=== PATIENT | male | born 1960 | race Caucasian/White ===

== ENCOUNTER → 2023-05-02 10:45 | Outpatient (REF) | payer BC, SELFPAY | LOC: RADI 10:45 | PROVIDERS: ATTENDING PHYSICIAN Specialist | DX: Z49.01 Encounter for fitting and adjustment of extracorporeal dialysis catheter (principal); N18.6 End stage renal disease | CPT/HCPCS: 36589; 77001 ==

== ENCOUNTER 2023-06-24 23:59 | Inpatient (IN) | payer BC, SELFPAY ==
[2023-06-24 22:09] VITALS: BP 115/46
[2023-06-24 22:14] LABS: Glucose - Point of Care > 600 mg/dl (70-99)
[2023-06-24 22:18] VITALS: BP 115/46
[2023-06-24 22:21] VITALS: BMI 25.7
[2023-06-24 22:30] LABS: % Basophils 0.3 % (0-2); % Eosinophils 0.1 % (0-6); % Lymphocytes 3.7 % (20.5-51.1); % Monocytes 8.1 % (1.7-9.3); % Neutrophils 86.8 % (42.2-75.2); Absolute Immature Granulocytes 0.2 10^3/uL (0-0.05); Absolute Lymphocytes 0.6 10^3/uL (1.2-3.4); Absolute Monocytes 1.3 10^3/uL (0.1-0.6); Absolute Neutrophils 13.5 10^3/uL (1.4-6.5); Hematocrit 31.5 % (39.0-52.0); Hemoglobin 10.2 g/dL (13.0-18.0); Mean Corp Hgb Conc. 32.4 g/dL (33.0-37.0); Mean Corpuscular Hgb 30.2 pg (27.0-31.0); Mean Corpuscular Volume 93.2 fL (80.0-94.0); Mean Platelet Volume 10.3 fL (7.4-10.4); Nucleated Red Blood Cells % 0 % (-); Platelet Count 238 10^3/uL (130-400); Red Blood Cell Count 3.38 10^6/uL (4.70-6.10); Red Cell Dist. Width 13.2 % (11.5-14.5); White Blood Cell Count 15.6 10^3/uL (4.8-10.8)
[2023-06-24 22:59] LABS: ALT (SGPT) 30 U/L (0-50); AST (SGOT) 26 U/L (17-59); Albumin 2.7 g/dl (3.5-5.0); Alkaline Phosphatase 206 U/L (38-126); Blood Urea Nitrogen 75 mg/dl (9-20); Calcium 7.1 mg/dl (8.4-10.2); Carbon Dioxide < 5 mmol/L (22-30); Chloride 93 mmol/L (98-107); Estimated Creatinine Clearance 11 ml/min; Potassium 5.9 mmol/L (3.5-5.1); Sodium 122 mmol/L (135-145); Total Bilirubin 0.7 mg/dl (0.2-1.3); Total Protein 4.5 g/dl (6.3-8.2); eGFR 8.89
[2023-06-24 23:00] VITALS: BP 117/92
[2023-06-24 23:05] LABS: Glucose 1125 mg/dl (70-99)
--- NOTE | 2023-06-24 23:16 | ED.GENMED ---
History of Present Illness
General
Chief Complaint: Blood Sugar Problem
Source: family
Exam Limitations: clinical condition
Time Seen by Provider: 06/24/23 23:05
Travel History
Have you had any contact with someone who has COVID-19?: No
Do you have any symptoms of coronavirus? Fever > 100 degrees, chills, cough, shortness of breath, sore throat, loss of taste or smell, muscle aches, or headache?: No
History of Present Illness
History of Present Illness:
See MDM
Past History
Past History
ED Past Medical History: HTN, IDDM and Renal failure
ED Past Surgical History: Orthopedic and Other
Social History
Tobacco: Other
Alcohol: Other
Drug: None
Personal:
Living: with family
Employment: Other
Family History
Family History: Other
Phy Exam
Physical Exam
Physical Exam:
See MDM
Course
Orders/Labs/Results
Orders:
Orders
06/24/23 22:22
Complete Blood Count/With Diff Urgent
Comprehensive Metabolic Panel Urgent
06/24/23 23:10
0.9% Sodium Chloride 1000 ml [Nss] 1,000 ml IV BOLUS
0.9% Sodium Chloride 1000 ml [Nss] 1,000 ml IV BOLUS
Reg Insulin 100 Units/100 ml [Novolin R Insulin Infusion] 100 units in 100 ml IV NOW
06/24/23 23:11
Bedside Glucose- Treatment Q1H
IV Insert/Care/Rem.- Treatment PRN
06/24/23 23:12
Venous Blood Gas Urgent
%Oxygen/Room Air: Room
06/24/23 23:15
Basic Metabolic Panel Q2H
Lactic Acid Q4H
Comment: CANCEL 2nd LACTIC ACID IF 1st LACTIC ACID IS LESS THAN 2
Urinalysis Reflex To Culture Urgent
Blood Culture Q30M
GUILLERMO Source: Blood/Venous
Specimen Description:
06/24/23 23:45
Blood Culture Q30M
GUILLERMO Source: Blood/Venous
Specimen Description:
06/25/23 01:15
Basic Metabolic Panel Q2H
06/25/23 03:15
Basic Metabolic Panel Q2H
Lactic Acid Q4H
Comment: CANCEL 2nd LACTIC ACID IF 1st LACTIC ACID IS LESS THAN 2
Abnormal Lab Results
06/24/23 06/24/23
22:12 22:22
WBC 15.6 H 10^3/uL
(4.8-10.8)
RBC 3.38 L 10^6/uL
(4.70-6.10)
Hgb 10.2 L g/dL
(13.0-18.0)
Hct 31.5 L %
(39.0-52.0)
MCHC 32.4 L g/dL
(33.0-37.0)
Abs Immat Gran (auto) 0.2 H 10^3/uL
(0-0.05)
Absolute Neuts (auto) 13.5 H 10^3/uL
(1.4-6.5)
Absolute Lymphs (auto) 0.6 L 10^3/uL
(1.2-3.4)
Absolute Monos (auto) 1.3 H 10^3/uL
(0.1-0.6)
Immature Gran % 1.0 H %
(0-0.5)
Neutrophils % 86.8 H %
(42.2-75.2)
Lymphocytes % 3.7 L %
(20.5-51.1)
Sodium 122 L mmol/L
(135-145)
Potassium 5.9 H mmol/L
(3.5-5.1)
Chloride 93 L mmol/L
(98-107)
Carbon Dioxide < 5 L* mmol/L
(22-30)
BUN 75 H mg/dl
(9-20)
Creatinine 6.5 H* mg/dL
(0.7-1.3)
Glucose 1125 H* mg/dl
(70-99)
Calcium 7.1 L mg/dl
(8.4-10.2)
Alkaline Phosphatase 206 H U/L
(38-126)
Total Protein 4.5 L g/dl
(6.3-8.2)
Albumin 2.7 L g/dl
(3.5-5.0)
POC Glucose > 600 H* mg/dl
(70-99)
06/24/23 22:22
Vital Signs
Initial and Last Documented VS:
Initial Vital Signs
Temp Pulse Resp BP Pulse Ox
98.2 F 86 20 115/46 99
06/24/23 22:09 06/24/23 22:09 06/24/23 22:09 06/24/23 22:09 06/24/23 22:09
Last Documented Vital Signs
Temp Pulse Resp BP Pulse Ox
98.2 F 85 27 117/92 99
06/24/23 22:09 06/24/23 23:00 06/24/23 23:00 06/24/23 23:00 06/24/23 22:45
MDM/Problems Addressed
Differential Diagnosis Includes:
HPI and MDM Narrative:
63-year-old male presenting with increased confusion and uncontrolled blood sugar. Patient has a history of diabetes and end-stage renal disease. He performs peritoneal dialysis daily. called because patient was more combative and would not
get dialysis tonight.
Patient is altered and confused. He does respond to verbal stimuli. states he recently started ciprofloxacin for UTI. She denies prior history of DKA or spontaneous bacterial peritonitis.
I discussed my concern for elevated blood sugar. states that he recently changed his reservoir and his insulin pump
I was concerned because patient has mild abdominal tenderness on exam. We discussed significant blood work abnormality such as glucose 1125 and undetectable bicarb. I discussed admitting for DKA. Patient started on insulin drip
Physical exam
General: Altered, confused, lying in bed with eyes closed
HEENT: protecting airway
Neck: supple
CV: No evidence of cyanosis
Resp: No accessory muscle use
Abd: Non-distended. Distractible exam but intermittent abdominal tenderness noted. No skin changes surrounding peritoneal dialysis port
Extremities: No deformities
Neuro: Confused. No focal deficits. Responds to verbal stimuli
Psych: Flat affect
Skin: Intact
Problems Addressed including Acute and Chronic Conditions affecting care:
1. DKA
Acuity: acute
Prognosis:unstable
Details: Given the elevated blood sugar, confusion and undetectable bicarb, patient started on insulin
2. Abdominal pain
Acuity: acute
Prognosis: unstable
Details: Patient started ciprofloxacin for UTI. Discussed that this could be UTI versus SBP. Case discussed with hospitalist and discussed obtaining peritoneal fluid. Will obtain blood cultures
Differential Diagnosis (but not limited to): DKA, UTI, SBP
Testing considered: CT abdomen/pelvis
Drug therapy (if applicable): OTC meds, please see d/c instruction regarding Rx drugs
Amount and/or Complexity of Data Reviewed
Clinical info obtained from: Patient
External data reviewed: N/A
Labs I independently reviewed (but not limited to): Elevated blood sugar, low bicarb
Radiology: N/A
Pulse Ox: not hypoxic
EKG independently reviewed: N/A
Insurance Business Analyst: Sinus rhythm
Critical Care: The high probability of a clinically significant, sudden or life threatening deterioration of the endocrine system(s) required my full and direct attention, intervention and personal management. The aggregate critical care time was 33
minutes. This time is in addition to time spent performing reported procedures but includes the following:
[x] Data Review and interpretation
[x] Patient assessment and monitoring of vital signs
[x] Documentation
[x] Medication orders and management
Risk of Complication:
Social Determinants of health: Good social support
Discussed with other providers: Hospitalist
Escalation of Care includes Admit/Obs: given the DKA and altered mental status, will admitted on insulin drip
Occasional wrong word or 'sound a like' substitutions may have occurred due to the inherent limitations of voice recognition software. Read the chart carefully and recognize, using context, where substitutions have occurred.
*Critical Care Note
Total Time (30-74mins, 75-104mins- exclusive of procedures): 33 min
ED Attending Note
-
Portions of this chart may have been created with voice recognition software.� Occasional wrong word or��sound alike� substitutions may have occurred due to the inherent limitations of voice recognition software.
Discharge Plan
Departure
Patient Disposition: Admit
Date of Disposition: 06/24/23
Time of Disposition: 23:17
Admit to: ICU
Presentation/result/management discussed w/ accepting MD/DO: Hospitalist
Discharge Problem:
DKA (diabetic ketoacidosis)
Prescriptions:
No Action
tamsulosin 0.4 mg Capsule
0.4 mg PO DAILY
gabapentin 100 mg Capsule
100 mg PO BID
insulin aspart U-100 [Novolog FlexPen U-100 Insulin] 100 unit/mL (3 mL) Insulin Pen
1 sliding scale dose SC .VIA PUMP
Patient Comments:
12/05/2022: Via insulin pump
rosuvastatin 20 mg Tablet
20 mg PO QPM
diltiazem HCl 120 mg Capsule,Extended Release 12 Hr
120 mg PO DAILY
torsemide 20 mg tablet
20 mg PO DAILY
ciprofloxacin HCl 500 mg tablet
500 mg PO . DIRECTED
Patient Comments:
06/24/2023: take 1 tablet daily after dialysis for 7 days
calcitriol 0.5 mcg capsule
0.5 mcg PO DAILY
cinacalcet 30 mg tablet
30 mg PO DAILY
sevelamer carbonate 800 mg tablet
800 mg PO MEALS
Referrals:
Dez Mcelroy MD [Family Provider] -
Interventions
Interventions:
*Risk Screen - Suicide Last Done: 06/24/23 22:09
*General Assessment Last Done: 06/24/23 22:09
*Neglect/Abuse Screening Last Done: 06/24/23 22:09
ED- Neurological Assessment Last Done: 06/24/23 22:38
Discharge Date and Time
Print Language: MARSHALLESE
[2023-06-24 23:19] VITALS: BP 153/122
--- NOTE | 2023-06-24 23:19 | HPS.HSE ---
Family Physician
-
Family Physician: Dez Mcelroy
Chief Complaint
-
Confusion and Elevated Blood Sugar
History of Present Illness
Patient is a 63 y/o male with a past medical history of diabetes mellitus, end stage renal disease, hypertension, and hyperlipidemia who presents for confusion and elevated blood sugar over the past few days. Patient is a poor historian due to
altered mental status. His states that he began having urinary frequency with confusion a few days ago. She took him to the doctor and he was put on Cipro for a urinary tract infection. He began getting combative tonight and refused his daily
peritoneal dialysis. His blood sugar has been uncontrolled today but his believes that his insulin pump is working because she recently checked the reservoir and it was close to empty. His admits to a fever earlier in the week but cannot
recall his exact temperature.
Medical History
Past Medical History
Past Medical History: Reports Other
Additional Past Medical History:
Diabetes Mellitus, Type I with Retinopathy, Nephropathy, and Neuropathy
ESRD on Peritoneal Dialysis
Secondary Hyperparathyroidism
Anemia of Renal Disease
Essential Hypertension
Hyperlipidemia
BPH
Past Surgical History: Reports Other
Additional Past Surgical History:
Peritoneal Dialysis Catheter
Social History
Tobacco: Non-smoker
Alcohol: Occasional
Family History
Family History: Not pertinent
Allergies / Home Medications
Allergies reflects when Allergies were last updated in [employer].
Home Medications with original date entered in [employer]
Allergy/Medication List:
Allergies
Allergy/AdvReac Type Severity Reaction Status Date / Time
No Known Allergies Allergy Verified 06/24/23 22:21
Home Medications
gabapentin 100 mg capsule 100 mg PO BID 08/09/22
insulin aspart U-100 100 unit/mL (3 mL) subcutaneous pen (Novolog FlexPen U-100 Insulin aspart) 1 sliding scale dose SC .VIA PUMP 08/09/22
rosuvastatin 20 mg tablet 20 mg PO QPM 08/09/22
tamsulosin 0.4 mg capsule 0.4 mg PO DAILY 08/09/22
diltiazem HCl 120 mg capsule,extended release 12 hr 120 mg PO DAILY 11/30/22
calcitriol 0.5 mcg capsule 0.5 mcg PO DAILY 06/24/23
cinacalcet 30 mg tablet 30 mg PO DAILY 06/24/23
ciprofloxacin HCl 500 mg tablet 500 mg PO . DIRECTED 06/24/23
sevelamer carbonate 800 mg tablet 800 mg PO MEALS 06/24/23
torsemide 20 mg tablet 20 mg PO DAILY 06/24/23
Review of Systems
-
Unable to obtain full review of systems at this time due to: Acuity
A 12 point ROS was completed and negative except as noted: Yes
Constitutional: Reports Fever (A few days ago per )
Respiratory: Reports Cough
Abdomen/GI: Reports Abdominal Pain
Physical Exam
Vital Signs
Vital Signs
Temp Pulse Resp BP Pulse Ox
98.2 F 85 27 117/92 99
06/24/23 22:09 06/24/23 23:00 06/24/23 23:00 06/24/23 23:00 06/24/23 22:45
Physical Exam
General: Well Developed and Well Nourished
HEENT: NormoCephalic, Anicteric and Atraumatic
Respiratory: Clear and Non Labored Respirations
Cardiac: S1/S2 and Regular Rhythm
GI: Soft, Tender (Though-out with some voluntary guarding) and Other (PD catheter site without surrounding erythema)
Rectal: Deferred by Provider
Musculoskeletal: No Clubbing, No Cyanosis and No Edema
Skin: Warm and Dry
Neuro: Other (Confused and not able to participate in full neurologic evaluation; Appears to move to all four extremities appropriately)
Laboratory Results
-
06/24/23 22:22
Laboratory Results
Total Bilirubin 0.7 mg/dl (0.2-1.3) 06/24/23 22:22
AST 26 U/L (17-59) 06/24/23 22:22
ALT 30 U/L (0-50) 06/24/23 22:22
Alkaline Phosphatase 206 U/L (38-126) H 06/24/23 22:22
Data Reviewed
-
Lab Data: Labs Reviewed by me
Old Records: Reviewed
Impression/Plan
-
Diabetic Ketoacidosis
-Admit to ICU
-Continue IVFs and insulin drip
-Check for sources of infection with urinalysis, blood cultures and chest x-ray
-Check Abd/Pelvis CT with tenderness on exam - Start empiric Zosyn
ESRD on Peritoneal Dialysis
Secondary Hyperparathyroidism
-Consult Nephrology
-Monitor Is&Os and Daily Weights
-Hold sevelamer and cinacalcet until able to resume oral intake
-Check phosphorus level
Anemia of Renal Disease
-Hgb stable
Diabetes Neuropathy
-Hold gabapentin
Essential Hypertension
-Hold diltiazem
Hyperlipidemia
-Hold rosuvastatin
BPH
-Hold tamsulosin
-Monitor bladder
DVT proph: SC Heparin
Code Status: Full Code
[2023-06-24] MEDS: NSS 1000 IV ×2 (23:26→23:27)
[2023-06-24 23:37] VITALS: BP 87/43
[2023-06-24] MEDS: NOVOLIN R INSULIN INFUSION 100 IV (23:42)
[2023-06-24 23:43] VITALS: BP 103/44
[2023-06-24 23:55] LABS: Venous Blood Gas B.E. -21.9 mmol/L (-4 to +4); Venous Blood Gas HCO3 5.9 mmol/L (22-27); Venous Blood Gas O2 Sat % 95.3 %; Venous Blood Gas pCO2 19 mmHg (35-48); Venous Blood Gas pO2 76 mmHg (30-50)
[2023-06-24 23:59] VITALS: BMI 25.9
[2023-06-25] VITALS (27 sets, daily range): BP systolic 83–118; BP diastolic 43–96; BMI 27.0
[2023-06-25 00:05] LABS: Lactic Acid 7.4 mmol/L (0.7-2.0)
[2023-06-25 00:06] LABS: Blood Urea Nitrogen 76 mg/dl (9-20); Calcium 6.9 mg/dl (8.4-10.2); Carbon Dioxide < 5 mmol/L (22-30); Chloride 93 mmol/L (98-107); Estimated Creatinine Clearance 11 ml/min; Phosphorus 8.6 mg/dl (2.5-4.5); Potassium 6.5 mmol/L (3.5-5.1); Sodium 121 mmol/L (135-145); eGFR 8.73
--- NOTE | 2023-06-25 00:14 | W.PN.UPDATE ---
Update Note
Progress Note Update
This is an addendum to the H&P written by CJ Mccabe on 06/25/2023. Patient seen and examined independently with PA. 63-year-old male past medical history of ESRD on peritoneal dialysis, diabetes on insulin pump, hypertension,
hyperlipidemia presenting for elevated blood sugar and confusion over the past few days. Daughter concerned about UTI patient was tested and found to have urinary tract infection and started on ciprofloxacin. Today he was combative.
On examination patient confused and combative with guarding of abdomen due to tenderness. No visible abdominal distention present. Labs show anion gap metabolic acidosis with potassium 5.9, sodium 122, lactic acidosis. Concern for intra-abdominal
infection given history of peritoneal dialysis catheter which was nonfunctioning and required replacement last year. N.p.o., IV fluids, insulin drip, monitor BMP and Accu-Cheks, check blood cultures, urinalysis, check CT abdomen pelvis and chest
x-ray, Zosyn. Nephrology consulted to assist with dialysis.
[2023-06-25 00:19] LABS: Glucose 1153 mg/dl (70-99)
[2023-06-25] MEDS: CALCIUM GLUCONATE 100 IV (00:30)
[2023-06-25] MEDS: NSS 1000 IV ×2 (01:46→09:38)
[2023-06-25] MEDS: ZOSYN 50 IV ×3 (01:47→17:35)
[2023-06-25 02:02] LABS: Blood Urea Nitrogen 75 mg/dl (9-20); Carbon Dioxide 5 mmol/L (22-30); Chloride 99 mmol/L (98-107); Estimated Creatinine Clearance 11 ml/min; Glucose 972 mg/dl (70-99); Potassium 4.6 mmol/L (3.5-5.1); Sodium 128 mmol/L (135-145); eGFR 9.06
--- NOTE | 2023-06-25 02:30 | PTCARENOTE ---
Received pt from ER,pt restless,confused,tolerated transfer well.Pt IV INSULIN GTT maintained via left forearm.Accuchecks cont q1hour,Physical assessment preformed,pt resists with any intervention. Stable VS afebrile SR java developer consultant.
[2023-06-25 02:44] LABS: Blood Urea Nitrogen 78 mg/dl (9-20); Calcium 7.2 mg/dl (8.4-10.2); Carbon Dioxide < 5 mmol/L (22-30); Chloride 99 mmol/L (98-107); Estimated Creatinine Clearance 11 ml/min; Glucose 933 mg/dl (70-99); Potassium 4.5 mmol/L (3.5-5.1); Sodium 129 mmol/L (135-145); eGFR 8.89
--- NOTE | 2023-06-25 03:30 | PTCARENOTE ---
PD preformed,pt had negative output for drain time.Pt tolerated exchange well,dwell time is for 4 hours,abd soft round palp,pt denies pain.
[2023-06-25 03:48] LABS: Glucose - Point of Care > 600 mg/dl (70-99)
[2023-06-25 04:02] LABS: Lactic Acid 4.6 mmol/L (0.7-2.0)
[2023-06-25 04:08] LABS: Urine Albumin 1+ (Neg - Trace); Urine Bilirubin Negative (Negative); Urine Character Clear (Clear); Urine Color Yellow; Urine Glucose 3+ (Negative); Urine Ketone 1+ (Negative); Urine Leukocyte Negative (Negative); Urine Nitrite Negative (Negative); Urine Occult Blood 4+ (Negative); Urine Specific Gravity 1.015 (<1.030); Urine Urobilinogen Negative (Neg - 1+)
[2023-06-25 04:24] LABS: Blood Urea Nitrogen 77 mg/dl (9-20); Calcium 7.1 mg/dl (8.4-10.2); Carbon Dioxide 7 mmol/L (22-30); Chloride 103 mmol/L (98-107); Estimated Creatinine Clearance 11 ml/min; Glucose 868 mg/dl (70-99); Potassium 3.8 mmol/L (3.5-5.1); Sodium 128 mmol/L (135-145); eGFR 9.06
[2023-06-25 04:47] LABS: Hematocrit 26.8 % (39.0-52.0); Mean Corp Hgb Conc. 33.6 g/dL (33.0-37.0); Mean Corpuscular Hgb 29.6 pg (27.0-31.0); Mean Corpuscular Volume 88.2 fL (80.0-94.0); Mean Platelet Volume 10.4 fL (7.4-10.4); Platelet Count 223 10^3/uL (130-400); Red Blood Cell Count 3.04 10^6/uL (4.70-6.10); Red Cell Dist. Width 13.1 % (11.5-14.5); White Blood Cell Count 18.3 10^3/uL (4.8-10.8)
[2023-06-25 04:49] LABS: Glucose - Point of Care > 600 mg/dl (70-99)
[2023-06-25 04:56] LABS: INR 1.39; PT 16.9 Sec (11.4-14.6)
[2023-06-25 04:57] LABS: APTT 25.4 Sec (23.4-35.0)
[2023-06-25 05:16] LABS: Urine Bacteria Few (Negative); Urine Hyaline Cast 0-2 /LPF (0-2); Urine Red Blood Cell 16-20 /HPF (0-2); Urine White Cell 0-2 /HPF (0-5)
[2023-06-25 05:35] LABS: Blood Urea Nitrogen 76 mg/dl (9-20); Calcium 7.3 mg/dl (8.4-10.2); Carbon Dioxide 10 mmol/L (22-30); Chloride 103 mmol/L (98-107); Estimated Creatinine Clearance 11 ml/min; Glucose 829 mg/dl (70-99); Potassium 3.5 mmol/L (3.5-5.1); Sodium 128 mmol/L (135-145); eGFR 9.41
[2023-06-25 05:40] LABS: Glucose - Point of Care > 600 mg/dl (70-99)
[2023-06-25 06:26] LABS: Blood Urea Nitrogen 80 mg/dl (9-20); Calcium 7.5 mg/dl (8.4-10.2); Carbon Dioxide 11 mmol/L (22-30); Chloride 100 mmol/L (98-107); Estimated Creatinine Clearance 11 ml/min; Glucose 796 mg/dl (70-99); Potassium 3.5 mmol/L (3.5-5.1); Sodium 128 mmol/L (135-145); eGFR 9.41
--- NOTE | 2023-06-25 06:44 | CON.INTV ---
Consultation
Consultation Request
Date/Time Consultation Requested: 06-25-23
Date/Time Consultation Performed: 06-25-23
Requesting Provider: Hospitalist noreen
Performing Provider: Dr Sherwood
Reason for Consultation: DKA
Medical History
-
Chief Complaint: confusion
History of Present Illness:
Mr Ross Godinez is a 63/M adm 06-23 with few d h/o uncontrolled hyperglycemia, confusion/combativeness.
Reportedly recent initiation of oral ciprofloxacin for suspected UTI.
No reported h/o previous DKA or SBP. Abd pain on ER
Seen at ICU, MS improving, no combativeness, still marginal historian, appears in NAD
Past Medical History
Past Medical History: HTN, Hypercholesterolemia, IDDM, Renal Failure and Other (secondary hyperparathyroidism, BPH)
Social History
Tobacco: Non-smoker
Alcohol: Occasional
Drug: None
Personal:
Living: With Family
Family History
Family History: Reviewed & Not Pertinent
Allergies / Home Medications
Allergies
Allergy/AdvReac Type Severity Reaction Status Date / Time
No Known Allergies Allergy Verified 06/25/23 00:35
Home Medications
�Medication �Instructions �Recorded �Confirmed �Last Taken �Type
gabapentin 100 mg capsule 100 mg PO BID 08/09/22 06/24/23 12/07/22 05:30 History
insulin aspart U-100 100 unit/mL 1 sliding scale dose SC .VIA PUMP 08/09/22 06/24/23 12/05/22 History
(3 mL) subcutaneous pen (Novolog
FlexPen U-100 Insulin aspart)
rosuvastatin 20 mg tablet 20 mg PO QPM 08/09/22 06/24/23 12/05/22 21:00 History
tamsulosin 0.4 mg capsule 0.4 mg PO DAILY 08/09/22 06/24/23 12/06/22 22:00 History
diltiazem HCl 120 mg 120 mg PO DAILY 11/30/22 06/24/23 12/07/22 05:30 History
capsule,extended release 12 hr
calcitriol 0.5 mcg capsule 0.5 mcg PO DAILY 06/24/23 06/24/23 Unknown History
cinacalcet 30 mg tablet 30 mg PO DAILY 06/24/23 06/24/23 Unknown History
ciprofloxacin HCl 500 mg tablet 500 mg PO . DIRECTED 06/24/23 06/24/23 Unknown History
sevelamer carbonate 800 mg tablet 800 mg PO MEALS 06/24/23 06/24/23 Unknown History
torsemide 20 mg tablet 20 mg PO DAILY 06/24/23 06/24/23 Unknown History
Review of Systems
-
Unable to Obtain full review of systems at this time due to: Acuity and Other (confusion)
Abdomen/GI: Abdominal Pain
: Frequency
Neuro: Other (confusion)
Vitals / Labs / Diagnostic Testing
Vital Signs
Temp Pulse Resp BP Pulse Ox
98.1 F 75 8 104/57 96
06/25/23 02:30 06/25/23 05:45 06/25/23 05:15 06/25/23 05:00 06/25/23 05:30
Lab Data
06/25/23 04:35
Laboratory Results
06/25/23
04:35
PT 16.9 H
INR 1.39
APTT 25.4
Diagnostic Testing:
Physical Exam
-
HEENT: Normocephalic and Moist Mucous Membranes
Cardiovascular: Regular Rhythm, Murmur (n), Peripheral Edema and JVD
Respiratory: Clear and Non-Labored Respirations
GI: Soft, Non Distended and Tender (trace, no rebound)
Neurology: Awake, No Motor Deficits and Other (confused)
Skin: Warm
General: Respiratory Distress (n)
Assessment
-
Assessment:
Mr Ross Godinez is a 63/M adm 06-23 with few d h/o uncontrolled hyperglycemia, confusion/combativeness. Reportedly recent initiation of oral ciprofloxacin for suspected UTI. No reported h/o previous DKA or SBP. Abd pain on ER physician
examination. Known h/o ESDR on PD (refused PD on DOA, reportedly required replacement of nonfunctioning PD catheter 1 y ago), IDDM on insulin pump.
Impression:
DKA
AGMA, lactic acidosis
TME
Hyperkalemia
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
IDDM
ESRD on PD. Temporary HD in early 2023
HTN
Nonsmoker
Plan:
Patient will be admitted to medical intensive care unit for close monitoring
Supplemental oxygen as needed
Monitor blood sugar
Monitor anion gap
Insulin drip
HgbA1c 11
Diabetic nurse practitioner consultation appreciated
High dose of IV insulin required, follow closely
Family to bring insulin pump
Intravenous fluid resuscitation
Monitor potassium closely
Resumed PD as inpatient
Blood cxs pending
UCx pending
Peritoneal fluid cx pending
Reported recent initiation of oral ciprofloxacin for suspected UTI (increased urinary frequency)
Empiric zosyn since adm
DVT prophylaxis
Early nutrition
Early mobilization
Critical care time: 35 min
[2023-06-25 06:45] LABS: Glucose - Point of Care > 600 mg/dl (70-99)
--- NOTE | 2023-06-25 07:04 | PTCARENOTE ---
Blood Glucose levels as follows:
0130-972
0200-933
0300-868
0400-829
0500-796
Insulin gtt at 8 units hour from 0130 to 0500.
[2023-06-25 07:13] LABS: Glucose 747 mg/dl (70-99)
--- NOTE | 2023-06-25 08:17 | W.CON.NEPH ---
Consultation
-
Date/Time Consultation Requested: 06/25/2023 2:00 AM
Date/Time Consultation Performed: 06/25/2023 8:00 AM
Requesting Provider: Harvey
Performing Provider: Glory
Reason for Consultation: ESRD
Medical History
-
Chief Complaint: End-stage renal disease
History of Present Illness:
The patient is a 63-year-old male with a past medical history of end-stage renal disease maintained on peritoneal dialysis. He has a history of diabetes maintained on insulin. He is maintained on Cinacalcet and Calcitriol for his secondary
hyperparathyroidism. He presented to ER last evening for confusion and elevated blood sugar over the past few days. Patient is a poor historian due to altered mental status. His states that he began having urinary frequency with confusion a
few days ago. She took him to the doctor and he was put on Cipro for a urinary tract infection. He began getting combative tonight and refused his daily peritoneal dialysis. His blood sugar has been uncontrolled today but his believes that his
insulin pump is working because she recently checked the reservoir and it was close to empty. His admits to a fever earlier in the week but cannot recall his exact temperature. On presentation to the hospital his blood sugar was greater than
1000 with multiple metabolic abnormalities and diabetic ketoacidosis. Nephrology was consulted for his peritoneal dialysis management.
Past Medical History
Diabetes Mellitus, Type I with Retinopathy, Nephropathy, and Neuropathy
ESRD on Peritoneal Dialysis
Secondary Hyperparathyroidism
Anemia of Renal Disease
Essential Hypertension
Hyperlipidemia
BPH
Social History
Tobacco: Non-Smoker
Alcohol: Occasional
Family History
no CKD
Allergies / Home Medications
Allergy/AdvReac Type Severity Reaction Status Date / Time
No Known Allergies Allergy Verified 06/25/23 00:35
�Medication �Instructions �Recorded �Confirmed �Type
gabapentin 100 mg capsule 100 mg PO BID 08/09/22 06/24/23 History
insulin aspart U-100 100 unit/mL 1 sliding scale dose SC .VIA PUMP 08/09/22 06/24/23 History
(3 mL) subcutaneous pen (Novolog
FlexPen U-100 Insulin aspart)
rosuvastatin 20 mg tablet 20 mg PO QPM 08/09/22 06/24/23 History
tamsulosin 0.4 mg capsule 0.4 mg PO DAILY 08/09/22 06/24/23 History
diltiazem HCl 120 mg 120 mg PO DAILY 11/30/22 06/24/23 History
capsule,extended release 12 hr
calcitriol 0.5 mcg capsule 0.5 mcg PO DAILY 06/24/23 06/24/23 History
cinacalcet 30 mg tablet 30 mg PO DAILY 06/24/23 06/24/23 History
ciprofloxacin HCl 500 mg tablet 500 mg PO . DIRECTED 06/24/23 06/24/23 History
sevelamer carbonate 800 mg tablet 800 mg PO MEALS 06/24/23 06/24/23 History
torsemide 20 mg tablet 20 mg PO DAILY 06/24/23 06/24/23 History
Review of Systems
-
Unable to obtain full review of systems at this time due to: Acuity
All other systems: Negative unless noted
Abdomen/GI: Abdominal Pain
: Dysuria and Other (Ward currently indwelling)
Endocrine: Other (Blood sugar greater than 1000)
Physical Exam
Vital Signs
Vital Signs
Temp Pulse Resp BP Pulse Ox
99.3 F 76 6 108/59 94
06/25/23 07:55 06/25/23 07:15 06/25/23 07:15 06/25/23 07:00 06/25/23 07:15
Lab Results
06/25/23 04:35
WBC 18.3 10^3/uL (4.8-10.8) H 06/25/23 04:35
RBC 3.04 10^6/uL (4.70-6.10) L 06/25/23 04:35
Hgb 9.0 g/dL (13.0-18.0) L 06/25/23 04:35
Hct 26.8 % (39.0-52.0) L 06/25/23 04:35
Plt Count 223 10^3/uL (130-400) 06/25/23 04:35
eGFR 9.41 06/25/23 05:27
Phosphorus 8.6 mg/dl (2.5-4.5) H 06/24/23 23:31
Albumin 2.7 g/dl (3.5-5.0) L 06/24/23 22:22
Physical Exam
General: Other (Very lethargic poorly responsive)
HEENT: EOMI, Anicteric, Conjunctivae Clear, Ear/Nose Intact, Hearing Normal, Dentition Intact, Neck Supple, Trachea Midline and No Thyromegaly
Respiratory: Clear
Cardiac: S1/S2 and Regular Rate/Rhythm
Breast: Deferred by me
Abdomen: Soft, Nontender, Nondistended and Other (PD catheter exit site without evidence of infection)
Rectal: Deferred by Provider
Genito-urinary: No Costovertebral Tender and Clear Urine (Via Ward cath)
Musculoskeletal: No Clubbing, No Cyanosis and No Edema
Skin: No Rash, Warm, Dry, No Clubbing, No Cyanosis and Normal Turgor
Neuro: Other (Patient lethargic and not cooperative with exam)
Hematologic/Lymphatic: No Cervical Lymphadenopathy, No Submandibular Lymphadenopathy and No Supraclavicular Lymphadenopathy
Psych: Other (Lethargic encephalopathic)
Assessment/Plan
-
Impression:
ESRD/PD
Metabolic encephalopathy
DKA (AG:>25)
Hypertension
Secondary hyperparathyroidism
Diabetes
Hyperphosphatemia
Dyslipidemia
BPH
Plan:
-PD orders provided (1.5% at q4 hr intervals)
-serial labs ordered
-Insulin drip for DKA until gap closes
-PD fluid culture and cell count obtained re: concern for possible peritonitis (on empiric Zosyn renally dosed)
-Blood cultures pending
-CT of abdomen and pelvis pending report to be reviewed
-IVFs at NSS at 125cc/hr, will reassess volume status at end of day, currently with continued urine output
-FATIMAH therapy for anemia
-Patient currently critically ill with metabolic encephalopathy in the setting of DKA
Total Time Spent with Patient (in minutes): 50
Data Reviewed
-
Radiology: Image Personally Visualized and interpreted (Chest x-ray personally reviewed no evidence of congestive heart failure or pneumonia by my review)
Labs: Labs Reviewed by me (BMP CBC reviewed)
Old Records: Reviewed (History and physical for PD cath report reviewed from November 2022)
Critical Care Time (in minutes): 50
[2023-06-25 08:22] LABS: Glucose - Point of Care > 600 mg/dl (70-99)
--- NOTE | 2023-06-25 08:43 | W.PN.UPDATE ---
Update Note
Progress Note Update
Peritoneal dialysis note
1.5% 2 L volume at q4-hour interval
[2023-06-25 09:01] LABS: Lactic Acid 1.9 mmol/L (0.7-2.0)
[2023-06-25 09:24] LABS: Body Fluid Mononuclear 86.6 %; Body Fluid Polymorphonuclear 13.4 %; Body Fluid WBC 15 /CUMM
[2023-06-25 09:29] LABS: Body Fluid Second Tech JKH
[2023-06-25] MEDS: HEPARIN 5000 UNITS SC ×3 (09:38→23:42)
[2023-06-25 10:02] LABS: Blood Urea Nitrogen 79 mg/dl (9-20); Calcium 7.4 mg/dl (8.4-10.2); Carbon Dioxide 14 mmol/L (22-30); Chloride 105 mmol/L (98-107); Estimated Creatinine Clearance 11 ml/min; Glucose 685 mg/dl (70-99); Potassium 3.5 mmol/L (3.5-5.1); Sodium 129 mmol/L (135-145); eGFR 9.41
[2023-06-25 10:07] LABS: Glucose - Point of Care > 600 mg/dl (70-99)
[2023-06-25] MEDS: KCL 160 MEQ IV (10:07)
[2023-06-25 10:31] LABS: Amphetamines Negative (Negative); Barbiturates Negative (Negative); Benzodiazepines Negative (Negative); Buprenorphine Negative (Negative); Cocaine Negative (Negative); Marijuana Negative (Negative); Methadone Negative (Negative); Methamphetamines Negative (Negative); Opiates Negative (Negative); Phencyclidine Negative (Negative); Tricyclic Antidepressants Negative (Negative)
[2023-06-25 11:50] LABS: Blood Urea Nitrogen 77 mg/dl (9-20); Calcium 7.4 mg/dl (8.4-10.2); Carbon Dioxide 16 mmol/L (22-30); Chloride 103 mmol/L (98-107); Estimated Creatinine Clearance 12 ml/min; Glucose 621 mg/dl (70-99); Potassium 3.9 mmol/L (3.5-5.1); Sodium 129 mmol/L (135-145); eGFR 9.79
--- NOTE | 2023-06-25 12:09 | PN.DE.MGMTRT ---
Insulin Management
- -
06/25/2023 Diabetes Management Consult
Patient admitted 06/23 with blood sugar problem, venous glucose 1,125, with confusion. Patient in DKA, GAP 25, A1C 11%, cr 6.2, eGFR 9.41. PMH includes Type 1 diabetes, HTN, peritoneal dialysis daily. Patient uses an insulin pump which is not at
the bedside.
Patient sleeping, awaked to discuss events leading up to hospitalization but patient falls to sleep mid sentence.
Currently on the DKA insulin infusion, glucose remains > 600. Will continue glycemic protocol overnight, as pump is not here and patient is unable to manage at this time.
Will follow
I spoke to patients nurse regarding plan. I also called patient , luis laws regarding bringing pump and supplies.
Diabetes History
- -
Type of Diabetes: 1
Pre-Admission Diabetes Regimen
06/24/23 06/24/23 06/25/23
22:22 23:31 01:22
Creatinine 6.5 H* 6.6 H* 6.4 H*
06/25/23 06/25/23 06/25/23
02:10 03:31 04:35
Creatinine 6.5 H* 6.4 H* 6.2 H*
06/25/23 06/25/23 06/25/23
05:27 08:17 10:00
Creatinine 6.2 H* 6.2 H* Cancelled
06/25/23 06/25/23 06/25/23
10:00 12:00 14:00
Creatinine 6.0 H* Cancelled Cancelled
06/25/23 06/25/23 06/25/23
16:00 18:00 20:00
Creatinine Cancelled Cancelled Cancelled
06/25/23
22:00
Creatinine Cancelled
Lab Results
Hemoglobin A1c 11.0 % (4.0-5.6) H 06/25/23 04:35
Insulin Pump Settings
IP Diabetes Regimen
06/24/23 06/24/23 06/24/23
22:12 22:22 23:31
Glucose 1125 H* 1153 H*
POC Glucose > 600 H*
06/25/23 06/25/23 06/25/23
01:22 02:10 02:10
Glucose 972 H* 933 H* Cancelled
POC Glucose
06/25/23 06/25/23 06/25/23
03:31 03:36 04:35
Glucose 868 H* 829 H*
POC Glucose > 600 H*
06/25/23 06/25/23 06/25/23
04:37 05:27 05:29
Glucose 796 H*
POC Glucose > 600 H* > 600 H*
06/25/23 06/25/23 06/25/23
06:34 06:39 08:07
Glucose 747 H*
POC Glucose > 600 H* > 600 H*
06/25/23 06/25/23 06/25/23
08:17 09:56 10:00
Glucose 685 H* Cancelled
POC Glucose > 600 H*
06/25/23 06/25/23 06/25/23
10:00 12:00 14:00
Glucose 621 H* Cancelled Cancelled
POC Glucose
06/25/23 06/25/23 06/25/23
16:00 18:00 20:00
Glucose Cancelled Cancelled Cancelled
POC Glucose
06/25/23
22:00
Glucose Cancelled
POC Glucose
Patient Education
[2023-06-25 12:14] LABS: Glucose - Point of Care 554 mg/dl (70-99)
--- NOTE | 2023-06-25 12:15 | PTCARENOTE ---
PT received from supervisor malted milk RN. Pt is lethargic, Ox1-2 and forgetful. He does follow commands when prompted and is more cooperative. NSR on tele, HR in the 60's. Currently on 2L, 94% sat. Pt snoring with short periods of sleep apnea. Pt complains
of mild ABD tenderness on palpation with no rebound pain. PD site dressed. Ward catheter draining clear urine 15-30/hr. Skin is clear, restraints removed. Pt continues on insulin gtt at 8 units/hr. IV sites intact.
[2023-06-25] MEDS: NOVOLIN R INSULIN INFUSION 100 IV (12:54)
[2023-06-25 13:06] LABS: Glucose 539 mg/dl (70-99)
--- NOTE | 2023-06-25 13:16 | W.PN.HOSP.TC ---
Today's Communication/Plan
-
see note
Assessment / Plan
Assessment / Plan
Ct a/p
1). There is free intraperitoneal air likely on the basis of peritoneal dialysis catheter.
Perforated abdominal viscus is less likely
2). Hepatomegaly with diffuse fatty infiltration of the liver.
3). Atherosclerosis
4). Mild prostatomegaly
5). Multiple renal cysts

1. Diabetic ketoacidosis
Uncontrolled IDDM
-Reason for diabetic ketoacidosis remains unclear.
-Have uncontrolled diabetes at baseline with hemoglobin A1c of 11%
-Admission blood glucose 1125 Bicarb <5 AGAP ~ 40
-Currently on insulin drip @ 8 U/hr
-Last blood glucose of 539, bicarb 16.
-Continue following BMP every 4 hours. Will be transition to subcu insulin.
-Diabetic nurse petitioner involved and patient family will require to bring in insulin pump.
2. ESRD on Peritoneal Dialysis
Secondary Hyperparathyroidism
-Nephrology following and help appreciated
-Monitor Is&Os and Daily Weights
-Hold sevelamer and cinacalcet until able to resume oral intake
3. Leukocytosis
-Reactive versus possible infectious source
-CTAP ruled out any acute abnormality
-Patient makes some urine, UA showing few bacteria and RBC.
-Chest x-ray today clear
-f/u blood cs report
-Peritoneal fluid sample from catheter showing WBC 15 /cumm
-Maintain on empiric Zosyn
4. Acute TME
-from above mentioned issues
-continue supportive care
Anemia of Renal Disease
Diabetes Neuropathy
Essential Hypertension
Hyperlipidemia
BPH
DVT proph: SC Heparin
Code Status: Full Code
Total critical care time 38 miuns . Total critical care time documented does not include time spent on separately billed procedures or the services of residents, students, nurses or physician assistants. I personally saw and examined the patient. I
have reviewed all diagnostic interpretations and treatment plans as written. I was present for the cook portions of any procedures performed and the inclusive time noted in any critical care statement. Critical care time includes patient management
by me, time spent at the patients bedside, time to review lab and imaging results, discussing patient care, documentation in the medical record, and time spent with the family or caregiver.
Anticipated Discharge: > 48 hours
Subjective/Interval History
-
Date of Service: June 25, 2023
patient somnolent
no acute issues reported overnight
Objective Data
-
Labs:
Laboratory Results
06/25/23 06/25/23 06/25/23
01:22 02:10 02:10
WBC
Hgb
Hct
Plt Count
PT
INR
APTT
Sodium 128 L 129 L
Potassium 4.6 D 4.5
Chloride 99 99
Carbon Dioxide 5 L* < 5 L*
BUN 75 H 78 H
Creatinine 6.4 H* 6.5 H*
Glucose 972 H* 933 H* Cancelled
Calcium 7.0 L 7.2 L
06/25/23 06/25/23 06/25/23
03:31 04:35 05:27
WBC 18.3 H
Hgb 9.0 L
Hct 26.8 L
Plt Count 223
PT 16.9 H
INR 1.39
APTT 25.4
Sodium 128 L 128 L 128 L
Potassium 3.8 3.5 3.5
Chloride 103 103 100
Carbon Dioxide 7 L* 10 L* 11 L*
BUN 77 H 76 H 80 H
Creatinine 6.4 H* 6.2 H* 6.2 H*
Glucose 868 H* 829 H* 796 H*
Calcium 7.1 L 7.3 L 7.5 L
06/25/23 06/25/23 06/25/23
06:39 08:17 10:00
WBC
Hgb
Hct
Plt Count
PT
INR
APTT
Sodium 129 L Cancelled
Potassium 3.5
Chloride 105
Carbon Dioxide 14 L*
BUN 79 H
Creatinine 6.2 H*
Glucose 747 H* 685 H*
Calcium 7.4 L
06/25/23 06/25/23 06/25/23
10:00 10:00 10:00
WBC
Hgb
Hct
Plt Count
PT
INR
APTT
Sodium 129 L
Potassium Cancelled 3.9
Chloride Cancelled 103
Carbon Dioxide Cancelled
BUN
Creatinine
Glucose
Calcium
06/25/23 06/25/23 06/25/23
10:00 10:00 10:00
WBC
Hgb
Hct
Plt Count
PT
INR
APTT
Sodium
Potassium
Chloride
Carbon Dioxide 16 L
BUN Cancelled 77 H
Creatinine Cancelled 6.0 H*
Glucose Cancelled
Calcium
06/25/23 06/25/23 06/25/23
10:00 10:00 12:00
WBC
Hgb
Hct
Plt Count
PT
INR
APTT
Sodium Cancelled
Potassium Cancelled
Chloride Cancelled
Carbon Dioxide Cancelled
BUN Cancelled
Creatinine Cancelled
Glucose 621 H* Cancelled
Calcium Cancelled 7.4 L Cancelled
06/25/23 06/25/23 06/25/23
12:06 13:14 14:00
WBC
Hgb
Hct
Plt Count
PT
INR
APTT
Sodium Cancelled
Potassium
Chloride
Carbon Dioxide
BUN
Creatinine
Glucose 539 H* Pending
Calcium
06/25/23 06/25/23 06/25/23
14:00 14:00 14:00
WBC
Hgb
Hct
Plt Count
PT
INR
APTT
Sodium Pending
Potassium Cancelled Pending
Chloride Cancelled Pending
Carbon Dioxide Cancelled
BUN
Creatinine
Glucose
Calcium
06/25/23 06/25/23 06/25/23
14:00 14:00 14:00
WBC
Hgb
Hct
Plt Count
PT
INR
APTT
Sodium
Potassium
Chloride
Carbon Dioxide Pending
BUN Cancelled Pending
Creatinine Cancelled Pending
Glucose Cancelled
Calcium
06/25/23 06/25/23 06/25/23
14:00 14:00 16:00
WBC
Hgb
Hct
Plt Count
PT
INR
APTT
Sodium Cancelled
Potassium Cancelled
Chloride Cancelled
Carbon Dioxide Cancelled
BUN Cancelled
Creatinine Cancelled
Glucose Pending Cancelled
Calcium Cancelled Pending Cancelled
06/25/23 06/25/23 06/25/23
18:00 18:00 18:00
WBC
Hgb
Hct
Plt Count
PT
INR
APTT
Sodium Cancelled Pending
Potassium Cancelled Pending
Chloride Cancelled
Carbon Dioxide
BUN
Creatinine
Glucose
Calcium
06/25/23 06/25/23 06/25/23
18:00 18:00 18:00
WBC
Hgb
Hct
Plt Count
PT
INR
APTT
Sodium
Potassium
Chloride Pending
Carbon Dioxide Cancelled Pending
BUN Cancelled Pending
Creatinine Cancelled
Glucose
Calcium
06/25/23 06/25/23 06/25/23
18:00 18:00 18:00
WBC
Hgb
Hct
Plt Count
PT
INR
APTT
Sodium
Potassium
Chloride
Carbon Dioxide
BUN
Creatinine Pending
Glucose Cancelled Pending
Calcium Cancelled Pending
06/25/23 06/25/23 06/25/23
20:00 22:00 22:00
WBC
Hgb
Hct
Plt Count
PT
INR
APTT
Sodium Cancelled Cancelled Pending
Potassium Cancelled Cancelled
Chloride Cancelled
Carbon Dioxide Cancelled
BUN Cancelled
Creatinine Cancelled
Glucose Cancelled
Calcium Cancelled
06/25/23 06/25/23 06/25/23
22:00 22:00 22:00
WBC
Hgb
Hct
Plt Count
PT
INR
APTT
Sodium
Potassium Pending
Chloride Cancelled Pending
Carbon Dioxide Cancelled Pending
BUN Cancelled
Creatinine
Glucose
Calcium
06/25/23 06/25/23 06/25/23
22:00 22:00 22:00
WBC
Hgb
Hct
Plt Count
PT
INR
APTT
Sodium
Potassium
Chloride
Carbon Dioxide
BUN Pending
Creatinine Cancelled Pending
Glucose Cancelled Pending
Calcium Cancelled
06/25/23
22:00
WBC
Hgb
Hct
Plt Count
PT
INR
APTT
Sodium
Potassium
Chloride
Carbon Dioxide
BUN
Creatinine
Glucose
Calcium Pending
Vital Signs:
Vital Signs
Temp Pulse Resp BP Pulse Ox
98.5 F 64 13 107/59 94
06/25/23 12:04 06/25/23 12:15 06/25/23 12:15 06/25/23 12:00 06/25/23 12:15
I&O
06/24/23 06/25/23 06/26/23
06:59 06:59 06:59
Intake Total 715 / 848 1148 / 1148
Output Total 500 / 510 200 / 200
Balance 215 / 338 948 / 948
Review of Systems
-
Respiratory: Reports No Symptoms
Cardiac: Reports No Symptoms
Abdomen/GI: Reports No Symptoms
Physical Exam
-
General: No Apparent Distress and Comfortable
HEENT: Negative Oxygen
Respiratory: Clear to Auscultation
Cardiac: Regular Rhythm and S1/S2; Negative Murmur or Rub
GI: Soft, Nontender and Nondistended
Musculoskeletal: No Edema
Neuro: Awake, Alert, Oriented, No Motor Deficits and Nonfocal/Grossly Intact
Psych: Calm
[2023-06-25 13:18] LABS: Glucose - Point of Care 507 mg/dl (70-99)
[2023-06-25 13:57] LABS: Glucose 488 mg/dl (70-99)
[2023-06-25 14:23] LABS: Glucose - Point of Care 451 mg/dl (70-99)
--- NOTE | 2023-06-25 14:51 | CM ---
Patient seen at bedside. Patient not present x2 when patient seen. CM called and left for patient on cell phone and no message machine on land line. Patient remains somewhat confused but able to answer some questions. Patient indicated
that he lives in a 2 story home and his works. Patient did not think he had changed his physicians recently and indicated that he does not have any home O2 or DME at home. Patient chart indicated that Dr. Mcelroy is the PCP and he uses the [facility] in [place]. Per , home is a ranch style home and patient has been independent of ADL's and IADL's prior to hospital admission. Patient is on peritoneal dialysis per patient . CM will continue to follow for discharge planning needs.
Plan; home with VN; peritoneal dialysis vs SNF pending PT/OT assessments.
[2023-06-25 15:07] LABS: Blood Urea Nitrogen 78 mg/dl (9-20); Calcium 7.7 mg/dl (8.4-10.2); Carbon Dioxide 18 mmol/L (22-30); Chloride 103 mmol/L (98-107); Estimated Creatinine Clearance 12 ml/min; Glucose 436 mg/dl (70-99); Potassium 3.5 mmol/L (3.5-5.1); Sodium 132 mmol/L (135-145); eGFR 9.79
[2023-06-25 15:31] LABS: Glucose - Point of Care 329 mg/dl (70-99)
[2023-06-25 16:46] LABS: Glucose - Point of Care 302 mg/dl (70-99)
--- NOTE | 2023-06-25 16:56 | PTCARENOTE ---
Pt reassesed. MS improving, opening eyes more, slightly more conversant, still quite drowsy. Blood glucose now less than 400, insulin gtt continues. Still complains of some mild ABD tenderness. Ward putting out ~15mls/hr of clear urine. 3rd PD
dwell starting at 1650, due to be drained at 2050.
[2023-06-25 17:43] LABS: Glucose - Point of Care 243 mg/dl (70-99)
[2023-06-25 18:22] LABS: Blood Urea Nitrogen 71 mg/dl (9-20); Calcium 7.4 mg/dl (8.4-10.2); Carbon Dioxide 19 mmol/L (22-30); Chloride 107 mmol/L (98-107); Estimated Creatinine Clearance 12 ml/min; Glucose 217 mg/dl (70-99); Potassium 3.2 mmol/L (3.5-5.1); Sodium 133 mmol/L (135-145)
[2023-06-25] MEDS: D5/0.9% SODIUM CHLORIDE 1000 IV (18:44)
[2023-06-25] MEDS: KCL 270 MEQ IV (18:47)
[2023-06-25 18:50] LABS: Glucose - Point of Care 208 mg/dl (70-99)
[2023-06-25 19:45] LABS: Glucose - Point of Care 153 mg/dl (70-99)
[2023-06-25 19:57] LABS: Glucose - Point of Care 142 mg/dl (70-99)
[2023-06-25 20:40] LABS: Glucose - Point of Care 133 mg/dl (70-99)
[2023-06-25 21:48] LABS: Glucose - Point of Care 148 mg/dl (70-99)
--- NOTE | 2023-06-25 22:21 | PTCARENOTE ---
Rec'd care of patient at 1915. Patient alert and oriented to self/place. Disoriented to time. When asked the month, repeatedly stating his birthday. Confused and forgetful. NSR on tele monitor. VSS. Pulse ox 93-96% on RA. Lung sounds cta. Occasional
dry cough. +BS. PD catheter dressing c/d/i. PD Q4hr. Ward in place for critical I/O. Oliguric. Output 5-10 cc's an hour. Insulin and D5NS infusing as ordered. DKA protocol followed.
[2023-06-25 22:32] LABS: Blood Urea Nitrogen 71 mg/dl (9-20); Calcium 7.7 mg/dl (8.4-10.2); Carbon Dioxide 17 mmol/L (22-30); Chloride 110 mmol/L (98-107); Estimated Creatinine Clearance 12 ml/min; Glucose 130 mg/dl (70-99); Potassium 3.7 mmol/L (3.5-5.1); Sodium 132 mmol/L (135-145); eGFR 9.99
[2023-06-25 22:51] LABS: Glucose - Point of Care 157 mg/dl (70-99)
--- NOTE | 2023-06-25 23:45 | PTCARENOTE ---
Systems reviewed. No changes. Patient remains intermittently confused. Reoriented. Vitals stable. Next PD due at 0130.
[2023-06-25 23:51] LABS: Glucose - Point of Care 155 mg/dl (70-99)
[2023-06-26] VITALS (14 sets, daily range): BP systolic 100–176; BP diastolic 51–84; BMI 26.1
[2023-06-26 00:49] LABS: Glucose - Point of Care 164 mg/dl (70-99)
[2023-06-26] MEDS: ZOSYN 50 IV ×3 (02:00→18:00)
[2023-06-26 04:49] LABS: Blood Urea Nitrogen 69 mg/dl (9-20); Calcium 7.7 mg/dl (8.4-10.2); Carbon Dioxide 20 mmol/L (22-30); Chloride 110 mmol/L (98-107); Estimated Creatinine Clearance 12 ml/min; Glucose 137 mg/dl (70-99); Potassium 3.5 mmol/L (3.5-5.1); Sodium 135 mmol/L (135-145); eGFR 9.99
--- NOTE | 2023-06-26 04:54 | DOWNTIME ---
There was a [employer] Client Fire Extinguisher Sprinkler Inspector Downtime on 06/26/2023 from 0100 to 06/26/2023 at 0439. Downtime documentation of patient's care, including medication administrations, has been reconciled in the electronic record per guidelines. Refer to the
patient's paper chart under the miscellaneous tab to see printed paper medication records and downtime forms.
--- NOTE | 2023-06-26 04:54 | PTCARENOTE ---
Systems reviewed. Minor changes. Patient agitated and cursing at staff. Confused. Reoriented to surroundings. Vitals stable. Insulin gtt remains on.
[2023-06-26 05:02] LABS: Glucose - Point of Care 143 mg/dl (70-99)
[2023-06-26 05:42] LABS: Glucose - Point of Care 152 mg/dl (70-99)
[2023-06-26 06:38] LABS: Glucose - Point of Care 136 mg/dl (70-99)
[2023-06-26 06:41] LABS: Hematocrit 29.2 % (39.0-52.0); Hemoglobin 10.2 g/dL (13.0-18.0); Mean Corp Hgb Conc. 34.9 g/dL (33.0-37.0); Mean Corpuscular Hgb 29.5 pg (27.0-31.0); Mean Corpuscular Volume 84.4 fL (80.0-94.0); Mean Platelet Volume 10.2 fL (7.4-10.4); Platelet Count 223 10^3/uL (130-400); Red Blood Cell Count 3.46 10^6/uL (4.70-6.10); Red Cell Dist. Width 13.2 % (11.5-14.5); White Blood Cell Count 17.8 10^3/uL (4.8-10.8)
[2023-06-26 07:07] LABS: Blood Urea Nitrogen 67 mg/dl (9-20); Calcium 7.9 mg/dl (8.4-10.2); Carbon Dioxide 17 mmol/L (22-30); Chloride 107 mmol/L (98-107); Estimated Creatinine Clearance 12 ml/min; Glucose 144 mg/dl (70-99); Potassium 3.5 mmol/L (3.5-5.1); Sodium 134 mmol/L (135-145); eGFR 9.79
--- NOTE | 2023-06-26 07:29 | W.PN.INTV ---
Today's Communication / Plan
Recommendations
Lantus, novolog
GMF
Reconsult prn
Assessment
-
Assessment:
Mr Ross Godinez is a 63/M adm 06-23 with few d h/o uncontrolled hyperglycemia, confusion/combativeness. Reportedly recent initiation of oral ciprofloxacin for suspected UTI. No reported h/o previous DKA or SBP. Abd pain on ER physician
examination. Known h/o ESDR on PD (refused PD on DOA, reportedly required replacement of nonfunctioning PD catheter 1 y ago), IDDM on insulin pump.
Impression:
DKA
AGMA, lactic acidosis
TME
Hyperkalemia
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
Conditions DECKER OPERATOR:
IDDM
ESRD on PD. Temporary HD in early 2023
HTN
Nonsmoker
Plan:
Patient admitted to medical intensive care unit for close monitoring
Supplemental oxygen as needed
Currently on room air, saturation 96%, no respiratory distress
Monitor blood sugar
Monitor anion gap: closed
Insulin drip transitioned to lantus and AC novolog as d/w DM educator
HgbA1c 11
Insulin pump with structural crack, will be replaced tomorrow with new unit
Resumed PD as inpatient
Blood cxs NTD
UCx so far negative
Peritoneal fluid cx NTD
Reported recent initiation of oral ciprofloxacin for suspected UTI (increased urinary frequency)
Empiric zosyn since adm
CXR with no infiltrates
CT abd/p with free peritoneal air c/w PD status, hepatomegaly with fatty infiltration, renal cysts, mild BPH
DVT prophylaxis
Early nutrition
Early mobilization
Agree with transfer to [facility]
Reconsult as needed
Subjective Dataa
Subjective Data
Date of Service:
Date of Service: June 26, 2023
Chief Complaint: Work From Home Follow Up
Subjective:
No major events reported overnight
Discussed with certified breastfeeding educator, unfortunately insulin pump needs to be replaced due to a crack in its structure, request will be placed, new insulin pump to arrive tomorrow
Patient remains confused but pleasant
Review of Systems
General: Other (Confused but pleasant)
Objective Data
Data Reviewed
Vital Signs / I&O / Oxygen:
Vital Signs
Temp Pulse Resp BP Pulse Ox
97.8 F 67 16 140/60 94
06/26/23 03:20 06/26/23 06:00 06/26/23 06:00 06/26/23 06:00 06/26/23 06:00
Intake and Output
06/25/23 06/26/23 06/27/23
06:59 06:59 06:59
Intake Total 715 / 848 3110.0 / 3110.0
Output Total 500 / 510 574 / 574
Balance 215 / 338 2536.0 / 2536.0
SaO2 94
Nasal Cannula flow liters per 2
minute
Physical Exam
General: Comfortable
HEENT: Normocephalic and Moist Mucous Membranes
Cardiovascular: Regular Rhythm, Murmur (n) and Peripheral Edema (n)
Respiratory: Clear, Non-Labored Respirations and Stridor (n)
GI: Soft, Non Distended and Tender (Mild diffuse tenderness but no rebound)
Neurology: Awake, No Motor Deficits and Other (Confused though mental status has improved since admission)
Skin: Warm
Labs/Micro/Reports
Lab Data
06/26/23 06:10
Microbiology
06/24/23 23:51 Blood/Venous Blood Culture - Preliminary
No Growth in 24 hours- Final report to follow
06/24/23 23:31 Blood/Venous Blood Culture - Preliminary
No Growth in 24 hours- Final report to follow
06/25/23 08:28 Peritoneal Fluid Gram Stain - Preliminary
--- NOTE | 2023-06-26 07:30 | PTCARENOTE ---
Bedside handoff reviewing drips. Pt disoriented to place, time and current events and hospitalization. Unable to re-orient. Supportive care provided. He was informed of the plan of care and asked not to remove any IV lines because he was holding the
monitor cord. Right lower quadrant HD catheter clamped with dressing CDI. Right AC w/IVF and right upper arm with Insulin drip per DKA protocol. Good peripheral pulses. +BSX4. Nausea. HOB elevated. Catheter with clear yellow urine secured. Breath
sounds CTA. Sacral, elbow, and heels dressing CDI. Safe environment maintained.
[2023-06-26 07:41] LABS: Glucose - Point of Care 189 mg/dl (70-99)
[2023-06-26] MEDS: HEPARIN 5000 UNITS SC ×2 (08:38→18:00)
[2023-06-26] MEDS: D5/0.9% SODIUM CHLORIDE 1000 IV (08:42)
[2023-06-26 08:43] LABS: Glucose - Point of Care 195 mg/dl (70-99)
[2023-06-26 09:39] LABS: Glucose - Point of Care 213 mg/dl (70-99)
[2023-06-26 10:10] LABS: Magnesium 1.6 mg/dl (1.6-2.3)
--- NOTE | 2023-06-26 10:23 | PN.DE.MGMTRT ---
Insulin Management
- -
06/26/2023 Diabetes Management Consult Follow up
Patient admitted 06/23 with blood sugar problem, venous glucose 1,125, with confusion. Patient in DKA, GAP 25, A1C 11%, cr 6.2, eGFR 9.41. PMH includes Type 1 diabetes, HTN, peritoneal dialysis daily. Patient uses a Medtronic 770 G insulin pump
which is at the bedside.
Patient awake and alert, unable to identify time of day or date. He is aware but confused trying to remove lines, currently has mitts on bilaterally.
Currently on the DKA insulin infusion, glucose controlled 130 to 200. GAP 10, will transition to subcutaneous injections as patient is too confused to manage pump. Of note the battery compartment of the pump is cracked. Left pump information for
to call medtronic for replacement.
Will start lantus 24 units now then insulin infusion off 2 hours later. 8 units AC novolog and moderate corrective to start with lunch.
Will follow
I spoke to patients nurse regarding plan. I also called patient , left regarding replacing pump.
Diabetes History
- -
Type of Diabetes: 1
Pre-Admission Diabetes Regimen
06/25/23 06/25/23 06/25/23
10:00 14:13 17:49
Creatinine 6.0 H* 6.0 H* 5.8 H*
06/25/23 06/26/23 06/26/23
22:03 02:04 06:10
Creatinine 5.9 H* 5.9 H* 6.0 H*
06/26/23
12:00
Creatinine Cancelled
Lab Results
Hemoglobin A1c 11.0 % (4.0-5.6) H 06/25/23 04:35
Insulin Pump Settings
IP Diabetes Regimen
06/25/23 06/25/23 06/25/23
10:00 12:03 12:06
Glucose 621 H* 539 H*
POC Glucose 554 H*
06/25/23 06/25/23 06/25/23
13:07 13:14 14:12
Glucose 488 H*
POC Glucose 507 H* 451 H*
06/25/23 06/25/23 06/25/23
14:13 15:19 16:34
Glucose 436 H
POC Glucose 329 H 302 H
06/25/23 06/25/23 06/25/23
17:32 17:49 18:39
Glucose 217 H
POC Glucose 243 H 208 H
06/25/23 06/25/23 06/25/23
19:33 19:46 20:28
Glucose
POC Glucose 153 H 142 H 133 H
06/25/23 06/25/23 06/25/23
21:37 22:03 22:40
Glucose 130 H
POC Glucose 148 H 157 H
06/25/23 06/26/23 06/26/23
23:39 00:38 02:04
Glucose 137 H
POC Glucose 155 H 164 H
06/26/23 06/26/23 06/26/23
04:49 05:29 06:10
Glucose 144 H
POC Glucose 143 H 152 H
06/26/23 06/26/23 06/26/23
06:26 07:30 08:31
Glucose
POC Glucose 136 H 189 H 195 H
06/26/23 06/26/23
09:28 12:00
Glucose Cancelled
POC Glucose 213 H
Meal type: Breakfast
Amount consumed: 0
Patient Education
[2023-06-26 10:44] LABS: Glucose - Point of Care 179 mg/dl (70-99)
[2023-06-26] MEDS: ZOFRAN 4 MG IV (10:48)
[2023-06-26 11:18] LABS: Glucose - Point of Care 154 mg/dl (70-99)
[2023-06-26 11:18] LABS: Glucose - Point of Care 198 mg/dl (70-99)
[2023-06-26 11:18] LABS: Glucose - Point of Care 163 mg/dl (70-99)
[2023-06-26] MEDS: LANTUS 0.239999999999999991 UNITS SC (11:20)
[2023-06-26] MEDS: SODIUM BICARBONATE 650 MG PO ×2 (11:29→20:04)
[2023-06-26] MEDS: RENVELA 800 MG PO ×2 (11:29→18:04)
[2023-06-26] MEDS: ROCALTROL 0.5 MCG PO (11:29)
[2023-06-26] MEDS: SENSIPAR 30 MG PO (11:29)
[2023-06-26] MEDS: CARDIZEM SR 120 MG PO (11:30)
[2023-06-26 11:42] LABS: Glucose - Point of Care 183 mg/dl (70-99)
[2023-06-26] MEDS: NOVOLOG FLEXPEN 8 UNITS SC ×2 (12:04→17:22)
[2023-06-26 12:46] LABS: Glucose - Point of Care 178 mg/dl (70-99)
--- NOTE | 2023-06-26 13:20 | PTCARENOTE ---
Pt was not able to take all his PO medications. He was gagging on them. Was not able to take then with apple sauce either then he outright refuded them and stated 'leave me alone'. He is confused and seeing things in the room. Dr. Gabriel notified via
TT.
--- NOTE | 2023-06-26 14:52 | PTCARENOTE ---
Pt continues to be disoriented regarding the nature of his hospitalization. Pupils remain pinpoint. He is not always cooperative with care. Poor appetite with gagging on PO medications. Dr. Gabriel notified via TT. Complete bath given to distract him.
He was informed of the plan of care to perform hid PD exchange at 1515.
--- NOTE | 2023-06-26 15:09 | PTCARENOTE ---
Ambulated pt in the room. He was disoriented and he appeared as if he did not know where he was going.
--- NOTE | 2023-06-26 15:19 | W.PN.NEPH.PH ---
Today's Communication / Plan
-
- PD
Assessment/Plan
-
Impression:
ESRD/PD
Metabolic encephalopathy
DKA (AG:>25)
Hypertension
Secondary hyperparathyroidism
Diabetes
Hyperphosphatemia
Dyslipidemia
BPH
Plan:
-PD orders provided (1.5% at q4 hr intervals)
-patient transitioned from insulin gtt to subQ insulin
-PD fluid culture and cell count obtained --> does not meet criteria for peritonitis
-blood cultures negative thus far
-CT of abdomen and pelvis with some free air in the setting of PD catheter otherwise unremarkable
-patient appears euvolemic at this time, would hold off on further fluids
-FATIMAH therapy for anemia
-hold sevelamer and cinacalcet until patient has a regular diet
-Patient's mental status is still not at baseline. if it does not improve, patient might need to be transitioned to HD
-
-
Date of Service: June 26, 2023
CC / HPI / ROS
-
Chief Complaint:
ESRD on PD
History of Present Illness:
DKA, gap now closed
PD, no complaints of abd pain
Review of Systems:
feeling well
Labs
-
Labs:
WBC 17.8 10^3/uL (4.8-10.8) H 06/26/23 06:10
RBC 3.46 10^6/uL (4.70-6.10) L 06/26/23 06:10
Hgb 10.2 g/dL (13.0-18.0) L 06/26/23 06:10
Hct 29.2 % (39.0-52.0) L 06/26/23 06:10
Plt Count 223 10^3/uL (130-400) 06/26/23 06:10
Sodium Cancelled 06/26/23 12:00
Potassium Cancelled 06/26/23 12:00
Chloride Cancelled 06/26/23 12:00
Carbon Dioxide Cancelled 06/26/23 12:00
BUN Cancelled 06/26/23 12:00
Creatinine Cancelled 06/26/23 12:00
eGFR Cancelled 06/26/23 12:00
Glucose Cancelled 06/26/23 12:00
Calcium Cancelled 06/26/23 12:00
Phosphorus 8.6 mg/dl (2.5-4.5) H 06/24/23 23:31
Albumin 2.7 g/dl (3.5-5.0) L 06/24/23 22:22
Physical Exam
-
Vital Signs:
Vital Signs
Temp Pulse Resp BP Pulse Ox
98.2 F 67 18 166/75 93
06/26/23 07:45 06/26/23 14:37 06/26/23 14:37 06/26/23 14:37 06/26/23 11:15
Cardiovascular:: Regular rate and rhythm
Respiratory:: Bilateral: Coarse
Lung Excursion:: Normal
Abdomen:: Nontender and Soft
Bowel Sounds:: Normal
Extremity Edema:: +1: Bilateral:
Ward Catheter: Yes
--- NOTE | 2023-06-26 16:10 | W.PN.HOSP.TC ---
Today's Communication/Plan
-
see note
Assessment / Plan
Assessment / Plan
Ct a/p
1). There is free intraperitoneal air likely on the basis of peritoneal dialysis catheter.
Perforated abdominal viscus is less likely
2). Hepatomegaly with diffuse fatty infiltration of the liver.
3). Atherosclerosis
4). Mild prostatomegaly
5). Multiple renal cysts

1. Diabetic ketoacidosis - resolved
Uncontrolled IDDM
-Reason for diabetic ketoacidosis remains unclear.
-Have uncontrolled diabetes at baseline with hemoglobin A1c of 11%
-Admission blood glucose 1125 Bicarb <5 AGAP ~ 40
-Patient off of insulin drip. Persistent acidosis likely from ESRD rather than true DKA at this point
-Insulin pump is nonfunctional per diabetic TRADE ECONOMIST, will be transitioned to subcu insulin
2. ESRD on Peritoneal Dialysis
Secondary Hyperparathyroidism
-Nephrology following and help appreciated
-Monitor Is&Os and Daily Weights
-Resume back Cinacalcet/sevelamer
3. Leukocytosis
-Reactive versus possible infectious source
-CTAP ruled out any acute abnormality
-Patient makes some urine, UA showing few bacteria and RBC.
-Chest x-ray today clear
-Blood culture/urine culture neg.
-Peritoneal fluid sample from catheter showing WBC 15 /cumm
-Maintain on empiric Zosyn
4. Acute TME
-from above mentioned issues
-Remains confused and required to be on mitts
-continue supportive care
5. Essential hypertension -uncontrolled
-resume back on diltiazem
-As needed hydralazine ordered for systolic blood pressure greater than 160
Anemia of Renal Disease
Diabetes Neuropathy
Essential Hypertension
Hyperlipidemia
BPH
DVT proph: SC Heparin
Code Status: Full Code
Downgrade to tele.
Resume diet and PO meds
Anticipated Discharge: 24 - 48 hours
Subjective/Interval History
-
Date of Service: June 26, 2023
Patient confused and on mitts
on insulin drip
awake and communicative
Objective Data
-
Labs:
Laboratory Results
06/26/23 06/26/23 06/26/23
02:04 06:10 12:00
WBC 17.8 H
Hgb 10.2 L
Hct 29.2 L
Plt Count 223
Sodium 135 134 L Cancelled
Potassium 3.5 3.5 Cancelled
Chloride 110 H 107 Cancelled
Carbon Dioxide 20 L 17 L Cancelled
BUN 69 H 67 H Cancelled
Creatinine 5.9 H* 6.0 H* Cancelled
Glucose 137 H 144 H Cancelled
Calcium 7.7 L 7.9 L Cancelled
Vital Signs:
Vital Signs
Temp Pulse Resp BP Pulse Ox
98.1 F 67 18 166/75 93
06/26/23 15:00 06/26/23 14:37 06/26/23 14:37 06/26/23 14:37 06/26/23 11:15
I&O
06/25/23 06/26/23 06/27/23
06:59 06:59 06:59
Intake Total 715 / 848 3110.0 / 3187.0 732 / 732
Output Total 500 / 510 574 / 604 440 / 440
Balance 215 / 338 2536.0 / 2583.0 292 / 292
Review of Systems
-
Unable to obtain full review of systems at this time due to: Acuity
Physical Exam
-
General: No Apparent Distress and Comfortable
HEENT: Negative Oxygen
Respiratory: Clear to Auscultation
Cardiac: Regular Rhythm and S1/S2; Negative Murmur or Rub
GI: Soft, Nontender and Nondistended
Musculoskeletal: No Edema
Neuro: Awake, No Motor Deficits and Nonfocal/Grossly Intact; Negative Oriented
Psych: Calm
--- NOTE | 2023-06-26 17:05 | PTCARENOTE ---
Several attempts to get OOB. Bed alarm on. He was repositioned. The cord for the SCD's were unwrapped from his ankle. He stated he wrapped it around his ankle. He is hallucinating and disoriented to his current situation. He is increasingly becoming
agitated and uncooperative. His Natividad walked in at this time and stated he started to act this way at home. Pupils remain pinpoint with no cause. He did not consume any medication that would cause changes in his pupils. Dr. Gabriel notified of my
concerns.
[2023-06-26] MEDS: NOVOLOG FLEXPEN-MODERATE RESISTANCE 1 UNITS SC (17:22)
[2023-06-26 17:30] LABS: Glucose - Point of Care 193 mg/dl (70-99)
--- NOTE | 2023-06-26 17:48 | PTCARENOTE ---
is on the phone with Port[employer] at pt bedside requesting new insulin pump.
[2023-06-26] MEDS: CRESTOR 20 MG PO (18:03)
--- NOTE | 2023-06-26 18:21 | PTCARENOTE ---
Pt's fed pt urmilao while laying @ 30 degree angle. He coughed violently afterwards. She was instructed that it is safer to feed him while he is upright in the bed to prevent aspiration. He was repositioned and was able to take PO meds with
several attempts to swallow them. Per the the insulin pump is being delivered overnight tomorrow.
[2023-06-26] MEDS: ZYPREXA 5 MG PO (20:04)
[2023-06-26 22:02] LABS: Glucose - Point of Care 223 mg/dl (70-99)
--- NOTE | 2023-06-26 22:22 | PTCARENOTE ---
Pt received awake alert and confused to place, time and situation. Believes he is at a hotel. Initially cooperative with care, allowing me to do PD exchange. Pt now more argumentative and uncooperative with care. Bed alarm in place. Will continue to
monitor.
[2023-06-27] MEDS: HEPARIN SC (00:06)
[2023-06-27] MEDS: NSS (PRESERVATIVE FREE) 0.5 ML IV (00:24)
[2023-06-27] MEDS: ATIVAN 1 MG IV (00:24)
[2023-06-27] MEDS: ZOSYN 50 IV ×3 (01:13→17:31)
--- NOTE | 2023-06-27 01:28 | PTCARENOTE ---
Pt increasingly agitiated. Stated he needed to go to the bathroom. Walked pt to bathroom but pt kept attempting to go into shower despite being shown the toilet. Pt then attempted to go into the hallway-not believing staff as to where the bathroom
was. Placed pt back into bed as behavior continued to escalate. POUCH MAKING MACHINE OPERATOR notified. 4 point soft restraints placed on pt and pt med with ativan 1mg IV. Pt more calm now but still very restless and conversation not making sense. Continues to attempt to
get OOB. Attempted to have pt use urinal but he cannot understand what to do. Pt is oliguric. House POUCH MAKING MACHINE OPERATOR notified.
--- NOTE | 2023-06-27 03:17 | W.PN.UPDATE ---
Update Note
Progress Note Update
RN notified WOOD ROOM HAND patient seem to be restless and agitated. Wanting to go to the bathroom, RN assisted, but patient combative, was placed in bed with 4 other assistants. Restrains in place. IV Ativan 1mg given. RN requesting Ward catheter as patient
is not cooperative for bladder scan.
[2023-06-27 04:21] VITALS: BP 170/76
[2023-06-27 04:41] LABS: Hematocrit 27.9 % (39.0-52.0); Mean Corp Hgb Conc. 35.8 g/dL (33.0-37.0); Mean Corpuscular Hgb 29.6 pg (27.0-31.0); Mean Corpuscular Volume 82.5 fL (80.0-94.0); Mean Platelet Volume 10.2 fL (7.4-10.4); Platelet Count 188 10^3/uL (130-400); Red Blood Cell Count 3.38 10^6/uL (4.70-6.10); Red Cell Dist. Width 13.3 % (11.5-14.5); White Blood Cell Count 10.9 10^3/uL (4.8-10.8)
[2023-06-27 05:13] LABS: Blood Urea Nitrogen 53 mg/dl (9-20); Calcium 7.3 mg/dl (8.4-10.2); Carbon Dioxide 22 mmol/L (22-30); Chloride 108 mmol/L (98-107); Estimated Creatinine Clearance 13 ml/min; Glucose 181 mg/dl (70-99); Potassium 3.2 mmol/L (3.5-5.1); Sodium 135 mmol/L (135-145); eGFR 11.11
[2023-06-27 05:48] VITALS: BMI 25.7
[2023-06-27 06:23] VITALS: BP 173/92
[2023-06-27] MEDS: APRESOLINE 10 MG IV ×2 (06:26→12:39)
--- NOTE | 2023-06-27 06:37 | PTCARENOTE ---
BP elevated-pt agitated when taken. Pt more calm now and SBP stil >170. Pt med with hydralazine IV.
--- NOTE | 2023-06-27 07:34 | PN.DE.MGMTRT ---
Insulin Management
- -
06/27/2023 Diabetes Management Consult Follow up
Patient admitted 06/23 with blood sugar problem, venous glucose 1,125, with confusion. Patient in DKA, GAP 25, A1C 11%, cr 6.2, eGFR 9.41. PMH includes Type 1 diabetes, HTN, peritoneal dialysis daily. Patient uses a Medtronic 770 G insulin pump
which is at the bedside.
Patient had a difficult night increased confusion, restless, agitation requiring sedation and restraints. He is somnolent at the time of my visit.
Transitioned from DKA insulin infusion yesterday around noon, Lantus 24 units given then insulin infusion off 2 hours after. AC novolog started with lunch. Glucose 193 pre dinner and 223 @ hs. Will increase AC novolog to 10 units with corrective
insulin. Fasting glucose this AM 181, will increase AM lantus to 26 units.
reported to nurse Medtronic pump should arrive today (battery compartment of the pump is cracked). Patient is unable to accurately use insulin pump at this time.
Diabetes History
- -
Type of Diabetes: 1
Pre-Admission Diabetes Regimen
06/26/23 06/27/23
12:00 04:27
Creatinine Cancelled 5.4 H*
Lab Results
Hemoglobin A1c 11.0 % (4.0-5.6) H 06/25/23 04:35
Insulin Pump Settings
IP Diabetes Regimen
06/26/23 06/26/23 06/26/23
01:32 02:30 03:39
Glucose
POC Glucose 163 H 154 H 198 H
06/26/23 06/26/23 06/26/23
07:30 08:31 09:28
Glucose
POC Glucose 189 H 195 H 213 H
06/26/23 06/26/23 06/26/23
10:32 11:31 12:00
Glucose Cancelled
POC Glucose 179 H 183 H
06/26/23 06/26/2306/25/24
12:34 17:20 21:47
Glucose
POC Glucose 178 H 193 H 223 H
06/27/23
04:27
Glucose 181 H
POC Glucose
Meal type: Breakfast
Amount consumed: 0
Patient Education
[2023-06-27 07:45] LABS: Glucose - Point of Care 196 mg/dl (70-99)
--- NOTE | 2023-06-27 08:42 | PTCARENOTE ---
Pt in bed sleeping, arouses to verbal stimuli, confused, oriented only to self. Conversation confused and pt agitated, grabbing at staff when able. [address] restraints [address] place for pt and staff safety. Pt sleeps but undisturbed. Pt unable to be
redirected, unable to eat or drink at this time. Dr Gabriel notified. Respirations shallow at times, loud snoring observed w/ moments of what seems like obstructive sleep apnea. Continuous oxygen sat in place, pt 90-98%. Will continue to monitor. PD
catheter observed, plans to drain @ 0955.
--- NOTE | 2023-06-27 08:54 | W.PN.HOSP.TC ---
Today's Communication/Plan
-
check covid
increase zyprexa dose
continue subq insulin
Assessment / Plan
Assessment / Plan
Ct a/p
1). There is free intraperitoneal air likely on the basis of peritoneal dialysis catheter.
Perforated abdominal viscus is less likely
2). Hepatomegaly with diffuse fatty infiltration of the liver.
3). Atherosclerosis
4). Mild prostatomegaly
5). Multiple renal cysts

1. Diabetic ketoacidosis - resolved
Uncontrolled IDDM
-Reason for diabetic ketoacidosis remains unclear.
-Have uncontrolled diabetes at baseline with hemoglobin A1c of 11%
-Admission blood glucose 1125 Bicarb <5 AGAP ~ 40
-Patient off of insulin drip.
-Any recurrent AGAP acidosis needed to be evaluated with keeping in mind that patient have ESRD and will skew the calculation.
-Insulin pump is nonfunctional per diabetic GLASS SMOOTHER, managed with subq insulin at this point.
2. ESRD on Peritoneal Dialysis
Secondary Hyperparathyroidism
-Nephrology following and help appreciated
-Monitor Is&Os and Daily Weights
-Resume back Cinacalcet/sevelamer
3. Leukocytosis - Improving
-Reactive versus possible infectious source
-CTAP ruled out any acute abnormality
-Patient makes some urine, UA showing few bacteria and RBC.
-Chest x-ray today
-Blood culture/urine culture neg.
-Peritoneal fluid sample from catheter showing WBC 15 /cumm
-Maintain on empiric Zosyn
4. Acute TME
-Remains confused and required to be on mitts/restrained
-continue supportive care
-Check covid
-not on any narcotics.
-giving night time zyprexa - dose increasing to 7.5mg today
5. Essential hypertension -uncontrolled
-resume back on diltiazem
-adding coreg PO to regimen
-As needed hydralazine ordered for systolic blood pressure greater than 160
6. Hypokalemia
-replace PRN
Anemia of Renal Disease
Diabetes Neuropathy
Essential Hypertension
Hyperlipidemia
BPH
DVT proph: SC Heparin
Code Status: Full Code
Anticipated Discharge: > 48 hours
Subjective/Interval History
-
Date of Service: June 27, 2023
patient is sedated
apparently patient was agitated in night and needed to be put on 4 restraints
no other acute issues reported
Objective Data
-
Labs:
Laboratory Results
06/27/23
04:27
WBC 10.9 H
Hgb 10.0 L
Hct 27.9 L
Plt Count 188
Sodium 135
Potassium 3.2 L
Chloride 108 H
Carbon Dioxide 22
BUN 53 H
Creatinine 5.4 H*
Glucose 181 H
Calcium 7.3 L
Vital Signs:
Vital Signs
Temp Pulse Resp BP Pulse Ox
97.7 F 84 20 173/92 95
06/27/23 07:44 06/27/23 04:59 06/27/23 04:59 06/27/23 06:26 06/26/23 15:05
I&O
06/26/23 06/27/23 06/28/23
06:59 06:59 06:59
Intake Total 3110.0 / 3187.0 1412 / 1412
Output Total 574 / 604 1440 / 1440
Balance 2536.0 / 2583.0 -28 / -28
Review of Systems
-
Unable to obtain full review of systems at this time due to: Acuity
Physical Exam
-
General: No Apparent Distress and Comfortable
HEENT: Negative Oxygen
Respiratory: Clear to Auscultation
Cardiac: Regular Rhythm and S1/S2; Negative Murmur or Rub
GI: Soft, Nontender and Nondistended
Musculoskeletal: No Edema
Neuro: Negative Awake or Oriented
Psych: Calm
[2023-06-27 08:55] VITALS: BP 153/83
[2023-06-27 09:32] LABS: COVID-19 Antigen Negative (Negative)
[2023-06-27] MEDS: CARDIZEM SR PO (10:03)
[2023-06-27] MEDS: HEPARIN 5000 UNITS SC ×2 (10:03→15:34)
[2023-06-27] MEDS: SENSIPAR PO (10:03)
[2023-06-27] MEDS: ROCALTROL PO (10:03)
[2023-06-27] MEDS: RENVELA PO ×2 (10:03→11:54)
[2023-06-27] MEDS: COREG PO (10:04)
[2023-06-27] MEDS: SODIUM BICARBONATE PO (10:04)
[2023-06-27 10:24] LABS: Glucose - Point of Care 207 mg/dl (70-99)
[2023-06-27] MEDS: LANTUS 0.260000000000000009 UNITS SC (10:30)
[2023-06-27] MEDS: NOVOLOG FLEXPEN-MODERATE RESISTANCE 3 UNITS SC ×2 (10:30→12:26)
--- NOTE | 2023-06-27 10:30 | PTCARENOTE ---
Pt unable to eat, too drowsy. BS currently 207. This RN confirmed w/ Diabetes Coordinator that she wanted pt to receive the 26 units SQ Lantus as ordered. AC dose of Novolog held, sliding scale Novolog coverage given, 3 units. See MAR.
[2023-06-27] MEDS: NOVOLOG FLEXPEN SC (10:37)
--- NOTE | 2023-06-27 10:49 | CM ---
Patient spoke with CM 4/16 pm late in the afternoon via phone and confirmed that she did not want patient to go to SNF and planned on patient coming home with supports at that time. CM will continue to follow for discharge planning needs.
Patient seen at bedside in ICU, confused and agitated. Patient currently in wrist restraints. CM will continue to follow for discharge planning needs..
Plan; home with family vs SNF; pending functional status closer to discharge
[2023-06-27] MEDS: KCL 160 MEQ IV (11:27)
--- NOTE | 2023-06-27 11:48 | W.PN.NEPH.PH ---
Today's Communication / Plan
-
- continue PD
Assessment/Plan
-
Impression:
ESRD/PD
Metabolic encephalopathy
DKA (AG:>25)
Hypertension
Secondary hyperparathyroidism
Diabetes
Hyperphosphatemia
Dyslipidemia
BPH
Plan:
-PD orders provided (1.5% at q4 hr intervals)
-patient transitioned from insulin gtt to subQ insulin
-PD fluid culture and cell count obtained --> does not meet criteria for peritonitis
-blood cultures negative thus far
-CT of abdomen and pelvis with some free air in the setting of PD catheter otherwise unremarkable
-patient appears euvolemic at this time, would hold off on further fluids
-FATIMAH therapy for anemia
-hold sevelamer and cinacalcet until patient has a regular diet
-Patient's mental status is still not at baseline. he is now in four point restraints and requiring antipsychotics
-
-
Date of Service: June 27, 2023
CC / HPI / ROS
-
Chief Complaint:
ESRD on PD
History of Present Illness:
DKA, gap now closed
PD, no complaints of abd pain
Review of Systems:
confused, on 4 point restraints
Labs
-
Labs:
WBC 10.9 10^3/uL (4.8-10.8) H 06/27/23 04:27
RBC 3.38 10^6/uL (4.70-6.10) L 06/27/23 04:27
Hgb 10.0 g/dL (13.0-18.0) L 06/27/23 04:27
Hct 27.9 % (39.0-52.0) L 06/27/23 04:27
Plt Count 188 10^3/uL (130-400) 06/27/23 04:27
Sodium 135 mmol/L (135-145) 06/27/23 04:27
Potassium 3.2 mmol/L (3.5-5.1) L 06/27/23 04:27
Chloride 108 mmol/L (98-107) H 06/27/23 04:27
Carbon Dioxide 22 mmol/L (22-30) 06/27/23 04:27
BUN 53 mg/dl (9-20) H 06/27/23 04:27
Creatinine 5.4 mg/dL (0.7-1.3) H* 06/27/23 04:27
eGFR 11.11 06/27/23 04:27
Glucose 181 mg/dl (70-99) H 06/27/23 04:27
Calcium 7.3 mg/dl (8.4-10.2) L 06/27/23 04:27
Phosphorus 8.6 mg/dl (2.5-4.5) H 06/24/23 23:31
Albumin 2.7 g/dl (3.5-5.0) L 06/24/23 22:22
Physical Exam
-
Vital Signs:
Vital Signs
Temp Pulse Resp BP Pulse Ox
97.7 F 84 20 153/83 95
06/27/23 07:44 06/27/23 04:59 06/27/23 04:59 06/27/23 08:55 06/27/23 10:42
Cardiovascular:: Regular rate and rhythm
Respiratory:: Bilateral: Coarse
Lung Excursion:: Normal
Abdomen:: Nontender and Soft
Bowel Sounds:: Normal
Extremity Edema:: +1: Bilateral:
Ward Catheter: Yes
[2023-06-27 11:53] LABS: Glucose - Point of Care 205 mg/dl (70-99)
[2023-06-27 12:31] VITALS: BP 176/93
[2023-06-27 13:20] VITALS: BP 144/62
--- NOTE | 2023-06-27 14:05 | PTCARENOTE ---
Pt awoke and able to state full name and that he was at [facility]. Pt still w/ confused conversation but able to be redirected and more cooperative than this morning. Some oral fluids given. Lunch tray ordered, however pt too drowsy to eat
safely when it came. Will continue to monitor.
[2023-06-27] MEDS: RENVELA 800 MG PO (14:32)
[2023-06-27] MEDS: CARDIZEM SR 120 MG PO (14:33)
[2023-06-27] MEDS: NOVOLOG FLEXPEN-MODERATE RESISTANCE SC (17:30)
[2023-06-27] MEDS: CRESTOR PO (17:31)
[2023-06-27 17:34] LABS: Glucose - Point of Care 49 mg/dl (70-99)
[2023-06-27 17:58] LABS: Glucose - Point of Care 50 mg/dl (70-99)
[2023-06-27 18:19] LABS: Glucose - Point of Care 69 mg/dl (70-99)
--- NOTE | 2023-06-27 18:19 | PTCARENOTE ---
Rec'd pt from GROUNDS MAINTENANCE SUPERVISOR. Pt is intermittently confused and agitated, calmer now that arrived at bedside. Pt's was hypoglycemic on his accucheck. treated with juice x2 plus his meal. assisted in feeding pt. notified Dr. Gabriel, arelis to be
held.
--- NOTE | 2023-06-27 18:22 | PTCARENOTE ---
Rec'd pt from WINDOW UNIT AIR CONDITIONING MECHANIC. Pt intermittently confused and agitated but calmer now that arrived at bedside. Pt hypoglycemic on accucheck. Rec'd juice x2 plus meal, notified. no insulin given.
[2023-06-27 18:38] LABS: Glucose - Point of Care 78 mg/dl (70-99)
[2023-06-27 20:37] VITALS: BP 142/83
[2023-06-27] MEDS: COREG 3.125 MG PO (20:38)
[2023-06-27] MEDS: SODIUM BICARBONATE 650 MG PO (20:47)
[2023-06-27 21:47] LABS: Glucose - Point of Care 100 mg/dl (70-99)
[2023-06-28] VITALS (12 sets, daily range): BP systolic 115–172; BP diastolic 65–92; PULSE 77; O2SAT 96; BMI 26.1
[2023-06-28] MEDS: HEPARIN SC (01:05)
--- NOTE | 2023-06-28 01:32 | PTCARENOTE ---
Received pt at start of shift. aaox1, confused, forgetful. Removed restraints at start of shift, pt cooperative, attempted to get OOB a couple times but then settled down and went to sleep. PD done, no issues. VSS. Bed alarm on, call moody in reach.
Will continue to monitor.
[2023-06-28] MEDS: ZOSYN 50 IV ×3 (03:01→18:27)
[2023-06-28 05:13] LABS: Hematocrit 32.9 % (39.0-52.0); Hemoglobin 11.7 g/dL (13.0-18.0); Mean Corp Hgb Conc. 35.6 g/dL (33.0-37.0); Mean Corpuscular Hgb 30.2 pg (27.0-31.0); Mean Corpuscular Volume 84.8 fL (80.0-94.0); Mean Platelet Volume 10.1 fL (7.4-10.4); Platelet Count 187 10^3/uL (130-400); Red Blood Cell Count 3.88 10^6/uL (4.70-6.10); Red Cell Dist. Width 13.4 % (11.5-14.5); White Blood Cell Count 9.7 10^3/uL (4.8-10.8)
[2023-06-28 06:00] LABS: Glucose - Point of Care 74 mg/dl (70-99)
[2023-06-28 06:05] LABS: Blood Urea Nitrogen 43 mg/dl (9-20); Calcium 7.6 mg/dl (8.4-10.2); Carbon Dioxide 22 mmol/L (22-30); Chloride 104 mmol/L (98-107); Estimated Creatinine Clearance 13 ml/min; Glucose 66 mg/dl (70-99); Potassium 3.3 mmol/L (3.5-5.1); Sodium 136 mmol/L (135-145); eGFR 11.62
--- NOTE | 2023-06-28 08:38 | PN.DE.MGMTRT ---
Insulin Management
- -
06/28/2023 Diabetes Management F/U:
Patient admitted 06/23 with blood sugar problem, venous glucose 1,125, with confusion. Patient was in DKA, GAP 25, A1C 11%, Cr 6.2, eGFR 9.41.
PMH includes T1DM, HTN, peritoneal dialysis daily. Patient uses a Medtronic 770 G insulin pump which is at the bedside.
Patient seen in room, awake, alert and oriented, forgetful but pleasant and able to engage in discussion regarding diabetes plan of care.
His mental status is much more improved today but still not at baseline. Insulin pump is currently NOT at bedside.
He received AM Lantus dose and 3 units of corrective insulin yesterday and was noted for prolonged period of hypoglycemia as low as 49 in the evening and throughout the night. His appetite has been poor with little to no food consumption, mainly due
to his poor mental status.
He is sitting up in bed about to have breakfast with assistance.
Fasting glucose this AM ws 66 venous, and 74 accuchek. Will decrease AM Lantus to 10 units and change corrective scale from moderate to low corrective
Will resume his insulin pup once mental status is at baseline.
Diabetes History
- -
Type of Diabetes: 1
Pre-Admission Diabetes Regimen
06/28/23
05:04
Creatinine 5.2 H*
Lab Results
Hemoglobin A1c 11.0 % (4.0-5.6) H 06/25/23 04:35
Insulin Pump Settings
IP Diabetes Regimen
06/27/23 06/27/23 06/27/23
10:06 11:40 17:22
Glucose
POC Glucose 207 H 205 H 49 L*
06/27/23 06/27/23 06/27/23
17:47 18:07 18:26
Glucose
POC Glucose 50 L* 69 L 78
06/27/23 06/28/23 06/28/23
21:36 05:04 05:48
Glucose 66 L
POC Glucose 100 H 74
Meal type: Breakfast
Amount consumed: 0
Patient Education
[2023-06-28 08:39] LABS: Glucose - Point of Care 90 mg/dl (70-99)
--- NOTE | 2023-06-28 08:39 | W.PN.NEPH.PH ---
Today's Communication / Plan
-
PD
CT of head
Assessment/Plan
-
Impression:
ESRD/PD
Metabolic encephalopathy
DKA (AG:>25)
Hypertension
Secondary hyperparathyroidism
Diabetes
Hyperphosphatemia
Dyslipidemia
BPH
Plan:
-PD orders provided (1.5% at q4 hr intervals)
-patient transitioned from insulin gtt to subQ insulin
-PD fluid culture and cell count obtained --> does not meet criteria for peritonitis
-blood cultures negative thus far
-CT of abdomen and pelvis with some free air in the setting of PD catheter otherwise unremarkable
-patient appears euvolemic at this time, would hold off on further fluids
-FATIMAH therapy for anemia
-hold sevelamer and cinacalcet until patient has a regular diet
-PD u/f slightly negative
-Patient's mental status is still not at baseline. he is now in four point restraints and requiring antipsychotics
-to check CT of head
-
-
Date of Service: June 28, 2023
CC / HPI / ROS
-
Chief Complaint:
ESRD on PD
History of Present Illness:
DKA, gap now closed
PD, no complaints of abd pain
Review of Systems:
confused, no fevers
green
non oliguric
Labs
-
Labs:
WBC 9.7 10^3/uL (4.8-10.8) 06/28/23 05:04
RBC 3.88 10^6/uL (4.70-6.10) L 06/28/23 05:04
Hgb 11.7 g/dL (13.0-18.0) L 06/28/23 05:04
Hct 32.9 % (39.0-52.0) L 06/28/23 05:04
Plt Count 187 10^3/uL (130-400) 06/28/23 05:04
Sodium 136 mmol/L (135-145) 06/28/23 05:04
Potassium 3.3 mmol/L (3.5-5.1) L 06/28/23 05:04
Chloride 104 mmol/L (98-107) 06/28/23 05:04
Carbon Dioxide 22 mmol/L (22-30) 06/28/23 05:04
BUN 43 mg/dl (9-20) H 06/28/23 05:04
Creatinine 5.2 mg/dL (0.7-1.3) H* 06/28/23 05:04
eGFR 11.62 06/28/23 05:04
Glucose 66 mg/dl (70-99) L 06/28/23 05:04
Calcium 7.6 mg/dl (8.4-10.2) L 06/28/23 05:04
Phosphorus 8.6 mg/dl (2.5-4.5) H 06/24/23 23:31
Albumin 2.7 g/dl (3.5-5.0) L 06/24/23 22:22
Physical Exam
-
Vital Signs:
Vital Signs
Temp Pulse Resp BP Pulse Ox
98.6 F 67 18 156/82 96
06/28/23 03:05 06/27/23 12:39 06/27/23 12:00 06/28/23 02:01 06/27/23 23:46
Cardiovascular:: Regular rate and rhythm
Respiratory:: Bilateral: CTA
Lung Excursion:: Normal
Abdomen:: Nontender and Soft
Bowel Sounds:: Normal
Green Catheter: Yes
--- NOTE | 2023-06-28 08:57 | W.PN.UPDATE ---
Update Note
Progress Note Update
PD note
1.5% q4hr 2liter exchanges
u/f slightly negative
uop >1.5 liters
[2023-06-28] MEDS: CARDIZEM SR 120 MG PO (09:39)
[2023-06-28] MEDS: COREG 3.125 MG PO (09:41)
[2023-06-28] MEDS: HEPARIN 5000 UNITS SC ×3 (09:41→23:15)
[2023-06-28] MEDS: RENVELA 800 MG PO ×3 (09:42→18:27)
[2023-06-28] MEDS: SODIUM BICARBONATE 650 MG PO ×2 (09:42→20:56)
[2023-06-28] MEDS: ROCALTROL 0.5 MCG PO (09:46)
[2023-06-28] MEDS: SENSIPAR 30 MG PO (09:46)
--- NOTE | 2023-06-28 09:48 | W.PN.HOSP.TC ---
Today's Communication/Plan
-
insulin adjustment
monitor for episode of hypoglycemia
continue abx
pt/ot
Assessment / Plan
Assessment / Plan
Ct a/p
1). There is free intraperitoneal air likely on the basis of peritoneal dialysis catheter.
Perforated abdominal viscus is less likely
2). Hepatomegaly with diffuse fatty infiltration of the liver.
3). Atherosclerosis
4). Mild prostatomegaly
5). Multiple renal cysts

1. Diabetic ketoacidosis - resolved
Uncontrolled IDDM
Episode of hypoglycemia
-Reason for diabetic ketoacidosis remains unclear.
-Have uncontrolled diabetes at baseline with hemoglobin A1c of 11%
-Admission blood glucose 1125 Bicarb <5 AGAP ~ 40
-Patient off of insulin drip.
-Any recurrent AGAP acidosis needed to be evaluated with keeping in mind that patient have ESRD and will skew the calculation.
-Insulin pump is nonfunctional per diabetic LINUX SECURITY ADMINISTRATOR, managed with subq insulin at this point.
-Patient had episode of hypoglycemia in the evening and in the night, dose of insulin been decreased. now on lantus 10/d and ISS only
2. ESRD on Peritoneal Dialysis
Secondary Hyperparathyroidism
-Nephrology following and help appreciated
-Monitor Is&Os and Daily Weights
-Resume back Cinacalcet/sevelamer
3. Leukocytosis - Resoled
suspected sepsis from unclear source
-CTAP ruled out any acute abnormality
-Patient makes some urine, UA showing few bacteria and RBC.
-Chest x-ray clear
-COVID neg.
-Blood culture/urine culture neg.
-Peritoneal fluid sample from catheter showing WBC 15 /cumm
-Maintain on empiric Zosyn
4. Acute TME -resolved
-Remains confused and required to be on mitts/restrained
-continue supportive care
-not on any narcotics.
-Check b12/folate/TSH/FT4
-Patient mentation much more improved today, simultaenous resolution of leukocytosis - infection/sepsis may explain this - continue on zosyn 1-2 more days.
5. Essential hypertension -uncontrolled
-resume back on diltiazem
-Coreg added and dose increase today
-As needed hydralazine ordered for systolic blood pressure greater than 160
6. Hypokalemia
-replace PRN
Anemia of Renal Disease
Diabetes Neuropathy
Essential Hypertension
Hyperlipidemia
BPH
DVT proph: SC Heparin
Code Status: Full Code
Anticipated Discharge: 24 - 48 hours
Subjective/Interval History
-
Date of Service: June 28, 2023
Patient mentation much better today
Patient was hypoglycemic in the night
No other acute issues reported
Objective Data
-
Labs:
Laboratory Results
06/28/23
05:04
WBC 9.7
Hgb 11.7 L
Hct 32.9 L
Plt Count 187
Sodium 136
Potassium 3.3 L
Chloride 104
Carbon Dioxide 22
BUN 43 H
Creatinine 5.2 H*
Glucose 66 L
Calcium 7.6 L
Vital Signs:
Vital Signs
Temp Pulse Resp BP Pulse Ox
98.6 F 66 16 152/81 95
06/28/23 03:05 06/28/23 09:40 06/28/23 09:40 06/28/23 09:40 06/28/23 09:40
I&O
06/27/23 06/28/23 06/29/23
06:59 06:59 06:59
Intake Total 1412 / 1412 290 / 290
Output Total 1440 / 1440 2124 / 2124
Balance - / - -1834 /
Review of Systems
-
Respiratory: Reports No Symptoms
Cardiac: Reports No Symptoms
Abdomen/GI: Reports No Symptoms
Physical Exam
-
General: No Apparent Distress and Comfortable
HEENT: Negative Oxygen
Respiratory: Clear to Auscultation
Cardiac: Regular Rhythm and S1/S2; Negative Murmur or Rub
GI: Soft, Nontender and Nondistended
Musculoskeletal: No Edema
Neuro: Awake, Alert, Oriented and No Motor Deficits
Psych: Calm
[2023-06-28] MEDS: THIAMINE INJECTION 200 MG IV ×2 (09:50→20:56)
[2023-06-28] MEDS: LANTUS 0.100000000000000006 UNITS SC (09:51)
[2023-06-28 12:16] LABS: TSH 1.25 uIU/ml (0.47-4.68)
[2023-06-28] MEDS: LANTUS SC (12:30)
[2023-06-28] MEDS: NOVOLOG FLEXPEN-MODERATE RESISTANCE SC (12:30)
[2023-06-28] MEDS: KCL 20 MEQ PO (12:44)
[2023-06-28 12:52] LABS: Folate 3.3 ng/ml (2.76-20); Vitamin B12 391 pg/ml (239-931)
[2023-06-28 13:10] LABS: Glucose - Point of Care 159 mg/dl (70-99)
[2023-06-28] MEDS: NOVOLOG FLEXPEN-LOW RESISTANCE 1 UNITS SC (13:18)
--- NOTE | 2023-06-28 13:52 | PTCARENOTE ---
Patient is awake, alert and oriented to person and place today, stating that it is 2021. Patient has good appetite today, eating majority of meals with setup. Patient has poor coordination, unable to perform ADLs without verbal cues. PD dialysis
continues as per doctors orders. Patient is denying pain when asked, In good spirits. Compliant with plan of care.
--- NOTE | 2023-06-28 14:29 | PTCARENOTE ---
Nursing has to provide verbal cues for all ADLS, discussed with therapy and Dr. Gabriel. CT scan ordered.
--- NOTE | 2023-06-28 14:30 | CM ---
Patient with Hx ESRD on Peritoneal Dialysis with Dx DKA, leukocytosi, TME. Per nurse; patient less confused, restraints off, has poor coordination for ADLs. PT & OT Evals pending.
Spoke with patient's Natividad; made aware that her apparently needed assist 2 to sit on side of bed per nurse, and that PT/OT recommendations were not yet available, however anticipate possible rehab need. stating she will take
patient home regardless of his mobility needs & she will consider hiring a caregiver. works near the home and can come home frequently during the day to check on her . agrees to VN and chooses [facility].
Natividad states she helps patient with his peritoneal dialysis and they do that in the evening, starting around 8pm.
Natividad is hoping for a ph call from MD today with update on patient's condition ---> message to Dr Gabriel.
Referral to [facility].
Plan follow up after PT/OT Evals.
Plan home with VN.
--- NOTE | 2023-06-28 15:03 | W.PN.UPDATE ---
Update Note
Progress Note Update
Patient noticed to having hand dis-coordination
Patient also remains confused and unable to follow simple instructions at times.
Quick gross neuro examination did not show any motor deficit in extremity. No facial weakness. No slurred speech.
CT head without contrast ordered
NIH scale and telemetry ordered
Provide patient with aspirin 325 mg one-time dose.
Patient spouse updated.
[2023-06-28] MEDS: ASPIRIN 325 MG PO (16:00)
[2023-06-28] MEDS: APRESOLINE 10 MG IV (16:14)
--- NOTE | 2023-06-28 16:19 | PTCARENOTE ---
Peritoneal dialysis treatment delayed this afternoon due to stat ct scan of the head. Dr. Harvey lopez.
--- NOTE | 2023-06-28 16:32 | VNURNOTE ---
Home Health Liaison spoke with patient's Katya at 1615 to discuss [facility] nurse/therapy, visits, schedule and homebound status. Katya is agreeable and understands that visits at home will be 2-3 x per week to assess and teach medical management.
Private caregivers discussed and encouraged.
Katya is aware that [facility] will contact them for start of care in 1-2 days after discharge from .
[facility] referral completed in [facility].
[2023-06-28 16:35] LABS: Glucose - Point of Care 221 mg/dl (70-99)
--- NOTE | 2023-06-28 16:36 | PTCARENOTE ---
Blood pressure elevate SBP>160. Hydralazine administered as per doctors orders, bp is now 146/67.
[2023-06-28] MEDS: NOVOLOG FLEXPEN-LOW RESISTANCE 2 UNITS SC (18:05)
[2023-06-28] MEDS: NOVOLOG FLEXPEN 8 UNITS SC (18:06)
[2023-06-28] MEDS: CRESTOR 20 MG PO (18:27)
[2023-06-28] MEDS: COREG 6.25 MG PO (20:56)
[2023-06-28 21:27] LABS: Glucose - Point of Care 118 mg/dl (70-99)
--- NOTE | 2023-06-28 23:38 | PTCARENOTE ---
Addendum entered by Louise Galvan RN 06/29/23 03:46:
Right pupillary response +2 (not +1).
Original Note:
Pt received at beginning of shift resting in bed. at bedside. Pt AAOX2. Disoriented to place. Pt became agitated when this RN attempted to assess pt's PD catheter. Pt stated 'I don't want you to looking at my penis.' Pt reassured this RN would
not violate his privacy, that he would be kept covered for assessment of PD cath and during PD. PD initiated and completed without issue. in room during draining and installation wearing mask. Neuro/NIH completed as ordered. When pt attempting
to describe pictures or read words/sentences pt would have confused conversation re: pictures and would turn the page every which way when reading words not on paper or searching for words. Pt has +1 pupillary non-reaction on right and +2 pupillary
slow reaction on left. Pt has full ROM all extremities. No change from previous assessment. Pt took HS meds without difficulty. Ward draining lisette urine. VSS. Afebrile. SR on CM. POX 95% RA. Bed alarm remains on and working. Call moody remains on
pt left. Table moved to pt's left for ease of use. Will continue to monitor.
[2023-06-29] VITALS (12 sets, daily range): BP systolic 95–164; BP diastolic 66–92
--- NOTE | 2023-06-29 00:17 | PTCARENOTE ---
This RN walked into pt's room and observed pt holding green catheter tubing. Pt stated he 'did not want it because it was hurting my groin.' No bleeding noted from penis. Was not due to be removed until the . Iris BRADLEY TT'd and made aware.
Will continue to monitor.
[2023-06-29] MEDS: ZOSYN 50 IV ×3 (01:07→17:04)
[2023-06-29 04:22] LABS: Hematocrit 34.6 % (39.0-52.0); Hemoglobin 11.9 g/dL (13.0-18.0); Mean Corp Hgb Conc. 34.4 g/dL (33.0-37.0); Mean Corpuscular Hgb 30.1 pg (27.0-31.0); Mean Corpuscular Volume 87.6 fL (80.0-94.0); Mean Platelet Volume 10.1 fL (7.4-10.4); Platelet Count 169 10^3/uL (130-400); Red Blood Cell Count 3.95 10^6/uL (4.70-6.10); Red Cell Dist. Width 13.1 % (11.5-14.5)
--- NOTE | 2023-06-29 04:30 | PTCARENOTE ---
Pt requested to speak to this RN's finishing supervisor. This RN asked pt if there was anything I could do for him. Pt stated 'We'll all talk together and you won't be doing PD on me.' Logistics Service Representative Juan Pablo called and made aware of above. Logistics Service Representative Juan Pablo arrived to
floor and spoke to pt regarding his wish to speak with him. Pt expressed concerns over 'the blonde haired male nurse that I had yesterday that was searching through my records multiple times throughout the day.' Logistics Service Representative allowed pt to express his
concerns. Then the finishing supervisor asked pt if it was ok for this RN to continue with his PD this am and pt stated 'yes' that he didn't have any problems with this RN. PD given without issue. Pt cooperative at this time.
[2023-06-29 05:00] LABS: Blood Urea Nitrogen 41 mg/dl (9-20); Calcium 7.2 mg/dl (8.4-10.2); Carbon Dioxide 26 mmol/L (22-30); Chloride 100 mmol/L (98-107); Estimated Creatinine Clearance 15 ml/min; Glucose 198 mg/dl (70-99); Potassium 3.6 mmol/L (3.5-5.1); Sodium 131 mmol/L (135-145); eGFR 12.79
--- NOTE | 2023-06-29 05:30 | PTCARENOTE ---
Bed alarm going off. Upon assessment pt attempting to get oob stated he's leaving. Multiple personnel in with pt to calm him and reassure him he can discuss leaving with his Dr when they come in this am. Pt then accusing us that we took his phone
which was sitting on his chest. Pt accusatory stating we locked him out of his phone, changed the code and cut the service off. Stated we lured him in here and won't let him leave, stating 'I'll walk home if I have to.' Retirement Administrator asked for 1:1 for
dayshift.
[2023-06-29 07:27] LABS: Glucose - Point of Care 261 mg/dl (70-99)
[2023-06-29] MEDS: NOVOLOG FLEXPEN 8 UNITS SC ×3 (08:09→17:06)
[2023-06-29] MEDS: NOVOLOG FLEXPEN-LOW RESISTANCE 3 UNITS SC (08:10)
[2023-06-29] MEDS: SENSIPAR 30 MG PO (08:11)
[2023-06-29] MEDS: COREG 6.25 MG PO ×2 (08:11→19:15)
[2023-06-29] MEDS: LOW STRENGTH ASPIRIN 81 MG PO (08:14)
[2023-06-29] MEDS: RENVELA 800 MG PO ×3 (08:14→17:05)
[2023-06-29] MEDS: SODIUM BICARBONATE 650 MG PO ×2 (08:14→19:15)
[2023-06-29] MEDS: ROCALTROL 0.5 MCG PO (08:14)
[2023-06-29] MEDS: HEPARIN 5000 UNITS SC ×2 (08:14→16:59)
[2023-06-29] MEDS: THIAMINE INJECTION 200 MG IV ×2 (08:14→19:16)
[2023-06-29] MEDS: CARDIZEM SR 120 MG PO (08:14)
[2023-06-29] MEDS: LANTUS 0.100000000000000006 UNITS SC (08:15)
--- NOTE | 2023-06-29 08:27 | W.PN.HOSP.TC ---
Addendum entered and electronically signed by Quinton Gabriel MD 06/29/23 09:19:
Correction:
Patient getting novolog pre-meal 8U AC
Original Note:
Today's Communication/Plan
-
see note
Assessment / Plan
Assessment / Plan
Ct a/p
1). There is free intraperitoneal air likely on the basis of peritoneal dialysis catheter.
Perforated abdominal viscus is less likely
2). Hepatomegaly with diffuse fatty infiltration of the liver.
3). Atherosclerosis
4). Mild prostatomegaly
5). Multiple renal cysts

1. Diabetic ketoacidosis - resolved
Uncontrolled IDDM
Episode of hypoglycemia
-Reason for diabetic ketoacidosis remains unclear.
-Have uncontrolled diabetes at baseline with hemoglobin A1c of 11%
-Admission blood glucose 1125 Bicarb <5 AGAP ~ 40
-Patient off of insulin drip.
-Any recurrent AGAP acidosis needed to be evaluated with keeping in mind that patient have ESRD and will skew the calculation.
-Insulin pump is nonfunctional per diabetic [facility], managed with subq insulin at this point.
-Patient BG improving and will start some premeal insulin 3 u.
2. Subacute CVA vs PRES
-patient having right side neglect/dischronation of hand eye movement
- 06/27 CT head showing Large area of decreased attenuation involving the posterior left parietal and occipital lobes. Similar but less pronounced findings also involve the posterior right parietal lobe. Differential considerations include subacute
infarction or posterior reversible encephalopathy syndrome (PRES).
-given full dose asa, already on statin
-Neuro consulted, recommended MRI Brain and MRA h&n - ordered.
2. ESRD on Peritoneal Dialysis
Secondary Hyperparathyroidism
-Nephrology following and help appreciated
-Monitor Is&Os and Daily Weights
-Resume back Cinacalcet/sevelamer
3. Leukocytosis - Resolved
suspected sepsis from unclear source
-CTAP ruled out any acute abnormality
-Patient makes some urine, UA showing few bacteria and RBC.
-Chest x-ray clear
-COVID neg.
-Blood culture/urine culture neg.
-Peritoneal fluid sample from catheter showing WBC 15 /cumm
-Maintain on empiric Zosyn
5. Acute TME -resolved
-Remains confused and required to be on mitts/restrained
-continue supportive care
-mentation better but some neuro deficit with new suspected CVA
6. Essential hypertension -uncontrolled
-resume back on diltiazem
-Coreg added and dose increase today
-As needed hydralazine ordered for systolic blood pressure greater than 160
6. Hypokalemia
-replace PRN
Anemia of Renal Disease
Diabetes Neuropathy
Essential Hypertension
Hyperlipidemia
BPH
DVT proph: SC Heparin
Code Status: Full Code
Total time spent : 53 mins
Anticipated Discharge: > 48 hours
Subjective/Interval History
-
Date of Service: June 29, 2023
sitting comfortably in chair
having breakfast
reporting some sleep disturbances
Objective Data
-
Labs:
Laboratory Results
06/29/23
04:14
WBC 8.0
Hgb 11.9 L
Hct 34.6 L
Plt Count 169
Sodium 131 L
Potassium 3.6
Chloride 100
Carbon Dioxide 26
BUN 41 H
Creatinine 4.8 H*
Glucose 198 H
Calcium 7.2 L
Vital Signs:
Vital Signs
Temp Pulse Resp BP Pulse Ox
97.9 F 71 14 136/74 97
06/29/23 07:24 06/29/23 08:11 06/29/23 06:00 06/29/23 06:00 06/29/23 04:00
I&O
06/28/23 06/29/23 06/30/23
06:59 06:59 06:59
Intake Total 290 / 290 780 / 780
Output Total 2125 / 2125 1050 / 1050
Balance -1835 / -1835 -270 / -270
Review of Systems
-
Respiratory: Reports No Symptoms
Cardiac: Reports No Symptoms
Abdomen/GI: Reports No Symptoms
Physical Exam
-
General: No Apparent Distress and Comfortable
HEENT: Negative Oxygen
Respiratory: Clear to Auscultation
Cardiac: Regular Rhythm and S1/S2; Negative Murmur or Rub
GI: Soft, Nontender and Nondistended
Musculoskeletal: No Edema
Neuro: Awake, Alert and Other (Right eye temporal vision loss, right side hemineglect, unable to do right hand finger-nose test)
Psych: Calm
--- NOTE | 2023-06-29 10:26 | W.PN.NEPH.PH ---
Today's Communication / Plan
-
PD orders provided
Assessment/Plan
-
Impression:
ESRD/PD
Metabolic encephalopathy with CVA findings on CT 06/27
DKA (AG:>25)
Hypertension
Secondary hyperparathyroidism
Diabetes
Hyperphosphatemia
Dyslipidemia
BPH
Plan:
-PD orders provided and changed (1.5% at q5 hr intervals)
-PD fluid culture and cell count obtained --> does not meet criteria for peritonitis
-blood cultures negative thus far
-CT of abdomen and pelvis with some free air in the setting of PD catheter otherwise unremarkable
-patient appears euvolemic at this time, would hold off on further fluids
-FATIMAH therapy for anemia
-
-PD flow sheets reviewed: u/f slightly negative
-Patient's mental status is still not at baseline. he is now in four point restraints and requiring antipsychotics
-CT report reviewed: Noted large area of decreased attenuation involving the posterior left parietal and occipital lobes. Possibility for subacute infarction or pres
-
-
Date of Service: June 29, 2023
CC / HPI / ROS
-
Chief Complaint:
ESRD on PD
History of Present Illness:
DKA, gap now closed
PD, no complaints of abd pain
Review of Systems:
confused, no fevers
ataxia, right field deficit
green
non oliguric
Labs
-
Labs:
WBC 8.0 10^3/uL (4.8-10.8) 06/29/23 04:14
RBC 3.95 10^6/uL (4.70-6.10) L 06/29/23 04:14
Hgb 11.9 g/dL (13.0-18.0) L 06/29/23 04:14
Hct 34.6 % (39.0-52.0) L 06/29/23 04:14
Plt Count 169 10^3/uL (130-400) 06/29/23 04:14
Sodium 131 mmol/L (135-145) L 06/29/23 04:14
Potassium 3.6 mmol/L (3.5-5.1) 06/29/23 04:14
Chloride 100 mmol/L (98-107) 06/29/23 04:14
Carbon Dioxide 26 mmol/L (22-30) 06/29/23 04:14
BUN 41 mg/dl (9-20) H 06/29/23 04:14
Creatinine 4.8 mg/dL (0.7-1.3) H* 06/29/23 04:14
eGFR 12.79 06/29/23 04:14
Glucose 198 mg/dl (70-99) H 06/29/23 04:14
Calcium 7.2 mg/dl (8.4-10.2) L 06/29/23 04:14
Phosphorus 8.6 mg/dl (2.5-4.5) H 06/24/23 23:31
Albumin 2.7 g/dl (3.5-5.0) L 06/24/23 22:22
Physical Exam
-
Vital Signs:
Vital Signs
Temp Pulse Resp BP Pulse Ox
97.9 F 71 13 142/92 97
06/29/23 07:24 06/29/23 08:13 06/29/23 08:13 06/29/23 08:13 06/29/23 04:00
Cardiovascular:: Regular rate and rhythm
Respiratory:: Bilateral: CTA
Lung Excursion:: Normal
Abdomen:: Nontender
Bowel Sounds:: Normal
Extremity Edema:: None: Bilateral:
Green Catheter: Yes
--- NOTE | 2023-06-29 10:50 | W.PN.UPDATE ---
Update Note
Progress Note Update
PD note:
1.5% q4hrs 2L exchange
--- NOTE | 2023-06-29 11:33 | CON.NEURO4 ---
Consultation - Neurology 4
-
CONSULTING PHYSICIAN: Zach
REFERRING PHYSICIAN: Harvey
DICTATED BY: Zach
DATE/TIME OF REQUEST: 06/28/23 in the evening
DATE/TIME OF CONSULTATION: 06/28/23 at 845
Reason for Consultation: stroke
History of Present Illness:
63-year-old male admitted with DKA and confusion on June 23. Per records a few days prior to that he started having confusion with increased urinary frequency. He had been put on Cipro around this time for urinary tract infection. He became
combative on the and refuses daily peritoneal dialysis. He also had a fever earlier in the week. The patient is an unreliable historian and tells me that he started having issues with his coordination in his right hand only on June 26. Head
CT done yesterday showed a large area of decreased attenuation involving the posterior left parietal occipital lobes and a similar but less pronounced finding in the posterior right parietal lobe with differential including subacute infarct versus
PRES. This was done after he developed some right-sided neglect and decreased coordination of his hand eye movements yesterday afternoon. Case was discussed with Dr. Ramos yesterday and he was loaded with aspirin. He is already on a statin.
PMH:
Diabetes Mellitus, Type I with Retinopathy, Nephropathy, and Neuropathy
ESRD on Peritoneal Dialysis
Secondary Hyperparathyroidism
Anemia of Renal Disease
Essential Hypertension
Hyperlipidemia
BPH
Past Surgical History:
Peritoneal Dialysis Catheter
Social History
Tobacco: Non-smoker
Alcohol: Occasional
Family History
Family History: Not pertinent
Allergies
No Known Allergies Allergy (Verified 06/25/23 00:35)
Home Medications
�Medication �Instructions �Recorded
gabapentin 100 mg capsule 100 mg PO BID Pain 08/09/22
insulin aspart U-100 100 unit/mL 1 sliding scale dose SC .VIA PUMP 08/09/22
(3 mL) subcutaneous pen (Novolog Diabetes
FlexPen U-100 Insulin aspart)
rosuvastatin 20 mg tablet 20 mg PO QPM High Cholesterol 08/09/22
tamsulosin 0.4 mg capsule 0.4 mg PO DAILY Urinary Issue 08/09/22
diltiazem HCl 120 mg 120 mg PO DAILY Arrhythmia 11/30/22
capsule,extended release 12 hr
calcitriol 0.5 mcg capsule 0.5 mcg PO DAILY Kidney Disease 06/24/23
cinacalcet 30 mg tablet 30 mg PO DAILY Kidney Disease 06/24/23
ciprofloxacin HCl 500 mg tablet 500 mg PO . DIRECTED Infection 06/24/23
sevelamer carbonate 800 mg tablet 800 mg PO MEALS Kidney Disease 06/24/23
torsemide 20 mg tablet 20 mg PO DAILY Fluid 06/24/23
Retention/Swelling
Review of Symptoms:
Patient denies any fever, headache, chest pain, shortness of breath, GI or symptoms.
�Per the HPI.�All systems are reviewed negative except above.
Vital Signs
Temp Pulse Resp BP Pulse Ox
97.5 F 71 13 142/92 97
06/29/23 11:08 06/29/23 08:13 06/29/23 08:13 06/29/23 08:13 06/29/23 04:00
Lab Results
06/29/23 04:14
06/29/23 04:14
PT 16.9 Sec (11.4-14.6) H 06/25/23 04:35
INR 1.39 06/25/23 04:35
APTT 25.4 Sec (23.4-35.0) 06/25/23 04:35
Sodium 131 mmol/L (135-145) L 06/29/23 04:14
Potassium 3.6 mmol/L (3.5-5.1) 06/29/23 04:14
BUN 41 mg/dl (9-20) H 06/29/23 04:14
Glucose 198 mg/dl (70-99) H 06/29/23 04:14
Calcium 7.2 mg/dl (8.4-10.2) L 06/29/23 04:14
Phosphorus 8.6 mg/dl (2.5-4.5) H 06/24/23 23:31
Vitamin B12 391 pg/ml (239-931) 06/28/23 05:04
Ur Buprenorphine Negative (Negative) 06/25/23 09:46
Physical Exam:
The patient is afebrile, heart sounds S1 and S2 are regular, and chest is clear to auscultation bilaterally.
NIH Stroke Scale:
I performed the NIH stroke scale on the patient on at 845. The patient scored 7 points on the NIH stroke scale assessment, which were assigned as follows: (see attached)
Neurologic Examination:
The patient is awake, alert and is an unreliable historian. He appears to confabulate responses to testing for aphasia; he was unable to read but did not appear bothered by this and gave unrelated responses; he also appeared to confabulate R
visual field testing. He was confused and thought the date was March 08, 1932. On cranial nerve assessment, pupils are 3 mm bilateral, round and reactive to light and accommodation. He exhibited a right homonymous hemianopsia and right-sided
neglect. EOM appeared intact. Facial sensations are intact and bilaterally symmetrical, there is no facial asymmetry. Hearing is intact bilaterally to normal conversation volume. Tongue palate and uvula are midline. Sternocleidomastoid strengths
are full bilaterally. Motor strengths are 5/5 bilateral upper and lower extremities on medical research [place] scale. There is no drift or involuntary movement noted. Deep tendon reflexes are 2+ bilateral upper and lower extremities and Babinski is
absent bilaterally. Sensations of touch, temperature and vibration are intact and bilaterally symmetrical. + R sided neglect. Coordination is intact by finger to nose bilaterally.
Neuro Imaging:
HCT, 06/28/23
'Large area of decreased attenuation involving the posterior left parietal and occipital lobes. Similar but less pronounced findings also involve the posterior right parietal lobe. Differential considerations include subacute infarction or posterior
reversible encephalopathy syndrome (PRES). '
Impression:
JANIS CHAU is a 63 year old M admitted with DKA and TME likely related to sepsis/infection, ESRD on PD, leukocytosis with confusion, R sided neglect and visual field cut. HCT is concerning for a posterior L parietal/occipital and possible
posterior R parietal stroke vs PRES. The patient states that he thinks that he first noticed that his coordination was off in his R hand on .
Patient has the following risk factors for their symptoms: age, esrd, dka/dm, htn, hld
IV Tenecteplase/IAT candidacy: out of the window
-check MRI brain without contrast to evaluate for stroke
-MRA head/neck
-BP goal is normotension.
-loaded with ASA 325mg daily, now on ASA 81mg daily. continue Crestor 20mg daily.
-admitted with DKA, now resolved. Glucose control per primary team. A1C is 11.0.
- Check LDL/lipid panel. Goal LDL after stroke is <70.
- Check an echocardiogram.
-PT/OT/ST evaluations
- DVT prophylaxis
-continue neurochecks
-continue thiamine
Discussed patient care with: patient, Dr. Ramos
NIH Stroke Scale
NIH Stroke Score
Date of Subsequent NIH Scale: 06/29/23
Time of Subsequent NIH Scale: 08:45
Level of Consciousness: 0 - Alert
LOC Questions: 2-Neither correct
LOC Commands: 0-Performs both correctly
Best Horizontal Gaze: 0-Normal
Visual Hinojosa: 2=Full hemianopia
Facial Palsy: 0=Normal, symmetrical
Motor - Right Arm: 0=No drift 10 seconds
Motor - Left Arm: 0=No drift 10 seconds
Motor - Right Le-No drift 5 seconds
Motor - Left Le-No drift 5 seconds
Limb Ataxia: 0-Absent
Sensation: 0-Normal
Best Language: 1-Mild aphasia
Dysarthria: 0-Normal
Extinction and Inattention: 2-Total carlos inattention
Total Score:: 7
[2023-06-29 12:21] LABS: Glucose - Point of Care 187 mg/dl (70-99)
[2023-06-29] MEDS: NOVOLOG FLEXPEN-LOW RESISTANCE 1 UNITS SC (14:09)
[2023-06-29 15:25] LABS: HDL Cholesterol 56 mg/dl; LDL Cholesterol, Calculated 26 mg/dl; Total Cholesterol 94 mg/dl (50-199); Triglyceride 63 mg/dl (10-149); Very Low Density Lipoprotein 12 mg/dl (0-30)
[2023-06-29] MEDS: NOVOLOG FLEXPEN-LOW RESISTANCE SC (17:05)
[2023-06-29] MEDS: CRESTOR 20 MG PO (17:05)
[2023-06-29 17:21] LABS: Glucose - Point of Care 116 mg/dl (70-99)
[2023-06-29] MEDS: FLUSH (NSS) 2 FLUSH IV (19:16)
[2023-06-29 21:14] LABS: Glucose - Point of Care 262 mg/dl (70-99)
--- NOTE | 2023-06-29 22:14 | PTCARENOTE ---
Pt received at beginning of shift resting in bed with at beside. Pt able to state his name and date. Stated we are in year 1948. Pt continues with confusion, forgetfulness, easily agitated and can be uncooperative at times. Many attempts
while speaking to his regarding him leaving with her tonight. Pt states he does not feel he needs to stay another night. reassured pt that he does need to stay at lease until tomorrow. left. Neuro/NIH as documented. No change from
previous assessment. PD initiated with pt's permission. Right PD cath intact, dressing c/d/i. Pt attempting to get oob on own to use bathroom. With assistance pt slowly walked to bathroom after much verbal cues. Voided and had soft brown BM. Again
with much verbal cues pt assisted back to bed and is currently resting comfortably. Denies any pain or discomfort. Rest of assessment as documented. Pt refuses scd's. Call moody remains within reach. Will continue to monitor.
[2023-06-30] VITALS (14 sets, daily range): BP systolic 84–174; BP diastolic 32–90; PULSE 66; BMI 26.5
[2023-06-30] MEDS: HEPARIN 5000 UNITS SC ×3 (00:28→16:07)
[2023-06-30] MEDS: ZOSYN 50 IV ×3 (01:08→19:21)
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
[2023-06-30 08:18] LABS: Blood Urea Nitrogen 42 mg/dl (9-20); Carbon Dioxide 25 mmol/L (22-30); Chloride 97 mmol/L (98-107); Estimated Creatinine Clearance 14 ml/min; Glucose 413 mg/dl (70-99); Potassium 3.7 mmol/L (3.5-5.1); Sodium 128 mmol/L (135-145); eGFR 12.48
[2023-06-30] MEDS: SENSIPAR 30 MG PO (08:45)
[2023-06-30] MEDS: ROCALTROL 0.5 MCG PO (08:45)
[2023-06-30] MEDS: RENVELA 800 MG PO ×3 (08:45→16:07)
[2023-06-30] MEDS: CARDIZEM SR 120 MG PO (08:45)
[2023-06-30] MEDS: LOW STRENGTH ASPIRIN 81 MG PO (08:46)
[2023-06-30] MEDS: COREG 6.25 MG PO ×2 (08:46→20:40)
[2023-06-30] MEDS: THIAMINE INJECTION 200 MG IV ×2 (08:47→20:40)
[2023-06-30] MEDS: SODIUM BICARBONATE 650 MG PO ×2 (08:47→20:40)
[2023-06-30] MEDS: NOVOLOG FLEXPEN-LOW RESISTANCE 5 UNITS SC ×2 (08:47→13:08)
[2023-06-30] MEDS: LANTUS 0.100000000000000006 UNITS SC (08:47)
[2023-06-30] MEDS: NOVOLOG FLEXPEN 8 UNITS SC ×3 (08:48→16:08)
[2023-06-30 08:58] LABS: Glucose - Point of Care 398 mg/dl (70-99)
--- NOTE | 2023-06-30 09:03 | W.PN.NEPH.PH ---
Today's Communication / Plan
-
PD orders provided
Will change back to every 4 hour exchanges with 1.5%
MRA report reviewed: Occlusion of left posterior cerebral artery
MRI report: Multiple areas of subacute infarction including punctate areas of infarct in the right cerebellar hemisphere and a 6 cm left occipital infarct with petechial hemorrhage suggesting embolic etiology
Assessment/Plan
-
Impression:
ESRD/PD
Metabolic encephalopathy with CVA findings on CT 06/27
DKA (AG:>25)
Hypertension
Secondary hyperparathyroidism
Diabetes
Hyperphosphatemia
Dyslipidemia
BPH
Plan:
-PD orders provided and changed (1.5% at q4 hr intervals) to be changed back given worsening hyponatremia and weight gain
-Fluid restriction placed
-PD fluid culture and cell count obtained --> does not meet criteria for peritonitis
-blood cultures negative
-CT of abdomen and pelvis with some free air in the setting of PD catheter otherwise unremarkable
-FATIMAH therapy for anemia prn
-PD flow sheets reviewed: u/f slightly negative
-Mental status with associated ataxia and right field neglect persists
-CT report reviewed: Noted large area of decreased attenuation involving the posterior left parietal and occipital lobes. Possibility for subacute infarction or pres
-
-
Date of Service: June 30, 2023
CC / HPI / ROS
-
Chief Complaint:
ESRD on PD
History of Present Illness:
DKA, gap now closed
PD, no complaints of abd pain
Mental status with some improvement today
Review of Systems:
ataxia, right field deficit with some improvement
non oliguric
Labs
-
Labs:
WBC 8.0 10^3/uL (4.8-10.8) 06/29/23 04:14
RBC 3.95 10^6/uL (4.70-6.10) L 06/29/23 04:14
Hgb 11.9 g/dL (13.0-18.0) L 06/29/23 04:14
Hct 34.6 % (39.0-52.0) L 06/29/23 04:14
Plt Count 169 10^3/uL (130-400) 06/29/23 04:14
Sodium 128 mmol/L (135-145) L 06/30/23 07:14
Potassium 3.7 mmol/L (3.5-5.1) 06/30/23 07:14
Chloride 97 mmol/L (98-107) L 06/30/23 07:14
Carbon Dioxide 25 mmol/L (22-30) 06/30/23 07:14
BUN 42 mg/dl (9-20) H 06/30/23 07:14
Creatinine 4.9 mg/dL (0.7-1.3) H* 06/30/23 07:14
eGFR 12.48 06/30/23 07:14
Glucose 413 mg/dl (70-99) H 06/30/23 07:14
Calcium 7.0 mg/dl (8.4-10.2) L 06/30/23 07:14
Phosphorus 8.6 mg/dl (2.5-4.5) H 06/24/23 23:31
Albumin 2.7 g/dl (3.5-5.0) L 06/24/23 22:22
Physical Exam
-
Vital Signs:
Vital Signs
Temp Pulse Resp BP Pulse Ox
97.8 F 59 20 114/60 95
06/30/23 03:02 06/30/23 04:00 06/29/23 20:58 06/30/23 02:00 06/29/23 20:58
Cardiovascular:: Regular rate and rhythm
Respiratory:: Bilateral: CTA
Lung Excursion:: Normal
Abdomen:: Nontender
Bowel Sounds:: Normal
Extremity Edema:: None: Bilateral:
Ward Catheter: No
--- NOTE | 2023-06-30 09:12 | W.PN.UPDATE ---
Update Note
Progress Note Update
PD note
Patient to be on 1.5% dialysate and 2 L every 4 hours exchange
PD sheets reviewed, essentially even UF
Implementing fluid restriction for hyponatremia
[2023-06-30 12:56] LABS: Glucose - Point of Care 353 mg/dl (70-99)
--- NOTE | 2023-06-30 14:35 | W.PN.HOSP.TC ---
Today's Communication/Plan
-
glucose control
TTE
antiplatelet regimen as per neuro
cont abx
cont PD
Assessment / Plan
Assessment / Plan
Ct a/p
1). There is free intraperitoneal air likely on the basis of peritoneal dialysis catheter.
Perforated abdominal viscus is less likely
2). Hepatomegaly with diffuse fatty infiltration of the liver.
3). Atherosclerosis
4). Mild prostatomegaly
5). Multiple renal cysts

# Diabetic ketoacidosis - resolved
Uncontrolled IDDM
Episode of hypoglycemia
-Reason for diabetic ketoacidosis remains unclear.
-Have uncontrolled diabetes at baseline with hemoglobin A1c of 11%
-Admission blood glucose 1125 Bicarb <5 AGAP ~ 40
-Patient off of insulin drip.
-Any recurrent AGAP acidosis needed to be evaluated with keeping in mind that patient have ESRD and will skew the calculation.
-Insulin pump is nonfunctional per diabetic RUBBER COMPOUNDER, managed with subq insulin at this point.
-titrate insulin
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
--patient having right side neglect/dischronation of hand eye movement
� Neurology consulted
� On aspirin, statin
� Follow-up neurology recommendations for further antiplatelet regimen
� Follow-up echo to eval embolic source; may need JAMES
- goal of normotension
# ESRD on Peritoneal Dialysis
Secondary Hyperparathyroidism
-Nephrology following and help appreciated
-Monitor Is&Os and Daily Weights
-Resume back Cinacalcet/sevelamer
#Leukocytosis - Resolved
suspected sepsis from unclear source
-CTAP ruled out any acute abnormality
-Patient makes some urine, UA showing few bacteria and RBC.
-Chest x-ray clear
-COVID neg.
-Blood culture/urine culture neg.
-Peritoneal fluid sample from catheter showing WBC 15 /cumm
-Maintain on empiric Zosyn - 7 day course
# Acute TME -resolved
-resolved
-most likely 2/2 to infection v CVA
#Essential hypertension -uncontrolled
-resume back on diltiazem
-Coreg added and dose increase today
-As needed hydralazine ordered for systolic blood pressure greater than 160
6. Hypokalemia
-replace PRN
#Hyponatremia
� Continue monitor on PD
Anemia of Renal Disease
Diabetes Neuropathy
Essential Hypertension
Hyperlipidemia
BPH
DVT proph: SC Heparin
Code Status: Full Code
Total time spent on today's encounter was 55 minutes which included time spent in counseling the patient/family regarding diagnosis and treatment plan as listed above, goals of care, and symptom management. Case was discussed with nursing staff,
specialists, and care coordinators/case management. All labs and imaging personally reviewed by me. Remainder the time spent in detailed review of previous records, lab data, imaging, and other medical provider documentation.
Anticipated Discharge: > 48 hours
Subjective/Interval History
-
Date of Service: June 30, 2023
No acute events overnight
Objective Data
-
Labs:
Laboratory Results
06/30/23
07:14
Sodium 128 L
Potassium 3.7
Chloride 97 L
Carbon Dioxide 25
BUN 42 H
Creatinine 4.9 H*
Glucose 413 H
Calcium 7.0 L
Vital Signs:
Vital Signs
Temp Pulse Resp BP Pulse Ox
98.8 F 59 20 114/60 95
06/30/23 11:27 06/30/23 04:00 06/29/23 20:58 06/30/23 02:00 06/30/23 12:43
I&O
06/29/23 06/30/23 07/01/23
06:59 06:59 06:59
Intake Total 780 / 780 580 / 580
Output Total 1050 / 1050 400 / 400 800 / 800
Balance -270 / -270 180 / 180 -800 / -800
Review of Systems
-
Respiratory: Reports No Symptoms
Cardiac: Reports No Symptoms
Abdomen/GI: Reports No Symptoms
Data Reviewed
-
CT Scan: Image personally visualized and interpreted and Report Reviewed by me
MRI: Report Reviewed by me
Labs: Labs Reviewed by me
[2023-06-30] MEDS: CRESTOR 20 MG PO (16:07)
[2023-06-30] MEDS: NOVOLOG FLEXPEN-LOW RESISTANCE 300 UNITS SC (16:09)
[2023-06-30 16:13] LABS: Glucose - Point of Care 268 mg/dl (70-99)
--- NOTE | 2023-06-30 16:28 | W.PN.NEURO.1 ---
Today's Communication / Plan
-
echo
telemetry monitoring
Neuro Assessment/Plan
Assessment
JANIS CHAU is a 63 year old M admitted with DKA and TME likely related to sepsis/infection, ESRD on PD, leukocytosis with confusion, R sided neglect and visual field cut. The patient states that he thinks that he first noticed that his
coordination was off in his R hand on . He demonstrates alexia and confabulation regarding his visual loss.
MRI brain showed:
'There are multiple areas of subacute infarction including punctate areas of infarct in the right cerebellar hemisphere and a 6 cm left occipital infarct with petechial hemorrhage. The multiple vascular distributions of these infarcts suggest
embolic etiology such as may be seen with a cardiac source'
MRA head: There is occlusion of the left posterior cerebral artery approximately 5 cm distal to its origin.
MRA neck:normal
Patient has the following risk factors for their symptoms: age, esrd, dka/dm, htn, hld
IV Tenecteplase/IAT candidacy: out of the window
Plan
-echo, may need JAMES/cardiology evaluation depending upon results
-telemetry monitoring
-reviewed MRI brain and MRA results with patient and his family
-BP goal is normotension.
-loaded with ASA 325mg daily, now on ASA 81mg daily. continue Crestor 20mg daily; on this as an outpatient; LDL is 26. Will hold Plavix given petechial hemorrhage.
-admitted with DKA, now resolved. Glucose control per primary team. A1C is 11.0.
-PT/OT/ST evaluations
- DVT prophylaxis
-continue neurochecks
-continue thiamine
-continue PD
Subjective/Objective
Subjective Data
Date of Service: June 30, 2023
vision appears a bit better than yesterday; seems less confused
Objective Data
Vital Signs
Temp Pulse Resp BP Pulse Ox
98.8 F 59 20 114/60 95
06/30/23 11:27 06/30/23 04:00 06/29/23 20:58 06/30/23 02:00 06/30/23 12:43
Lab Results
06/29/23 04:14
06/30/23 07:14
PT 16.9 Sec (11.4-14.6) H 06/25/23 04:35
INR 1.39 06/25/23 04:35
APTT 25.4 Sec (23.4-35.0) 06/25/23 04:35
Sodium 128 mmol/L (135-145) L 06/30/23 07:14
Potassium 3.7 mmol/L (3.5-5.1) 06/30/23 07:14
BUN 42 mg/dl (9-20) H 06/30/23 07:14
Glucose 413 mg/dl (70-99) H 06/30/23 07:14
Calcium 7.0 mg/dl (8.4-10.2) L 06/30/23 07:14
Phosphorus 8.6 mg/dl (2.5-4.5) H 06/24/23 23:31
LDL Cholesterol, Calc 26 mg/dl 06/29/23 04:19
Vitamin B12 391 pg/ml (239-931) 06/28/23 05:04
Ur Buprenorphine Negative (Negative) 06/25/23 09:46
Patient Allergies
No Known Allergies Allergy (Verified 06/25/23 00:35)
Physical Exam
-
The patient is awake, alert; appeared less confused than yesterday. Knew location, his address, his . Thought year was 2013. He confabulates responses to testing for aphasia; he was unable to read but did not appear bothered by this and gave
unrelated responses; today he did not confabulate his visual field testing (as he did yesterday). On cranial nerve assessment, pupils are 3 mm bilateral, round and reactive to light and accommodation. He exhibited a right homonymous hemianopsia
and right-sided neglect, both somewhat improved compared to yesterday.. EOM appeared intact. Facial sensations are intact and bilaterally symmetrical, there is no facial asymmetry. Hearing is intact bilaterally to normal conversation volume.
Tongue palate and uvula are midline. Sternocleidomastoid strengths are full bilaterally. Motor strengths are 5/5 bilateral upper and lower extremities on medical research Laporte scale. There is no drift or involuntary movement noted. Deep tendon
reflexes are 2+ bilateral upper and lower extremities and Babinski is absent bilaterally. Sensations of touch, temperature and vibration are intact and bilaterally symmetrical. Coordination is intact by finger to nose bilaterally.
[2023-06-30 18:38] LABS: Glucose - Point of Care 169 mg/dl (70-99)
--- NOTE | 2023-06-30 19:00 | PTCARENOTE ---
Unable to verify VS prior to 190
[2023-06-30 21:31] LABS: Glucose - Point of Care 215 mg/dl (70-99)
[2023-07-01] VITALS (12 sets, daily range): BP systolic 118–178; BP diastolic 65–89; PULSE 68; BMI 27.0
[2023-07-01] MEDS: HEPARIN 5000 UNITS SC ×3 (00:04→17:38)
[2023-07-01] MEDS: ZOSYN 50 IV ×3 (01:46→17:38)
[2023-07-01 04:42] LABS: Hematocrit 32.3 % (39.0-52.0); Hemoglobin 11.2 g/dL (13.0-18.0); Mean Corp Hgb Conc. 34.7 g/dL (33.0-37.0); Mean Corpuscular Hgb 29.8 pg (27.0-31.0); Mean Corpuscular Volume 85.9 fL (80.0-94.0); Mean Platelet Volume 10.4 fL (7.4-10.4); Platelet Count 190 10^3/uL (130-400); Red Blood Cell Count 3.76 10^6/uL (4.70-6.10); Red Cell Dist. Width 12.7 % (11.5-14.5); White Blood Cell Count 9.4 10^3/uL (4.8-10.8)
--- NOTE | 2023-07-01 05:03 | PTCARENOTE ---
Pt received from previous shift in bed. AAOx2 (time), pleasantly confused at times. Telemetry = SR. Full physical assessment documented (refer to worklist). NIHSS = 8 (refer to flowsheet). Neurology contacted to clarify frequency of NIHSS
assessments, instructed to follow protocol. Pt tolerating PD exchanges w/o complaint. OOB w/assist x1, steady gait, requires frequent verbal cues. Bed alarm remains active for safety. #20 MORENITA INT patent. Call moody within reach. Continuing plan
of care.
[2023-07-01 05:11] LABS: Blood Urea Nitrogen 40 mg/dl (9-20); Calcium 7.5 mg/dl (8.4-10.2); Carbon Dioxide 27 mmol/L (22-30); Chloride 95 mmol/L (98-107); Estimated Creatinine Clearance 14 ml/min; Glucose 349 mg/dl (70-99); Potassium 3.6 mmol/L (3.5-5.1); Sodium 127 mmol/L (135-145); eGFR 12.18
--- NOTE | 2023-07-01 06:26 | W.PN.NEURO.1 ---
Today's Communication / Plan
-
-NIH and neurologic checks
-Cardiac telemetry
-Aspirin 81 mg
-Rosuvastatin 20 mg daily
-Check TTE
-With HbA1c of 11 as probably cause of sroke I feel JAMES will be of low yield, will consider depending on TTE
-Patient understands cannot drive with the right sided hemianopia and vision deficits from stroke, my office will report to [facility]
-PT/OT and will need PM&R
-Diabetic education, insulin
Will follow
Neuro Assessment/Plan
Assessment
JANIS CHAU is a 63 year old M admitted with DKA and TME likely related to sepsis/infection, ESRD on PD, leukocytosis with confusion, R sided neglect and visual field cut. The patient states that he thinks that he first noticed that his
coordination was off in his R hand on . He demonstrates alexia and confabulation regarding his visual loss.
MRI brain showed:
'There are multiple areas of subacute infarction including punctate areas of infarct in the right cerebellar hemisphere and a 6 cm left occipital infarct with petechial hemorrhage. The multiple vascular distributions of these infarcts suggest
embolic etiology such as may be seen with a cardiac source'
MRA head: There is occlusion of the left posterior cerebral artery approximately 5 cm distal to its origin.
MRA neck:normal
Patient has the following risk factors for their symptoms: age, esrd, dka/dm, htn, hld
Most likely etiology is atheroembolic and diabetes mellitus given uncontrolled diabetes HbA1c of 11
Subjective/Objective
Subjective Data
Date of Service: July 01, 2023
No acute events, denies headache, discussed findings of his stroke, recovery, not driving
Objective Data
Vital Signs
Temp Pulse Resp BP Pulse Ox
98.1 F 58 20 154/71 95
07/01/23 03:32 07/01/23 02:00 06/29/23 20:58 06/30/23 23:05 07/01/23 02:12
Lab Results
07/01/23 04:23
07/01/23 04:23
PT 16.9 Sec (11.4-14.6) H 06/25/23 04:35
INR 1.39 06/25/23 04:35
APTT 25.4 Sec (23.4-35.0) 06/25/23 04:35
Sodium 127 mmol/L (135-145) L 07/01/23 04:23
Potassium 3.6 mmol/L (3.5-5.1) 07/01/23 04:23
BUN 40 mg/dl (9-20) H 07/01/23 04:23
Glucose 349 mg/dl (70-99) H 07/01/23 04:23
Calcium 7.5 mg/dl (8.4-10.2) L 07/01/23 04:23
Phosphorus 8.6 mg/dl (2.5-4.5) H 06/24/23 23:31
LDL Cholesterol, Calc 26 mg/dl 06/29/23 04:19
Vitamin B12 391 pg/ml (239-931) 06/28/23 05:04
Ur Buprenorphine Negative (Negative) 06/25/23 09:46
Patient Allergies
No Known Allergies Allergy (Verified 06/25/23 00:35)
LDL Level: <70, continue statin
Review of Systems
-
History Source: Patient
All other systems: Reviewed and negative
Constitutional: No Symptoms
EENT: No Symptoms Reported
Respiratory: No Symptoms
Cardiac: No Symptoms
Abdomen/GI: No Symptoms
Genitourinary: No Symptoms
Musculoskeletal: No Symptoms
Skin: No Symptoms
Neuro: See existing Neuro Note
Endocrine: No Symptoms
Hematologic / Lymphatic: No Symptoms
Allergy / Immunology: No Symptoms
Physical Exam
-
General: Comfortable
Eyes: No Ptosis
HEENT: Normocephalic
Neck: No Bruits Bilaterally
Respiratory: Clear to Auscultation
Cardiac: Regular Rhythm
GI: Normal Bowel Sounds
Skin: Unremarkable
Extremities: No Clubbing
Psych: Unremarkable
Extended Neurological Exam
Mood & Affect: Mood Unremarkable and Affect Unremarkable
Attention Span & Concentration: Awake, Alert and Interactive
Memory: Reduced
Tremor: Hand Tremor Absent
Involuntary Movement: None
Speech: Quality Unremarkable and Quantity Unremarkable; Negative Expressive Aphasia, Receptive Aphasia or Dysarthric
Cranial Nerve II: Left Eye: Other (Right sided homonymous hemianopia, can read lunch menu, some difficulty in identifying objects with vision probably a visual agnosia)
Cranial Nerve II: Right Eye: Other (Right sided homonymous hemianopia, can read lunch menu, some difficulty in identifying objects with vision probably a visual agnosia)
Cranial Nerves III, IV, : Extraocular Movement: Extraocular Movement Full in all Directions
Cranial Nerve VII: Facial Symmetry: Normal Facial Symmetry
Cranial Nerve XII: Tongue Protusion: Midline
Muscle Strength, Overall: Full Throughout
Muscle Bulk & Tone: Bulk Unremarkable and Tone Unremarkable
Pronator Drift: No Drift in Upper Extremities
Deep Tendon Reflexes: Trace Throughout
Touch Sensation: Unremarkable
Coordination: [id number] Testing Unremarkable
Data Reviewed
-
MRI Head: Report Reviewed and Image Reviewed
MRA Head: Report Reviewed and Image Reviewed
MRA Neck: Report Reviewed and Image Reviewed
Echocardiogram: Pending
Labs: Report Reviewed
--- NOTE | 2023-07-01 07:23 | PTCARENOTE ---
TT to Dr. Holder regarding fluid excess on overnight exchanges.
[2023-07-01 07:51] LABS: Glucose - Point of Care 414 mg/dl (70-99)
[2023-07-01 08:29] LABS: Glucose 416 mg/dl (70-99)
--- NOTE | 2023-07-01 09:16 | PN.DE.MGMTRT ---
Insulin Management
- -
07/01/2023 Diabetes Management F/U:
Patient admitted 06/23 with blood sugar problem, venous glucose 1,125, with confusion. Patient was in DKA, GAP 25, A1C 11%, Cr 6.2, eGFR 9.41.
PMH includes T1DM, HTN, peritoneal dialysis daily. Patient uses a Medtronic 770 G insulin pump which is at the bedside.
Patient seen in room, awake, alert and oriented, forgetful but pleasant and able to minimally engage in discussion regarding diabetes plan of care.
Pt's nurse reports that pt is still confused, forgetfulness, easily agitated and can be uncooperative at times.
His mental status is much more improved today but still not at baseline. Insulin pump is at bedside, however, pt's mental status waxes and weans
His appetite has improved and he is consuming >65% of his meals.
Fasting glucose this AM is 416 venous, and 414 accuchek.
Will increase AM Lantus to 25 units. Pt has not received any of his standing dose NovoLog of 8 units.
Discussed with nurse and requesting AC NovoLog dose be administered at all meals.
Will resume his insulin pump once mental status is 100% at baseline. d/w pt's regarding diabetes plan of care.
Diabetes History
- -
Type of Diabetes: 1
Pre-Admission Diabetes Regimen
07/01/23
04:23
Creatinine 5.0 H*
Lab Results
Hemoglobin A1c 11.0 % (4.0-5.6) H 06/25/23 04:35
Insulin Pump Settings
IP Diabetes Regimen
06/30/23 06/30/23 06/30/23
12:44 15:59 18:27
Glucose
POC Glucose 353 H 268 H 169 H
06/30/23 07/01/23 07/01/23
21:15 04:23 07:39
Glucose 349 H
POC Glucose 215 H 414 H
07/01/23
07:58
Glucose 416 H
POC Glucose
Patient Education
[2023-07-01] MEDS: NOVOLOG FLEXPEN-LOW RESISTANCE 6 UNITS SC (09:51)
[2023-07-01] MEDS: NOVOLOG FLEXPEN 8 UNITS SC ×3 (09:54→18:00)
[2023-07-01] MEDS: LANTUS 0.25 UNITS SC (09:54)
[2023-07-01] MEDS: RENVELA 800 MG PO ×3 (10:10→18:05)
[2023-07-01] MEDS: COREG 6.25 MG PO ×2 (10:10→20:46)
[2023-07-01] MEDS: LOW STRENGTH ASPIRIN 81 MG PO (10:10)
[2023-07-01] MEDS: CARDIZEM SR 120 MG PO (10:10)
[2023-07-01] MEDS: SENSIPAR 30 MG PO (10:10)
[2023-07-01] MEDS: SODIUM BICARBONATE 650 MG PO ×2 (10:10→20:46)
[2023-07-01] MEDS: ROCALTROL 0.5 MCG PO (10:13)
--- NOTE | 2023-07-01 10:19 | W.PN.NEPH.PH ---
Today's Communication / Plan
-
PD
Assessment/Plan
-
Impression:
ESRD/PD
Metabolic encephalopathy with CVA findings on CT 06/27
DKA (AG:>25)
Hypertension
Secondary hyperparathyroidism
Diabetes
Hyperphosphatemia
Dyslipidemia
BPH
Plan:
-PD orders provided and changed alternate 1.5/2.5% solutions q4h
-for echo
-FATIMAH therapy for anemia prn
-PD flow sheets reviewed: u/f slightly positive
-Mental status with associated ataxia and right field neglect persists
-
-
Date of Service: July 01, 2023
CC / HPI / ROS
-
Chief Complaint:
ESRD on PD
History of Present Illness:
DKA, gap now closed
PD in progress, no complaints of abd pain
still a little confused
Review of Systems:
ataxia, right field deficit with some improvement
non oliguric
Labs
-
Labs:
WBC 9.4 10^3/uL (4.8-10.8) 07/01/23 04:23
RBC 3.76 10^6/uL (4.70-6.10) L 07/01/23 04:23
Hgb 11.2 g/dL (13.0-18.0) L 07/01/23 04:23
Hct 32.3 % (39.0-52.0) L 07/01/23 04:23
Plt Count 190 10^3/uL (130-400) 07/01/23 04:23
Sodium 127 mmol/L (135-145) L 07/01/23 04:23
Potassium 3.6 mmol/L (3.5-5.1) 07/01/23 04:23
Chloride 95 mmol/L (98-107) L 07/01/23 04:23
Carbon Dioxide 27 mmol/L (22-30) 07/01/23 04:23
BUN 40 mg/dl (9-20) H 07/01/23 04:23
Creatinine 5.0 mg/dL (0.7-1.3) H* 07/01/23 04:23
eGFR 12.18 07/01/23 04:23
Glucose 416 mg/dl (70-99) H 07/01/23 07:58
Calcium 7.5 mg/dl (8.4-10.2) L 07/01/23 04:23
Phosphorus 8.6 mg/dl (2.5-4.5) H 06/24/23 23:31
Albumin 2.7 g/dl (3.5-5.0) L 06/24/23 22:22
Physical Exam
-
Vital Signs:
Vital Signs
Temp Pulse Resp BP Pulse Ox
98 F 66 20 159/82 95
07/01/23 07:30 07/01/23 06:00 06/29/23 20:58 07/01/23 04:05 07/01/23 02:12
Cardiovascular:: Regular rate and rhythm
Respiratory:: Bilateral: Coarse
Lung Excursion:: Normal
Abdomen:: Nontender
Bowel Sounds:: Normal
Extremity Edema:: None: Bilateral:
--- NOTE | 2023-07-01 11:39 | PTCARENOTE ---
Assumed care of patient at beginning of this shift from previous RN during patient's dwell for PD. Central supply notified this nurse that they have limited amounts of ordered dialysate on hand; after count, there would be enough until tomorrow. "Paul"Debo made aware when he was at bedside seeing patient. Order changed to alternate 1.5 and 2.5; patient currently with dwell of 1.5.
Patient still with forgetfulness/confusion. Accu check this morning was critically high; lab draw 416 and coverage given accordingly. Lantus increased to 25 units; patient received his mealtime novolog as well. See worklist for full assessment and
vital signs; see MAR for med administration.
[2023-07-01 12:27] LABS: Glucose - Point of Care 394 mg/dl (70-99)
[2023-07-01] MEDS: NOVOLOG FLEXPEN-LOW RESISTANCE 5 UNITS SC (13:25)
--- NOTE | 2023-07-01 13:38 | PTOTSP ---
LEAD FORMER Evaluations
Oral and pharyngeal stages of swallowing suspected to be grossly WFL. No signs of aspiration observed. Continue regular, thin liquid diet. Assist patient with meal tray set up and feeding as needed given visual/perceptual changes s/p stroke.
Patient with signs concerning for a cognitive linguistic impairment impacting memory, processing, as well as receptive language skills and expressive language skills across all language domains. When adjusting for visual deficits with auditory
comprehension and verbal expression tasks, deficits persisted but to a lesser degree. (Could not adjust reading/writing given visual nature of these tasks.) Reading/writing are non-functional at this time. QAB overall - 5.16. Factors which may
be impacting include strokes and encephalopathy.
Recommend:
1. Cognitive linguistic therapy warranted at the acute care level and after rehab at this time.
2. Consider BLIND MOCA in follow up session.
--- NOTE | 2023-07-01 14:20 | PTCARENOTE ---
Received pt from previous shift. Preformed NIH scale at beginning of shift, Pt scoring a 7, Pt maintained on Q4 Neuro checks, per order. Pt alert to self and place. Needs frequent verbal redirection. Pt NSR on the monitor. Pt took Am pills well with
water. Pt ambulating x1 in room. Bed alarm on related to forgetfulness. pt does attempt to ambulate byself. Please see nursing shift assessment for full head to toe.
--- NOTE | 2023-07-01 15:09 | W.PN.HOSP.TC ---
Today's Communication/Plan
-
echo
pt/ot/physiatry
Assessment / Plan
Assessment / Plan
Ct a/p
1). There is free intraperitoneal air likely on the basis of peritoneal dialysis catheter.
Perforated abdominal viscus is less likely
2). Hepatomegaly with diffuse fatty infiltration of the liver.
3). Atherosclerosis
4). Mild prostatomegaly
5). Multiple renal cysts

# Diabetic ketoacidosis - resolved
Uncontrolled IDDM
Episode of hypoglycemia
-Reason for diabetic ketoacidosis remains unclear.
-Have uncontrolled diabetes at baseline with hemoglobin A1c of 11%
-Admission blood glucose 1125 Bicarb <5 AGAP ~ 40
-Patient off of insulin drip.
-Any recurrent AGAP acidosis needed to be evaluated with keeping in mind that patient have ESRD and will skew the calculation.
-Insulin pump is nonfunctional per diabetic FRUIT WORKER, managed with subq insulin at this point.
-titrate insulin, titrate with diabetic FRUIT WORKER
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
--patient having right side neglect/dischronation of hand eye movement
�most likely secondary to uncontrolled diabetes
� Neurology consulted
� On aspirin, statin
� Follow-up neurology recommendations for further antiplatelet regimen
� Follow-up echo to eval embolic source; doubt, therefore uncontrolled hemoglobin A1c
� PT/OT
� Physiatry consult
� Cannot drive due to right-sided hemianopia and vision deficits from stroke, neurology will contact DM
- goal of normotension
# ESRD on Peritoneal Dialysis
Secondary Hyperparathyroidism
-Nephrology following and help appreciated
-Monitor Is&Os and Daily Weights
-Resume back Cinacalcet/sevelamer
#Leukocytosis - Resolved
suspected sepsis from unclear source
-CTAP ruled out any acute abnormality
-Patient makes some urine, UA showing few bacteria and RBC.
-Chest x-ray clear
-COVID neg.
-Blood culture/urine culture neg.
-Peritoneal fluid sample from catheter showing WBC 15 /cumm
-Maintain on empiric Zosyn - 7 day course
# Acute TME -resolved
-resolved
-most likely 2/2 to infection v CVA
#Essential hypertension -uncontrolled
-resume back on diltiazem
-Coreg added and dose increase today
-As needed hydralazine ordered for systolic blood pressure greater than 160
6. Hypokalemia
-replace PRN
#Hyponatremia
� Continue monitor on PD
Anemia of Renal Disease
Diabetes Neuropathy
Essential Hypertension
Hyperlipidemia
BPH
DVT proph: SC Heparin
Code Status: Full Code
Total time spent on today's encounter was 54 minutes which included time spent in counseling the patient/family regarding diagnosis and treatment plan as listed above, goals of care, and symptom management. Case was discussed with nursing staff,
specialists, and care coordinators/case management. All labs and imaging personally reviewed by me. Remainder the time spent in detailed review of previous records, lab data, imaging, and other medical provider documentation.
Anticipated Discharge: 24 - 48 hours
Subjective/Interval History
-
Date of Service: July 01, 2023
No acute events overnight, glucose still very elevated
Objective Data
-
Labs:
Laboratory Results
07/01/23 07/01/23
04:23 07:58
WBC 9.4
Hgb 11.2 L
Hct 32.3 L
Plt Count 190
Sodium 127 L
Potassium 3.6
Chloride 95 L
Carbon Dioxide 27
BUN 40 H
Creatinine 5.0 H*
Glucose 349 H 416 H
Calcium 7.5 L
Vital Signs:
Vital Signs
Temp Pulse Resp BP Pulse Ox
98 F 67 20 134/67 95
07/01/23 11:13 07/01/23 14:00 06/29/23 20:58 07/01/23 12:05 07/01/23 09:00
I&O
06/30/23 07/01/23 07/02/23
06:59 06:59 06:59
Intake Total 580 / 580 570 / 570 960 / 960
Output Total 400 / 400 800 / 800 350 / 350
Balance 180 / 180 -230 / -230 610 / 610
Review of Systems
-
Respiratory: Reports No Symptoms
Cardiac: Reports No Symptoms
Abdomen/GI: Reports No Symptoms
Data Reviewed
-
CT Scan: Image personally visualized and interpreted and Report Reviewed by me
MRI: Report Reviewed by me
Labs: Labs Reviewed by me
[2023-07-01 17:21] LABS: Glucose - Point of Care 240 mg/dl (70-99)
[2023-07-01] MEDS: CRESTOR 20 MG PO (17:38)
[2023-07-01] MEDS: NOVOLOG FLEXPEN-LOW RESISTANCE 3 UNITS SC (17:59)
[2023-07-01 21:47] LABS: Glucose - Point of Care 190 mg/dl (70-99)
[2023-07-02] VITALS (17 sets, daily range): BP systolic 117–152; BP diastolic 52–84; PULSE 63–65; BMI 27.1
--- NOTE | 2023-07-02 00:50 | PTCARENOTE ---
Pt maintaining pleasant and cooperative mentation. Pt tolerating PD at this time. Pt ambulating to bathroom with assist of 1. Q shift NIH & Neuro assessments as charted. Pt has no complaints at this time. Assessment care and vitals as charted.
[2023-07-02] MEDS: HEPARIN 5000 UNITS SC ×4 (01:08→23:35)
[2023-07-02] MEDS: ZOSYN 50 IV ×2 (02:34→10:17)
[2023-07-02 05:59] LABS: Hemoglobin 11.1 g/dL (13.0-18.0); Mean Corp Hgb Conc. 35.8 g/dL (33.0-37.0); Mean Corpuscular Hgb 29.8 pg (27.0-31.0); Mean Corpuscular Volume 83.1 fL (80.0-94.0); Mean Platelet Volume 10.2 fL (7.4-10.4); Platelet Count 220 10^3/uL (130-400); Red Blood Cell Count 3.73 10^6/uL (4.70-6.10); Red Cell Dist. Width 12.7 % (11.5-14.5)
--- NOTE | 2023-07-02 06:25 | CON.MD ---
Documented by User: Jolynn Tamayo PA-C 07/02/23 13:36
Consultation - Medical
-
Referring Provider: Michael Ott
Chief complaint: CVA
History of Present Illness: Patient is a 63-year-old male with PMH of (hypertension, insulin-dependent diabetes, renal failure on peritoneal dialysis) presented to the [facility] emergency department on with confusion and uncontrolled blood
glucose on Insulin pump admitted with DKA and TME likely related to sepsis/infection. Patient with right-sided field cut associated with right-sided neglect. MRI of the brain reveals multiple areas of subacute infarction including punctate areas
of infarct in the right cerebellar hemisphere and a 6 cm left occipital infarct with petechiae hemorrhage. The multiple vascular distributions of these infarcts suggest embolic etiology such as cardiac related.
MRI HEAD'
There are multiple areas of subacute infarction including punctate areas of infarct in the right cerebellar hemisphere and a 6 cm left occipital infarct with petechial hemorrhage. The multiple vascular distributions of these infarcts suggest embolic
etiology such as may be seen with a cardiac source
Head MRA:
There is occlusion of the left posterior cerebral artery approximately 5 cm distal to its origin.
Neck MRA
Normal.
The carotid bifurcations are widely patent and free of any areas of significant stenosis.
Antegrade flow is demonstrated in both vertebral arteries.
The brachiocephalic vessels arise normally from the aortic arch and are free of any areas of significant stenosis at their origins.
Past Medical History: Hypertension, insulin-dependent diabetes, secondary hyperparathyroidism, BPH, end-stage renal disease with peritoneal dialysis
Procedure History:
Social History:
Functional Level Premorbidly: Independent with all activities
Functional Level Currently: Bed mobility�min assist, transfers�min assist,Ambulates 15 feet x 1 and 50 feet x 1 with min assist. Grooming, oral hygiene, toileting�min assist. Speech: cognitive linguistic impairment impacting memory, processing, as
well as receptive language skills and expressive language skills across all language domains
Tobacco: Denies
Alcohol: Denies
Drug use: Denies
Lives with: Spouse
24-hour assistance available:
Number of floors: One-story home
# steps to enter:
# steps to second floor: Potential First floor set up: yes
Driving: Yes
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
Allergies:
Allergy/AdvReac Type Severity Reaction Status Date / Time
No Known Allergies Allergy Verified 06/25/23 00:35
Review of Systems:
Constitutional: (x) abNormal _tired
Eye: (x) right field deficit, right sided hemianopia
Ear/Nose/Throat: (x) Normal _
Respiratory: (x) Normal _
Cardiovascular: (x)
Gastrointestinal: (x) Normal _
Genitourinary: (x) Normal _
Musculoskeletal: (x)
Integumentary: (x)
Neurologic: (x) CVA, right sided neglect
Psychiatric: (x) Normal _
Endocrine: (x) Normal _
Hematologic/Lymphatic: (x) Normal _
Allergic/Immunologic: (x) Normal _
Medications:
Active Current Visit Medication List
Category Date Time Status
Aspirin Chewable [Low Strength Aspirin] Med 06/29/23 08:00 Active
81 mg PO DAILY
Calcitriol [Rocaltrol] Med 06/26/23 11:00 Active
0.5 mcg PO DAILY
Carvedilol [Coreg] Med 06/28/23 20:00 Active
6.25 mg PO BID
Cinacalcet HCl [Sensipar] Med 06/26/23 11:00 Active
30 mg PO DAILY
Dextrose 50%-Water [Dextrose 50% Syringe] Med 06/28/23 09:00 Active
12.5 grams IV [id number] PRN
Diltiazem Sustained Release [Cardizem Sr] Med 06/26/23 10:00 Active
120 mg PO DAILY
Flush (0.9% Sodium Chloride) [Flush (Nss)] Med 06/26/23 11:00 Active
See Dose Instructions IV PER PROTOCOL
Glucagon [GlucaGen] Med 06/28/23 09:00 Active
1 mg IM PRN PRN
Heparin Med 06/25/23 08:00 Active
5,000 units SC Q8
HydrALAZINE [Apresoline] Med 06/26/23 16:09 Active
10 mg IV Q4HPRN PRN
Insulin Aspart Corrective Low [Novolog Flexpen-Low Med 06/28/23 11:30 Active
Resistance]
See Protocol SC AC
Insulin Aspart Pen [Novolog Flexpen] Med 06/28/23 18:00 Active
8 units SC AC
Insulin Glargine Lantus [Lantus] 25 units Med 07/01/23 10:00 Active
Subcutaneous Insulin Syringe [Syringe-Insulin] 0 unit
SC DAILY
Ondansetron Injectable [Zofran] Med 06/26/23 09:24 Active
4 mg IV Q6HPRN PRN
Piperacillin/Tazo 2.25 Gram [Zosyn] Med 06/25/23 02:00 Active
2.25 grams in 50 ml IV Q8H
Rosuvastatin Calcium [Crestor] Med 06/26/23 18:00 Active
20 mg PO QPM
Sevelamer Carbonate [Renvela] Med 06/26/23 12:00 Active
800 mg PO MEALS
Sodium Bicarbonate Med 06/26/23 11:00 Active
650 mg PO BID
Vitals:
Temp Pulse Resp BP Pulse Ox
97.9 F 59 20 137/52 95
07/02/23 03:06 07/02/23 06:00 06/29/23 20:58 07/02/23 06:00 07/01/23 23:09
Height 5 ft 7 in
Actual Weight 78.3 kg
Body Mass Index (BMI) 27.1
Physical Exam:
General Appearance/Observation: Well-developed, well-nourished individual in no apparent distress.
Pain/Comfort Assessment: Denies
Mood/Affect: flat affect
Integumentary/Operative Site:
�� Pressure Ulcer Evaluation: absent over heels.
��
�� Other Type of Wound: absent
Eyes: Conjunctiva/Lids: normal ��� Pupils: pupils equal round and reactive to light and Accommodation
Ears/Nose/Throat: oral mucosa moist,�unable to assess throat fully due to patient not fully opening his mouth����� Lips/Teeth/Gums: normal
Neck: No muscle spasm or tenderness
Cardiovascular: Heart: regular, no murmur
Pulses: dorsalis pedis 2+ bilaterally
Respiratory: Respiratory Effort/Chest Expansion: normal ������� Auscultation: Clear to auscultation bilaterally
Gastrointestinal: abdomen not tender, no distension, hypo abdominal bowel sounds. Peritoneal dialysis tube noted
Genitourinary: No Ward
Rectal Exam: Deferred
Extremities: Edema: None Cyanosis: None Trophic changes: None
Neurology Exam:
Orientation: Alert, Oriented to self, Place. Not month-March, date, year 2013, president-don't know
Memory: Impaired
Higher cortical function
Repetition: Impaired
Comprehension: Impaired and slow to process
Two step command: Impaired
Naming: Impaired, cannot name TV, clock, and could not tell time
Cranial Nerves:
�� CNII: Pupillary light reflex: Intact��� Visual Field: impaired, right sided hemianopia
�� CN III, IV, : Extraocular muscles: unable to assess Patient not following instructions
�� CN V: Facial Sensation: forehead: Impaired on the left, Maxilla: Impaired on the left, Mandible: Impaired on the left
�� CN VII: Facial movement: Symmetrical
�� CN VIII: Hearing: Normal
�� CN IX/X: Speech & swallow: Hypophonia position of Uvula: Midline
�� CN XI: Shoulder shrug: symmetrical
�� CN XII: Tongue protrusion: Deviated slightly to the right
Sensory:
�� Light touch: Intact in left upper extremity, impaired on the right upper extremity, intact for right lower extremity, impaired for left lower extremity
��
Reflexes:
�� Biceps: 1+bilaterally
�� Brachioradialis:1+ bilaterally
�� Triceps: absent bilaterally
�� Patellar: 1+ bilaterally
�� Achilles: absent bilaterally
�� Babinski: upward going bilaterally
�� Clonus: None
�� Tone: Negative bilaterally
Cerebellar: Dysmetria/Ataxia: impaired nose to finger coordination on the right
Musculoskeletal:
Motor: (Manual muscle scale 0-5)
Muscle SA EF WE EE FF FA HF KE DF EHL PF
Right� 4 4 4 4 4 4 4 4 4 5 4
Left 5 4 4 4 4 4 4 4 4 5 4
Tone: Normal in all extremities
Range of Motion: Passively within normal limits in all extremities
Lab Results
Labs
WBC 10.0 10^3/uL (4.8-10.8) 07/02/23 05:47
RBC 3.73 10^6/uL (4.70-6.10) L 07/02/23 05:47
Hgb 11.1 g/dL (13.0-18.0) L 07/02/23 05:47
Hct 31.0 % (39.0-52.0) L 07/02/23 05:47
MCV 83.1 fL (80.0-94.0) 07/02/23 05:47
MCH 29.8 pg (27.0-31.0) 07/02/23 05:47
MCHC 35.8 g/dL (33.0-37.0) 07/02/23 05:47
RDW 12.7 % (11.5-14.5) 07/02/23 05:47
Plt Count 220 10^3/uL (130-400) 07/02/23 05:47
MPV 10.2 fL (7.4-10.4) 07/02/23 05:47
Abs Immat Gran (auto) 0.2 10^3/uL (0-0.05) H 06/24/23 22:22
Absolute Neuts (auto) 13.5 10^3/uL (1.4-6.5) H 06/24/23 22:22
Absolute Lymphs (auto) 0.6 10^3/uL (1.2-3.4) L 06/24/23 22:22
Absolute Monos (auto) 1.3 10^3/uL (0.1-0.6) H 06/24/23 22:22
Absolute Eos (auto) 0.0 10^3/uL (0-0.7) 06/24/23 22:22
Absolute Basos (auto) 0.0 10^3/uL (0-0.2) 06/24/23 22:22
Immature Gran % 1.0 % (0-0.5) H 06/24/23 22:22
Neutrophils % 86.8 % (42.2-75.2) H 06/24/23 22:22
Lymphocytes % 3.7 % (20.5-51.1) L 06/24/23 22:22
Monocytes % 8.1 % (1.7-9.3) 06/24/23 22:22
Eosinophils % 0.1 % (0-6) 06/24/23 22:22
Basophils % 0.3 % (0-2) 06/24/23 22:22
Nucleated RBC % 0 % (-) 06/24/23 22:22
PT 16.9 Sec (11.4-14.6) H 06/25/23 04:35
INR 1.39 06/25/23 04:35
APTT 25.4 Sec (23.4-35.0) 06/25/23 04:35
VBG pH 7.10 (7.32-7.43) L* 06/24/23 23:31
VBG pCO2 19 mmHg (35-48) L 06/24/23 23:31
VBG pO2 76 mmHg (30-50) H 06/24/23 23:31
VBG HCO3 5.9 mmol/L (22-27) L 06/24/23 23:31
VBG O2 Sat (Liz) 95.3 % 06/24/23 23:31
VBG Base Excess -21.9 mmol/L (-4 to +4) 06/24/23 23:31
VBG O2 Therapy 06/24/23 23:31
Sodium 129 mmol/L (135-145) L 07/02/23 05:47
Potassium 3.3 mmol/L (3.5-5.1) L 07/02/23 05:47
Chloride 96 mmol/L (98-107) L 07/02/23 05:47
Carbon Dioxide 28 mmol/L (22-30) 07/02/23 05:47
BUN 38 mg/dl (9-20) H 07/02/23 05:47
Creatinine 5.3 mg/dL (0.7-1.3) H* 07/02/23 05:47
Estimated Creat Clear 13 ml/min 07/02/23 05:47
eGFR 11.36 07/02/23 05:47
Glucose 206 mg/dl (70-99) H 07/02/23 05:47
Hemoglobin A1c 11.0 % (4.0-5.6) H 06/25/23 04:35
Lactic Acid 1.9 mmol/L (0.7-2.0) 06/25/23 08:17
Calcium 7.6 mg/dl (8.4-10.2) L 07/02/23 05:47
Phosphorus 8.6 mg/dl (2.5-4.5) H 06/24/23 23:31
Magnesium 1.6 mg/dl (1.6-2.3) 06/26/23 06:10
Total Bilirubin 0.7 mg/dl (0.2-1.3) 06/24/23 22:22
AST 26 U/L (17-59) 06/24/23 22:22
ALT 30 U/L (0-50) 06/24/23 22:22
Alkaline Phosphatase 206 U/L (38-126) H 06/24/23 22:22
Total Protein 4.5 g/dl (6.3-8.2) L 06/24/23 22:22
Albumin 2.7 g/dl (3.5-5.0) L 06/24/23 22:22
Triglycerides 63 mg/dl (10-149) 06/29/23 04:19
Total Cholesterol 94 mg/dl (50-199) 06/29/23 04:19
LDL Cholesterol, Calc 26 mg/dl 06/29/23 04:19
VLDL Cholesterol, Calc 12 mg/dl (0-30) 06/29/23 04:19
HDL Cholesterol 56 mg/dl 06/29/23 04:19
Vitamin B12 391 pg/ml (239-931) 06/28/23 05:04
Folate 3.3 ng/ml (2.76-20) 06/28/23 05:04
TSH 1.25 uIU/ml (0.47-4.68) 06/28/23 05:04
Free T4 1.60 ng/dl (0.78-2.19) 06/28/23 05:04
Urine Color Yellow 06/25/23 03:31
Urine Clarity Clear (Clear) 06/25/23 03:31
Urine pH 5.0 (5.0-9.0) 06/25/23 03:31
Ur Specific [place] 1.015 (<1.030) 06/25/23 03:31
Urine Ketones 1+ (Negative) A 06/25/23 03:31
Ur Occult Blood Reflex 4+ (Negative) A 06/25/23 03:31
Urine Nitrite (Reflex) Negative (Negative) 06/25/23 03:31
Urine Bilirubin Negative (Negative) 06/25/23 03:31
Urine Urobilinogen Negative (Neg - 1+) 06/25/23 03:31
Leukocyte Esterase Rfl Negative (Negative) 06/25/23 03:31
Urine RBC 16-20 /HPF (0-2) A 06/25/23 03:31
Urine WBC (Reflex) 0-2 /HPF (0-5) 06/25/23 03:31
Ur Squamous Epith Cells 3-5 /LPF (Few) 06/25/23 03:31
Urine Bacteria (Reflex) Few (Negative) A 06/25/23 03:31
Hyaline Casts 0-2 /LPF (0-2) 06/25/23 03:31
Urine Glucose 3+ (Negative) A 06/25/23 03:31
Urine Albumin (Reflex) 1+ (Neg - Trace) A 06/25/23 03:31
Fluid WBC 15 /CUMM 06/25/23 08:28
Fluid Mononuclear Cell 86.6 % 06/25/23 08:28
Fl Polymorphonucl Cell 13.4 % 06/25/23 08:28
Fluid Other Cells Not Reportable 06/25/23 08:28
Fluid Diff Path Review Not Reportable 06/25/23 08:28
Urine Opiates Screen Negative (Negative) 06/25/23 09:46
Ur Buprenorphine Negative (Negative) 06/25/23 09:46
Ur Oxycodone Screen Negative (Negative) 06/25/23 09:46
Urine Methadone Screen Negative (Negative) 06/25/23 09:46
Ur Barbiturates Screen Negative (Negative) 06/25/23 09:46
Ur Tricyclics Screen Negative (Negative) 06/25/23 09:46
Ur Phencyclidine Scrn Negative (Negative) 06/25/23 09:46
Ur Amphetamines Screen Negative (Negative) 06/25/23 09:46
U Methamphetamines Scrn Negative (Negative) 06/25/23 09:46
U Benzodiazepines Scrn Negative (Negative) 06/25/23 09:46
Urine Cocaine Screen Negative (Negative) 06/25/23 09:46
U Marijuana (THC) Screen Negative (Negative) 06/25/23 09:46
SARS-CoV-2 Antigen Negative (Negative) 06/27/23 09:00
POC Glucose 190 mg/dl (70-99) H 07/01/23 21:36
�
Diagnostic Results: as per HPI
Assessment Patient is a 63-year-old male with PMH of (hypertension, insulin-dependent diabetes, renal failure on peritoneal dialysis) presented to the [facility] emergency department on with confusion and uncontrolled blood glucose on
Insulin pump admitted with DKA and TME likely related to sepsis/infection. Patient with right-sided field cut associated with right-sided neglect. MRI of the brain reveals multiple areas of subacute infarction including punctate areas of infarct
in the right cerebellar hemisphere and a 6 cm left occipital infarct with petechiae hemorrhage. The multiple vascular distributions of these infarcts suggest embolic etiology such as cardiac related.
Plan
PT/OT to increase independence with ADLs, improve balance, coordination, endurance, strength, mobility, community reintegration, decreased burden of care on others and family education.
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 Most likely etiology is atheroembolic and diabetes mellitus given uncontrolled diabetes HbA1c of 11
Secondary prophylaxis with aspirin, statin, and blood pressure control (SBP less than 180 and diastolic less than 100 to participate with therapy for ischemic stroke). Continue to monitor neurologic status.
right dominant hemiparesis: High risk for falls and sliding out of chair/bed. Safety reinforced.
- Avoid using affected arm to help lift or pull patient as this will cause trauma to the shoulder.
Right Neglect: makes patient at increased risk for falls.� Will need therapy to work on scanning of environment for safe navigation.
right sided hemianopia: vision deficits from stroke. cannot drive. Neurology office will report to [facility]
Dysphagia: speech evaluation- No signs of aspiration observed. Continue regular, thin liquid diet. Assist patient with meal tray set up and feeding as needed given visual/perceptual. Continue to monitor for potential changes with aspiration, sign
of choking, coughing, etc with eating and drinking
Dysarthria: speech evaluation
Aphasia: speech evaluation
HTN: carvedilol 6.25 twice daily, diltiazem SR 120 mg daily, hydralazine 10 mg IV every 4 hours as neede (for systolic blood pressure greater than 160) monitor closely
HLD: Rosuvastatin
ESRD on peritoneal dialysis: Secondary hyperparathyroidism. Monitor I&O's and daily weights. On Cinacalcet/sevelamer. BUN 38, creatinine 5.3
IDDM-uncontrolled at baseline: Hemoglobin A1c 11% .Accu-Cheks, insulin sliding scale, insulin glargine 25 units daily, insulin aspart 8 units sc AC. Monitor
Diabetic ketoacidosis: Resolved. Admission blood sugar 1125
Hyponatremia: Sodium bicarbonate 650 twice daily
Anemia: Hemoglobin 11.1 continue to monitor.
Leukocytosis-resolved. Suspected sepsis versus unclear source. Chest x-ray clear, COVID-negative, blood culture/urine culture negative peritoneal fluid sample from catheter showing white blood cells 15/cumm. On empiric Zosyn x 7 day course
Psych: Psychology consult.� Monitor mood, adjust medications as needed.
Skin: monitor for pressure sores/rashes/lesions.
Pain: acetaminophen or oxycodone as needed.
Bowel: Colace and Senna, PRN bisacodyl.
Bladder/BPH: Time void, PVRs, PRN straight cath.
GI Prophylaxis: Pantoprazole
DVT Prophylaxis: Mechanical and heparin 5000 units SC q 8 hours
Pulmonary: Incentive spirometry
Safety: Continue to reinforce assistance with all transfers.
Code Status:� Full code
Dispo (date/plan/equipment needs): Home with family care.� Social history reviewed.
Functional and Medical Goals: Modified Independent with ADL�s, ambulation, transfers
Discharge Destination: Acute inpatient rehabilitation at a facility that can manage peritoneal dialysis
Summary of recommendations:Patient would benefit from an acute inpatient rehabilitation for PT/OT to increase independence with ADLs, improve balance, coordination, endurance, strength, mobility, community reintegration, decreased burden of care on
others and family education.
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 Secondary prophylaxis with aspirin, statin, and blood pressure control (SBP less than 180 and diastolic less than 100 to participate with therapy for ischemic
stroke). Continue to monitor neurologic status.
right dominant hemiparesis: High risk for falls and sliding out of chair/bed. Safety reinforced.
- Avoid using affected arm to help lift or pull patient as this will cause trauma to the shoulder.
Right Neglect: makes patient at increased risk for falls.� Will need therapy to work on scanning of environment for safe navigation.
HTN: carvedilol 6.25 twice daily, diltiazem SR 120 mg daily, hydralazine 10 mg IV every 4 hours as neede (for systolic blood pressure greater than 160) monitor closely
Skin: monitor for pressure sores/rashes/lesions. Recommend multi podus boot.
Pain: acetaminophen or oxycodone as needed.
Bowel: Colace and Senna, PRN bisacodyl.
Bladder/BPH: Time void, PVRs, PRN straight cath.
GI Prophylaxis: Pantoprazole
DVT Prophylaxis: Mechanical and heparin 5000 units SC q 8 hours
Pulmonary: Incentive spirometry
Safety: Continue to reinforce assistance with all transfers.
Thank you for allowing me to care for your patient. Please contact me with any questions or concerns.
This note was dictated using a voice recognition system. Please excuse any typographical errors from software manager. If you believe there are any discrepancies, please notify our office.

Documented by User: Tex Lora MD 07/02/23 21:19
Consultation - Medical
-
Referring Provider: Michael Ott
Chief complaint: CVA
History of Present Illness: Patient is a 63-year-old male with PMH of (hypertension, insulin-dependent diabetes, renal failure on peritoneal dialysis) presented to the [facility] emergency department on with confusion and uncontrolled blood
glucose on Insulin pump admitted with DKA and TME likely related to sepsis/infection. Patient with right-sided field cut associated with right-sided neglect. MRI of the brain reveals multiple areas of subacute infarction including punctate areas
of infarct in the right cerebellar hemisphere and a 6 cm left occipital infarct with petechiae hemorrhage. The multiple vascular distributions of these infarcts suggest embolic etiology such as cardiac related.
MRI HEAD:
There are multiple areas of subacute infarction including punctate areas of infarct in the right cerebellar hemisphere and a 6 cm left occipital infarct with petechial hemorrhage. The multiple vascular distributions of these infarcts suggest embolic
etiology such as may be seen with a cardiac source
Head MRA:
There is occlusion of the left posterior cerebral artery approximately 5 cm distal to its origin.
Neck MRA
Normal.
The carotid bifurcations are widely patent and free of any areas of significant stenosis.
Antegrade flow is demonstrated in both vertebral arteries.
The brachiocephalic vessels arise normally from the aortic arch and are free of any areas of significant stenosis at their origins.
Past Medical History: Hypertension, Diabetes Mellitus, Type I with Retinopathy, Nephropathy, and Neuropathy, secondary hyperparathyroidism, BPH, end-stage renal disease with peritoneal dialysis
Procedure History: Peritoneal dialysis catheter
Family History: None pertinent
Social History:
Functional Level Premorbidly: Independent with all activities
Functional Level Currently: Bed mobility�min assist, transfers�min assist,Ambulates 15 feet x 1 and 50 feet x 1 with min assist. Grooming, oral hygiene, toileting�min assist. Speech: cognitive linguistic impairment impacting memory, processing, as
well as receptive language skills and expressive language skills across all language domains
Tobacco: Denies
Alcohol: Denies
Drug use: Denies
Lives with: Spouse
24-hour assistance available: Yes
Number of floors: One-story home
# steps to enter: 1
Potential First floor set up: yes
Driving: Yes
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
Allergies:
Allergy/AdvReac Type Severity Reaction Status Date / Time
No Known Allergies Allergy Verified 06/25/23 00:35
Review of Systems:
Constitutional: (x) abNormal _tired
Eye: (x) right field deficit, right sided hemianopsia
Ear/Nose/Throat: (x) Normal _
Respiratory: (x) Normal _
Cardiovascular: (x)
Gastrointestinal: (x) Normal _
Genitourinary: (x) Normal _
Musculoskeletal: (x)
Integumentary: (x)
Neurologic: (x) CVA, right sided neglect
Psychiatric: (x) Normal _
Endocrine: (x) Normal _
Hematologic/Lymphatic: (x) Normal _
Allergic/Immunologic: (x) Normal _
Medications:
Active Current Visit Medication List
Category Date Time Status
Aspirin Chewable [Low Strength Aspirin] Med 06/29/23 08:00 Active
81 mg PO DAILY
Calcitriol [Rocaltrol] Med 06/26/23 11:00 Active
0.5 mcg PO DAILY
Carvedilol [Coreg] Med 06/28/23 20:00 Active
6.25 mg PO BID
Cinacalcet HCl [Sensipar] Med 06/26/23 11:00 Active
30 mg PO DAILY
Dextrose 50%-Water [Dextrose 50% Syringe] Med 06/28/23 09:00 Active
12.5 grams IV [id number] PRN
Diltiazem Sustained Release [Cardizem Sr] Med 06/26/23 10:00 Active
120 mg PO DAILY
Flush (0.9% Sodium Chloride) [Flush (Nss)] Med 06/26/23 11:00 Active
See Dose Instructions IV PER PROTOCOL
Glucagon [GlucaGen] Med 06/28/23 09:00 Active
1 mg IM PRN PRN
Heparin Med 06/25/23 08:00 Active
5,000 units SC Q8
HydrALAZINE [Apresoline] Med 06/26/23 16:09 Active
10 mg IV Q4HPRN PRN
Insulin Aspart Corrective Low [Novolog Flexpen-Low Med 06/28/23 11:30 Active
Resistance]
See Protocol SC AC
Insulin Aspart Pen [Novolog Flexpen] Med 06/28/23 18:00 Active
8 units SC AC
Insulin Glargine Lantus [Lantus] 25 units Med 07/01/23 10:00 Active
Subcutaneous Insulin Syringe [Syringe-Insulin] 0 unit
SC DAILY
Ondansetron Injectable [Zofran] Med 06/26/23 09:24 Active
4 mg IV Q6HPRN PRN
Piperacillin/Tazo 2.25 Gram [Zosyn] Med 06/25/23 02:00 Active
2.25 grams in 50 ml IV Q8H
Rosuvastatin Calcium [Crestor] Med 06/26/23 18:00 Active
20 mg PO QPM
Sevelamer Carbonate [Renvela] Med 06/26/23 12:00 Active
800 mg PO MEALS
Sodium Bicarbonate Med 06/26/23 11:00 Active
650 mg PO BID
Vitals:
Temp Pulse Resp BP Pulse Ox
97.9 F 59 20 137/52 95
07/02/23 03:06 07/02/23 06:00 06/29/23 20:58 07/02/23 06:00 07/01/23 23:09
Height 5 ft 7 in
Actual Weight 78.3 kg
Body Mass Index (BMI) 27.1
Physical Exam:
General Appearance/Observation: Well-developed, well-nourished male in no apparent distress.
Pain/Comfort Assessment: Denies
Mood/Affect: flat affect
Integumentary/Operative Site:
�� Pressure Ulcer Evaluation: absent over heels.
Eyes: Conjunctiva/Lids: normal ��� Pupils: pupils equal round and reactive to light and Accommodation
Ears/Nose/Throat: oral mucosa moist,�unable to assess throat fully due to patient not fully opening his mouth����� Lips/Teeth/Gums: normal
Neck: No muscle spasm or tenderness
Cardiovascular: Heart: regular, no murmur
Pulses: dorsalis pedis 2+ bilaterally
Respiratory: Respiratory Effort/Chest Expansion: normal ������� Auscultation: Clear to auscultation bilaterally
Gastrointestinal: abdomen not tender, no distension, abdominal bowel sounds present. Peritoneal dialysis tube noted
Genitourinary: No Ward
Rectal Exam: Deferred
Extremities: Edema: None Cyanosis: None Trophic changes: None
Neurology Exam:
Orientation: Alert, Oriented to self, Place. Not month-March, date, 2013, president-don't know
Memory: Impaired
Repetition: Impaired, has perseverative speech
Comprehension: Impaired and slow to process
Two step command: Impaired
Naming: Impaired, cannot name TV, clock, and could not tell time
Cranial Nerves:
�� CNII: Pupillary light reflex: Intact��� Visual Field: impaired, right homonymous hemianopsia
�� CN III, IV, : Extraocular muscles: unable to assess Patient not following instructions
�� CN V: Facial Sensation: forehead: Impaired on the left, Maxilla: Impaired on the left, Mandible: Impaired on the left
�� CN VII: Facial movement: Symmetrical
�� CN VIII: Hearing: Normal
�� CN IX/X: Speech & swallow: perseverative speech position of Uvula: Midline
�� CN XI: Shoulder shrug: symmetrical
�� CN XII: Tongue protrusion: midline
Sensory:
�� Light touch: Difficulty with exam, says right no matter what arm touched, even if not touched says right.
��
Reflexes:
�� Biceps: 2+bilaterally
�� Brachioradialis:2+ bilaterally
�� Triceps: 2+ bilaterally
�� Patellar: 2+ bilaterally
�� Achilles: absent bilaterally
�� Babinski: upward going bilaterally
�� Clonus: None
�� Tone: Negative bilaterally
Cerebellar: Dysmetria/Ataxia: impaired nose to finger coordination on the right
Musculoskeletal: Motor: (Manual muscle scale 0-5)
Muscle SA EF WE EE FF FA HF KE DF EHL PF
Right� 4 5 4 4 5 4 4 5 5 5 5
Left 5 5 4 4 5 4 4 5 5 5 5
Tone: Normal in all extremities
Range of Motion: Passively within normal limits in all extremities
Lab Results
Labs
WBC 10.0 10^3/uL (4.8-10.8) 07/02/23 05:47
RBC 3.73 10^6/uL (4.70-6.10) L 07/02/23 05:47
Hgb 11.1 g/dL (13.0-18.0) L 07/02/23 05:47
Hct 31.0 % (39.0-52.0) L 07/02/23 05:47
MCV 83.1 fL (80.0-94.0) 07/02/23 05:47
MCH 29.8 pg (27.0-31.0) 07/02/23 05:47
MCHC 35.8 g/dL (33.0-37.0) 07/02/23 05:47
RDW 12.7 % (11.5-14.5) 07/02/23 05:47
Plt Count 220 10^3/uL (130-400) 07/02/23 05:47
MPV 10.2 fL (7.4-10.4) 07/02/23 05:47
Abs Immat Gran (auto) 0.2 10^3/uL (0-0.05) H 06/24/23 22:22
Absolute Neuts (auto) 13.5 10^3/uL (1.4-6.5) H 06/24/23 22:22
Absolute Lymphs (auto) 0.6 10^3/uL (1.2-3.4) L 06/24/23 22:22
Absolute Monos (auto) 1.3 10^3/uL (0.1-0.6) H 06/24/23 22:22
Absolute Eos (auto) 0.0 10^3/uL (0-0.7) 06/24/23 22:22
Absolute Basos (auto) 0.0 10^3/uL (0-0.2) 06/24/23 22:22
Immature Gran % 1.0 % (0-0.5) H 06/24/23 22:22
Neutrophils % 86.8 % (42.2-75.2) H 06/24/23 22:22
Lymphocytes % 3.7 % (20.5-51.1) L 06/24/23 22:22
Monocytes % 8.1 % (1.7-9.3) 06/24/23 22:22
Eosinophils % 0.1 % (0-6) 06/24/23 22:22
Basophils % 0.3 % (0-2) 06/24/23 22:22
Nucleated RBC % 0 % (-) 06/24/23 22:22
PT 16.9 Sec (11.4-14.6) H 06/25/23 04:35
INR 1.39 06/25/23 04:35
APTT 25.4 Sec (23.4-35.0) 06/25/23 04:35
VBG pH 7.10 (7.32-7.43) L* 06/24/23 23:31
VBG pCO2 19 mmHg (35-48) L 06/24/23 23:31
VBG pO2 76 mmHg (30-50) H 06/24/23 23:31
VBG HCO3 5.9 mmol/L (22-27) L 06/24/23 23:31
VBG O2 Sat (Liz) 95.3 % 06/24/23 23:31
VBG Base Excess -21.9 mmol/L (-4 to +4) 06/24/23 23:31
VBG O2 Therapy 06/24/23 23:31
Sodium 129 mmol/L (135-145) L 07/02/23 05:47
Potassium 3.3 mmol/L (3.5-5.1) L 07/02/23 05:47
Chloride 96 mmol/L (98-107) L 07/02/23 05:47
Carbon Dioxide 28 mmol/L (22-30) 07/02/23 05:47
BUN 38 mg/dl (9-20) H 07/02/23 05:47
Creatinine 5.3 mg/dL (0.7-1.3) H* 07/02/23 05:47
Estimated Creat Clear 13 ml/min 07/02/23 05:47
eGFR 11.36 07/02/23 05:47
Glucose 206 mg/dl (70-99) H 07/02/23 05:47
Hemoglobin A1c 11.0 % (4.0-5.6) H 06/25/23 04:35
Lactic Acid 1.9 mmol/L (0.7-2.0) 06/25/23 08:17
Calcium 7.6 mg/dl (8.4-10.2) L 07/02/23 05:47
Phosphorus 8.6 mg/dl (2.5-4.5) H 06/24/23 23:31
Magnesium 1.6 mg/dl (1.6-2.3) 06/26/23 06:10
Total Bilirubin 0.7 mg/dl (0.2-1.3) 06/24/23 22:22
AST 26 U/L (17-59) 06/24/23 22:22
ALT 30 U/L (0-50) 06/24/23 22:22
Alkaline Phosphatase 206 U/L (38-126) H 06/24/23 22:22
Total Protein 4.5 g/dl (6.3-8.2) L 06/24/23 22:22
Albumin 2.7 g/dl (3.5-5.0) L 06/24/23 22:22
Triglycerides 63 mg/dl (10-149) 06/29/23 04:19
Total Cholesterol 94 mg/dl (50-199) 06/29/23 04:19
LDL Cholesterol, Calc 26 mg/dl 06/29/23 04:19
VLDL Cholesterol, Calc 12 mg/dl (0-30) 06/29/23 04:19
HDL Cholesterol 56 mg/dl 06/29/23 04:19
Vitamin B12 391 pg/ml (239-931) 06/28/23 05:04
Folate 3.3 ng/ml (2.76-20) 06/28/23 05:04
TSH 1.25 uIU/ml (0.47-4.68) 06/28/23 05:04
Free T4 1.60 ng/dl (0.78-2.19) 06/28/23 05:04
Urine Color Yellow 06/25/23 03:31
Urine Clarity Clear (Clear) 06/25/23 03:31
Urine pH 5.0 (5.0-9.0) 06/25/23 03:31
Ur Specific [place] 1.015 (<1.030) 06/25/23 03:31
Urine Ketones 1+ (Negative) A 06/25/23 03:31
Ur Occult Blood Reflex 4+ (Negative) A 06/25/23 03:31
Urine Nitrite (Reflex) Negative (Negative) 06/25/23 03:31
Urine Bilirubin Negative (Negative) 06/25/23 03:31
Urine Urobilinogen Negative (Neg - 1+) 06/25/23 03:31
Leukocyte Esterase Rfl Negative (Negative) 06/25/23 03:31
Urine RBC 16-20 /HPF (0-2) A 06/25/23 03:31
Urine WBC (Reflex) 0-2 /HPF (0-5) 06/25/23 03:31
Ur Squamous Epith Cells 3-5 /LPF (Few) 06/25/23 03:31
Urine Bacteria (Reflex) Few (Negative) A 06/25/23 03:31
Hyaline Casts 0-2 /LPF (0-2) 06/25/23 03:31
Urine Glucose 3+ (Negative) A 06/25/23 03:31
Urine Albumin (Reflex) 1+ (Neg - Trace) A 06/25/23 03:31
Fluid WBC 15 /CUMM 06/25/23 08:28
Fluid Mononuclear Cell 86.6 % 06/25/23 08:28
Fl Polymorphonucl Cell 13.4 % 06/25/23 08:28
Fluid Other Cells Not Reportable 06/25/23 08:28
Fluid Diff Path Review Not Reportable 06/25/23 08:28
Urine Opiates Screen Negative (Negative) 06/25/23 09:46
Ur Buprenorphine Negative (Negative) 06/25/23 09:46
Ur Oxycodone Screen Negative (Negative) 06/25/23 09:46
Urine Methadone Screen Negative (Negative) 06/25/23 09:46
Ur Barbiturates Screen Negative (Negative) 06/25/23 09:46
Ur Tricyclics Screen Negative (Negative) 06/25/23 09:46
Ur Phencyclidine Scrn Negative (Negative) 06/25/23 09:46
Ur Amphetamines Screen Negative (Negative) 06/25/23 09:46
U Methamphetamines Scrn Negative (Negative) 06/25/23 09:46
U Benzodiazepines Scrn Negative (Negative) 06/25/23 09:46
Urine Cocaine Screen Negative (Negative) 06/25/23 09:46
U Marijuana (THC) Screen Negative (Negative) 06/25/23 09:46
SARS-CoV-2 Antigen Negative (Negative) 06/27/23 09:00
POC Glucose 190 mg/dl (70-99) H 07/01/23 21:36
�
Diagnostic Results: as per HPI
Assessment
63-year-old Right handed male [facility] (hypertension, insulin-dependent diabetes, renal failure on peritoneal dialysis) presented to the [place] emergency department on with confusion and uncontrolled blood glucose on Insulin pump admitted with
DKA and TME likely related to sepsis/infection. Patient with right-sided field cut associated with right-sided neglect. MRI of the brain reveals multiple areas of subacute infarction including punctate areas of infarct in the right cerebellar
hemisphere and a 6 cm left occipital infarct with petechiae hemorrhage. The multiple vascular distributions of these infarcts suggest embolic etiology such as cardiac related.
Plan
PT/OT to increase independence with ADLs, improve balance, coordination, endurance, strength, mobility, community reintegration, decreased burden of care on others and family education.
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 Most likely etiology is atheroembolic and diabetes mellitus given uncontrolled diabetes HbA1c of 11
Secondary prophylaxis with aspirin, statin, and blood pressure control (SBP less than 180 and diastolic less than 100 to participate with therapy for ischemic stroke). Continue to monitor neurologic status.
Right dominant hemiparesis: High risk for falls and sliding out of chair/bed. Safety reinforced.
- Avoid using affected arm to help lift or pull patient as this will cause trauma to the shoulder.
Right Neglect: makes patient at increased risk for falls.� Will need therapy to work on scanning of environment for safe navigation.
Right sided hemianopsia: vision deficits from stroke. cannot drive. Neurology office will report to [facility]
Ataxia: PT/OT
HTN: carvedilol 6.25 twice daily, diltiazem SR 120 mg daily, hydralazine 10 mg IV every 4 hours as neede (for systolic blood pressure greater than 160) monitor closely
HLD: Rosuvastatin
ESRD on peritoneal dialysis: Secondary hyperparathyroidism. Monitor I&O's and daily weights. On Cinacalcet/sevelamer. BUN 38, creatinine 5.3
IDDM-uncontrolled at baseline: Hemoglobin A1c 11% .Accu-Cheks, insulin sliding scale, insulin glargine 25 units daily, insulin aspart 8 units sc AC. Monitor
Diabetic ketoacidosis: Resolved. Admission blood sugar 1125
Hyponatremia: Sodium bicarbonate 650 twice daily
Anemia: Hemoglobin 11.1 continue to monitor.
Leukocytosis-resolved. Suspected sepsis versus unclear source. Chest x-ray clear, COVID-negative, blood culture/urine culture negative peritoneal fluid sample from catheter showing white blood cells 15/cumm. On empiric Zosyn x 7 day course
Psych: Psychology consult.� Monitor mood, adjust medications as needed.
Skin: monitor for pressure sores/rashes/lesions.
Pain: acetaminophen as needed.
Bowel: Colace and Senna, PRN bisacodyl.
Bladder/BPH: Time void, PVRs, PRN straight cath.
GI Prophylaxis: Pantoprazole
DVT Prophylaxis: Mechanical and heparin 5000 units SC q 8 hours
Pulmonary: Incentive spirometry
Safety: Continue to reinforce assistance with all transfers.
Code Status:� Full code
Dispo (date/plan/equipment needs): Home with family care.� Social history reviewed.
Functional and Medical Goals: Modified Independent with ADL�s, ambulation, transfers
Discharge Destination: Acute inpatient rehabilitation at a facility that can manage peritoneal dialysis
Attending Statement:
I saw and examined the patient today.� Reviewed care plan with patient, therapy, nursing, and physician office support assistant.� I agree with the above subjective and physical exam, and plan as documented by CJ Tamayo.
A total of 60 minutes were spent with the patient preparing for the evaluation, obtaining history, performing examination and evaluation, counseling, data review, case management, care coordination, brand recorder, and EMR documentation.
Summary of recommendations:Patient would benefit from an acute inpatient rehabilitation for PT/OT to increase independence with ADLs, improve balance, coordination, endurance, strength, mobility, community reintegration, decreased burden of care on
others and family education.
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 Most likely etiology is atheroembolic and diabetes mellitus given uncontrolled diabetes HbA1c of 11
Secondary prophylaxis with aspirin, statin, and blood pressure control (SBP less than 180 and diastolic less than 100 to participate with therapy for ischemic stroke). Continue to monitor neurologic status.
Right dominant hemiparesis: High risk for falls and sliding out of chair/bed. Safety reinforced.
- Avoid using affected arm to help lift or pull patient as this will cause trauma to the shoulder.
Right Neglect: makes patient at increased risk for falls.� Will need therapy to work on scanning of environment for safe navigation.
Right sided hemianopsia: vision deficits from stroke. cannot drive. Neurology office will report to DMV
ESRD on peritoneal dialysis: Secondary hyperparathyroidism. Monitor I&O's and daily weights. On Cinacalcet/sevelamer. BUN 38, creatinine 5.3
IDDM-uncontrolled at baseline: Hemoglobin A1c 11% .Accu-Cheks, insulin sliding scale, insulin glargine 25 units daily, insulin aspart 8 units sc AC. Monitor
Bowel: Colace and Senna, PRN bisacodyl.
Bladder/BPH: Time void, PVRs, PRN straight cath.
DVT Prophylaxis: Mechanical and heparin 5000 units SC q 8 hours
Thank you for allowing me to care for your patient. Please contact me with any questions or concerns.
[2023-07-02 06:34] LABS: Blood Urea Nitrogen 38 mg/dl (9-20); Calcium 7.6 mg/dl (8.4-10.2); Carbon Dioxide 28 mmol/L (22-30); Chloride 96 mmol/L (98-107); Estimated Creatinine Clearance 13 ml/min; Glucose 206 mg/dl (70-99); Potassium 3.3 mmol/L (3.5-5.1); Sodium 129 mmol/L (135-145); eGFR 11.36
--- NOTE | 2023-07-02 07:18 | W.PN.NEURO.1 ---
Today's Communication / Plan
-
-Aspirin monotherapy and statin
-TTE reviewed
-Not going to recommend TTE as felt very low yield and not expected to casino change attendant
-Discussed stroke recovery, understands no driving with the right homonymous hemionpia
-Plan for outpatient cardiac rhythm monitoring, 1-2 weeks holter monitoring I feel would be sufficient
Will sign off call with questions and concerns
Neuro Assessment/Plan
Assessment
JANIS CHAU is a 63 year old M admitted with DKA and TME likely related to sepsis/infection, ESRD on PD, leukocytosis with confusion, R sided neglect and visual field cut. The patient states that he thinks that he first noticed that his
coordination was off in his R hand on . He demonstrates alexia and confabulation regarding his visual loss.
MRI brain showed:
'There are multiple areas of subacute infarction including punctate areas of infarct in the right cerebellar hemisphere and a 6 cm left occipital infarct with petechial hemorrhage. The multiple vascular distributions of these infarcts suggest
embolic etiology such as may be seen with a cardiac source'
MRA head: There is occlusion of the left posterior cerebral artery approximately 5 cm distal to its origin.
MRA neck:normal
Patient has the following risk factors for their symptoms: age, esrd, dka/dm, htn, hld
Most likely etiology is atheroembolic and diabetes mellitus given uncontrolled diabetes HbA1c of 11
Subjective/Objective
Subjective Data
Date of Service: July 02, 2023
NO acute events, denies headache, discussed importance of working on diabetes control, stroke recovery discussed
Objective Data
Vital Signs
Temp Pulse Resp BP Pulse Ox
97.9 F 59 20 137/52 95
07/02/23 03:06 07/02/23 06:00 06/29/23 20:58 07/02/23 06:00 07/01/23 23:09
Lab Results
07/02/23 05:47
07/02/23 05:47
PT 16.9 Sec (11.4-14.6) H 06/25/23 04:35
INR 1.39 06/25/23 04:35
APTT 25.4 Sec (23.4-35.0) 06/25/23 04:35
Sodium 129 mmol/L (135-145) L 07/02/23 05:47
Potassium 3.3 mmol/L (3.5-5.1) L 07/02/23 05:47
BUN 38 mg/dl (9-20) H 07/02/23 05:47
Glucose 206 mg/dl (70-99) H 07/02/23 05:47
Calcium 7.6 mg/dl (8.4-10.2) L 07/02/23 05:47
Phosphorus 8.6 mg/dl (2.5-4.5) H 06/24/23 23:31
LDL Cholesterol, Calc 26 mg/dl 06/29/23 04:19
Vitamin B12 391 pg/ml (239-931) 06/28/23 05:04
Ur Buprenorphine Negative (Negative) 06/25/23 09:46
Patient Allergies
No Known Allergies Allergy (Verified 06/25/23 00:35)
LDL Level: <70, continue statin
Review of Systems
-
History Source: Patient
All other systems: Reviewed and negative
Constitutional: No Symptoms
EENT: No Symptoms Reported
Respiratory: No Symptoms
Cardiac: No Symptoms
Abdomen/GI: No Symptoms
Genitourinary: No Symptoms
Musculoskeletal: No Symptoms
Skin: No Symptoms
Neuro: No Symptoms
Endocrine: No Symptoms
Hematologic / Lymphatic: No Symptoms
Allergy / Immunology: No Symptoms
Physical Exam
-
General: Well Developed and Well Nourished
Eyes: No Ptosis
HEENT: Normocephalic
Neck: No Bruits Bilaterally
Respiratory: Clear to Auscultation
Cardiac: Regular Rhythm
GI: Normal Bowel Sounds
Skin: Unremarkable
Extremities: No Clubbing
Psych: Unremarkable
Extended Neurological Exam
Mood & Affect: Mood Unremarkable and Affect Unremarkable
Attention Span & Concentration: Awake, Alert and Interactive
Memory: Reduced
Tremor: Hand Tremor Absent
Involuntary Movement: None
Speech: Negative Expressive Aphasia, Receptive Aphasia or Dysarthric
Cranial Nerve II: Left Eye: Pupillary Reactivity Unremarkable, Pupillary Size Unremarkable and Other (Right homonymous hemianopia)
Cranial Nerve II: Right Eye: Pupillary Reactivity Unremarkable, Pupillary Size Unremarkable and Other (Right homonymous hemianopia)
Cranial Nerves III, IV, : Extraocular Movement: Extraocular Movement Full in all Directions
Cranial Nerve VII: Facial Symmetry: Normal Facial Symmetry
Cranial Nerve XII: Tongue Protusion: Midline
Muscle Strength, Overall: Full Throughout
Pronator Drift: No Drift in Upper Extremities
Coordination: Other (Mild right arm ataxia)
Data Reviewed
-
CT Head: Report Reviewed and Image Reviewed
MRI Head: Report Reviewed and Image Reviewed
MRA Head: Report Reviewed and Image Reviewed
MRA Neck: Report Reviewed and Image Reviewed
Echocardiogram: Report Reviewed
Labs: Report Reviewed
[2023-07-02 08:11] LABS: Glucose - Point of Care 234 mg/dl (70-99)
--- NOTE | 2023-07-02 09:01 | PN.DE.MGMTRT ---
Insulin Management
- -
07/02/2023 Diabetes Management Follow up:
Patient admitted 06/23 with blood sugar problem, venous glucose 1,125, with confusion. Patient was in DKA, GAP 25, A1C 11%, Cr 6.2, eGFR 9.41.
PMH includes T1DM, HTN, peritoneal dialysis daily. Patient uses a [employer]tronic 770 G insulin pump which is at the bedside.
Patient is awake and alert, states he feels like he is getting there but still feels not quite right.
His mental status is much more improved today but still not at baseline. Insulin pump is at bedside, however, pt's mental status waxes and wanes.
His appetite has improved and he is consuming >100% of his meals.
Fasting glucose this AM is 234, AM lantus 25 units resumed yesterday.
Will increase lantus to 27 units in AM and AC novolog 12 with low corrective insulin
Will resume his insulin pump once mental status is 100% at baseline. Discussed with patients nurse regarding diabetes plan of care.
Diabetes History
- -
Type of Diabetes: 1
Pre-Admission Diabetes Regimen
07/02/23
05:47
Creatinine 5.3 H*
Lab Results
Hemoglobin A1c 11.0 % (4.0-5.6) H 06/25/23 04:35
Insulin Pump Settings
IP Diabetes Regimen
07/01/23 07/01/23 07/01/23
12:15 17:10 21:36
Glucose
POC Glucose 394 H 240 H 190 H
07/02/23 07/02/23
05:47 08:00
Glucose 206 H
POC Glucose 234 H
Meal type: Lunch
Amount consumed: 85%
Patient Education
[2023-07-02] MEDS: CARDIZEM SR PO (09:06)
[2023-07-02] MEDS: ROCALTROL 0.5 MCG PO (09:08)
[2023-07-02] MEDS: SODIUM BICARBONATE 650 MG PO ×2 (09:10→21:00)
[2023-07-02] MEDS: COREG PO (09:12)
[2023-07-02] MEDS: SENSIPAR 30 MG PO (09:24)
[2023-07-02] MEDS: RENVELA 800 MG PO ×3 (09:24→17:09)
[2023-07-02] MEDS: NOVOLOG FLEXPEN-LOW RESISTANCE 2 UNITS SC (09:26)
[2023-07-02] MEDS: LANTUS 0.25 UNITS SC (09:26)
[2023-07-02] MEDS: NOVOLOG FLEXPEN 8 UNITS SC (09:27)
[2023-07-02] MEDS: LOW STRENGTH ASPIRIN 81 MG PO (09:34)
--- NOTE | 2023-07-02 10:18 | W.PN.NEPH.PH ---
Today's Communication / Plan
-
PD ordered
Assessment/Plan
-
Impression:
ESRD/PD
Metabolic encephalopathy with CVA findings on CT 06/27
DKA (AG:>25)
Hypertension
Secondary hyperparathyroidism
Diabetes
Hyperphosphatemia
Dyslipidemia
BPH
Plan:
-PD orders provided and continue alternate 1.5/2.5% solutions q4h
-for echo
-FATIMAH therapy for anemia prn
-PD flow sheets reviewed
-replete K
-rehab placement
-
-
Date of Service: July 02, 2023
CC / HPI / ROS
-
Chief Complaint:
ESRD on PD
History of Present Illness:
DKA, gap now closed
PD in progress, no complaints of abd pain
mental state seems better
K los
Review of Systems:
ataxia, right field deficit with some improvement
non oliguric
Labs
-
Labs:
WBC 10.0 10^3/uL (4.8-10.8) 07/02/23 05:47
RBC 3.73 10^6/uL (4.70-6.10) L 07/02/23 05:47
Hgb 11.1 g/dL (13.0-18.0) L 07/02/23 05:47
Hct 31.0 % (39.0-52.0) L 07/02/23 05:47
Plt Count 220 10^3/uL (130-400) 07/02/23 05:47
Sodium 129 mmol/L (135-145) L 07/02/23 05:47
Potassium 3.3 mmol/L (3.5-5.1) L 07/02/23 05:47
Chloride 96 mmol/L (98-107) L 07/02/23 05:47
Carbon Dioxide 28 mmol/L (22-30) 07/02/23 05:47
BUN 38 mg/dl (9-20) H 07/02/23 05:47
Creatinine 5.3 mg/dL (0.7-1.3) H* 07/02/23 05:47
eGFR 11.36 07/02/23 05:47
Glucose 206 mg/dl (70-99) H 07/02/23 05:47
Calcium 7.6 mg/dl (8.4-10.2) L 07/02/23 05:47
Phosphorus 8.6 mg/dl (2.5-4.5) H 06/24/23 23:31
Albumin 2.7 g/dl (3.5-5.0) L 06/24/23 22:22
Physical Exam
-
Vital Signs:
Vital Signs
Temp Pulse Resp BP Pulse Ox
98.5 F 59 20 140/78 95
07/02/23 07:35 07/02/23 09:12 06/29/23 20:58 07/02/23 09:12 07/01/23 23:09
Cardiovascular:: Regular rate and rhythm
Respiratory:: Bilateral: Coarse
Lung Excursion:: Normal
Abdomen:: Nontender and Soft
Bowel Sounds:: Normal
Extremity Edema:: None: Bilateral:
[2023-07-02] MEDS: KCL 20 MEQ PO (10:56)
--- NOTE | 2023-07-02 11:20 | CM ---
Late Entry for 07/01/23.
Patient with Hx ESRD on Peritoneal Dialysis with Dx DKA, Multiple Subacute CVA. Per nurse assessment; confused. PT & OT recommend acute rehab.
Phone call to Katya; left message requesting callback for d/c planning.
Plan follow up with for d/c planning.
--- NOTE | 2023-07-02 12:00 | CM ---
Patient with Hx ESRD on Peritoneal Dialysis with Dx DKA, Multiple Subacute CVA. Per nurse assessment; some aphasia. Receiving IV Zosyn. PT & OT recommend acute rehab. Physiatry Consult pending.
Spoke with patient's Katya; discussed PT/OT recommendations - she is unsure if patient will agree to acute rehab. Explained acute rehab therapy vs HH. agrees to Physiatry Consult and thinks it may be helpful if electric locomotive crane operator speaks to
patient about acute rehab. Discussed acute rehab options including [facility].
Spoke with [facility]; they may have an available bed by Saturday if patient is interested/accepted. Will need insurance auth.
Plan follow up after Physiatry Eval.
--- NOTE | 2023-07-02 12:03 | PTCARENOTE ---
Pt received from retail shift manager. Pt maintained on Qshift NIH and neuro. See NIH documentation for neuro assessment. Pt NSR/ sinus marin on monitor, HR- 55-60. Pts morning coreg and Cardizem held per admin parameters, discussed with Hospitalist
Raza. Pt on room air. RN called to order Pts meals, meals called and ordered for Pt, Pt set up when meals arrived. Pt tolerating PD. Pt ambulating with a standby assit of one, gait steady. Pt seen by speech and PT today. Please see nursing
shift assessment for full head to toe. Call moody in reach. Be dalarm on pt does attempt to stand without ringing.
[2023-07-02] MEDS: NOVOLOG FLEXPEN-LOW RESISTANCE 3 UNITS SC (12:54)
[2023-07-02] MEDS: NOVOLOG FLEXPEN 12 UNITS SC ×2 (12:54→17:13)
[2023-07-02 13:04] LABS: Glucose - Point of Care 266 mg/dl (70-99)
--- NOTE | 2023-07-02 14:30 | W.PN.HOSP.TC ---
Today's Communication/Plan
-
DC ready
Insulin adjustment
Assessment / Plan
Assessment / Plan
Ct a/p
1). There is free intraperitoneal air likely on the basis of peritoneal dialysis catheter.
Perforated abdominal viscus is less likely
2). Hepatomegaly with diffuse fatty infiltration of the liver.
3). Atherosclerosis
4). Mild prostatomegaly
5). Multiple renal cysts

# Diabetic ketoacidosis - resolved
Uncontrolled IDDM
Episode of hypoglycemia
-Reason for diabetic ketoacidosis remains unclear.
-Have uncontrolled diabetes at baseline with hemoglobin A1c of 11%
-Admission blood glucose 1125 Bicarb <5 AGAP ~ 40
-Patient off of insulin drip.
-Any recurrent AGAP acidosis needed to be evaluated with keeping in mind that patient have ESRD and will skew the calculation.
-Insulin pump is nonfunctional per diabetic SAMPLER OVENS, managed with subq insulin at this point.
-titrate insulin, titrate with diabetic SAMPLER OVENS
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
--patient having right side neglect/dischronation of hand eye movement
�most likely secondary to uncontrolled diabetes
� Neurology consulted
� On aspirin, statin
� Follow-up neurology recommendations for further antiplatelet regimen
� Echo with no evidence of vegetation, no need for JAMES at this time as uncontrolled DM believed to be etiology
- Plan for outpatient cardiac rhythm monitoring, 1-2 weeks holter monitoring
� PT/OT
� Physiatry consult
� Cannot drive due to right-sided hemianopia and vision deficits from stroke, neurology will contact DMV
- goal of normotension
# ESRD on Peritoneal Dialysis
Secondary Hyperparathyroidism
-Nephrology following and help appreciated
-Monitor Is&Os and Daily Weights
-Resume back Cinacalcet/sevelamer
#Leukocytosis - Resolved
suspected sepsis from unclear source
-CTAP ruled out any acute abnormality
-Patient makes some urine, UA showing few bacteria and RBC.
-Chest x-ray clear
-COVID neg.
-Blood culture/urine culture neg.
-Peritoneal fluid sample from catheter showing WBC 15 /cumm
-Completed empiric Zosyn - 7/7 day course
# Acute TME -resolved
-resolved
-most likely 2/2 to infection v CVA
#Essential hypertension -uncontrolled
-resume back on diltiazem
-Coreg added
-As needed hydralazine ordered for systolic blood pressure greater than 160
6. Hypokalemia
on HD
#Hyponatremia
� Continue monitor on PD
Anemia of Renal Disease
Diabetes Neuropathy
Essential Hypertension
Hyperlipidemia
BPH
DVT proph: SC Heparin
Code Status: Full Code
Anticipated Discharge: Within 24 hours
Subjective/Interval History
-
Date of Service: July 02, 2023
No acute events
Objective Data
-
Labs:
Laboratory Results
07/02/23
05:47
WBC 10.0
Hgb 11.1 L
Hct 31.0 L
Plt Count 220
Sodium 129 L
Potassium 3.3 L
Chloride 96 L
Carbon Dioxide 28
BUN 38 H
Creatinine 5.3 H*
Glucose 206 H
Calcium 7.6 L
Vital Signs:
Vital Signs
Temp Pulse Resp BP Pulse Ox
97.7 F 64 20 152/84 98
07/02/23 11:22 07/02/23 13:26 06/29/23 20:58 07/02/23 13:07/02/23 10:00
I&O
07/01/23 07/02/23 07/03/23
06:59 06:59 06:59
Intake Total 570 / 570 1600 / 1600 680 / 680
Output Total 800 / 800 350 / 350
Balance -230 / -230 1250 / 1250 680 / 680
Review of Systems
-
Respiratory: Reports No Symptoms
Cardiac: Reports No Symptoms
Abdomen/GI: Reports No Symptoms
Physical Exam
-
General: No Apparent Distress and Comfortable
HEENT: Negative Oxygen
Respiratory: Clear to Auscultation
Cardiac: Regular Rhythm and S1/S2; Negative Murmur or Rub
GI: Soft, Nontender and Nondistended
Musculoskeletal: No Edema
Neuro: Awake, Alert and Other (Right eye temporal vision loss, right side hemineglect, unable to do right hand finger-nose test)
Psych: Calm
Data Reviewed
-
CT Scan: Image personally visualized and interpreted and Report Reviewed by me
MRI: Report Reviewed by me
Labs: Labs Reviewed by me
[2023-07-02 17:12] LABS: Glucose - Point of Care 110 mg/dl (70-99)
[2023-07-02] MEDS: NOVOLOG FLEXPEN-LOW RESISTANCE SC (17:12)
[2023-07-02] MEDS: CRESTOR 20 MG PO (17:29)
[2023-07-02] MEDS: COREG 6.25 MG PO (21:00)
[2023-07-02 22:01] LABS: Glucose - Point of Care 58 mg/dl (70-99)
[2023-07-02 22:23] LABS: Glucose - Point of Care 70 mg/dl (70-99)
[2023-07-03] VITALS (15 sets, daily range): BP systolic 90–143; BP diastolic 44–74; BMI 26.5
[2023-07-03 00:25] LABS: Glucose - Point of Care 88 mg/dl (70-99)
--- NOTE | 2023-07-03 01:12 | PTCARENOTE ---
Pt HS accucheck 58. Following hypoglycemic protocol, night AUTOMOTIVE TECHNICIAN made aware. Follow up glucose 70, X2 hours 80.
[2023-07-03 02:37] LABS: Glucose - Point of Care 140 mg/dl (70-99)
[2023-07-03 04:21] LABS: Hematocrit 29.8 % (39.0-52.0); Hemoglobin 10.8 g/dL (13.0-18.0); Mean Corp Hgb Conc. 36.2 g/dL (33.0-37.0); Mean Corpuscular Volume 82.8 fL (80.0-94.0); Platelet Count 226 10^3/uL (130-400); Red Cell Dist. Width 12.7 % (11.5-14.5); White Blood Cell Count 10.3 10^3/uL (4.8-10.8)
[2023-07-03 05:02] LABS: Blood Urea Nitrogen 34 mg/dl (9-20); Calcium 7.5 mg/dl (8.4-10.2); Carbon Dioxide 26 mmol/L (22-30); Chloride 97 mmol/L (98-107); Estimated Creatinine Clearance 14 ml/min; Glucose 163 mg/dl (70-99); Potassium 3.5 mmol/L (3.5-5.1); Sodium 128 mmol/L (135-145); eGFR 12.18
[2023-07-03 07:31] LABS: Glucose - Point of Care 308 mg/dl (70-99)
--- NOTE | 2023-07-03 07:58 | PN.DE.MGMTRT ---
Insulin Management
- -
07/03/2023 Diabetes Management Follow up:
Patient admitted 06/23 with blood sugar problem, venous glucose 1,125, with confusion. Patient was in DKA, GAP 25, A1C 11%, Cr 6.2, eGFR 9.41.
PMH includes T1DM, HTN, peritoneal dialysis daily. Patient uses a Medtronic 770 G insulin pump which is at the bedside.
Patient is awake, alert, mental status is continues to improve but still not at baseline. Insulin pump is at bedside, however, pt's mental status waxes and wanes. He agrees with holding pump and restarting when his mental status is 'back'.
He admits that he received insulin for dinner but did not eat much if anything. Patient had episode of hypoglycemia, 58 @ hs. Reminded him that nurse needs to be aware if he did not eat a meal as he is receiving insulin injections.
Fasting glucose this AM is 163, will continue AM lantus 25. units with novolog 10 units AC and low corrective.
Will resume his insulin pump once mental status is 100% at baseline. Discussed with patients nurse regarding diabetes plan of care and request nurse assess patient is eating before administering insulin.
Diabetes History
- -
Type of Diabetes: 1
Pre-Admission Diabetes Regimen
07/03/23
04:14
Creatinine 5.0 H*
Lab Results
Hemoglobin A1c 11.0 % (4.0-5.6) H 06/25/23 04:35
Insulin Pump Settings
IP Diabetes Regimen
07/02/23 07/02/23 07/02/23
08:00 12:52 17:01
Glucose
POC Glucose 234 H 266 H 110 H
07/02/23 07/02/23 07/03/23
21:46 22:12 00:14
Glucose
POC Glucose 58 L 70 88
07/03/23 07/03/23 07/03/23
02:25 04:14 07:20
Glucose 163 H
POC Glucose 140 H 308 H
Meal type: Dinner
Meal type: Breakfast
Amount consumed: 100%
Amount consumed: 95%
Patient Education
--- NOTE | 2023-07-03 08:09 | W.PN.NEPH.PH ---
Today's Communication / Plan
-
PD orders provide
Assessment/Plan
-
Impression:
ESRD/PD
Metabolic encephalopathy with CVA findings on CT 06/27
DKA (AG:>25)
Hypertension
Secondary hyperparathyroidism
Diabetes
Hyperphosphatemia
Dyslipidemia
BPH
Plan:
-PD orders provided and continue alternate 1.5/2.5% solutions q4h
-echo reviewed
-FATIMAH therapy for anemia prn
-PD flow sheets reviewed,slightly net negative
-replete K prn
-would d/c coreg if bp remains low, currently on outpatient diltiazem
-rehab placement
-
-
Date of Service: July 03, 2023
CC / HPI / ROS
-
Chief Complaint:
ESRD on PD
History of Present Illness:
DKA, gap now closed
PD in progress, no complaints of abd pain
mental state seems better
Hypotensive this morning
Review of Systems:
ataxia, right field deficit with some improvement
non oliguric
Weight is down
Labs
-
Labs:
WBC 10.3 10^3/uL (4.8-10.8) 07/03/23 04:14
RBC 3.60 10^6/uL (4.70-6.10) L 07/03/23 04:14
Hgb 10.8 g/dL (13.0-18.0) L 07/03/23 04:14
Hct 29.8 % (39.0-52.0) L 07/03/23 04:14
Plt Count 226 10^3/uL (130-400) 07/03/23 04:14
Sodium 128 mmol/L (135-145) L 07/03/23 04:14
Potassium 3.5 mmol/L (3.5-5.1) 07/03/23 04:14
Chloride 97 mmol/L (98-107) L 07/03/23 04:14
Carbon Dioxide 26 mmol/L (22-30) 07/03/23 04:14
BUN 34 mg/dl (9-20) H 07/03/23 04:14
Creatinine 5.0 mg/dL (0.7-1.3) H* 07/03/23 04:14
eGFR 12.18 07/03/23 04:14
Glucose 163 mg/dl (70-99) H 07/03/23 04:14
Calcium 7.5 mg/dl (8.4-10.2) L 07/03/23 04:14
Phosphorus 8.6 mg/dl (2.5-4.5) H 06/24/23 23:31
Albumin 2.7 g/dl (3.5-5.0) L 06/24/23 22:22
Physical Exam
-
Vital Signs:
Vital Signs
Temp Pulse Resp BP Pulse Ox
98.5 F 65 20 93/47 96
07/03/23 04:24 07/03/23 06:00 06/29/23 20:58 07/03/23 06:00 07/02/23 23:23
Cardiovascular:: Regular rate and rhythm
Respiratory:: Bilateral: CTA
Lung Excursion:: Normal
Abdomen:: Nontender
Bowel Sounds:: Normal
Extremity Edema:: None: Bilateral:
Ward Catheter: No
[2023-07-03] MEDS: ROCALTROL 0.5 MCG PO (10:00)
[2023-07-03] MEDS: NOVOLOG FLEXPEN-LOW RESISTANCE 4 UNITS SC (10:00)
[2023-07-03] MEDS: SENSIPAR 30 MG PO (10:00)
[2023-07-03] MEDS: LOW STRENGTH ASPIRIN 81 MG PO (10:01)
[2023-07-03] MEDS: SODIUM BICARBONATE 650 MG PO ×2 (10:01→20:10)
[2023-07-03] MEDS: HEPARIN 5000 UNITS SC ×3 (10:01→23:15)
[2023-07-03] MEDS: CARDIZEM SR 120 MG PO (10:01)
[2023-07-03] MEDS: RENVELA 800 MG PO ×3 (10:01→17:43)
[2023-07-03] MEDS: COREG PO (10:14)
[2023-07-03] MEDS: NOVOLOG FLEXPEN 12 UNITS SC ×3 (10:39→17:43)
[2023-07-03] MEDS: LANTUS 0.25 UNITS SC (10:39)
--- NOTE | 2023-07-03 10:50 | CM ---
Addendum entered by Joe Lagos 07/03/23 15:29:
Per Terry acute rehabilitator, pt is accepted for admission to [facility].
Terry Shahbaz [place]
Accepting physician: Aakash Bronson
CM initiated an auth with [facility] Personal choice, spoke to KIEL Copeland and based on information provided pt is approved for acute level of rehab at [facility] from tomorrow 07/04/23 till 07/08/23 with NRD 07/08/23, phone: [phone]. Auth is
[id number].
At a time of obtaining an auth, KIEL was informed by Terry liaison that [facility] [place]. Per [facility] mattress spring encaser, to call on Saturday or to change admission date.
Per [facility] KIEL Copeland, an auth for ambulance needs to be obtained tomorrow for Saturday discharge.
[facility] on Saturday07/05/23.
Original Note:
CM following re: discharge planning.
Reviewed pt's chart, met with pt to update on discharge plan progress.
Pt is aware that PT and OT recommend acute rehab and pt expressed his agreement. pt stated 'I have to get better'.
CM spoke to Terry acute rehabilitator and she stated that [facility] does not do Peritoneal Dialysis and pt needs to g to [facility] and [facility].
Pt is aware of [facility] and expressed his agreement.
Awaiting for determination from [facility].
D/C plan: [facility]. An auth required.
CM will follow to assist pt with discharge to [facility].
--- NOTE | 2023-07-03 12:41 | PTCARENOTE ---
Assumed care of patient at beginning of this shift from previous RN. PD done as per order; see worklist for intervention. Patient awake, alert and cooperative; Ox2 (forgetful to time). States he is willing to go to rehab after hospital stay. OOB to
bathroom x1 assist d/t visual field cut. NIHSS/neuro checks maintained. Lantus insulin order adjusted by Allison Melendez who saw patient this morning. See worklist for full assessment, vital signs and interventions; see MAR for med administration.
[2023-07-03 12:46] LABS: Glucose - Point of Care 383 mg/dl (70-99)
[2023-07-03] MEDS: NOVOLOG FLEXPEN-LOW RESISTANCE 5 UNITS SC (13:51)
--- NOTE | 2023-07-03 15:29 | W.PN.HOSP.TC ---
Today's Communication/Plan
-
insulin adjustment
pending dc
Assessment / Plan
Assessment / Plan
Ct a/p
1). There is free intraperitoneal air likely on the basis of peritoneal dialysis catheter.
Perforated abdominal viscus is less likely
2). Hepatomegaly with diffuse fatty infiltration of the liver.
3). Atherosclerosis
4). Mild prostatomegaly
5). Multiple renal cysts

# Diabetic ketoacidosis - resolved
Uncontrolled IDDM
Episode of hypoglycemia
-Reason for diabetic ketoacidosis remains unclear.
-Have uncontrolled diabetes at baseline with hemoglobin A1c of 11%
-Admission blood glucose 1125 Bicarb <5 AGAP ~ 40
-Patient off of insulin drip.
-Any recurrent AGAP acidosis needed to be evaluated with keeping in mind that patient have ESRD and will skew the calculation.
-Insulin pump is nonfunctional per diabetic HISTORICAL RECORDS ADMINISTRATOR, managed with subq insulin at this point.
-titrate insulin, titrate with diabetic HISTORICAL RECORDS ADMINISTRATOR
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
--patient having right side neglect/dischronation of hand eye movement
�most likely secondary to uncontrolled diabetes
� Neurology consulted
� On aspirin, statin
� Follow-up neurology recommendations for further antiplatelet regimen
� Echo with no evidence of vegetation, no need for JAMES at this time as uncontrolled DM believed to be etiology
- Plan for outpatient cardiac rhythm monitoring, 1-2 weeks holter monitoring
� PT/OT
� Physiatry consult�pending Bean placement
� Cannot drive due to right-sided hemianopia and vision deficits from stroke, neurology will contact [facility]
- goal of normotension
# ESRD on Peritoneal Dialysis
Secondary Hyperparathyroidism
-Nephrology following and help appreciated
-Monitor Is&Os and Daily Weights
-Resume back Cinacalcet/sevelamer
#Leukocytosis - Resolved
suspected sepsis from unclear source
-CTAP ruled out any acute abnormality
-Patient makes some urine, UA showing few bacteria and RBC.
-Chest x-ray clear
-COVID neg.
-Blood culture/urine culture neg.
-Peritoneal fluid sample from catheter showing WBC 15 /cumm
-Completed empiric Zosyn - 7/7 day course
# Acute TME -resolved
-resolved
-most likely 2/2 to infection v CVA
#Essential hypertension -uncontrolled
-resume back on diltiazem
-DC Coreg
-As needed hydralazine ordered for systolic blood pressure greater than 160
6. Hypokalemia
on HD
#Hyponatremia
� Continue monitor on PD
Anemia of Renal Disease
Diabetes Neuropathy
Essential Hypertension
Hyperlipidemia
BPH
DVT proph: SC Heparin
Code Status: Full Code
Anticipated Discharge: Within 24 hours
Subjective/Interval History
-
Date of Service: July 03, 2023
No acute events
Objective Data
-
Labs:
Laboratory Results
07/03/23
04:14
WBC 10.3
Hgb 10.8 L
Hct 29.8 L
Plt Count 226
Sodium 128 L
Potassium 3.5
Chloride 97 L
Carbon Dioxide 26
BUN 34 H
Creatinine 5.0 H*
Glucose 163 H
Calcium 7.5 L
Vital Signs:
Vital Signs
Temp Pulse Resp BP Pulse Ox
98 F 68 20 135/62 97
07/03/23 11:00 07/03/23 14:23 06/29/23 20:58 07/03/23 14:23 07/03/23 08:28
I&O
07/02/23 07/03/23 07/04/23
06:59 06:59 06:59
Intake Total 1350 / 1350 1260 / 1260
Output Total 600 / 600 1100 / 1100 750 / 750
Balance 750 / 750 160 / 160 -750 / -750
Review of Systems
-
Respiratory: Reports No Symptoms
Cardiac: Reports No Symptoms
Abdomen/GI: Reports No Symptoms
Data Reviewed
-
CT Scan: Image personally visualized and interpreted and Report Reviewed by me
MRI: Report Reviewed by me
Labs: Labs Reviewed by me
[2023-07-03 16:54] LABS: Glucose - Point of Care 168 mg/dl (70-99)
[2023-07-03] MEDS: CRESTOR 20 MG PO (17:43)
[2023-07-03] MEDS: NOVOLOG FLEXPEN-LOW RESISTANCE 1 UNITS SC (17:44)
--- NOTE | 2023-07-03 20:44 | PTCARENOTE ---
Assumed care of pt from day RN. Pt appears to be in pleasant mood, Pt has no complaints at this time. Qshift neuro & NIHSS continued. Assessment care and vitals as charted.
[2023-07-03 22:52] LABS: Glucose - Point of Care 143 mg/dl (70-99)
[2023-07-04] VITALS (18 sets, daily range): BP systolic 77–150; BP diastolic 48–75; PULSE 65–71; O2SAT 97; BMI 26.6
[2023-07-04 05:33] LABS: Blood Urea Nitrogen 41 mg/dl (9-20); Calcium 7.5 mg/dl (8.4-10.2); Carbon Dioxide 29 mmol/L (22-30); Chloride 96 mmol/L (98-107); Estimated Creatinine Clearance 14 ml/min; Glucose 140 mg/dl (70-99); Potassium 3.4 mmol/L (3.5-5.1); Sodium 127 mmol/L (135-145); eGFR 12.18
--- NOTE | 2023-07-04 07:47 | PN.DE.MGMTRT ---
Insulin Management
- -
07/04/2023 Diabetes Management Follow up:
Patient admitted 06/23 with blood sugar problem, venous glucose 1,125, with confusion. Patient was in DKA, GAP 25, A1C 11%, Cr 6.2, eGFR 9.41.
PMH includes T1DM, HTN, peritoneal dialysis daily. Patient uses a Medtronic 770 G insulin pump which is at the bedside.
Patient is awake, alert, mental status continues to improve but still not at baseline. Insulin pump is at bedside, however, pt's mental status waxes and wanes. He agrees with holding pump and restarting when his mental status is 'back'. He is
supposed to transfer to [facility] Saturday.
No further hypoglycemia 07/02, glucose range 143 to 383.
Fasting glucose this AM is 140, will continue AM lantus 25. units with novolog 12 units AC and low corrective.
Will resume his insulin pump once mental status is 100% at baseline, most likely at [facility] or after discharge from [facility]. Discussed with patients nurse regarding diabetes plan of care and request nurse continue to assess patient is eating before
administering insulin.
Diabetes History
- -
Type of Diabetes: 1
Pre-Admission Diabetes Regimen
07/04/23
04:59
Creatinine 5.0 H*
Lab Results
Hemoglobin A1c 11.0 % (4.0-5.6) H 06/25/23 04:35
Insulin Pump Settings
IP Diabetes Regimen
07/03/23 07/03/23 07/03/23
12:12 16:42 22:40
Glucose
POC Glucose 383 H 168 H 143 H
07/04/23
04:59
Glucose 140 H
POC Glucose
Meal type: Dinner
Meal type: Lunch
Meal type: Breakfast
Amount consumed: 100%
Amount consumed: 100%
Amount consumed: 100%
Patient Education
[2023-07-04 08:04] LABS: Glucose - Point of Care 189 mg/dl (70-99)
[2023-07-04] MEDS: CARDIZEM SR 120 MG PO (08:12)
[2023-07-04] MEDS: SODIUM BICARBONATE 650 MG PO ×2 (08:12→19:37)
[2023-07-04] MEDS: HEPARIN 5000 UNITS SC ×2 (08:12→17:31)
[2023-07-04] MEDS: LOW STRENGTH ASPIRIN 81 MG PO (08:12)
[2023-07-04] MEDS: RENVELA 800 MG PO ×3 (08:12→17:31)
[2023-07-04] MEDS: ROCALTROL 0.5 MCG PO (08:12)
[2023-07-04] MEDS: SENSIPAR 30 MG PO (08:12)
--- NOTE | 2023-07-04 08:28 | W.PN.UPDATE ---
Update Note
Progress Note Update
PD note:
2 L every 4 hours exchanges alternate 1.5 with 2.5%
PD flowsheets reviewed
--- NOTE | 2023-07-04 08:29 | W.PN.NEPH.PH ---
Today's Communication / Plan
-
PD orders provided
Pending rehab placement
Assessment/Plan
-
Impression:
ESRD/PD
Metabolic encephalopathy with CVA findings on CT 06/27
DKA (AG:>25)
Hypertension
Secondary hyperparathyroidism
Diabetes
Hyperphosphatemia
Dyslipidemia
BPH
Plan:
-PD orders provided and continue alternate 1.5/2.5% solutions q4h
-FATIMAH therapy for anemia prn
-PD flow sheets reviewed,slightly net negative
-replete K prn
-Hemodynamically stable on carvedilol and diltiazem and dry weight
-rehab placement
-
-
Date of Service: July 04, 2023
CC / HPI / ROS
-
Chief Complaint:
ESRD on PD
History of Present Illness:
DKA, gap now closed
PD in progress, no complaints of abd pain
mental state seems better
Blood pressure stable today
Review of Systems:
ataxia, right field deficit with some improvement
non oliguric
Weight is up
Labs
-
Labs:
WBC 10.3 10^3/uL (4.8-10.8) 07/03/23 04:14
RBC 3.60 10^6/uL (4.70-6.10) L 07/03/23 04:14
Hgb 10.8 g/dL (13.0-18.0) L 07/03/23 04:14
Hct 29.8 % (39.0-52.0) L 07/03/23 04:14
Plt Count 226 10^3/uL (130-400) 07/03/23 04:14
Sodium 127 mmol/L (135-145) L 07/04/23 04:59
Potassium 3.4 mmol/L (3.5-5.1) L 07/04/23 04:59
Chloride 96 mmol/L (98-107) L 07/04/23 04:59
Carbon Dioxide 29 mmol/L (22-30) 07/04/23 04:59
BUN 41 mg/dl (9-20) H 07/04/23 04:59
Creatinine 5.0 mg/dL (0.7-1.3) H* 07/04/23 04:59
eGFR 12.18 07/04/23 04:59
Glucose 140 mg/dl (70-99) H 07/04/23 04:59
Calcium 7.5 mg/dl (8.4-10.2) L 07/04/23 04:59
Phosphorus 8.6 mg/dl (2.5-4.5) H 06/24/23 23:31
Albumin 2.7 g/dl (3.5-5.0) L 06/24/23 22:22
Physical Exam
-
Vital Signs:
Vital Signs
Temp Pulse Resp BP Pulse Ox
99.4 F 68 20 150/66 96
07/04/23 07:35 07/04/23 05:19 06/29/23 20:58 07/04/23 05:19 07/04/23 00:00
Cardiovascular:: Regular rate and rhythm
Respiratory:: Bilateral: CTA
Lung Excursion:: Normal
Abdomen:: Nontender
Bowel Sounds:: Normal
Extremity Edema:: None: Bilateral:
Ward Catheter: No
[2023-07-04] MEDS: NOVOLOG FLEXPEN-LOW RESISTANCE 1 UNITS SC (09:21)
[2023-07-04] MEDS: LANTUS 0.25 UNITS SC (09:22)
[2023-07-04] MEDS: NOVOLOG FLEXPEN 12 UNITS SC ×2 (09:22→13:50)
[2023-07-04 11:42] LABS: Glucose - Point of Care 213 mg/dl (70-99)
--- NOTE | 2023-07-04 11:53 | PTCARENOTE ---
Addendum entered by Brianna Mccormick RN 07/04/23 12:17:
NIHSS now 7 d/t drowsiness; however patient easily arousable and able to verbalize his lunch order. No other change to NIHSS.
Addendum entered by Brianna Mccormick RN 07/04/23 12:04:
Accu check 213.
Original Note:
Assumed care of patient at beginning of this shift from previous RN. PD done this morning without difficulty; see worklist for intervention. NIHSS =6; no change from prior.
PT/OT in to work with patient. BP dropped when they sat him up to 77/59 then 88/52. He did recover to 131/62 after a few minutes of lying down. Also c/o pain 10/18 pointing to his PD site, then stated it was 'sore' on the outside not inside. Site
intact, no redness noted; belly soft. [place] text sent to Dr Holder and to Dr Ott to make them aware. Coreg was d/c'd yesterday; daniel remains on patient's med regimen.
--- NOTE | 2023-07-04 13:45 | PTCARENOTE ---
Patient awake and eating lunch. BP 118/55, HR 72.
[2023-07-04] MEDS: NOVOLOG FLEXPEN-LOW RESISTANCE 2 UNITS SC (13:49)
--- NOTE | 2023-07-04 14:14 | W.PN.HOSP.TC ---
Today's Communication/Plan
-
monitor bps
dc ready - plan to go to [place] tomorrow
Assessment / Plan
Assessment / Plan
Ct a/p
1). There is free intraperitoneal air likely on the basis of peritoneal dialysis catheter.
Perforated abdominal viscus is less likely
2). Hepatomegaly with diffuse fatty infiltration of the liver.
3). Atherosclerosis
4). Mild prostatomegaly
5). Multiple renal cysts

# Diabetic ketoacidosis - resolved
Uncontrolled IDDM
Episode of hypoglycemia
-Reason for diabetic ketoacidosis remains unclear.
-Have uncontrolled diabetes at baseline with hemoglobin A1c of 11%
-Admission blood glucose 1125 Bicarb <5 AGAP ~ 40
-Patient off of insulin drip.
-Any recurrent AGAP acidosis needed to be evaluated with keeping in mind that patient have ESRD and will skew the calculation.
-Insulin pump is nonfunctional per diabetic PLASTER BLOCK LAYER, managed with subq insulin at this point.
-titrate insulin, titrate with diabetic PLASTER BLOCK LAYER
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
--patient having right side neglect/dischronation of hand eye movement
�most likely secondary to uncontrolled diabetes
� Neurology consulted
� On aspirin, statin
� Follow-up neurology recommendations for further antiplatelet regimen
� Echo with no evidence of vegetation, no need for JAMES at this time as uncontrolled DM believed to be etiology
- Plan for outpatient cardiac rhythm monitoring, 1-2 weeks holter monitoring
� PT/OT
� Physiatry consult�pending Bean placement
� Cannot drive due to right-sided hemianopia and vision deficits from stroke, neurology will contact [facility]
- goal of normotension
# ESRD on Peritoneal Dialysis
Secondary Hyperparathyroidism
-Nephrology following and help appreciated
-Monitor Is&Os and Daily Weights
-Resume back Cinacalcet/sevelamer
#Leukocytosis - Resolved
suspected sepsis from unclear source
-CTAP ruled out any acute abnormality
-Patient makes some urine, UA showing few bacteria and RBC.
-Chest x-ray clear
-COVID neg.
-Blood culture/urine culture neg.
-Peritoneal fluid sample from catheter showing WBC 15 /cumm
-Completed empiric Zosyn - 7/7 day course
# Acute TME -resolved
-resolved
-most likely 2/2 to infection v CVA
#Essential hypertension -uncontrolled
-resume back on diltiazem
-DC Coreg
-As needed hydralazine ordered for systolic blood pressure greater than 160
6. Hypokalemia
on HD
#Hyponatremia
� Continue monitor on PD
Anemia of Renal Disease
Diabetes Neuropathy
Essential Hypertension
Hyperlipidemia
BPH
DVT proph: SC Heparin
Code Status: Full Code
DC ready - [facility] will have bed tomorrow
Anticipated Discharge: Within 24 hours
Subjective/Interval History
-
Date of Service: July 04, 2023
no acute events
Objective Data
-
Labs:
Laboratory Results
07/04/23
04:59
Sodium 127 L
Potassium 3.4 L
Chloride 96 L
Carbon Dioxide 29
BUN 41 H
Creatinine 5.0 H*
Glucose 140 H
Calcium 7.5 L
Vital Signs:
Vital Signs
Temp Pulse Resp BP Pulse Ox
98.8 F 66 20 118/55 98
07/04/23 11:12 07/04/23 12:41 06/29/23 20:58 07/04/23 12:41 07/04/23 11:36
I&O
07/03/23 07/04/23 07/05/23
06:59 06:59 06:59
Intake Total 1260 / 1260 830 / 830
Output Total 1100 / 1100 1850 / 1850 500 / 500
Balance 160 / 160 -1020 / -1020 -500 / -500
Review of Systems
-
Respiratory: Reports No Symptoms
Cardiac: Reports No Symptoms
Abdomen/GI: Reports No Symptoms
Physical Exam
-
General: No Apparent Distress and Comfortable
HEENT: Negative Oxygen
Respiratory: Clear to Auscultation
Cardiac: Regular Rhythm and S1/S2; Negative Murmur or Rub
GI: Soft, Nontender and Nondistended
Musculoskeletal: No Edema
Neuro: Awake, Alert and Other (Right eye temporal vision loss, right side hemineglect, unable to do right hand finger-nose test)
Psych: Calm
--- NOTE | 2023-07-04 16:33 | PTCARENOTE ---
Addendum entered by Brianna Mccormick RN 07/04/23 16:50:
Albumin ordered by Dr Holder.
Original Note:
PT in to work with patient, however he was very orthostatic. BP 105/56 lying and 81/57 sitting on the side of the bed. Both Dr Ott and Dr Holder made aware via tiger text.
[2023-07-04] MEDS: NOVOLOG FLEXPEN-LOW RESISTANCE SC (16:49)
--- NOTE | 2023-07-04 16:51 | PTCARENOTE ---
Accu check 89; patient due for 12 units novolog with dinner. He has eaten 100% of breakfast and lunch today. [place] text sent to Allison Melendez, ict educator, to confirm if patient is still to receive insulin with dinner. Await reply.
[2023-07-04 16:55] LABS: Glucose - Point of Care 89 mg/dl (70-99)
[2023-07-04] MEDS: NOVOLOG FLEXPEN SC (17:13)
[2023-07-04] MEDS: CRESTOR 20 MG PO (17:31)
[2023-07-04] MEDS: FLEXBUMIN 50 IV (17:46)
[2023-07-04] MEDS: NOVOLOG FLEXPEN 10 UNITS SC (18:39)
[2023-07-04 20:33] LABS: Glucose - Point of Care 40 mg/dl (70-99)
[2023-07-04 20:47] LABS: Glucose - Point of Care 75 mg/dl (70-99)
[2023-07-04 21:49] LABS: Glucose - Point of Care 67 mg/dl (70-99)
[2023-07-04 22:17] LABS: Glucose - Point of Care 86 mg/dl (70-99)
[2023-07-05] MEDS: FLEXBUMIN 50 IV ×2 (00:09→08:20)
[2023-07-05 00:13] VITALS: BP 131/53
[2023-07-05] MEDS: HEPARIN 5000 UNITS SC ×2 (00:13→08:29)
[2023-07-05 01:02] LABS: Glucose - Point of Care 112 mg/dl (70-99)
[2023-07-05 03:04] LABS: Glucose - Point of Care 193 mg/dl (70-99)
[2023-07-05 05:08] VITALS: BP 118/59
[2023-07-05 05:18] VITALS: BMI 26.1
--- NOTE | 2023-07-05 07:44 | PN.DE.MGMTRT ---
Insulin Management
- -
07/05/2023: Diabetes Management F/U:
Patient admitted 06/23 with blood sugar problem, venous glucose 1,125, with confusion. Patient was in DKA, GAP 25, A1C 11%, Cr 6.2, eGFR 9.41.
PMH includes T1DM, HTN, peritoneal dialysis daily. Patient uses a Medtronic 770 G insulin pump which is at the bedside.
Patient is awake, alert, mental status continues to improve but still not at baseline. Insulin pump is at bedside, however, pt's mental status waxes and wanes. He agrees with holding pump and restarting when his mental status is 'back'. He is
supposed to transfer to [facility] today
Noted for an episode of hypoglycemia last night, as low as 40. His glucose was 89 before dinner, he ate 70% of his tray and received 10 units of NovoLog. Yesterday Premeal range was 89 to 213. Will reduce AM Lantus dose to 22 units. Continue NovoLog
10 units AC and low corrective.
Will resume his insulin pump once mental status is 100% at baseline, most likely at [facility] or after discharge from [facility].
Discussed with patients nurse regarding diabetes plan of care and request nurse continue to assess patient is eating before administering insulin.
Diabetes History
- -
Type of Diabetes: 1
Pre-Admission Diabetes Regimen
Lab Results
Hemoglobin A1c 11.0 % (4.0-5.6) H 06/25/23 04:35
Insulin Pump Settings
IP Diabetes Regimen
07/04/23 07/04/23 07/04/23
07:52 11:30 16:43
POC Glucose 189 H 213 H 89
07/04/23 07/04/23 07/04/23
20:21 20:36 21:36
POC Glucose 40 L* 75 67 L
07/04/23 07/05/23 07/05/23
22:06 00:50 02:53
POC Glucose 86 112 H 193 H
Meal type: Dinner
Meal type: Breakfast
Amount consumed: 70%
Amount consumed: 100%
Patient Education
[2023-07-05 07:52] LABS: Glucose - Point of Care 196 mg/dl (70-99)
[2023-07-05] MEDS: NOVOLOG FLEXPEN-LOW RESISTANCE 1 UNITS SC (08:15)
[2023-07-05] MEDS: NOVOLOG FLEXPEN 10 UNITS SC ×2 (08:16→13:07)
[2023-07-05] MEDS: LANTUS 0.25 UNITS SC (08:18)
[2023-07-05] MEDS: CARDIZEM SR 120 MG PO (08:28)
[2023-07-05] MEDS: ROCALTROL 0.5 MCG PO (08:29)
[2023-07-05] MEDS: LOW STRENGTH ASPIRIN 81 MG PO (08:29)
[2023-07-05] MEDS: RENVELA 800 MG PO ×2 (08:29→12:27)
[2023-07-05] MEDS: SENSIPAR 30 MG PO (08:29)
[2023-07-05] MEDS: SODIUM BICARBONATE 650 MG PO (08:29)
--- NOTE | 2023-07-05 11:10 | CM ---
Patient with Hx ESRD on Peritoneal Dialysis with Dx DKA, Multiple Subacute CVA. Room air. PT & OT recommend acute rehab. Per nurse assessment; confused, expressive & receptive aphasia.
Spoke with [facility]; requested adjusted auth dates for [facility] as patient did not d/c yesterday/ready to d/c today. Auth # [id number] from 07/04 to 07/08. Ambulance auth with [facility], auth # [id number].
Spoke with Jigar Real, [facility] ( [phone]); updated auth info provided. They are able to accept the patient today, and the patient must arrive by . for report [phone], fax [phone].
Spoke with patient's Katya; she agrees with d/c today to [facility] by ambulance. She will meet up with the patient over at [facility].
Plan [facility] today by ambulance.
--- NOTE | 2023-07-05 11:11 | W.PN.NEPH.PH ---
Today's Communication / Plan
-
dc
Assessment/Plan
-
Impression:
ESRD/PD
Metabolic encephalopathy with CVA findings on CT 06/27
DKA (AG:>25)
Hypertension
Secondary hyperparathyroidism
Diabetes
Hyperphosphatemia
Dyslipidemia
BPH
Plan:
-PD orders provided and switch to 1.5%q4h
-FATIMAH therapy for anemia prn
-PD flow sheets reviewed
-replete K prn
-Hemodynamically stable on carvedilol and diltiazem and dry weight
-rehab placement-[facility] today
-
-
Date of Service: July 05, 2023
CC / HPI / ROS
-
Chief Complaint:
ESRD on PD
History of Present Illness:
PD in progress, no complaints of abd pain
mental state seems better
Blood pressure stable today
no labs today
Review of Systems:
ataxia, right field deficit with some improvement
non oliguric
weight stable
Labs
-
Labs:
WBC 10.3 10^3/uL (4.8-10.8) 07/03/23 04:14
RBC 3.60 10^6/uL (4.70-6.10) L 07/03/23 04:14
Hgb 10.8 g/dL (13.0-18.0) L 07/03/23 04:14
Hct 29.8 % (39.0-52.0) L 07/03/23 04:14
Plt Count 226 10^3/uL (130-400) 07/03/23 04:14
Sodium 127 mmol/L (135-145) L 07/04/23 04:59
Potassium 3.4 mmol/L (3.5-5.1) L 07/04/23 04:59
Chloride 96 mmol/L (98-107) L 07/04/23 04:59
Carbon Dioxide 29 mmol/L (22-30) 07/04/23 04:59
BUN 41 mg/dl (9-20) H 07/04/23 04:59
Creatinine 5.0 mg/dL (0.7-1.3) H* 07/04/23 04:59
eGFR 12.18 07/04/23 04:59
Glucose 140 mg/dl (70-99) H 07/04/23 04:59
Calcium 7.5 mg/dl (8.4-10.2) L 07/04/23 04:59
Phosphorus 8.6 mg/dl (2.5-4.5) H 06/24/23 23:31
Albumin 2.7 g/dl (3.5-5.0) L 06/24/23 22:22
Physical Exam
-
Vital Signs:
Vital Signs
Temp Pulse Resp BP Pulse Ox
97.8 F 71 20 118/59 95
07/05/23 07:09 07/05/23 08:00 06/29/23 20:58 07/05/23 05:08 07/05/23 09:48
Cardiovascular:: Regular rate and rhythm
Respiratory:: Bilateral: Coarse
Lung Excursion:: Normal
Abdomen:: Nontender and Soft
Bowel Sounds:: Normal
Extremity Edema:: None: Bilateral:
--- NOTE | 2023-07-05 12:05 | W.PN.HOSP.TC ---
Addendum entered and electronically signed by Michael Ott MD 07/05/23 17:56:
[id number]
Original Note:
Today's Communication/Plan
-
dc today
f/u neurology, pcp, HD outpatient
holter monitor outpatient
Insulin titration
asa, statin
Assessment / Plan
Assessment / Plan
Ct a/p
1). There is free intraperitoneal air likely on the basis of peritoneal dialysis catheter.
Perforated abdominal viscus is less likely
2). Hepatomegaly with diffuse fatty infiltration of the liver.
3). Atherosclerosis
4). Mild prostatomegaly
5). Multiple renal cysts

# Diabetic ketoacidosis - resolved
Uncontrolled IDDM
Episode of hypoglycemia
-Reason for diabetic ketoacidosis remains unclear.
-Have uncontrolled diabetes at baseline with hemoglobin A1c of 11%
-Admission blood glucose 1125 Bicarb <5 AGAP ~ 40
-Patient off of insulin drip.
-Any recurrent AGAP acidosis needed to be evaluated with keeping in mind that patient have ESRD and will skew the calculation.
-Insulin pump is nonfunctional per diabetic RENEWALS REPRESENTATIVE, managed with subq insulin at this point. - transition to pump once 100% at baseline mental status
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
--patient having right side neglect/dischronation of hand eye movement
�most likely secondary to uncontrolled diabetes
� Neurology consulted
� On aspirin, statin
� Follow-up neurology recommendations outpatient
� Echo with no evidence of vegetation, no need for JAMES at this time as uncontrolled DM believed to be etiology
- Plan for outpatient cardiac rhythm monitoring, 1-2 weeks holter monitoring
� PT/OT
� Physiatry consult�pending Gonzalez placement
� Cannot drive due to right-sided hemianopia and vision deficits from stroke, neurology will contact DMV
- goal of normotension
# ESRD on Peritoneal Dialysis
Secondary Hyperparathyroidism
-Nephrology following and help appreciated
-Monitor Is&Os and Daily Weights
-Resume back Cinacalcet/sevelamer
-PD outpatient
#Leukocytosis - Resolved
suspected sepsis from unclear source
-CTAP ruled out any acute abnormality
-Patient makes some urine, UA showing few bacteria and RBC.
-Chest x-ray clear
-COVID neg.
-Blood culture/urine culture neg.
-Peritoneal fluid sample from catheter showing WBC 15 /cumm
-Completed empiric Zosyn - 7/7 day course
# Acute TME -resolved
-resolved
-most likely 2/2 to infection v CVA
#Essential hypertension -uncontrolled
-resume back on diltiazem
-DC Coreg
-As needed hydralazine ordered for systolic blood pressure greater than 160
6. Hypokalemia
on HD
#Hyponatremia
� Continue monitor on PD
Anemia of Renal Disease
Diabetes Neuropathy
Essential Hypertension
Hyperlipidemia
BPH
DVT proph: SC Heparin
Code Status: Full Code
DC ready - GONZALEZ
More than 30 minutes spent in discharge including
Final examination of the patient
Summarizing hospital stay
Instructions for continuing care to all relevant caregivers
Preparation of discharge records, prescriptions, and referral forms
Total time spent (35 in minutes):
Anticipated Discharge: Today
Subjective/Interval History
-
Date of Service: July 05, 2023
no acute events
Objective Data
-
Vital Signs:
Vital Signs
Temp Pulse Resp BP Pulse Ox
97.8 F 71 20 118/59 95
07/05/23 07:09 07/05/23 08:00 06/29/23 20:58 07/05/23 05:08 07/05/23 09:48
I&O
07/04/23 07/05/23 07/06/23
06:59 06:59 06:59
Intake Total 830 / 830 270 / 270
Output Total 1850 / 1850 1200 / 1200
Balance -1020 / -1020 -930 / -930
Review of Systems
-
History Source: Patient
All other systems: Not reviewed unless documented
Physical Exam
-
General: No Apparent Distress and Comfortable
HEENT: Negative Oxygen
Respiratory: Clear to Auscultation
Cardiac: Regular Rhythm and S1/S2; Negative Murmur or Rub
GI: Soft, Nontender and Nondistended
Musculoskeletal: No Edema
Neuro: Awake, Alert and Other (Right eye temporal vision loss, right side hemineglect, unable to do right hand finger-nose test)
Psych: Calm
Data Reviewed
-
CT Scan: Image personally visualized and interpreted and Report Reviewed by me
MRI: Report Reviewed by me
Labs: Labs Reviewed by me
--- NOTE | 2023-07-05 12:12 | W.DS.TRANS ---
DC Summary - Child Support Case Officer
-
Discharge Instructions:
Discharge Diagnosis/Procedures Diabetic ketoacidosis
Multiple Subacute CVA superimposed with
occlusion of left posterior cerebral
ESRD on Peritoneal Dialysis
Diet Low Cholesterol,Low Fat
Activity As tolerated
Blood Work monitor blood sugars closely
Instructions:
Stand-Alone Forms:
Changes to Home Medications: Yes
Discharge Medications:
DC Medications w/original date entered in [employer]
gabapentin 100 mg capsule 100 mg PO BID Pain 08/09/22
insulin aspart U-100 100 unit/mL (3 mL) subcutaneous pen (Novolog FlexPen U-100 Insulin aspart) 1 sliding scale dose SC .VIA PUMP Diabetes 08/09/22
rosuvastatin 20 mg tablet 20 mg PO QPM High Cholesterol 08/09/22
tamsulosin 0.4 mg capsule 0.4 mg PO DAILY Urinary Issue 08/09/22
diltiazem HCl 120 mg capsule,extended release 12 hr 120 mg PO DAILY Arrhythmia 11/30/22
calcitriol 0.5 mcg capsule 0.5 mcg PO DAILY Kidney Disease 06/24/23
cinacalcet 30 mg tablet 30 mg PO DAILY Kidney Disease 06/24/23
sevelamer carbonate 800 mg tablet 800 mg PO MEALS Kidney Disease 06/24/23
Insulin Glargine Lantus [Lantus] 22 units As Directed mls/hr SC DAILY 07/05/23
aspirin 81 mg chewable tablet (Children's Aspirin) 81 mg PO DAILY #30 tabs 07/05/23
insulin aspart U-100 100 unit/mL (3 mL) subcutaneous pen 10 unit (0.1 mL) SC AC #0 mL 07/05/23
sodium bicarbonate 650 mg tablet 650 mg PO BID #0 tabs 07/05/23
Home Medication Changes
Insulin Glargine Lantus [Lantus] 22 units As Directed mls/hr SC DAILY 07/05/23
aspirin 81 mg chewable tablet (Children's Aspirin) 81 mg PO DAILY #30 tabs 07/05/23
insulin aspart U-100 100 unit/mL (3 mL) subcutaneous pen 10 unit (0.1 mL) SC AC #0 mL 07/05/23
sodium bicarbonate 650 mg tablet 650 mg PO BID #0 tabs 07/05/23
Pending Results: No
[2023-07-05 12:41] LABS: Glucose - Point of Care 371 mg/dl (70-99)
--- NOTE | 2023-07-05 12:45 | PTCARENOTE ---
Report to [facility] mary huang
[2023-07-05] MEDS: NOVOLOG FLEXPEN-LOW RESISTANCE 5 UNITS SC (13:06)
--- NOTE | 2023-07-05 13:37 | PTCARENOTE ---
PD exchange started early due to pt being transpoeted to [facility] at 3 pm, DR Painter aware
[2023-07-05 14:10] VITALS: BP 122/60
== END 2023-07-05 15:01 | DRG 637 ==
LOC: IMU 23:59
PROVIDERS: Emergency Medicine; Hospitalist; Nurse Practitioner Primary Care; Physician Assistant Medical; Specialist; ADMITTING PHYSICIAN Hospitalist; ATTENDING PHYSICIAN Internal Medicine; CONSULT PHYSICIAN Physical Medicine & Rehabilitation; CONSULT PHYSICIAN Specialist; EMERGENCY PHYSICIAN Student in an Organized Health Care Education/Training Program; FAMILY PHYSICIAN Family Medicine; OTHER PHYSICIAN Internal Medicine Pulmonary Disease; OTHER PHYSICIAN Psychiatry & Neurology Neurology
DX: E10.10 Type 1 diabetes mellitus with ketoacidosis without coma (principal); A41.9 Sepsis, unspecified organism; N18.6 End stage renal disease; G93.41 Metabolic encephalopathy; I63.541 Cerebral infarction due to unspecified occlusion or stenosis of right cerebellar artery; I67.83 Posterior reversible encephalopathy syndrome; N25.81 Secondary hyperparathyroidism of renal origin; E87.1 Hypo-osmolality and hyponatremia; I12.0 Hypertensive chronic kidney disease with stage 5 chronic kidney disease or end stage renal disease; G81.91 Hemiplegia, unspecified affecting right dominant side; E83.39 Other disorders of phosphorus metabolism; Z99.2 Dependence on renal dialysis; D64.9 Anemia, unspecified; E10.22 Type 1 diabetes mellitus with diabetic chronic kidney disease; E10.40 Type 1 diabetes mellitus with diabetic neuropathy, unspecified; E87.5 Hyperkalemia; I66.22 Occlusion and stenosis of left posterior cerebral artery; E78.5 Hyperlipidemia, unspecified; Z11.52 Encounter for screening for COVID-19
CPT/HCPCS: 70450; 70544; 70548; 70551; 71045; 74176; 80048; 80053; 80061; 80306; 81003; 81015; 82607; 82746; 82805; 82947; 82962; 83036; 83605; 83735; 84100; 84439; 84443; 85025; 85027; 85610; 85730; 87015; 87040; 87070; 87086; 87205; 87811; 89051; 92523; 92526; 92610; 93306; 96360; 97116; 97129; 97163; 97167; 97530; 97535; 99291; A9585; P9047

== ENCOUNTER 2023-07-14 23:14 | Inpatient (IN) | payer BC, SELFPAY ==
[2023-07-14] VITALS (12 sets, daily range): BP systolic 142–167; BP diastolic 58–101
[2023-07-14 17:25] LABS: Glucose - Point of Care 131 mg/dl (70-99)
[2023-07-14 17:27] LABS: % Basophils 0.7 % (0-2); % Eosinophils 2.1 % (0-6); % Immature Granulocytes 0.3 % (0-0.5); % Lymphocytes 8.6 % (20.5-51.1); % Monocytes 15.1 % (1.7-9.3); % Neutrophils 73.2 % (42.2-75.2); Absolute Basophils 0.1 10^3/uL (0-0.2); Absolute Eosinophils 0.2 10^3/uL (0-0.7); Absolute Lymphocytes 0.8 10^3/uL (1.2-3.4); Absolute Monocytes 1.5 10^3/uL (0.1-0.6); Absolute Neutrophils 7.1 10^3/uL (1.4-6.5); Hemoglobin 10.7 g/dL (13.0-18.0); Mean Corp Hgb Conc. 34.5 g/dL (33.0-37.0); Mean Corpuscular Hgb 30.1 pg (27.0-31.0); Mean Corpuscular Volume 87.1 fL (80.0-94.0); Mean Platelet Volume 9.2 fL (7.4-10.4); Nucleated Red Blood Cells % 0 % (-); Platelet Count 311 10^3/uL (130-400); Red Blood Cell Count 3.56 10^6/uL (4.70-6.10); White Blood Cell Count 9.7 10^3/uL (4.8-10.8)
[2023-07-14 17:48] LABS: ALT (SGPT) 23 U/L (0-50); AST (SGOT) 26 U/L (17-59); Albumin 2.8 g/dl (3.5-5.0); Alkaline Phosphatase 150 U/L (38-126); Blood Urea Nitrogen 54 mg/dl (9-20); Calcium 8.6 mg/dl (8.4-10.2); Carbon Dioxide 24 mmol/L (22-30); Chloride 106 mmol/L (98-107); Glucose 124 mg/dl (70-99); Potassium 5.3 mmol/L (3.5-5.1); Sodium 136 mmol/L (135-145); Total Bilirubin 0.6 mg/dl (0.2-1.3); Total Protein 5.2 g/dl (6.3-8.2); eGFR 9.23
[2023-07-14 17:49] LABS: Urine Albumin 2+ (Neg - Trace); Urine Bilirubin Negative (Negative); Urine Character Clear (Clear); Urine Color Yellow; Urine Glucose 3+ (Negative); Urine Ketone Negative (Negative); Urine Leukocyte Trace (Negative); Urine Nitrite Negative (Negative); Urine Occult Blood 3+ (Negative); Urine Urobilinogen Negative (Neg - 1+)
[2023-07-14 17:54] LABS: Troponin I 0.022 ng/ml
[2023-07-14 18:38] LABS: Urine Bacteria Few (Negative); Urine White Cell 26-30 /HPF (0-5)
--- NOTE | 2023-07-14 21:40 | ED.GENMED ---
History of Present Illness
General
Chief Complaint: Change in Mental Status
Source: patient and family
Exam Limitations: clinical condition
Time Seen by Provider: 07/14/23 17:20
Travel History
Have you had any contact with someone who has COVID-19?: No
Do you have any symptoms of coronavirus? Fever > 100 degrees, chills, cough, shortness of breath, sore throat, loss of taste or smell, muscle aches, or headache?: No
History of Present Illness
History of Present Illness:
63-year-old male who presents for progressive cognitive decline over the last 3 to 4 days. Patient is at [facility] and they have noticed that he has been more somnolent and less cognitively sharp. also states that he is not quite himself.
Recently did have a stroke. Reportedly had a CT done on Saturday that was grossly unremarkable for acute findings. No reported fevers or vomiting. Patient is on peritoneal dialysis.
Past History
Past History
ED Past Medical History: CVA, HTN, IDDM, Renal failure and Other (Diabetic neuropathy, peritoneal dialysis)
ED Past Surgical History: Orthopedic and Other
Social History
Tobacco: Other
Alcohol: Other
Drug: None
Personal:
Living: with family
Employment: Other
Family History
Family History: Other
Phy Exam
Physical Exam
Physical Exam:
CONSTITUTIONAL Patient alert and oriented to person. Vital signs reviewed.
HEAD atraumatic, normocephalic.
EYES eyelids normal to inspection, Conjunctiva normal, Sclera normal.
NECK normal range of motion, Trachea midline, no jugular venous distention.
RESPIRATORY CHEST No respiratory distress noted, Chest expansion equal, Bilateral breath sounds clear.
CARDIOVASCULAR regular rate and rhythm, Heart sounds normal.
ABDOMEN peritoneal dialysis catheter noted, no obvious redness, question very mild tenderness but no distal
BACK normal inspection, no obvious deformities
UPPER EXTREMITY range of motion normal, Motor strength normal, no cyanosis, no edema.
LOWER EXTREMITY range of motion normal, Motor strength normal, no cyanosis, no edema.
NEURO mildly tremulous. Does not follow commands for detailed exam..
SKIN skin warm, dry, and normal in color.
Course
Orders/Labs/Results
Orders:
Orders
07/14/23 17:20
CT Head W/o Iv Contrast Urgent
Comment:
Reason For Exam: change in MS, recent CVA
Cardiac Monitoring- Treatment ONCE
07/14/23 17:21
Electrocardiogram (*1) Stat
Reason for Study: Other
Other Reason for Exam: neuro symptoms
EKG- Treatment ONCE
07/14/23 17:23
Complete Blood Count/With Diff Urgent
Comprehensive Metabolic Panel Urgent
Troponin I Urgent
07/14/23 17:31
Urinalysis Reflex To Culture Urgent
Date Specimen was Collected: 07/14/23
Time Specimen was Collected: 17:27
Urine Microscopic Reflex Cult Urgent
Urine Culture Urgent
GUILLERMO Source: U
Specimen Description:
Date Specimen was Collected: 07/14/23
Time Specimen was Collected: 17:27
07/14/23 22:46
Admit/Transfer Patient As Directed
Co-Sign Provider:
Level of Care: Inpatient admission
Assign to:: Telemetry
Physician / Group: Dr Carter
Diagnosis: Stroke
Reason for Telemetry: CVA/TIA
Date to Stop Telemetry: 07/17/23
Time to Stop Telemetry: 11:00
Reason for Hospitalization: pte p/w ams and ct shows worsening stroke by ct head
Expected length of stay greater than two midnights?: Yes
ELOS- Estimated Length of Stay in days: 2
I certify the patient meets the requirements for IP care: Yes
07/14/23 22:50
Code Status As Directed
Resuscitation Status: Full Code
07/14/23 23:00
Flush (0.9% Sodium Chloride) [Flush (Nss)] See Dose Instructions IV PER PROTOCOL
07/14/23 23:06
Dextrose 50%-Water [Dextrose 50% Syringe] 12.5 grams IV [id number] PRN
Glucagon [GlucaGen] 1 mg IM PRN PRN
07/14/23 23:07
NEPHROLOGY CONSULT Routine
Consulting Provider: Maricruz Payton
Was physician already notified: Yes
Reason for consult: ESRD Dyalisis needs
NEUROLOGY CONSULT Routine
Consulting Provider: Walter Long
Was physician already notified: Yes
Reason for consult: stroke eval
Bedside Glucose Monitoring As Directed
Frequency: AC&HS
Additional Instructions:: Change to q6h if pt on TPN, tube feeding or not eating
07/15/23 Breakfast
1800 calorie (15 carb) Diabetic
Glycohemoglobin (HgbA1c) IN AM
07/15/23 07:30
Insulin Aspart Corrective Low [Novolog Flexpen-Low Resistance] See Protocol SC AC
07/17/23 11:00
DC Protocol for Telemetry ONCE
Abnormal Lab Results
07/14/23 07/14/23
17:23 17:31
RBC 3.56 L 10^6/uL
(4.70-6.10)
Hgb 10.7 L g/dL
(13.0-18.0)
Hct 31.0 L %
(39.0-52.0)
Absolute Neuts (auto) 7.1 H 10^3/uL
(1.4-6.5)
Absolute Lymphs (auto) 0.8 L 10^3/uL
(1.2-3.4)
Absolute Monos (auto) 1.5 H 10^3/uL
(0.1-0.6)
Lymphocytes % 8.6 L %
(20.5-51.1)
Monocytes % 15.1 H %
(1.7-9.3)
Potassium 5.3 H mmol/L
(3.5-5.1)
BUN 54 H mg/dl
(9-20)
Creatinine 6.3 H* mg/dL
(0.7-1.3)
Glucose 124 H mg/dl
(70-99)
Alkaline Phosphatase 150 H U/L
(38-126)
Total Protein 5.2 L g/dl
(6.3-8.2)
Albumin 2.8 L g/dl
(3.5-5.0)
Ur Occult Blood Reflex 3+ A
(Negative)
Leukocyte Esterase Rfl Trace A
(Negative)
Urine RBC 11-15 A /HPF
(0-2)
Urine WBC (Reflex) 26-30 A /HPF
(0-5)
Urine Bacteria (Reflex) Few A
(Negative)
Urine Glucose 3+ A
(Negative)
Urine Albumin (Reflex) 2+ A
(Neg - Trace)
POC Glucose 131 H mg/dl
(70-99)
07/14/23 17:23
07/14/23 17:23
Vital Signs
Initial and Last Documented VS:
Initial Vital Signs
Temp Pulse Resp BP
98.9 F 89 16 163/68
07/14/23 17:17 07/14/23 17:17 07/14/23 17:17 07/14/23 17:17
Last Documented Vital Signs
Temp Pulse Resp BP Pulse Ox
98.9 F 86 13 157/58 97
07/14/23 17:17 07/14/23 22:45 07/14/23 22:45 07/14/23 22:30 07/14/23 22:45
MDM/Problems Addressed
MDM/Problems Addressed:
Change in mental status
*Radiology
Radiology exam reviewed: radiology read reviewed
*Pulse Oximetry
Patient hypoxic: no
*EKG
Interpreted by ED Provider?: Yes
Interpretation: abnormal
Rate: normal
Rhythm: sinus
Ischemia: non-specific ST changes
*Repairer Controller Tester Interpretation
Rate: normal
Interpretation: normal
Rhythm: sinus
*Critical Care Note
Total Time (30-74mins, 75-104mins- exclusive of procedures): Not Applicable
Data Reviewed
Review of Other/Old Records Reveals: Discharge Summary
Source: patient, family and physician (Case discussed with the patient's physician at [facility])
Prescriptions/Medications Considered But Not Given:
Consider antibiotics but white count normal and no fever
Patient Management
Discussion with other providers: Hospitalist
Escalation/DeEscalation of care consider admission/obs:
Unclear etiology but may be progression of CVA. Also consider peritonitis but no fever, no white count. Discussed with hospitalist and for now we will hold antibiotics pending cultures. Admit
ED Attending Note
-
Portions of this chart may have been created with voice recognition software.� Occasional wrong word or��sound alike� substitutions may have occurred due to the inherent limitations of voice recognition software.
Discharge Plan
Departure
Patient Disposition: Admit
Date of Disposition: 07/14/23
Time of Disposition: 21:40
Admit to: Telemetry
Presentation/result/management discussed w/ accepting MD/DO: Hospitalist
Discharge Problem:
Acute alteration in mental status
Interventions
Interventions:
*Risk Screen - Suicide Last Done: 07/14/23 17:17
*General Assessment Last Done: 07/14/23 17:51
*Neglect/Abuse Screening Last Done: 07/14/23 17:17
ED- Fall Risk Assessment Last Done: 07/14/23 17:17
*ED COVID-19 Vaccine History Last Done: 07/14/23 17:17
ED- Pulmonary Assessment Last Done: 07/14/23 17:51
ED-Psychological Assessment Last Done: 07/14/23 17:51
ED- Neurological Assessment Last Done: 07/14/23 17:50
ED- Cardiac Assessment Last Done: 07/14/23 17:51
ED Swallowing Screen Last Done: 07/14/23 17:50
--- NOTE | 2023-07-14 22:54 | HPS.HSE ---
Family Physician
-
Family Physician: Dez Mcelroy
Chief Complaint
-
AMS
History of Present Illness
Patient 63 years old male with history of hypertension, diabetes mellitus, end-stage renal disease on hemodialysis, CVA, presented to the hospital with mental status change. Patient has been in rehab and he has been noticed to be more lethargic
than usual over the last couple days. He also has been having decreased urine output and some urinary retention for which she has been placed a Ward catheter since yesterday. He had some abdominal discomfort. No reports of fevers or chills.
Denies any chest pain or shortness of breath. He typically is dialyzed via peritoneal dialysis every day but they tell me he has not had it today. In the ER, CT scan of the head shows progression of findings of stroke. He was referred to
hospitalist for further evaluation.
Medical History
Past Medical History
Past Medical History: Reports Other (Hypertension, hyperlipidemia, end-stage renal disease on PD, diabetes mellitus type 1, BPH, anemia.)
Past Surgical History: Reports Other (PD catheter)
Social History
Tobacco: Non-smoker
Alcohol: None
Drug: None
Family History
Family History: Not pertinent
Allergies / Home Medications
Allergies reflects when Allergies were last updated in [employer].
Home Medications with original date entered in [employer]
Allergy/Medication List:
Allergies
Allergy/AdvReac Type Severity Reaction Status Date / Time
No Known Allergies Allergy Verified 07/14/23 17:16
Home Medications
tamsulosin 0.4 mg capsule 0.4 mg PO DAILY Urinary Issue 08/09/22
diltiazem HCl 120 mg capsule,extended release 12 hr 120 mg PO DAILY Arrhythmia 11/30/22
calcitriol 0.5 mcg capsule 0.5 mcg PO DAILY Kidney Disease 06/24/23
cinacalcet 30 mg tablet 30 mg PO DAILY Kidney Disease 06/24/23
aspirin 81 mg chewable tablet (Children's Aspirin) 81 mg PO DAILY #30 tabs 07/05/23
acetaminophen 325 mg tablet 650 mg PO Q6H PRN mild pain 07/14/23
atorvastatin 40 mg tablet 40 mg PO HS 07/14/23
bacitracin zinc 500 unit-polymyxin B 10,000 unit/gram topical ointment 1 applic topical DAILY 07/14/23
bisacodyl 10 mg rectal suppository 10 mg GA DAILY PRN constipation 07/14/23
docusate sodium 100 mg capsule 100 mg PO BID 07/14/23
heparin (porcine) 5,000 unit/mL injection solution 5,000 unit SC Q8H 07/14/23
insulin glargine 100 unit/mL subcutaneous solution 20 unit SC HS 07/14/23
insulin lispro 100 unit/mL subcutaneous solution 1 - 6 sliding scale dose SC ACHS 07/14/23
insulin lispro 100 unit/mL subcutaneous solution 6 unit SC AC 07/14/23
insulin regular human 100 unit/mL injection solution (Humulin R Regular U-100 Insulin) 3 unit SC Q24H 07/14/23
lactulose 10 gram/15 mL oral solution 20 g PO BID 07/14/23
pantoprazole 40 mg tablet,delayed release 40 mg PO DAILY 07/14/23
polyethylene glycol 3350 17 gram oral powder packet (Miralax) 17 g PO DAILY 07/14/23
sennosides 8.6 mg tablet (senna) 17.2 mg PO NOON 07/14/23
sevelamer carbonate 0.8 gram oral powder packet 0.8 g PO BIDWMEAL 07/14/23
Review of Systems
-
A 12 point ROS was completed and negative except as noted: Yes
Physical Exam
Vital Signs
Vital Signs
Temp Pulse Resp BP Pulse Ox
98.9 F 86 13 157/58 97
07/14/23 17:17 07/14/23 22:45 07/14/23 22:45 07/14/23 22:30 07/14/23 22:45
Physical exam:
General: Acutely ill
HEENT: Normocephalic, Atraumatic and Moist Mucous Membranes
Respiratory: Clear to Auscultation; Negative Wheezes, Rales or Rhonchi
Cardiac: Regular Rhythm and S1/S2
GI: Soft, Nontender and Nondistended
Musculoskeletal: No Clubbing, No Cyanosis and No Edema
Neuro: Lethargic, disoriented, encephalopathic. Does move spontaneously all 4 extremity and weak around 4 out of 5 but symmetrically. Visual deficits present.
Psych: Calm
Physical Exam
General: Other
Laboratory Results
-
07/14/23 17:23
07/14/23 17:23
Laboratory Results
Total Bilirubin 0.6 mg/dl (0.2-1.3) 07/14/23 17:23
AST 26 U/L (17-59) 07/14/23 17:23
ALT 23 U/L (0-50) 07/14/23 17:23
Alkaline Phosphatase 150 U/L (38-126) H 07/14/23 17:23
Troponin I 0.022 ng/ml 07/14/23 17:23
Impression/Plan
-
IMPRESSION:
Patient is 63 years old male with history of diabetes mellitus type 1, hypertension, hyperlipidemia, end-stage renal disease on PD, presented to the hospital with acute mental status change. Head CT scan concerning for worsening stroke. Patient at
increased risk morbidity mortality therefore he will be admitted to the hospital and workup and management accordingly and monitor for toxicity.
Impression:
Toxic metabolic encephalopathy, rule out worsening stroke versus infectious versus other
End-stage renal disease on peritoneal dialysis
Mild hyperkalemia, related to end-stage renal disease
Anemia
Urinary retention status post Ward catheter prior to admission
Conditions prior to presentation:
Hypertension
Hyperlipidemia
End-stage renal disease
Chronic anemia
PLAN:
Plan for MRI of the brain
Check ultrasound carotids
Reviewed recent echocardiogram, transthoracic.
Check blood cultures to rule out infection etiology
Continue aspirin Plavix and statin
PT OT eval
Neurology consult ([place] text neurology today)
Nephrology consult for dialysis needs ([place] text nephrology today)
Urology consult for urinary retention ([place] text urology today)
Heparin subcu for DVT prophylaxis
CODE STATUS full code
Total time spent on today's encounter was 75 minutes which included time spent in counseling the patient/family regarding diagnosis and treatment plan as listed above, goals of care, and symptom management. Case was discussed with nursing staff,
specialists, and care coordinators/case management. All labs and imaging personally reviewed by me. Remainder the time spent in detailed review of previous records, lab data, imaging, and other medical provider documentation.
[2023-07-15] VITALS (20 sets, daily range): BP systolic 134–175; BP diastolic 59–105; PULSE 76; O2SAT 96; BMI 25.2
--- NOTE | 2023-07-15 03:39 | PTCARENOTE ---
Patient arrived to room 3356. Awake but refusing to open eyes. Very difficult to perform full NIHS assessment. Pt unable to state birthday but able to state '[facility]' when asked where he is.
When asked if patient could open his eyes and smile pt stated 'Not in this lifetime'. pt uncooperative.
CHG wipe down. Tele applied showing NSR. Pt appears to be in no distress. Lab work drawn. Admission questions unable to be answered. Bed alarm set for safety. Call moody left within reach.
[2023-07-15 03:45] LABS: Hematocrit 30.2 % (39.0-52.0); Hemoglobin 10.5 g/dL (13.0-18.0); Mean Corp Hgb Conc. 34.8 g/dL (33.0-37.0); Mean Corpuscular Hgb 30.6 pg (27.0-31.0); Mean Platelet Volume 9.4 fL (7.4-10.4); Platelet Count 298 10^3/uL (130-400); Red Blood Cell Count 3.43 10^6/uL (4.70-6.10); White Blood Cell Count 10.8 10^3/uL (4.8-10.8)
[2023-07-15] MEDS: SEVELAMER CARBONATE PO (04:16)
[2023-07-15] MEDS: HEPARIN 5000 UNITS SC ×4 (04:26→23:36)
[2023-07-15 04:47] LABS: Blood Urea Nitrogen 60 mg/dl (9-20); Calcium 8.6 mg/dl (8.4-10.2); Carbon Dioxide 22 mmol/L (22-30); Chloride 106 mmol/L (98-107); Glucose 215 mg/dl (70-99); HDL Cholesterol 61 mg/dl; LDL Cholesterol, Calculated 57 mg/dl; Potassium 5.6 mmol/L (3.5-5.1); Sodium 137 mmol/L (135-145); Total Cholesterol 137 mg/dl (50-199); Triglyceride 96 mg/dl (10-149); Very Low Density Lipoprotein 19 mg/dl (0-30); eGFR 8.57
--- NOTE | 2023-07-15 07:07 | CONS.URO ---
Consultation
-
Date/Time Consultation Performed: 07/18/23 0635
Performing Provider: Chi
Reason for Consultation: urinary retention
Medical History
History of Present Illness
63 years old male with history of hypertension, diabetes mellitus, end-stage renal disease on hemodialysis, CVA, presented to with mental status changes. In rehab facility he was observed to be more lethargic than usual over the last couple
days. Apparently due to decreased urine output a Ward catheter was place.
He has been admitted to hospitalists' service with apparent CVA.
The patient does not report ever having seen a urologist previously.
He recounts no antecedent urologic history.
Past Medical History
Past Medical History: Other (end-stage renal disease on PD, Hypertension, hyperlipidemia , diabetes mellitus type 1, BPH, anemia)
Past Surgical History: Other (PD catheter placement; revision 11/2022)
Allergies/Home Medications
Allergies
Allergy/AdvReac Type Severity Reaction Status Date / Time
No Known Allergies Allergy Verified 07/14/23 17:16
Home Medications
�Medication �Instructions �Recorded �Confirmed �Type
tamsulosin 0.4 mg capsule 0.4 mg PO DAILY Urinary Issue 08/09/22 07/14/23 History
diltiazem HCl 120 mg 120 mg PO DAILY Arrhythmia 11/30/22 07/14/23 History
capsule,extended release 12 hr
calcitriol 0.5 mcg capsule 0.5 mcg PO DAILY Kidney Disease 06/24/23 07/14/23 History
cinacalcet 30 mg tablet 30 mg PO DAILY Kidney Disease 06/24/23 07/14/23 History
aspirin 81 mg chewable tablet 81 mg PO DAILY #30 tabs 07/05/23 07/14/23 Rx
(Children's Aspirin)
acetaminophen 325 mg tablet 650 mg PO Q6H PRN mild pain 07/14/23 07/14/23 History
atorvastatin 40 mg tablet 40 mg PO HS 07/14/23 07/14/23 History
bacitracin zinc 500 unit-polymyxin 1 applic topical DAILY 07/14/23 07/14/23 History
B 10,000 unit/gram topical ointment
bisacodyl 10 mg rectal suppository 10 mg VT DAILY PRN constipation 07/14/23 07/14/23 History
docusate sodium 100 mg capsule 100 mg PO BID 07/14/23 07/14/23 History
heparin (porcine) 5,000 unit/mL 5,000 unit SC Q8H 07/14/23 07/14/23 History
injection solution
insulin glargine 100 unit/mL 20 unit SC HS 07/14/23 07/14/23 History
subcutaneous solution
insulin lispro 100 unit/mL 1 - 6 sliding scale dose SC ACHS 07/14/23 07/14/23 History
subcutaneous solution
insulin lispro 100 unit/mL 6 unit SC AC 07/14/23 07/14/23 History
subcutaneous solution
insulin regular human 100 unit/mL 3 unit SC Q24H 07/14/23 07/14/23 History
injection solution (Humulin R
Regular U-100 Insulin)
lactulose 10 gram/15 mL oral 20 g PO BID 07/14/23 07/14/23 History
solution
pantoprazole 40 mg tablet,delayed 40 mg PO DAILY 07/14/23 07/14/23 History
release
polyethylene glycol 3350 17 gram 17 g PO DAILY 07/14/23 07/14/23 History
oral powder packet (Miralax)
sennosides 8.6 mg tablet (senna) 17.2 mg PO NOON 07/14/23 07/14/23 History
sevelamer carbonate 0.8 gram oral 0.8 g PO BIDWMEAL 07/14/23 07/14/23 History
powder packet
Physical Exam
Vital Signs
Vital Signs
Temp Pulse Resp BP Pulse Ox
99.7 F 77 16 145/81 94
07/15/23 03:24 07/15/23 06:15 07/15/23 06:15 07/15/23 06:00 07/15/23 05:30
Lab / Testing Results
Laboratory Results
07/15/23 03:32
07/15/23 03:32
Physical Exam
chronically ill appearing adult male
General: No Apparent Distress
Genito-urinary: Ward Catheter (draining yellow urine)
Assessment / Plan
-
AUR s/p CVA is common
spontaneous resolution typically occurs within 1-8 week window, followed by NGB pattern
Rec: keep Ward while acutely ill; sill attempt to switch to CIC regimen if patient is willing and capable
Data Reviewed
-
Old Records: Reviewed
[2023-07-15 07:36] LABS: Glucose - Point of Care 335 mg/dl (70-99)
[2023-07-15] MEDS: NOVOLOG FLEXPEN-LOW RESISTANCE 4 UNITS SC (08:16)
--- NOTE | 2023-07-15 09:08 | PTCARENOTE ---
Patient received from quality systems manager. Patient resting comfortably in bed. AAO, VSS. No events noted over night. No complaints of pain at this time. Shift change NIH was 24, patient not completely cooperative with direction to properly assess.
Ward in place, due to be removed 07/17 @ 0600. Due to have EEG and MRI done today. Call moody in reach.
[2023-07-15] MEDS: ROCALTROL 0.5 MCG PO (09:18)
[2023-07-15] MEDS: CARDIZEM SR 120 MG PO (09:18)
[2023-07-15] MEDS: PROTONIX 40 MG PO (09:18)
[2023-07-15] MEDS: FLOMAX 0.400000000000000022 MG PO (09:18)
[2023-07-15] MEDS: SEVELAMER CARBONATE 0.800000000000000044 GM PO ×2 (09:18→19:36)
[2023-07-15] MEDS: SENSIPAR 30 MG PO (09:18)
[2023-07-15] MEDS: COLACE 100 MG PO (09:18)
[2023-07-15] MEDS: LOW STRENGTH ASPIRIN 81 MG PO (09:18)
[2023-07-15] MEDS: DUPHALAC/CHRONULAC 20 GRAMS PO ×2 (09:18→19:36)
[2023-07-15] MEDS: MIRALAX 17 GRAMS PO (09:19)
--- NOTE | 2023-07-15 09:21 | CON.NEURO4 ---
Consultation - Neurology 4
-
CONSULTING PHYSICIAN: Andrey Ramos
REFERRING PHYSICIAN: Hospitalist
DICTATED BY: Andrey Ramos
DATE/TIME OF REQUEST: 07/15/23
DATE/TIME OF CONSULTATION: 07/15/23
Reason for Consultation: Encephalopathy
History of Present Illness:
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 He was drowsy and lethargic over the
past couple of days. Patient has limited recall of events but denies any losing consciousness, headache, vomiting, fevers, chills, or cough. he has been on aspirin 81 mg daily since discharge. No reported seizures or convulsive activity. He has
been on peritoneal dialysis.
Surgical History: PD catheter
Family History: Non-contributory
Social History: Presents from [facility], formerly was living at home, no tobacco, no significant alcohol, he is
Allergies: No known drug allergies
Review of Symptoms:
Patient denies any fever, headache, chest pain, shortness of breath, GI or symptoms.
Physical Exam:
Middle-age man no acute distress no signs of head or neck trauma eyes are clear oropharynx is clear heart rate regular breathing unlabored abdomen soft nontender no lower extremity edema
Neurologic Examination:
Mental status shows a patient who is awake and alert he has some difficulty with complex commands demonstrating some comprehension difficulty consistent with aphasia, knows his name and month and that he is in the hospital, inattentive
Cranial nerve examination shows a right-sided homonymous hemianopia, there is dysarthria, resting gaze midline extraocular's are full, small amount of small amplitude twitching on the right eyelid, smile shows right facial weakness
Motor examination shows some right arm weakness 4/5 with arm flexion and shoulder abduction and right arm downward drift
Sensory exam intact to noxious stimulation throughout
Reflexes diminished throughout
Coordination mild ataxia in the right arm
Gait examination deferred
Neuro Imaging: CT head with subacute left occipital and parietal infarct, chronic to late subacute right occipital infarction, no hemorrhage
1. Change in mental status in a patient with recent significant ischemic strokes to the occipital lobes bilaterally producing cognitive impairment as well as right-sided hemianopia and right-sided weakness. Etiology of stroke appears most likely
to be atheroembolic from uncontrolled diabetes mellitus versus less likely cardioembolic. Patient's history of recent significant ischemic stroke predisposes him to easy development of encephalopathy that may occur as a natural development from the
ischemic stroke, it is possible that he has developed a new metabolic derangement, new ischemic stroke, unlikely but in the differential diagnosis would be nonconvulsive seizure activity.
2. Uncontrolled diabetes mellitus
Patient has the following risk factors for their symptoms: Recent ischemic stroke
Recommendations:
1. Continue aspirin 81 mg daily
2. Check MRI brain without contrast
3. Check EEG
4. Monitor on cardiac telemetry
5. Continue peritoneal dialysis as directed by nephrology
6. Minimize sedating medications
7. Continue to treat diabetes mellitus
Discussed patient care with: Patient
--- NOTE | 2023-07-15 09:23 | PTOTSP ---
Speech Therapy Swallowing and Language Assessment
Swallowing: Oral/pharyngeal swallow deemed within functional limits with no gross signs of aspiration.
Language: Some lethargy but question visual acuity as patient was unable to fix gaze on an object and stated he saw 4 fingers when only 2 were held up. There is a degree of aphasia also present that may interfere with response accuracy.
Verbal expression is fluent but with reduced phrase length and poor initiation. He frequently perseverated on responses. Yes/No responses are unreliable at only 50% accurate. Unable to read single words or name objects but unclear how much patient's
suspected visual deficits are interfering with tasks.
Recommend
1. Regular solids and thin liquids
2. Meds with liquid as tolerated.
3. ST follow up to further assess/address cognitive communication deficits.
--- NOTE | 2023-07-15 09:24 | W.PN.HOSP.TC ---
Addendum entered and electronically signed by Spencer Carter MD 07/15/23 16:33:
Significant hyperglycemia today. Will use aggressive insulin but due to end age renal disease needs to closely monitor.
Original Note:
Today's Communication/Plan
-
Plan for MRI of the brain. Plan for EEG.
Assessment / Plan
Assessment / Plan
Physical exam:
General: Acutely ill
HEENT: Normocephalic, Atraumatic and Moist Mucous Membranes
Respiratory: Clear to Auscultation; Negative Wheezes, Rales or Rhonchi
Cardiac: Regular Rhythm and S1/S2
GI: Soft, Nontender and Nondistended
Musculoskeletal: No Clubbing, No Cyanosis and No Edema
Neuro: Lethargic, disoriented, encephalopathic. Does move spontaneously all 4 extremity and weak around 4 out of 5 but symmetrically. Visual deficits present.
Psych: Calm
A/P:
Impression:
Toxic metabolic encephalopathy, rule out worsening stroke versus infectious versus other
End-stage renal disease on peritoneal dialysis
Mild hyperkalemia, related to end-stage renal disease
Anemia
Urinary retention status post Ward catheter prior to admission
Conditions prior to presentation:
Hypertension
Hyperlipidemia
End-stage renal disease
Chronic anemia
PLAN:
Plan for MRI of the brain
Check ultrasound carotids
Plan for EEG
Reviewed recent echocardiogram, transthoracic.
Check blood cultures to rule out infection etiology
Continue aspirin Plavix and statin
PT OT eval
Neurology consult appreciated
Nephrology consult appreciated
Urology consult for urinary retention appreciated
Heparin subcu for DVT prophylaxis
CODE STATUS full code
Total time spent on today's encounter was 52 minutes which included time spent in counseling the patient/family regarding diagnosis and treatment plan as listed above, goals of care, and symptom management. Case was discussed with nursing staff,
specialists, and care coordinators/case management. All labs and imaging personally reviewed by me. Remainder the time spent in detailed review of previous records, lab data, imaging, and other medical provider documentation.
Anticipated Discharge: > 48 hours
Subjective/Interval History
-
Date of Service: July 15, 2023
Patient alert but still encephalopathic. Generalized weakness. Afebrile
Objective Data
-
Labs:
Laboratory Results
07/15/23
03:32
WBC 10.8
Hgb 10.5 L
Hct 30.2 L
Plt Count 298
Sodium 137
Potassium 5.6 H
Chloride 106
Carbon Dioxide 22
BUN 60 H
Creatinine 6.7 H*
Glucose 215 H
Calcium 8.6
Vital Signs:
Vital Signs
Temp Pulse Resp BP Pulse Ox
99.5 F 77 16 145/81 94
07/15/23 07:55 07/15/23 06:15 07/15/23 06:15 07/15/23 06:00 07/15/23 05:30
I&O
07/14/23 07/15/23 07/16/23
06:59 06:59 06:59
Output Total 900 / 900
Balance -900 / -900
--- NOTE | 2023-07-15 09:36 | W.CON.NEPH ---
Consultation
-
Date/Time Consultation Requested: 07/15/2023 7:00 AM
Date/Time Consultation Performed: 07/15/2023 930 AM
Requesting Provider: Emma
Performing Provider: Dr. Holder
Reason for Consultation: End-stage renal disease
Medical History
-
Chief Complaint: End-stage renal disease
History of Present Illness:
The patient is a 63-year-old male with a history of end-stage renal disease secondary to diabetic nephropathy maintained on peritoneal dialysis. The patient is maintained on insulin in the setting of his diabetes and calcitriol for his secondary
hyperparathyroidism. He performs peritoneal dialysis nightly in the setting of his ESRD. the patient was just here a few weeks prior after presenting with DKA and subsequently endured a CVA during that admission. He represented last evening with
change in mental status. The patient had been in rehab when he was noted to be more lethargic over the past few days. He also had increasing urinary retention for which a Green catheter was placed at the rehab. A CAT scan of the head was
performed during his emergency room visits which noted progression of his previous stroke. The CT findings noted progression of the posterior left parietal occipital infarct with extension more anteriorly in the parietal lobe. We were consulted
for his end-stage renal disease management.
Past Medical History
Diabetes Mellitus, Type I with Retinopathy, Nephropathy, and Neuropathy
ESRD on Peritoneal Dialysis
Secondary Hyperparathyroidism
Anemia of Renal Disease
Essential Hypertension
Hyperlipidemia
BPH
Recent CVA of posterior left parietal occipital region June 2023
Social History
Tobacco: Non-Smoker
Alcohol: Occasional
Family History
no CKD
Allergies / Home Medications
Allergy/AdvReac Type Severity Reaction Status Date / Time
No Known Allergies Allergy Verified 07/14/23 17:16
�Medication �Instructions �Recorded �Confirmed �Type
tamsulosin 0.4 mg capsule 0.4 mg PO DAILY Urinary Issue 08/09/22 07/14/23 History
diltiazem HCl 120 mg 120 mg PO DAILY Arrhythmia 11/30/22 07/14/23 History
capsule,extended release 12 hr
calcitriol 0.5 mcg capsule 0.5 mcg PO DAILY Kidney Disease 06/24/23 07/14/23 History
cinacalcet 30 mg tablet 30 mg PO DAILY Kidney Disease 06/24/23 07/14/23 History
aspirin 81 mg chewable tablet 81 mg PO DAILY #30 tabs 07/05/23 07/14/23 Rx
(Children's Aspirin)
acetaminophen 325 mg tablet 650 mg PO Q6H PRN mild pain 07/14/23 07/14/23 History
atorvastatin 40 mg tablet 40 mg PO HS High Cholesterol 07/14/23 07/14/23 History
bacitracin zinc 500 unit-polymyxin 1 applic topical DAILY Skin Issues 07/14/23 07/14/23 History
B 10,000 unit/gram topical ointment
bisacodyl 10 mg rectal suppository 10 mg WA DAILY PRN constipation 07/14/23 07/14/23 History
docusate sodium 100 mg capsule 100 mg PO BID STOOL SOFTENER 07/14/23 07/14/23 History
heparin (porcine) 5,000 unit/mL 5,000 unit SC Q8H DVT PX 07/14/23 07/14/23 History
injection solution
insulin glargine 100 unit/mL 20 unit SC HS Diabetes 07/14/23 07/14/23 History
subcutaneous solution
insulin lispro 100 unit/mL 1 - 6 sliding scale dose SC ACHS 07/14/23 07/14/23 History
subcutaneous solution Diabetes
insulin lispro 100 unit/mL 6 unit SC AC Diabetes 07/14/23 07/14/23 History
subcutaneous solution
insulin regular human 100 unit/mL 3 unit SC Q24H Diabetes 07/14/23 07/14/23 History
injection solution (Humulin R
Regular U-100 Insulin)
lactulose 10 gram/15 mL oral 20 g PO BID Gastrointestinal Issue 07/14/23 07/14/23 History
solution
pantoprazole 40 mg tablet,delayed 40 mg PO DAILY GERD 07/14/23 07/14/23 History
release
polyethylene glycol 3350 17 gram 17 g PO DAILY Gastrointestinal 07/14/23 07/14/23 History
oral powder packet (Miralax) Issue
sennosides 8.6 mg tablet (senna) 17.2 mg PO NOON Gastrointestinal 07/14/23 07/14/23 History
Issue
sevelamer carbonate 0.8 gram oral 0.8 g PO BIDWMEAL Kidney Disease 07/14/23 07/14/23 History
powder packet
Review of Systems
-
History Source: Patient
All other systems: Negative unless noted
EENT: Other (Compromise right visual field)
Respiratory: No Symptoms
Cardiac: No Symptoms
Abdomen/GI: No Symptoms
: Difficulty Voiding (Green in)
Musculoskeletal: No Symptoms
Skin: No Symptoms
Neurological: Other (Right visual field deficit right-sided weakness)
Endocrine: No Symptoms
Hematologic/Lymphatic: No Symptoms
Physical Exam
Vital Signs
Vital Signs
Temp Pulse Resp BP Pulse Ox
99.5 F 77 16 145/81 94
07/15/23 07:55 07/15/23 06:15 07/15/23 06:15 07/15/23 06:00 07/15/23 05:30
Lab Results
WBC 10.8 10^3/uL (4.8-10.8) 07/15/23 03:32
RBC 3.43 10^6/uL (4.70-6.10) L 07/15/23 03:32
Hgb 10.5 g/dL (13.0-18.0) L 07/15/23 03:32
Hct 30.2 % (39.0-52.0) L 07/15/23 03:32
Plt Count 298 10^3/uL (130-400) 07/15/23 03:32
Sodium 137 mmol/L (135-145) 07/15/23 03:32
Potassium 5.6 mmol/L (3.5-5.1) H 07/15/23 03:32
Chloride 106 mmol/L (98-107) 07/15/23 03:32
Carbon Dioxide 22 mmol/L (22-30) 07/15/23 03:32
BUN 60 mg/dl (9-20) H 07/15/23 03:32
Creatinine 6.7 mg/dL (0.7-1.3) H* 07/15/23 03:32
eGFR 8.57 07/15/23 03:32
Glucose 215 mg/dl (70-99) H 07/15/23 03:32
Calcium 8.6 mg/dl (8.4-10.2) 07/15/23 03:32
Albumin 2.8 g/dl (3.5-5.0) L 07/14/23 17:23
Physical Exam
General: AOx1, Nontoxic , NAD,
HEENT: Pupils pinpoint eyes do not track to the right across midline anicteric, Conjunctivae Clear, Ear/Nose Intact, Hearing Normal, Oropharynx Clear/Moist, Dentition Intact, Facial Symmetry, Neck Supple, Neck: Trachea Midline, No JVD and No
Thyromegaly, no Bruits
Respiratory: Clear to auscultation bilaterally with normal lung exersion
Cardiac: S1/S2 and Regular Rate/Rhythm
Breast: Deferred by me
Abdomen: Soft, Nontender, Nondistended, Normal Bowel Sounds and No Hepatosplenomegaly,PD catheter inspected with no drainage or erythema
Rectal: Deferred by Provider
Genito-urinary: No Costovertebral Tenderness,green
Extremities: No Clubbing, No Cyanosis and No Edema
Skin: No Rash or open lesions
Neuro: Nonfocal/Grossly Intact, CN II-XII (Intact) and Strength (Musculoskeletal exam 5 out of 5 both upper and lower extremities)
Hematologic/Lymphatic: No Cervical Lymphadenopathy, No Submandibular Lymphadenopathy and No Supraclavicular Lymphadenopathy
Psych: Mood/afflect pleasant, Insight/judgement good and Appropriate
Vascular: plus 1 pedal and radial pulses
Data Reviewed
-
Radiology: Report Reviewed by me (CT scan of head reviewed with extension of posterior left parietal infarct)
Medical Tests (Nuc Med, Echo etc): Other (EKG reviewed sinus rhythm with PVC 81 bpm)
Labs: Labs Reviewed by me (CBC BMP)
Old Records: Reviewed (Reviewed previous nephrology consultation and notes from June 2023)
Assessment/Plan
-
Impression:
ESRD/PD
Mental status changes with extension of posterior left parietal occipital
Metabolic encephalopathy with CVA findings on CT 06/27
Hypertension
Secondary hyperparathyroidism
Diabetes
Hyperphosphatemia
Dyslipidemia
BPH
Bladder retention
Plan:
-PD orders provided 1.5%q4h
-Daily BMP
-FATIMAH therapy for anemia prn
-Neuro evaluation re: CVA extension, for follow-up MRI of brain, currently maintained on Plavix and aspirin
-Hemodynamically stable on carvedilol and diltiazem and dry weight
-Maintain calcitriol for secondary hyperparathyroidism
-Maintain sevelamer with meals in regards to hyperphosphatemia
-Now with Green for bladder retention ( suspect due to recent CVA)
--- NOTE | 2023-07-15 11:12 | CM ---
Alert confused patient who has history of Peritoneal Dialysis (since ),and CVA who lives with his Katya in a 1 story home with 4and 4 steps to enter.He was admitted form [facility].He is assisted in all activities of daily
living.Spoke with Katya who requested to return to [facility] at [facility].He has walker shower chair,cane at home.
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
Pharmacy [facility]
PCP Dr Mcelroy
PLAN Return to [facility] after auth
--- NOTE | 2023-07-15 12:06 | EEG.RPT ---
Electroencephalogram Report
Recording
Date of EE07/15/23
Type of EEG: Routine
Length of EEG recordin minutes
Done with Video Recording: Yes
Patient Status: Inpatient
Recording Conditions: Drowsy and Asleep
Hyperventilation Performed: No
Photic Stimulation Performed: Yes
Report
LESS THAN 1 HOUR EEG INTERPRETATION:
Unremarkable EEG for age in sleep only
CLINICAL CORRELATION:
A normal EEG does not rule out a diagnosis of epilepsy. If clinical suspicion for seizure persists, a prolonged recording capturing wakefulness may be warranted.
Clinical correlation is advised.
METHODS:
A 21 channel digitized electroencephalogram (EEG) was performed using the 10/20 international system of electrode placement and one-lead of ECG recorded.
ELECTROENCEPHALOGRAPHER IMPRESSION(S):
Quality of study
Fair-Good
Background
There was an fair anterior-posterior voltage gradient of theta frequency.
With eye opening the background activity changed to a low voltage mixture of frequencies.
There were no significant asymmetries of background activity noted.
Sleep
Drowsiness present
Stage 1 present
Stage 2 present
Photic Stimulation
No activation
ECG
Normal sinus rhythm
[2023-07-15] MEDS: SENOKOT 17.1999999999999993 MG PO (12:51)
--- NOTE | 2023-07-15 13:10 | PTCARENOTE ---
Patient off the floor for MRI.
[2023-07-15 14:33] LABS: Glucose - Point of Care 471 mg/dl (70-99)
[2023-07-15 14:52] LABS: Glucose 444 mg/dl (70-99)
[2023-07-15] MEDS: NOVOLOG FLEXPEN-MODERATE RESISTANCE 11 UNITS SC (14:53)
[2023-07-15 16:27] LABS: Glucose - Point of Care 454 mg/dl (70-99)
[2023-07-15] MEDS: NOVOLOG FLEXPEN 25 UNITS SC (16:39)
[2023-07-15] MEDS: NOVOLOG FLEXPEN-MODERATE RESISTANCE SC (16:49)
--- NOTE | 2023-07-15 18:15 | PTCARENOTE ---
Patient with an accucheck of 471, STAT glucose drawn as was 444. 11 units Novolog given per sliding and hospitalist notified. Repeat check 2 hours post was 454. Hospitalist made aware and no STAT glucose was drawn, treated with 25 units Novolog
with a repeat accucheck 1 hour after. Repeat was 290, hospitalist made aware and instructed to follow sliding scale for HS check.
[2023-07-15 18:21] LABS: Glucose - Point of Care 290 mg/dl (70-99)
[2023-07-15] MEDS: COLACE PO (19:20)
[2023-07-15] MEDS: LIPITOR 40 MG PO (20:47)
[2023-07-15] MEDS: LANTUS 0.200000000000000011 UNITS SC (20:47)
[2023-07-15 20:57] LABS: Glucose - Point of Care 274 mg/dl (70-99)
[2023-07-16] VITALS (13 sets, daily range): BP systolic 112–178; BP diastolic 56–76; PULSE 65–66; O2SAT 97
[2023-07-16 03:19] LABS: % Basophils 0.6 % (0-2); % Eosinophils 1.7 % (0-6); % Immature Granulocytes 0.3 % (0-0.5); % Lymphocytes 10.2 % (20.5-51.1); % Neutrophils 75.2 % (42.2-75.2); Absolute Basophils 0.1 10^3/uL (0-0.2); Absolute Eosinophils 0.2 10^3/uL (0-0.7); Absolute Monocytes 1.2 10^3/uL (0.1-0.6); Absolute Neutrophils 7.2 10^3/uL (1.4-6.5); Hematocrit 27.3 % (39.0-52.0); Hemoglobin 9.3 g/dL (13.0-18.0); Mean Corp Hgb Conc. 34.1 g/dL (33.0-37.0); Mean Corpuscular Hgb 30.5 pg (27.0-31.0); Mean Corpuscular Volume 89.5 fL (80.0-94.0); Mean Platelet Volume 9.8 fL (7.4-10.4); Nucleated Red Blood Cells % 0 % (-); Platelet Count 266 10^3/uL (130-400); Red Blood Cell Count 3.05 10^6/uL (4.70-6.10); Red Cell Dist. Width 13.8 % (11.5-14.5); White Blood Cell Count 9.6 10^3/uL (4.8-10.8)
[2023-07-16 03:48] LABS: Blood Urea Nitrogen 60 mg/dl (9-20); Calcium 8.5 mg/dl (8.4-10.2); Carbon Dioxide 22 mmol/L (22-30); Chloride 103 mmol/L (98-107); Glucose 391 mg/dl (70-99); Potassium 4.5 mmol/L (3.5-5.1); Sodium 134 mmol/L (135-145); eGFR 10.63
--- NOTE | 2023-07-16 04:58 | PTCARENOTE ---
No acute events overnight. Patient confused and only oriented to self. Peritoneal dialysis done every 4 hours.
[2023-07-16 08:21] LABS: Glucose - Point of Care 424 mg/dl (70-99)
--- NOTE | 2023-07-16 09:26 | W.PN.HOSP.TC ---
Today's Communication/Plan
-
Plan to repeat MRI brain with contrast. Aggressive insulin management for hyperglycemia.
Assessment / Plan
Assessment / Plan
Physical exam:
General: Acutely ill
HEENT: Normocephalic, Atraumatic and Moist Mucous Membranes
Respiratory: Clear to Auscultation; Negative Wheezes, Rales or Rhonchi
Cardiac: Regular Rhythm and S1/S2
GI: Soft, Nontender and Nondistended
Musculoskeletal: No Clubbing, No Cyanosis and No Edema
Neuro: Lethargic, disoriented, encephalopathic. Does move spontaneously all 4 extremity and weak around 4 out of 5 but symmetrically. Visual deficits present.
Psych: Calm
MRI of the brain:
Acute on subacute infarct in the left occipital lobe in the area of previous infarct, with increased edema and mass effect on the left lateral ventricle occipital horn. Areas of hemosiderin within the area of previous infarct consistent with foci of
hemorrhage.
Resolution of some of the smaller foci of restricted diffusion in the cerebellum, stable appearance of the posterior right occipital lobe infarct.
No midline shift or downward herniation.
Near complete opacification of the left maxillary sinus.
Findings discussed with Dr. Ramos at 2:35 PM. There is prominent mass effect along the left lateral ventricle occipital horn and mass effect along the corpus callosum. While this could certainly be due to edema from the recurrent and residual CVA,
a follow-up brain MRI with and without contrast is recommended after treatment to exclude the unlikely possibility of an occult neoplasm.
EEG:
Unremarkable EEG for age in sleep only
A/P:
Toxic metabolic encephalopathy:
Etiology not entirely clear but suspected worsening/recrudescence stroke versus brain malignancy versus metabolic
Brain MRI without contrast results as above
Plan to repeat MRI with contrast this time
Might or might not need LP for further workup depending on above.
Blood cultures no growth
Appreciated neurology consult and follow-up
Continue aspirin 81 mg daily
No Plavix (he was not on it prior to admission), and especially if planning LP
Continue atorvastatin 40 mg nightly
Continue neurochecks/NIH
Updated over the phone today
Diabetes mellitus with significant hyperglycemia:
No evidence of DKA or HHS
Holding insulin pump
Long-acting and short acting insulin
Aggressive insulin management and if no improvement might consider non-DKA insulin drip
NURSING PROGRAM CHAIR diabetes consultation
End-stage renal disease on peritoneal dialysis:
Continue PD per nephrology
Apparently RN told me needs to be in IMU due to PD
Acute urinary retention/BPH:
Ward catheter in place prior to admission
Continue Flomax
Urology consult appreciated
Hyperlipidemia:
Continue statin
DVT prophylaxis:
Heparin SQ
CODE STATUS:
Full code
Total time spent on today's encounter was 52 minutes which included time spent in counseling the patient/family regarding diagnosis and treatment plan as listed above, goals of care, and symptom management. Case was discussed with nursing staff,
specialists, and care coordinators/case management. All labs and imaging personally reviewed by me. Remainder the time spent in detailed review of previous records, lab data, imaging, and other medical provider documentation.
Anticipated Discharge: > 48 hours
Subjective/Interval History
-
Date of Service: July 16, 2023
Patient more alert today, still disoriented and encephalopathic. No chest pain or shortness of breath. Afebrile
Objective Data
-
Labs:
Laboratory Results
07/16/23 07/16/23
03:08 09:05
WBC 9.6
Hgb 9.3 L
Hct 27.3 L
Plt Count 266
Sodium 134 L
Potassium 4.5
Chloride 103
Carbon Dioxide 22
BUN 60 H
Creatinine 5.6 H*
Glucose 391 H Pending
Calcium 8.5
Vital Signs:
Vital Signs
Temp Pulse Resp BP Pulse Ox
98.2 F 70 9 176/75 97
07/16/23 04:17 07/16/23 06:02 07/16/23 06:02 07/16/23 06:02 07/16/23 06:02
I&O
07/15/23 07/16/23 07/17/23
06:59 06:59 06:59
Intake Total 1340 / 1340
Output Total 900 / 900 1400 / 1400
Balance -900 / -900 -60 / -60
[2023-07-16 09:27] LABS: Glucose 405 mg/dl (70-99)
--- NOTE | 2023-07-16 09:34 | PN.DE.MGMTRT ---
Insulin Management
- -
07/16/2023: Diabetes Management Consult:
63 year old male well known to diabetes team from recent admission to . Pt is readmitted with mental status change. CT head--> subacute left occipital and parietal infarct. PMH includes: HTN, ESRD on PD, hx of CVA and T2DM. Patient was previously
using a [employer]tronic 770 G insulin pump that was recently discontinued due to waxing and weaning mental status. He was d/c'd to rehab on insulin regimen:-Lantus 22 units @ HS and NovoLog 10 units AC with SS.
Patient is noted for Hyperglycemia, glucose has trended up to 425 and Diabetes team is consulted for management. Recent A1C 11%, Cr 5.6, eGFR 9.41.
He is awake, alert, oriented to name and place, Marie, able to participate in discussion regarding diabetes management.
His insulin regimen includes Lantus 20 units @ HS and moderate corrective insulin.Premeal glucose range is 373 to 471 with a FBG of 391(V) requiring high dose of corrective insulin. Will start AC NovoLog 10 units, 1st dose now and increase Lantus to
25 units @ HS. Cont moderate corrective insulin.
Will resume his insulin pump once mental status is 100% at baseline, most likely at [facility] or after discharge from [facility].
Diabetes plan of care discussed with patient's nurse. Nurse will assess if patient is eating prior to administering insulin, especially during PD treatments.
Diabetes History
- -
Type of Diabetes: 2 requiring insulin
Pre-Admission Diabetes Regimen
07/16/23
03:08
Creatinine 5.6 H*
Insulin Pump Settings
IP Diabetes Regimen
07/15/23 07/15/23 07/15/23
14:22 14:33 16:15
Glucose 444 H
POC Glucose 471 H* 454 H*
07/15/23 07/15/23 07/16/23
18:09 20:46 03:08
Glucose 391 H
POC Glucose 290 H 274 H
07/16/23 07/16/23
08:10 09:05
Glucose 405 H
POC Glucose 424 H
Patient Education
--- NOTE | 2023-07-16 09:39 | W.PN.NEPH.PH ---
Today's Communication / Plan
-
Pd to continue, orders provided
Okay to undergo MRI with gadolinium if needed
Assessment/Plan
-
Impression:
ESRD/PD
Mental status changes with extension of posterior left parietal occipital
Metabolic encephalopathy with CVA findings on CT 06/27
Hypertension
Secondary hyperparathyroidism
Diabetes
Hyperphosphatemia
Dyslipidemia
BPH
Bladder retention
Plan:
-PD orders provided 2 L 1.5%q4h
-Flowsheets reviewed:mostly even u/f but will likely transition to 1.5% and 2.5% if no significant u/f over next 24hr
-Glucose greater than 400
-MRI report reviewed noting prominent mass effect along left lateral ventricle occipital horn possibly due to ongoing edema from residual CVA versus possibility of mass
-Will likely require gadolinium administration for follow-up imaging of possible mass
-Daily BMP
-FATIMAH therapy for anemia prn
-Neuro evaluation re: CVA extension versus mass, of brain, currently maintained on Plavix and aspirin
-Hemodynamically stable on carvedilol and diltiazem and dry weight
-Maintain calcitriol for secondary hyperparathyroidism
-Maintain sevelamer with meals in regards to hyperphosphatemia
-Now with Ward for bladder retention ( suspect due to recent CVA)
-
-
Date of Service: July 16, 2023
CC / HPI / ROS
-
Chief Complaint:
End-stage renal disease
History of Present Illness:
Remains on peritoneal dialysis
Blood pressure remains elevated on oral antihypertensive
Review of Systems:
Neurological deficits persist right-sided neglect
No chest pain or shortness of breath
Labs
-
Labs:
WBC 9.6 10^3/uL (4.8-10.8) 07/16/23 03:08
RBC 3.05 10^6/uL (4.70-6.10) L 07/16/23 03:08
Hgb 9.3 g/dL (13.0-18.0) L 07/16/23 03:08
Hct 27.3 % (39.0-52.0) L 07/16/23 03:08
Plt Count 266 10^3/uL (130-400) 07/16/23 03:08
Sodium 134 mmol/L (135-145) L 07/16/23 03:08
Potassium 4.5 mmol/L (3.5-5.1) 07/16/23 03:08
Chloride 103 mmol/L (98-107) 07/16/23 03:08
Carbon Dioxide 22 mmol/L (22-30) 07/16/23 03:08
BUN 60 mg/dl (9-20) H 07/16/23 03:08
Creatinine 5.6 mg/dL (0.7-1.3) H* 07/16/23 03:08
eGFR 10.63 07/16/23 03:08
Glucose 405 mg/dl (70-99) H 07/16/23 09:05
Calcium 8.5 mg/dl (8.4-10.2) 07/16/23 03:08
Albumin 2.8 g/dl (3.5-5.0) L 07/14/23 17:23
Physical Exam
-
Vital Signs:
Vital Signs
Temp Pulse Resp BP Pulse Ox
98.2 F 70 9 176/75 97
07/16/23 04:17 07/16/23 06:02 07/16/23 06:02 07/16/23 06:02 07/16/23 06:02
Cardiovascular:: Regular rate and rhythm
Respiratory:: Bilateral: CTA
Lung Excursion:: Normal
Abdomen:: Nontender and Soft
Bowel Sounds:: Normal
Extremity Edema:: None: Bilateral:
Ward Catheter: No
--- NOTE | 2023-07-16 09:50 | W.PN.NEURO.1 ---
Today's Communication / Plan
-
Continue aspirin 81 mg daily
Check MRI brain with contrast
Check LP if continued or under-explained diagnosis after MRI of brain
Continue to treat diabetes mellitus
Neuro Assessment/Plan
Assessment
Neuro Imaging: CT head with subacute left occipital and parietal infarct, chronic to late subacute right occipital infarction, no hemorrhage
1. Change in mental status in a patient with recent significant ischemic strokes to the occipital lobes bilaterally producing cognitive impairment as well as right-sided hemianopia and right-sided weakness. Etiology of stroke appears most likely
to be atheroembolic from uncontrolled diabetes mellitus versus less likely cardioembolic.
Current MRI changes are greater than what would be expected from prior occipital strokes and are more suggestive of intracranial abnormality including CRYPTOLOGIC SUPPORT SPECIALIST lymphoma although this would be a secondary diagnosis after a significant first
2. Uncontrolled diabetes mellitus
EEG showed excessive sleepiness, no clear seizures.
Plan
Recommendations:
Continue aspirin 81 mg daily
Check MRI brain with contrast
Check LP if continued or under-explained diagnosis after MRI of brain
Continue to treat diabetes mellitus
Subjective/Objective
Subjective Data
Date of Service: July 16, 2023
Patient unable to provide own medical history.
Objective Data
Vital Signs
Temp Pulse Resp BP Pulse Ox
36.8 C 70 9 176/75 97
07/16/23 04:17 07/16/23 06:02 07/16/23 06:02 07/16/23 06:02 07/16/23 06:02
Lab Results
07/16/23 03:08
07/16/23 09:05
Sodium 134 mmol/L (135-145) L 07/16/23 03:08
Potassium 4.5 mmol/L (3.5-5.1) 07/16/23 03:08
BUN 60 mg/dl (9-20) H 07/16/23 03:08
Glucose 405 mg/dl (70-99) H 07/16/23 09:05
Calcium 8.5 mg/dl (8.4-10.2) 07/16/23 03:08
LDL Cholesterol, Calc 57 mg/dl 07/15/23 03:32
Patient Allergies
No Known Allergies Allergy (Verified 07/14/23 17:16)
Review of Systems
-
Unable to obtain full review of systems at this time due to: Other (encephalopathy)
History Source: Patient
All other systems: Reviewed and negative
Physical Exam
-
General: Well Developed and Well Nourished
Eyes: No Ptosis
HEENT: Normocephalic
Neck: No Bruits Bilaterally
Respiratory: No Dyspnea
Cardiac: No JVD
GI: Non-distended
Skin: Unremarkable
Extremities: No Clubbing, No Cyanosis and No Edema
Psych: Unremarkable
Extended Neurological Exam
Mood & Affect: Mood Unremarkable and Affect Unremarkable
Attention Span & Concentration: Awake and Interactive; Negative Alert (Bradyphrenic)
Memory: Reduced and Unable to Recall Personal History
Tremor: Hand Tremor Absent and Head Tremor Absent
Involuntary Movement: None
Speech: Expressive Aphasia and Other; Negative Receptive Aphasia or Dysarthric
Cranial Nerve II: Left Eye: Pupillary Size Unremarkable and Other (Right homonymous hemianopia)
Cranial Nerve II: Right Eye: Pupillary Size Unremarkable and Other (Right homonymous hemianopia)
Cranial Nerves III, IV, : Extraocular Movement: No Ptosis and Grossly Intact
Cranial Nerve VII: Facial Symmetry: Normal Facial Symmetry
Cranial Nerve VIII: Hearing: Unremarkable Hearing to Normal Conversational Volume
Muscle Strength, Overall: Spontaneously Moves (All extremities)
Muscle Bulk & Tone: Bulk Unremarkable and Increased Tone
Pronator Drift: No Drift in Upper Extremities
Gait & Station: Unable to Assess
Data Reviewed
-
MRI Head: Report Reviewed and Image Reviewed
Labs: Report Reviewed
Reviewed with: Physician and Nurse Practioner
Old Records: Summarized
Past History
Past History
ED Past Medical History: CVA, HTN, IDDM, Renal failure and Other (Diabetic neuropathy, peritoneal dialysis)
ED Past Surgical History: Orthopedic and Other
Social History
Tobacco: Other
Alcohol: Other
Drug: None
Personal:
Living: with family
Employment: Other
Family History
Family History: Other
Medications
-
Medications:
Generic Name Dose Route Start Last Admin
Trade Name Freq PRN Reason Stop Dose Admin
Acetaminophen 650 mg 07/15/23 03:23
Acetaminophen 650 Mg Rectal Suppository RECTAL 08/12/23 03:22
Q4HPRN PRN
GUALLPA, mild pain, or temp >100.4F
Acetaminophen 650 mg 07/15/23 03:23
Acetaminophen 325 Mg Tablet PO 08/12/23 03:22
Q4HPRN PRN
GUALLPA, mild pain, or temp >100.4F
Aspirin 81 mg 07/15/23 08:00 07/16/23 10:05
Aspirin 81 Mg Chewable Tablet PO 08/12/23 07:59 81 mg
DAILY BACILIO Administration
Atorvastatin Calcium 40 mg 07/15/23 22:00 07/15/23 20:47
Atorvastatin (Lipitor) 40 Mg Tablet PO 08/12/23 21:59 40 mg
HS BACILIO Administration
Bisacodyl 10 mg 07/15/23 03:23
Bisacodyl 10 Mg Rectal Suppository RECTAL 08/12/23 03:22
DAILY PRN
constipation
Calcitriol 0.5 mcg 07/15/23 08:00 07/16/23 10:05
Calcitriol 0.25 Microgram Capsule PO 08/12/23 07:59 0.5 mcg
DAILY BACILIO Administration
Cinacalcet 30 mg 07/15/23 08:00 07/16/23 10:05
Cinacalcet 30 Mg Tablet PO 08/12/23 07:59 30 mg
DAILY BACILIO Administration
Dextrose 12.5 grams 07/15/23 08:49
Dextrose 50% (0.5 Grams/Ml) 50 Ml Syringe IV 08/12/23 08:48
[id number] PRN
hypoglycemia
Protocol
Diltiazem HCl 120 mg 07/15/23 08:00 07/16/23 10:04
Diltiazem 120 Mg Sustained Release (12 H) Capsule PO 08/12/23 07:59 120 mg
DAILY BACILIO Administration
Docusate Sodium 100 mg 07/15/23 08:00 07/16/23 10:05
Docusate Sodium 100 Mg Capsule PO 08/12/23 07:59 100 mg
BID BACILIO Administration
Glucagon 1 mg 07/15/23 08:49
Glucagon 1 Mg Vial IM 08/12/23 08:48
PRN PRN
hypoglycemia
Protocol
Heparin Sodium 5,000 units 07/15/23 03:23 07/16/23 10:05
Heparin 5,000 Units/Ml 1 Ml Vial SC 08/12/23 03:22 5,000 units
Q8 BACILIO Administration
Insulin Glargine 20 units/ 0.2 mls @ 0 mls/hr 07/15/23 22:00 07/15/23 20:47
Device SC 08/12/23 21:59 0.2 mls
HS BACILIO Administration
As Directed
Insulin Aspart 0 units 07/15/23 11:30 07/16/23 10:06
Insulin Aspart Moderate Resistance 300 Units/3 Ml Pen.Injctr SC 08/12/23 11:29 11 units
AC BACILIO Administration
Protocol
Lactulose 20 grams 07/15/23 08:00 07/16/23 10:09
Lactulose Solution (20 Grams/30 Ml) 30 Ml Cup PO 08/12/23 07:59 20 grams
BID BACILIO Administration
Pantoprazole Sodium 40 mg 07/15/23 08:00 07/16/23 10:04
Pantoprazole 40 Mg Delayed Release Tablet PO 08/12/23 07:59 40 mg
DAILY BACILIO Administration
Polyethylene Glycol 17 grams 07/15/23 08:00 07/16/23 10:06
Polyethylene Glycol Powder 17 Grams Packet PO 08/12/23 07:59 17 grams
DAILY BACILIO Administration
Sennosides 17.2 mg 07/15/23 12:00 07/15/23 12:51
Sennosides (Senokot) 8.6 Mg Tablet PO 08/12/23 11:59 17.2 mg
NOON BACILIO Administration
Sevelamer Carbonate 0.8 gm 07/15/23 03:23 07/16/23 10:04
Sevelamer Carbonate 0.8 Gm Powder Packet PO 08/12/23 03:22 0.8 gm
BID BACILIO Administration
Sodium Chloride 0 flush 07/14/23 23:00
Sodium Chloride 0.9% (Flush) Syringe IV 08/11/23 22:59
PER PROTOCOL BACILIO
Tamsulosin HCl 0.4 mg 07/15/23 08:00 07/16/23 10:05
Tamsulosin 0.4 Mg Capsule PO 08/12/23 07:59 0.4 mg
DAILY BACILIO Administration
[2023-07-16] MEDS: PROTONIX 40 MG PO (10:04)
[2023-07-16] MEDS: CARDIZEM SR 120 MG PO (10:04)
[2023-07-16] MEDS: SEVELAMER CARBONATE 0.800000000000000044 GM PO ×2 (10:04→19:36)
[2023-07-16] MEDS: COLACE 100 MG PO ×2 (10:05→19:36)
[2023-07-16] MEDS: FLOMAX 0.400000000000000022 MG PO (10:05)
[2023-07-16] MEDS: LOW STRENGTH ASPIRIN 81 MG PO (10:05)
[2023-07-16] MEDS: HEPARIN 5000 UNITS SC ×3 (10:05→23:26)
[2023-07-16] MEDS: SENSIPAR 30 MG PO (10:05)
[2023-07-16] MEDS: ROCALTROL 0.5 MCG PO (10:05)
[2023-07-16] MEDS: NOVOLOG FLEXPEN-MODERATE RESISTANCE 11 UNITS SC (10:06)
[2023-07-16] MEDS: MIRALAX 17 GRAMS PO (10:06)
[2023-07-16] MEDS: DUPHALAC/CHRONULAC 20 GRAMS PO ×2 (10:09→19:36)
[2023-07-16 12:17] LABS: Glucose - Point of Care 373 mg/dl (70-99)
[2023-07-16 13:18] LABS: Glucose - Point of Care 388 mg/dl (70-99)
[2023-07-16] MEDS: NOVOLOG FLEXPEN 10 UNITS SC ×2 (14:10→19:05)
[2023-07-16] MEDS: NOVOLOG FLEXPEN-MODERATE RESISTANCE 9 UNITS SC (14:10)
[2023-07-16] MEDS: SENOKOT 17.1999999999999993 MG PO (14:11)
[2023-07-16 17:32] LABS: Glucose - Point of Care 264 mg/dl (70-99)
--- NOTE | 2023-07-16 18:30 | PTCARENOTE ---
Mentation waxes and wanes - NIHSS 20 today- able to move all extremities this pm and will follow some commands improved from earlier assessment. Accu check high this am- rechecked- d/w DM provider and orders followed. PD as ordered- site cdi.
Ed maintained / cleansed per protocol and output recorded. here this pm- updated.
[2023-07-16] MEDS: NOVOLOG FLEXPEN-MODERATE RESISTANCE 5 UNITS SC (19:06)
[2023-07-16] MEDS: LIPITOR 40 MG PO (19:36)
[2023-07-16] MEDS: LANTUS 0.25 UNITS SC (20:31)
[2023-07-16 20:41] LABS: Glucose - Point of Care 268 mg/dl (70-99)
[2023-07-17] VITALS (13 sets, daily range): BP systolic 64–165; BP diastolic 56–95
[2023-07-17 03:30] LABS: % Basophils 0.8 % (0-2); % Eosinophils 4.2 % (0-6); % Immature Granulocytes 0.3 % (0-0.5); % Lymphocytes 17.1 % (20.5-51.1); % Monocytes 11.2 % (1.7-9.3); % Neutrophils 66.4 % (42.2-75.2); Absolute Basophils 0.1 10^3/uL (0-0.2); Absolute Eosinophils 0.3 10^3/uL (0-0.7); Absolute Lymphocytes 1.3 10^3/uL (1.2-3.4); Absolute Monocytes 0.9 10^3/uL (0.1-0.6); Hematocrit 28.2 % (39.0-52.0); Hemoglobin 9.7 g/dL (13.0-18.0); Mean Corp Hgb Conc. 34.4 g/dL (33.0-37.0); Mean Corpuscular Hgb 29.9 pg (27.0-31.0); Mean Platelet Volume 9.7 fL (7.4-10.4); Nucleated Red Blood Cells % 0 % (-); Platelet Count 310 10^3/uL (130-400); Red Blood Cell Count 3.24 10^6/uL (4.70-6.10); Red Cell Dist. Width 13.8 % (11.5-14.5); White Blood Cell Count 7.6 10^3/uL (4.8-10.8)
[2023-07-17 03:56] LABS: Blood Urea Nitrogen 51 mg/dl (9-20); Calcium 8.5 mg/dl (8.4-10.2); Carbon Dioxide 27 mmol/L (22-30); Chloride 102 mmol/L (98-107); Glucose 241 mg/dl (70-99); Potassium 4.1 mmol/L (3.5-5.1); Sodium 133 mmol/L (135-145); eGFR 12.79
--- NOTE | 2023-07-17 05:59 | PTCARENOTE ---
No acute events overnight. Patient with periods of agitation- left crying. Emotional support provided.
[2023-07-17 08:30] LABS: Glucose - Point of Care 278 mg/dl (70-99)
--- NOTE | 2023-07-17 08:46 | W.PN.HOSP.TC ---
Today's Communication/Plan
-
MRI of the brain with contrast today. Plan for LP today.
Assessment / Plan
Assessment / Plan
Physical exam:
General: Acutely ill
HEENT: Normocephalic, Atraumatic and Moist Mucous Membranes
Respiratory: Clear to Auscultation; Negative Wheezes, Rales or Rhonchi
Cardiac: Regular Rhythm and S1/S2
GI: Soft, Nontender and Nondistended
Musculoskeletal: No Clubbing, No Cyanosis and No Edema
Neuro: Lethargic, disoriented, encephalopathic. Does move spontaneously all 4 extremity and weak around 4 out of 5 but symmetrically. Visual deficits present.
Psych: Calm
MRI of the brain:
Acute on subacute infarct in the left occipital lobe in the area of previous infarct, with increased edema and mass effect on the left lateral ventricle occipital horn. Areas of hemosiderin within the area of previous infarct consistent with foci of
hemorrhage.
Resolution of some of the smaller foci of restricted diffusion in the cerebellum, stable appearance of the posterior right occipital lobe infarct.
No midline shift or downward herniation.
Near complete opacification of the left maxillary sinus.
Findings discussed with Dr. Ramos at 2:35 PM. There is prominent mass effect along the left lateral ventricle occipital horn and mass effect along the corpus callosum. While this could certainly be due to edema from the recurrent and residual CVA,
a follow-up brain MRI with and without contrast is recommended after treatment to exclude the unlikely possibility of an occult neoplasm.
EEG:
Unremarkable EEG for age in sleep only
A/P:
Toxic metabolic encephalopathy:
Etiology not entirely clear but suspected worsening/recrudescence stroke versus brain malignancy versus metabolic
Brain MRI without contrast results as above
Plan to repeat MRI with contrast this time--> pending formal report
Discussed with neurology and plan for LP today
Blood cultures no growth
Appreciated neurology consult and follow-up
Continue aspirin 81 mg daily
No Plavix (he was not on it prior to admission), and especially if planning LP
Continue atorvastatin 40 mg nightly
Continue neurochecks/NIH
Updated over the phone yesterday
Rehab consult today
Diabetes mellitus with significant hyperglycemia:
No evidence of DKA or HHS
Holding insulin pump
Long-acting and short acting insulin
Aggressive insulin management and if no improvement might consider non-DKA insulin drip
SHE[employer]EM[employer] diabetes consultation appreciated
End-stage renal disease on peritoneal dialysis:
Continue PD per nephrology
Apparently RN told me needs to be in IMU due to PD
Acute urinary retention/BPH:
Ward catheter in place prior to admission
Continue Flomax
Urology consult appreciated
Hyperlipidemia:
Continue statin
DVT prophylaxis:
Heparin SQ
CODE STATUS:
Full code
Total time spent on today's encounter was 52 minutes which included time spent in counseling the patient/family regarding diagnosis and treatment plan as listed above, goals of care, and symptom management. Case was discussed with nursing staff,
specialists, and care coordinators/case management. All labs and imaging personally reviewed by me. Remainder the time spent in detailed review of previous records, lab data, imaging, and other medical provider documentation.
Anticipated Discharge: > 48 hours
Subjective/Interval History
-
Date of Service: July 17, 2023
Present alert but encephalopathic. Afebrile.
Objective Data
-
Labs:
Laboratory Results
07/17/23
03:06
WBC 7.6
Hgb 9.7 L
Hct 28.2 L
Plt Count 310
Sodium 133 L
Potassium 4.1
Chloride 102
Carbon Dioxide 27
BUN 51 H
Creatinine 4.8 H*
Glucose 241 H
Calcium 8.5
Vital Signs:
Vital Signs
Temp Pulse Resp BP Pulse Ox
98.6 F 66 15 165/79 98
05/08/24 03:00 07/17/23 06:01 07/17/23 06:01 07/17/23 06:01 07/17/23 06:01
I&O
07/16/23 07/17/23 07/18/23
06:59 06:59 06:59
Intake Total 1340 / 1340 1260 / 1260
Output Total 1400 / 1400 960 / 960 400 / 400
Balance -60 / -60 300 / 300 -400 / -400
[2023-07-17] MEDS: ROCALTROL 0.5 MCG PO (09:18)
[2023-07-17] MEDS: PROTONIX 40 MG PO (09:18)
[2023-07-17] MEDS: SENSIPAR 30 MG PO (09:18)
[2023-07-17] MEDS: FLOMAX 0.400000000000000022 MG PO (09:18)
[2023-07-17] MEDS: LOW STRENGTH ASPIRIN 81 MG PO (09:19)
[2023-07-17] MEDS: CARDIZEM SR 120 MG PO (09:19)
[2023-07-17] MEDS: HEPARIN 5000 UNITS SC ×3 (09:19→23:54)
[2023-07-17] MEDS: DUPHALAC/CHRONULAC 20 GRAMS PO ×2 (09:19→19:55)
[2023-07-17] MEDS: COLACE PO ×2 (09:19→19:48)
[2023-07-17] MEDS: NOVOLOG FLEXPEN 10 UNITS SC ×2 (09:21→16:04)
[2023-07-17] MEDS: NOVOLOG FLEXPEN-MODERATE RESISTANCE 5 UNITS SC (09:22)
--- NOTE | 2023-07-17 09:22 | CM ---
Patient from [facility] with Hx ESRD on Peritoneal Dialysis with Dx Acute on subacute cerebral infarct. Room air. Plan MRI brain with contrast. PT & OT recommend acute rehab. [facility]- Skilled service indicated. Per nurse assessment;
mentation waxes and wanes, periods of agitation.
Spoke with Carlos Kimball Liaison; provided clinical update and referral placed for return to [facility]. Jigar requests Physiatry Consult---> message to Dr Carter. *Patient can only return to [place] location due to his need for
peritoneal dialysis.
Plan follow up after seen by Physiatry.
[2023-07-17] MEDS: MIRALAX PO (09:23)
[2023-07-17] MEDS: SEVELAMER CARBONATE 0.800000000000000044 GM PO ×2 (09:25→19:55)
--- NOTE | 2023-07-17 09:46 | PN.DE.MGMTRT ---
Insulin Management
- -
07/17/2023: Diabetes Management Consult:
63 year old male well known to diabetes team from recent admission to . Pt is readmitted with mental status change. CT head--> subacute left occipital and parietal infarct. PMH includes: HTN, ESRD on PD, hx of CVA and T2DM. Patient was previously
using a Medtronic 770 G insulin pump that was recently discontinued due to waxing and weaning mental status. He was d/c'd to rehab on insulin regimen:-Lantus 22 units @ HS and NovoLog 10 units AC with SS.
Patient is noted for Hyperglycemia, glucose has trended up to 425 and Diabetes team is consulted for management. Recent A1C 11%, Cr 5.6, eGFR 9.41.
Pt is awake, alert, oriented to name and place, Marie, able to participate in discussion regarding diabetes management.
His appetite is excellent and is consuming 100% of all meals.
Glucose levels have improved but remain >200, FBG 241 this AM, premeal 240 to 278, requiring 5-9 units of corrective insulin.
Will adjust insulin dose to Lantus 25 units BID. Cont AC NovoLog 10 units and moderate corrective insulin with meals.
Will closely monitor glucose trend today and adjust AC dose if necessary.
Will resume his insulin pump once mental status is 100% at baseline, most likely at [place] or after discharge from [place].
Diabetes plan of care discussed with patient's nurse.
Diabetes History
- -
Type of Diabetes: 1
Pre-Admission Diabetes Regimen
07/17/23
03:06
Creatinine 4.8 H*
Insulin Pump Settings
IP Diabetes Regimen
07/16/23 07/16/23 07/16/23
12:06 13:07 17:21
Glucose
POC Glucose 373 H 388 H 264 H
07/16/23 07/17/23 07/17/23
20:30 03:06 08:19
Glucose 241 H
POC Glucose 268 H 278 H
Patient Education
--- NOTE | 2023-07-17 09:59 | PTCARENOTE ---
Shift change this am pox alarming 70s ultimately down 50s about 30 sec and then returned to 96% on RAIR- 2L NC placed at that time. D/w Dr. Long this am- CPAP orders noted
--- NOTE | 2023-07-17 10:15 | W.PN.NEURO.1 ---
Today's Communication / Plan
-
Continue aspirin 81 mg daily
Check MRI brain with contrast
Check LP after MRI of brain with the assistance of interventional radiology
Neuro Assessment/Plan
Assessment
Neuro Imaging: CT head with subacute left occipital and parietal infarct, chronic to late subacute right occipital infarction, no hemorrhage
MRI changes are greater than what would be expected from prior occipital strokes and are more suggestive of intracranial abnormality including COMPOSING ROOM SUPERVISOR lymphoma although this would be a secondary diagnosis after a significant first
1. Change in mental status in a patient with recent significant ischemic strokes to the occipital lobes bilaterally producing cognitive impairment as well as right-sided hemianopia and right-sided weakness. Etiology of stroke appears most likely
to be atheroembolic from uncontrolled diabetes mellitus versus less likely cardioembolic. Etiology for expansion of prior changes into the corpus callosum posteriorly is unclear however and may include COMPOSING ROOM SUPERVISOR lymphoma.
2. Uncontrolled diabetes mellitus
EEG showed excessive sleepiness, no clear seizures.
Plan
Recommendations:
Continue aspirin 81 mg daily
Check MRI brain with contrast
Check LP after MRI of brain with the assistance of interventional radiology
Continue to treat diabetes mellitus
We will follow
Subjective/Objective
Subjective Data
Date of Service: July 17, 2023
Patient reports no new symptoms
Objective Data
Vital Signs
Temp Pulse Resp BP Pulse Ox
37.0 C 61 14 161/73 98
07/17/23 03:00 07/17/23 08:00 07/17/23 08:00 07/17/23 08:00 07/17/23 08:00
Lab Results
07/17/23 03:06
07/17/23 03:06
Sodium 133 mmol/L (135-145) L 07/17/23 03:06
Potassium 4.1 mmol/L (3.5-5.1) 07/17/23 03:06
BUN 51 mg/dl (9-20) H 07/17/23 03:06
Glucose 241 mg/dl (70-99) H 07/17/23 03:06
Calcium 8.5 mg/dl (8.4-10.2) 07/17/23 03:06
LDL Cholesterol, Calc 57 mg/dl 07/15/23 03:32
Patient Allergies
No Known Allergies Allergy (Verified 07/14/23 17:16)
Review of Systems
-
Unable to obtain full review of systems at this time due to: Lethargy
History Source: Patient
All other systems: Reviewed and negative
Physical Exam
-
General: No Apparent Distress
Eyes: No Ptosis
HEENT: Unremarkable
Neck: Full Range of Motion
Respiratory: No Dyspnea
Cardiac: No JVD
GI: Non-distended
Skin: Unremarkable
Extremities: No Clubbing, No Cyanosis and No Edema
Psych: Negative Intact Judgement/Insight
Extended Neurological Exam
Mood & Affect: Negative Affect Unremarkable (Irritable)
Attention Span & Concentration: Awake, Interactive and Closes Eyes after Stimulation (Instantly); Negative Alert (Bradyphrenic)
Memory: Reduced and Unable to Assess
Tremor: Hand Tremor Absent and Head Tremor Absent
Involuntary Movement: None
Speech: Severely Reduced Output (Very short phrase production); Negative Receptive Aphasia or Dysarthric
Cranial Nerve II: Left Eye: Unable to Assess Visual Hinojosa
Cranial Nerve II: Right Eye: Unable to Assess Visual Hinojosa
Cranial Nerve VII: Facial Symmetry: Normal Facial Symmetry
Cranial Nerve VIII: Hearing: Unremarkable Hearing to Normal Conversational Volume
Muscle Strength, Overall: Spontaneously Moves (All extremities)
Muscle Bulk & Tone: Bulk Unremarkable
Pronator Drift: Unable to Assess
Cold Sensation: Unable to Assess
Vibration Sensation: Unable to Assess
Gait & Station: Unable to Assess
Data Reviewed
-
MRI Head: Image Reviewed
Labs: Report Reviewed
Reviewed with: Physician, Nurse and Nurse Practioner
Old Records: Summarized
[2023-07-17] MEDS: LANTUS 0.25 UNITS SC ×2 (10:34→21:36)
[2023-07-17] MEDS: SENOKOT PO (10:57)
[2023-07-17] MEDS: ATIVAN 1 MG PO (10:57)
[2023-07-17] MEDS: NOVOLOG FLEXPEN SC (11:30)
[2023-07-17] MEDS: NOVOLOG FLEXPEN-MODERATE RESISTANCE SC ×2 (11:30→16:04)
[2023-07-17 11:38] LABS: Glucose - Point of Care 184 mg/dl (70-99)
--- NOTE | 2023-07-17 11:38 | W.PN.NEPH.PH ---
Today's Communication / Plan
-
lasix, cont PD 1.5 for now with hyperglycemia
Assessment/Plan
-
Impression:
ESRD/PD
Mental status changes with extension of posterior left parietal occipital
Metabolic encephalopathy with CVA findings on CT 06/27
Hypertension
Secondary hyperparathyroidism
Diabetes
Hyperphosphatemia
Dyslipidemia
BPH
Bladder retention
Plan:
-PD orders provided 2 L 1.5%q4h
-Flowsheets reviewed:mostly even u/f but will likely transition to 1.5% and 2.5% if no significant u/f over next 24hr, will start lasix
hyperglycemia improving slowly
for MRI with gadolinium today to r/o any occult mass-with group II gents low risk of NSF
also plan LP per neuro
-FATIMAH therapy for anemia prn
-Neuro evaluation re: CVA extension versus mass, of brain, currently maintained on Plavix and aspirin
-Hemodynamically stable on carvedilol and diltiazem and dry weight
-Maintain calcitriol for secondary hyperparathyroidism
-Maintain sevelamer with meals in regards to hyperphosphatemia
-Now with Green for bladder retention ( suspect due to recent CVA)-keep it for now in acute stage per
There is concern of ALIX based on pulse ox during sleep per nursing
d/w nursing
-
-
Date of Service: July 17, 2023
CC / HPI / ROS
-
Chief Complaint:
End-stage renal disease
History of Present Illness:
Remains on peritoneal dialysis
Blood pressure stable on oral antihypertensive
no fever
Review of Systems:
Neurological deficits persist right-sided neglect
No chest pain or shortness of breath
UOP 560cc with green
Labs
-
Labs:
WBC 7.6 10^3/uL (4.8-10.8) 05/08/24 03:06
RBC 3.24 10^6/uL (4.70-6.10) L 07/17/23 03:06
Hgb 9.7 g/dL (13.0-18.0) L 07/17/23 03:06
Hct 28.2 % (39.0-52.0) L 07/17/23 03:06
Plt Count 310 10^3/uL (130-400) 07/17/23 03:06
Sodium 133 mmol/L (135-145) L 07/17/23 03:06
Potassium 4.1 mmol/L (3.5-5.1) 07/17/23 03:06
Chloride 102 mmol/L (98-107) 07/17/23 03:06
Carbon Dioxide 27 mmol/L (22-30) 07/17/23 03:06
BUN 51 mg/dl (9-20) H 07/17/23 03:06
Creatinine 4.8 mg/dL (0.7-1.3) H* 07/17/23 03:06
eGFR 12.79 07/17/23 03:06
Glucose 241 mg/dl (70-99) H 07/17/23 03:06
Calcium 8.5 mg/dl (8.4-10.2) 07/17/23 03:06
Albumin 2.8 g/dl (3.5-5.0) L 07/14/23 17:23
Physical Exam
-
Vital Signs:
Vital Signs
Temp Pulse Resp BP Pulse Ox
98.6 F 65 15 137/86 98
07/17/23 03:00 07/17/23 10:00 07/17/23 10:00 07/17/23 10:00 07/17/23 10:00
Cardiovascular:: Regular rate and rhythm
Respiratory:: Bilateral: CTA
Lung Excursion:: Normal
Abdomen:: Nontender and Soft
Extremity Edema:: None: Bilateral:
Green Catheter: Yes
--- NOTE | 2023-07-17 11:50 | PTCARENOTE ---
Pt sent to MRI then will transfer over to [facility] for Lumbar puncture. PO Ativan administered prior to MRI.
[2023-07-17 13:47] LABS: INR 0.96; PT 12.8 Sec (11.4-14.6)
[2023-07-17 15:59] LABS: Glucose - Point of Care 101 mg/dl (70-99)
[2023-07-17 16:58] LABS: CSF Clarity Clear; CSF Color Xanthochromic; CSF Tube # 3; Red Cell Count/CSF 10 mm^3; White Cell Count/CSF 3 mm^3 (0-5)
[2023-07-17 16:59] LABS: CSF Color Xanthochromic; CSF Tube # 4; CSF Tube # Clarity Clear; Red Cell Count/CSF 12 mm^3; White Blood Cell Count/CSF 2 mm^3 (0-5)
[2023-07-17 17:12] LABS: Spinal Fluid Glucose 96 mg/dl (40-70); Spinal Fluid Protein 290 mg/dl (12-60)
--- NOTE | 2023-07-17 19:25 | PTCARENOTE ---
Pt returned from MRI / then [facility] at 1600- PD resumed at that time. Supine position maintained x2 hours as requested by [facility]. PO diet given and insulin coverage as ordered. Denies pain, bandaid CDI on mid back site.
[2023-07-17] MEDS: LIPITOR 40 MG PO (19:55)
--- NOTE | 2023-07-17 20:54 | PTCARENOTE ---
Patient agitated and uncooperative with NIH assessment. Completed to best of ability.
[2023-07-17 21:36] LABS: Glucose - Point of Care 95 mg/dl (70-99)
--- NOTE | 2023-07-17 22:30 | RESPNOTE ---
pt ordered nocturnal study on bipap per Dr Long, pt is confused and agitated and unable to be placed on bipap. pt has been placed on nocturnal study without bipap at this time. nocturnal will be completed on RA
--- NOTE | 2023-07-17 22:37 | PTCARENOTE ---
Patient agitated and uncooperative with care. Attempting to jump out of bed to go home. Medisitter placed.
[2023-07-18] VITALS (9 sets, daily range): BP systolic 132–161; BP diastolic 66–81; PULSE 77–82
[2023-07-18 03:46] LABS: Hematocrit 28.7 % (39.0-52.0); Mean Corp Hgb Conc. 34.8 g/dL (33.0-37.0); Mean Corpuscular Hgb 30.1 pg (27.0-31.0); Mean Corpuscular Volume 86.4 fL (80.0-94.0); Mean Platelet Volume 9.7 fL (7.4-10.4); Platelet Count 296 10^3/uL (130-400); Red Blood Cell Count 3.32 10^6/uL (4.70-6.10); Red Cell Dist. Width 13.6 % (11.5-14.5); White Blood Cell Count 6.2 10^3/uL (4.8-10.8)
[2023-07-18 04:35] LABS: Blood Urea Nitrogen 45 mg/dl (9-20); Calcium 8.3 mg/dl (8.4-10.2); Carbon Dioxide 28 mmol/L (22-30); Chloride 103 mmol/L (98-107); Glucose 117 mg/dl (70-99); Potassium 3.6 mmol/L (3.5-5.1); Sodium 136 mmol/L (135-145); eGFR 13.46
--- NOTE | 2023-07-18 07:54 | PN.DE.MGMTRT ---
Insulin Management
- -
07/18/2023: Diabetes Management Consult:
63 year old male well known to diabetes team from recent admission to . Pt is readmitted with mental status change. CT head--> subacute left occipital and parietal infarct. PMH includes: HTN, ESRD on PD, hx of CVA and T2DM. Patient was previously
using a Medtronic 770 G insulin pump that was recently discontinued due to waxing and weaning mental status. He was d/c'd to rehab on insulin regimen:-Lantus 22 units @ HS and NovoLog 10 units AC with SS.
Patient is noted for Hyperglycemia, glucose has trended up to 425 and Diabetes team is consulted for management. Recent A1C 11%, Cr 5.6, eGFR 9.41.
Pt is awake, alert, oriented to name and place, Marie, sitting up in bed, eating breakfast, able to participate in discussion regarding diabetes management.
His appetite is excellent and is consuming 100% of all meals.
Glucose levels have significantly improved, HS blood sugar was 95, FBG 117 this AM, premeal 101 to 278, did not require any corrective insulin yesterday.
Will make no changes to current insulin regimen.
Cont Lantus 25 units BID, NovoLog 10 units AC and moderate corrective insulin with meals.
Will closely monitor glucose trend today and adjust AC dose if necessary.
Will resume his insulin pump once mental status is 100% at baseline, most likely at [facility] or after discharge from [facility].
Diabetes plan of care discussed with patient's nurse.
Diabetes History
- -
Type of Diabetes: 1
Pre-Admission Diabetes Regimen
07/18/23
03:19
Creatinine 4.6 H*
Insulin Pump Settings
IP Diabetes Regimen
07/17/23 07/17/23 07/17/23
08:19 11:26 15:48
Glucose
POC Glucose 278 H 184 H 101 H
07/17/23 07/18/23
21:24 03:19
Glucose 117 H
POC Glucose 95
Patient Education
--- NOTE | 2023-07-18 08:22 | W.PN.NEURO.1 ---
Today's Communication / Plan
-
-Continue aspirin 81 mg daily
-Follow CSF cytology and studies
-Would reimage brain with brain MRI with and without contrast in 4 weeks
-Speech, physical, occupational therapies
-Continue supportive care
Will follow
Neuro Assessment/Plan
Assessment
Neuro Imaging: CT head with subacute left occipital and parietal infarct, chronic to late subacute right occipital infarction, no hemorrhage
MRI changes are greater than what would be expected from prior occipital strokes and are more suggestive of intracranial abnormality including PROMOTIONS OFFICER lymphoma although this would be a secondary diagnosis after a significant first
1. Change in mental status in a patient with recent significant ischemic strokes to the occipital lobes bilaterally producing cognitive impairment as well as right-sided hemianopia and right-sided weakness. Etiology of stroke appears most likely
to be atheroembolic from uncontrolled diabetes mellitus versus less likely cardioembolic.
MRI brain with contrast is not supportive of neoplasm, more supportive of subacute stroke
Progression of the initial left SAP ENTERPRISE PORTAL CONSULTANT ischemic infarction seems the most likely explanation for worsened mental status, at risk with uncontrolled diabetes mellitus
Additionally ESRD on PD places him at risk for easy development of metabolic encephalopathy
I do feel it would be best to reimage the brain in 4 weeks as subacute strokes can occasionally be mistaken for brain neoplasm
Lumbar puncture not showing signs indicating infection
Subjective/Objective
Subjective Data
Date of Service: July 18, 2023
No acute events, remains confused
Objective Data
Vital Signs
Temp Pulse Resp BP Pulse Ox
97.7 F 61 15 148/66 97
07/18/23 03:54 07/18/23 04:00 07/18/23 02:01 07/18/23 04:00 07/18/23 05:52
Lab Results
07/18/23 03:19
07/18/23 03:19
PT 12.8 Sec (11.4-14.6) 07/17/23 13:28
INR 0.96 07/17/23 13:28
Sodium 136 mmol/L (135-145) 07/18/23 03:19
Potassium 3.6 mmol/L (3.5-5.1) 07/18/23 03:19
BUN 45 mg/dl (9-20) H 07/18/23 03:19
Glucose 117 mg/dl (70-99) H 07/18/23 03:19
Calcium 8.3 mg/dl (8.4-10.2) L 07/18/23 03:19
LDL Cholesterol, Calc 57 mg/dl 07/15/23 03:32
Patient Allergies
No Known Allergies Allergy (Verified 07/14/23 17:16)
Review of Systems
-
History Source: Patient
All other systems: Reviewed and negative
Constitutional: No Symptoms
EENT: No Symptoms Reported
Respiratory: No Symptoms
Cardiac: No Symptoms
Abdomen/GI: No Symptoms
Genitourinary: No Symptoms
Musculoskeletal: No Symptoms
Skin: No Symptoms
Neuro: Speech Problem
Endocrine: No Symptoms
Hematologic / Lymphatic: No Symptoms
Allergy / Immunology: No Symptoms
Physical Exam
-
General: Well Developed and Well Nourished
Eyes: No Ptosis
HEENT: Normocephalic
Neck: No Bruits Bilaterally
Respiratory: Clear to Auscultation
Cardiac: Regular Rhythm
GI: Normal Bowel Sounds
Skin: Unremarkable
Extremities: No Clubbing
Psych: Unremarkable
Extended Neurological Exam
Mood & Affect: Mood Unremarkable and Affect Unremarkable
Attention Span & Concentration: Awake, Alert and Interactive
Memory: Unremarkable
Tremor: Hand Tremor Absent
Involuntary Movement: None
Speech: Expressive Aphasia and Receptive Aphasia
Cranial Nerve II: Left Eye: Other (Right homonymous hemianopia)
Cranial Nerve II: Right Eye: Other (Right homonymous hemianopia)
Cranial Nerves III, IV, : Extraocular Movement: Extraocular Movement Full in all Directions
Muscle Strength, Overall: Other (Mild right arm weakness)
Pronator Drift: Drift in Right Upper Extremity
Data Reviewed
-
CT Head: Report Reviewed and Image Reviewed
MRI Head: Report Reviewed and Image Reviewed
Labs: Report Reviewed
[2023-07-18 08:48] LABS: Glucose - Point of Care 106 mg/dl (70-99)
[2023-07-18] MEDS: NOVOLOG FLEXPEN-MODERATE RESISTANCE SC ×3 (08:50→18:03)
--- NOTE | 2023-07-18 09:18 | CON.MD ---
Consultation - Medical
-
Referring Provider: Dr. Spencer Carter
Chief complaint: CVA
History of Present Illness: 63-year-old male with PMH of (hypertension, insulin-dependent diabetes, renal failure on peritoneal dialysis) recently presented to the [facility] emergency department with DKA and TME likely related to
sepsis/infection. Also had right-sided field cut associated with right-sided neglect from multiple areas of subacute infarction including punctate areas of infarct in the right cerebellar hemisphere and a 6 cm left occipital infarct with petechiae
hemorrhage. He was stabilized and sent to [facility] on 07/05/23. While there he became more lethargic and developed urinary retention requiring Ward catheter and started to have some abdominal discomfort. He was sent back to
[facility] emergency department on 07/14/[address] of the head noted progression of the findings of his stroke. Noted with significant hyperglycemia requiring adjustment in insulin dosing. Repeat MRI noting changes greater than would be
expected from prior occipital strokes with concern for a MANUFACTURING AREA MANAGER lymphoma. MRI brain with contrast thought to be evolution of subacute left JOURNEYMAN PATTERNMAKER infarct with no solid enhancing mass that would be considered highly suspicious for neoplasm or MANUFACTURING AREA MANAGER
lymphoma. Large amount of vasogenic edema with mass effect on the occipital horn of the left lateral ventricle and slight right lower midline shift measuring 4 mm at the level of the septum pellucidum.
Past Medical History: Hypertension, Diabetes Mellitus, Type I with Retinopathy, Nephropathy, and Neuropathy, secondary hyperparathyroidism, BPH, end-stage renal disease with peritoneal dialysis
Procedure History: Peritoneal dialysis catheter
Family History: None pertinent
Social History:
Functional Level Premorbidly: Independent with all activities
Functional Level Currently: Max A/Dependent bed mobility, Mod A transfers. Dependent LE self care.
Tobacco: Denies
Alcohol: Denies
Drug use: Denies
Lives with: Spouse
24-hour assistance available: Yes
Number of floors: One-story home
# steps to enter: 1
Potential First floor set up: yes
Driving: Yes
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
Allergies:
Allergy/AdvReac Type Severity Reaction Status Date / Time
No Known Allergies Allergy Verified 07/14/23 17:16
Review of Systems:
Constitutional: (x) abNormal _tired
Eye: (x) right field deficit, right sided hemianopsia
Ear/Nose/Throat: (x) Normal _
Respiratory: (x) Normal _
Cardiovascular: (x)
Gastrointestinal: (x) Normal _
Genitourinary: (x) Normal _
Musculoskeletal: (x)
Integumentary: (x)
Neurologic: (x) CVA, right sided neglect
Psychiatric: (x) Normal _
Endocrine: (x) Normal _
Hematologic/Lymphatic: (x) Normal _
Allergic/Immunologic: (x) Normal _
Medications:
Active Current Visit Medication List
Category Date Time Status
Acetaminophen [Tylenol/Feverall] Med 07/15/23 03:23 Active
650 mg RECTAL Q4HPRN PRN
Acetaminophen [Tylenol] Med 07/15/23 03:23 Active
650 mg PO Q4HPRN PRN
Aspirin Chewable [Low Strength Aspirin] Med 07/15/23 08:00 Active
81 mg PO DAILY
Atorvastatin [Lipitor] Med 07/15/23 22:00 Active
40 mg PO HS
Bisacodyl [Dulcolax] Med 07/15/23 03:23 Active
10 mg RECTAL DAILY PRN
Calcitriol [Rocaltrol] Med 07/15/23 08:00 Active
0.5 mcg PO DAILY
Cinacalcet HCl [Sensipar] Med 07/15/23 08:00 Active
30 mg PO DAILY
Dextrose 50%-Water [Dextrose 50% Syringe] Med 07/15/23 08:49 Active
12.5 grams IV [id number] PRN
Diltiazem Sustained Release [Cardizem Sr] Med 07/15/23 08:00 Active
120 mg PO DAILY
Docusate Sodium [Colace] Med 07/15/23 08:00 Active
100 mg PO BID
Flush (0.9% Sodium Chloride) [Flush (Nss)] Med 07/14/23 23:00 Active
See Dose Instructions IV PER PROTOCOL
Furosemide [Lasix] Med 07/18/23 08:00 Active
40 mg PO DAILY
Glucagon [GlucaGen] Med 07/15/23 08:49 Active
1 mg IM PRN PRN
Heparin Med 07/15/23 03:23 Active
5,000 units SC Q8
Insulin Aspart Corrective Mod [Novolog Flexpen-Moderate Med 07/15/23 11:30 Active
Resistance]
See Protocol SC AC
Insulin Aspart Pen [Novolog Flexpen] Med 07/16/23 16:30 Active
10 units SC AC
Insulin Glargine Lantus [Lantus] 25 units Med 07/17/23 22:00 Active
Subcutaneous Insulin Syringe [Syringe-Insulin] 0 unit
SC BID
Lactulose [Duphalac/Chronulac] Med 07/15/23 08:00 Active
20 grams PO BID
Pantoprazole [Protonix] Med 07/15/23 08:00 Active
40 mg PO DAILY
Polyethylene Glycol Powder [Miralax] Med 07/15/23 08:00 Active
17 grams PO DAILY
Sennosides [Senokot] Med 07/15/23 12:00 Active
17.2 mg PO NOON
Sevelamer Carbonate Med 07/15/23 03:23 Active
0.8 gm PO BID
Tamsulosin [Flomax] Med 07/15/23 08:00 Active
0.4 mg PO DAILY
Vitals:
Temp Pulse Resp BP Pulse Ox
98.1 F 61 15 148/66 97
07/18/23 07:44 07/18/23 04:00 07/18/23 02:01 07/18/23 04:00 07/18/23 05:52
Actual Weight 74.6 kg
Physical Exam:
General Appearance/Observation: Well-developed, well-nourished male in no apparent distress.
Pain/Comfort Assessment: Denies
Mood/Affect: flat affect
Integumentary/Operative Site:
�� Pressure Ulcer Evaluation: absent over heels.
Eyes: Conjunctiva/Lids: normal ��� Pupils: pupils equal round and reactive to light and Accommodation
Ears/Nose/Throat: oral mucosa moist,�unable to assess throat fully due to patient not fully opening his mouth����� Lips/Teeth/Gums: normal
Neck: No muscle spasm or tenderness
Cardiovascular: Heart: regular, no murmur
Pulses: dorsalis pedis 2+ bilaterally
Respiratory: Respiratory Effort/Chest Expansion: normal ������� Auscultation: Clear to auscultation bilaterally
Gastrointestinal: abdomen not tender, no distension, abdominal bowel sounds present. Peritoneal dialysis tube noted
Genitourinary: No Ward
Rectal Exam: Deferred
Extremities: Edema: None Cyanosis: None Trophic changes: None
Neurology Exam:
Orientation: Alert, Oriented to self, Place. Not month-March, date, year 2013, president-don't know
Memory: Impaired
Repetition: Impaired, has perseverative speech
Comprehension: Impaired and slow to process
Two step command: Impaired
Naming: Impaired, cannot name TV, clock, and could not tell time
Cranial Nerves:
�� CNII: Pupillary light reflex: Intact��� Visual Field: impaired, right homonymous hemianopsia
�� CN III, IV, : Extraocular muscles: unable to assess Patient not following instructions
�� CN V: Facial Sensation: forehead: Impaired on the left, Maxilla: Impaired on the left, Mandible: Impaired on the left
�� CN VII: Facial movement: Symmetrical
�� CN VIII: Hearing: Normal
�� CN IX/X: Speech & swallow: perseverative speech position of Uvula: Midline
�� CN XI: Shoulder shrug: symmetrical
�� CN XII: Tongue protrusion: midline
Sensory:
�� Light touch: Difficulty with exam, says right no matter what arm touched, even if not touched says right.
��
Reflexes:
�� Biceps: 2+bilaterally
�� Brachioradialis:2+ bilaterally
�� Triceps: 2+ bilaterally
�� Patellar: 2+ bilaterally
�� Achilles: absent bilaterally
�� Babinski: upward going bilaterally
�� Clonus: None
�� Tone: Negative bilaterally
Cerebellar: Dysmetria/Ataxia: impaired nose to finger coordination on the right
Musculoskeletal: Motor: (Manual muscle scale 0-5)
Muscle SA EF WE EE FF FA HF KE DF EHL PF
Right� 4 5 4 4 5 4 4 5 5 5 5
Left 5 5 4 4 5 4 4 5 5 5 5
Tone: Normal in all extremities
Range of Motion: Passively within normal limits in all extremities
Lab Results
Laboratory Data
07/18/23 03:19
07/18/23 03:19
PT 12.8 Sec (11.4-14.6) 07/17/23 13:28
INR 0.96 07/17/23 13:28
Total Bilirubin 0.6 mg/dl (0.2-1.3) 07/14/23 17:23
AST 26 U/L (17-59) 07/14/23 17:23
ALT 23 U/L (0-50) 07/14/23 17:23
Alkaline Phosphatase 150 U/L (38-126) H 07/14/23 17:23
Total Protein 5.2 g/dl (6.3-8.2) L 07/14/23 17:23
Albumin 2.8 g/dl (3.5-5.0) L 07/14/23 17:23
Diagnostic Results: as per HPI
Assessment
63-year-old Right handed male [facility] (hypertension, insulin-dependent diabetes, renal failure on peritoneal dialysis) presented to the [facility] emergency department on with confusion and uncontrolled blood glucose on Insulin pump admitted with
DKA and TME likely related to sepsis/infection. Patient with right-sided field cut associated with right-sided neglect. MRI of the brain reveals multiple areas of subacute infarction including punctate areas of infarct in the right cerebellar
hemisphere and a 6 cm left occipital infarct with petechiae hemorrhage. The multiple vascular distributions of these infarcts suggest embolic etiology such as cardiac related.
Plan
PT/OT to increase independence with ADLs, improve balance, coordination, endurance, strength, mobility, community reintegration, decreased burden of care on others and family education.
CVA with progression concern: Multiple subacute CVA superimposed with occlusion of the left posterior cerebral. Most likely etiology is atheroembolic and diabetes mellitus given uncontrolled diabetes HbA1c of 11
Secondary prophylaxis with aspirin, statin, and blood pressure control (SBP less than 180 and diastolic less than 100 to participate with therapy for ischemic stroke). Continue to monitor neurologic status.
Right dominant hemiparesis: High risk for falls and sliding out of chair/bed. Safety reinforced.
- Avoid using affected arm to help lift or pull patient as this will cause trauma to the shoulder.
Right Neglect: makes patient at increased risk for falls.� Will need therapy to work on scanning of environment for safe navigation.
Right sided hemianopsia: vision deficits from stroke, makes her at higher risk for falls
Ataxia: PT/OT
HTN: diltiazem SR 120 mg daily.
HLD: Rosuvastatin
ESRD on peritoneal dialysis: Secondary hyperparathyroidism. Monitor I&O's and daily weights. On Cinacalcet/sevelamer. Nephrology managing.
IDDM-uncontrolled at baseline: Hemoglobin A1c 11% .Accu-Cheks, insulin sliding scale, insulin glargine 25 units daily, insulin aspart 10 units sc AC. Monitor
Anemia: Hemoglobin 10, monitor.
Psych: Psychology consult.� Monitor mood, adjust medications as needed.
Skin: monitor for pressure sores/rashes/lesions.
Pain: acetaminophen as needed.
Bowel: Colace and Senna, PRN bisacodyl.
Bladder/BPH: Time void, PVRs, PRN straight cath.
GI Prophylaxis: Pantoprazole
DVT Prophylaxis: Mechanical and heparin 5000 units SC q 8 hours
Pulmonary: Incentive spirometry
Safety: Continue to reinforce assistance with all transfers.
Code Status:� Full code
Dispo (date/plan/equipment needs): Home with family care.� Social history reviewed.
Functional and Medical Goals: Modified Independent with ADL�s, ambulation, transfers
Discharge Destination: Likely acute inpatient rehabilitation that provides peritoneal dialysis versus long term facility depending on functional status prior to discharge
A total of 60 minutes were spent with the patient preparing for the evaluation, obtaining history, performing examination and evaluation, counseling, data review, case management, care coordination, cost recorder, and EMR documentation.
Summary of recommendations:
Discharge Destination: Likely acute inpatient rehabilitation that provides peritoneal dialysis versus long term facility depending on functional status prior to discharge
CVA with progression concern: Multiple subacute CVA superimposed with occlusion of the left posterior cerebral. Most likely etiology is atheroembolic and diabetes mellitus given uncontrolled diabetes HbA1c of 11
Secondary prophylaxis with aspirin, statin, and blood pressure control (SBP less than 180 and diastolic less than 100 to participate with therapy for ischemic stroke). Continue to monitor neurologic status.
Right dominant hemiparesis: High risk for falls and sliding out of chair/bed. Safety reinforced.
- Avoid using affected arm to help lift or pull patient as this will cause trauma to the shoulder.
Right Neglect: makes patient at increased risk for falls.� Will need therapy to work on scanning of environment for safe navigation.
Right sided hemianopsia: vision deficits from stroke, makes her at higher risk for falls
Ataxia: PT/OT
ESRD on peritoneal dialysis: Secondary hyperparathyroidism. Monitor I&O's and daily weights. On Cinacalcet/sevelamer. Nephrology managing.
IDDM-uncontrolled at baseline: Hemoglobin A1c 11% .Accu-Cheks, insulin sliding scale, insulin glargine 25 units daily, insulin aspart 10 units sc AC. Monitor
Thank you for allowing me to care for your patient. Please contact me with any questions or concerns.
--- NOTE | 2023-07-18 09:19 | PTCARENOTE ---
Patient received from magazine filler. Patient resting comfortably in bed. AAO, VSS. No events noted overnight. No complaints of pain at this time. Right sided chest tube remains in place and still clamped per Pulmonary order. Plan to unclamp
later this morning and possibly removed based on output. Call moody in reach.
--- NOTE | 2023-07-18 09:30 | PTCARENOTE ---
Patient received from night auditor. Patient resting comfortably in bed. AAO x2, VSS. No events noted over night. No complaints of pain at this time. Shift change NIH was 11. Continuing to received PD. Ward in place, just for acute retention.
Will try and figure out what the plan is and get order to reflect. Call moody in reach.
[2023-07-18] MEDS: FLOMAX 0.400000000000000022 MG PO (09:39)
[2023-07-18] MEDS: LASIX 40 MG PO (09:39)
[2023-07-18] MEDS: PROTONIX 40 MG PO (09:39)
[2023-07-18] MEDS: COLACE 100 MG PO ×2 (09:39→20:18)
[2023-07-18] MEDS: CARDIZEM SR 120 MG PO (09:39)
[2023-07-18] MEDS: LOW STRENGTH ASPIRIN 81 MG PO (09:40)
[2023-07-18] MEDS: SEVELAMER CARBONATE 0.800000000000000044 GM PO ×2 (09:40→20:18)
[2023-07-18] MEDS: ROCALTROL 0.5 MCG PO (09:40)
[2023-07-18] MEDS: HEPARIN 5000 UNITS SC ×2 (09:40→18:02)
[2023-07-18] MEDS: SENSIPAR 30 MG PO (09:40)
[2023-07-18] MEDS: MIRALAX 17 GRAMS PO (09:40)
[2023-07-18] MEDS: DUPHALAC/CHRONULAC 20 GRAMS PO ×2 (09:40→20:17)
[2023-07-18] MEDS: NOVOLOG FLEXPEN 10 UNITS SC ×2 (09:41→18:06)
[2023-07-18] MEDS: LANTUS 0.25 UNITS SC (09:45)
--- NOTE | 2023-07-18 09:49 | W.PN.HOSP.TC ---
Today's Communication/Plan
-
Continue current management. Rehab reeval.
Assessment / Plan
Assessment / Plan
Physical exam:
General: Acutely ill
HEENT: Normocephalic, Atraumatic and Moist Mucous Membranes
Respiratory: Clear to Auscultation; Negative Wheezes, Rales or Rhonchi
Cardiac: Regular Rhythm and S1/S2
GI: Soft, Nontender and Nondistended
Musculoskeletal: No Clubbing, No Cyanosis and No Edema
Neuro: Lethargic, disoriented, encephalopathic. Does move spontaneously all 4 extremity and weak around 4 out of 5 but symmetrically. Visual deficits present.
Psych: Calm
MRI of the brain:
Acute on subacute infarct in the left occipital lobe in the area of previous infarct, with increased edema and mass effect on the left lateral ventricle occipital horn. Areas of hemosiderin within the area of previous infarct consistent with foci of
hemorrhage.
Resolution of some of the smaller foci of restricted diffusion in the cerebellum, stable appearance of the posterior right occipital lobe infarct.
No midline shift or downward herniation.
Near complete opacification of the left maxillary sinus.
Findings discussed with Dr. Ramos at 2:35 PM. There is prominent mass effect along the left lateral ventricle occipital horn and mass effect along the corpus callosum. While this could certainly be due to edema from the recurrent and residual CVA,
a follow-up brain MRI with and without contrast is recommended after treatment to exclude the unlikely possibility of an occult neoplasm.
Brain MRI with contrast:
Gyral enhancement in the left occipital lobe is favored to be on the basis of evolution of the subacute left posterior cerebral artery territory infarct. No solid enhancing mass that would be considered highly suspicious for neoplasm/SILVER DESIGNER lymphoma.
Large amount of vasogenic edema is redemonstrated with mass effect on the occipital horn of the left lateral ventricle, and slight rightward midline shift measuring 4 mm at the level of the septum pellucidum.
EEG:
Unremarkable EEG for age in sleep only
A/P:
Toxic metabolic encephalopathy:
Etiology not entirely clear but suspected worsening/recrudescence stroke versus brain malignancy versus metabolic. Likely part of stroke.
Appreciated neurology follow-up today
Brain MRI without contrast results as above
Brain MRI with contrast repeated and LP yesterday
Blood cultures no growth
Continue aspirin 81 mg daily
No Plavix (he was not on it prior to admission)
Continue atorvastatin 40 mg nightly
Continue neurochecks/NIH
Updated over the phone today
Rehab consult yesterday
Updated over the phone today
Diabetes mellitus with significant hyperglycemia:
No evidence of DKA or HHS
Holding insulin pump
Long-acting and short acting insulin
Aggressive insulin management and if no improvement might consider non-DKA insulin drip
PRINCIPAL SYSTEMS ARCHITECT diabetes consultation appreciated
End-stage renal disease on peritoneal dialysis:
Continue PD per nephrology
Apparently RN told me needs to be in IMU due to PD
Acute urinary retention/BPH:
Ward catheter in place prior to admission.
Continue Flomax
Urology consult appreciated
It appears urology recommends to continue Ward catheter upon discharge and reevaluate as outpatient.
Hyperlipidemia:
Continue statin
DVT prophylaxis:
Heparin SQ
CODE STATUS:
Full code
Anticipated Discharge: 24 - 48 hours
Subjective/Interval History
-
Date of Service: July 18, 2023
Patient alert, mild disorientation but improved overall. Afebrile
Objective Data
-
Labs:
Laboratory Results
07/18/23
03:19
WBC 6.2
Hgb 10.0 L
Hct 28.7 L
Plt Count 296
Sodium 136
Potassium 3.6
Chloride 103
Carbon Dioxide 28
BUN 45 H
Creatinine 4.6 H*
Glucose 117 H
Calcium 8.3 L
Vital Signs:
Vital Signs
Temp Pulse Resp BP Pulse Ox
98.1 F 61 15 148/66 97
07/18/23 07:44 07/18/23 04:00 07/18/23 02:01 07/18/23 04:00 07/18/23 05:52
I&O
07/17/23 07/18/23 07/19/23
06:59 06:59 06:59
Intake Total 1260 / 1260 800 / 800
Output Total 960 / 960 1625 / 1625
Balance 300 / 300 -825 / -825
Review of Systems
-
All other systems: Reviewed and negative
--- NOTE | 2023-07-18 11:17 | W.PN.NEPH.PH ---
Today's Communication / Plan
-
cotn PD all 1.5%, 2lit q4h exchanges
Assessment/Plan
-
Impression:
ESRD/PD
Mental status changes with extension of posterior left parietal occipital
Metabolic encephalopathy with CVA findings on CT 06/27
Hypertension
Secondary hyperparathyroidism
Diabetes
Hyperphosphatemia
Dyslipidemia
BPH
Bladder retention
Plan:
-PD orders provided 2 L 1.5%q4h
-Flowsheets reviewed:mostly net neg UF, cont 1.5% at this time , prn lasix
hyperglycemia improving
s/p MRI with gadolinium shows evolution of subacute CVA and no mass, s/p LP on 07/16-neuro follows
-FATIMAH therapy for anemia prn
-Hemodynamically stable on carvedilol and diltiazem and wt decreasing
-Maintain calcitriol for secondary hyperparathyroidism
-Maintain sevelamer with meals in regards to hyperphosphatemia
-Now with Green for bladder retention ( suspect due to recent CVA)-keep it for now in acute CVA per
There is concern of ALIX based on pulse ox during sleep per nursing
d/w nursing
-
-
Date of Service: July 18, 2023
CC / HPI / ROS
-
Chief Complaint:
End-stage renal disease
History of Present Illness:
Remains on peritoneal dialysis
Blood pressure stable on oral antihypertensive
no fever, wt is down
non oliguric with green
Review of Systems:
No chest pain or shortness of breath
no fever
Labs
-
Labs:
WBC 6.2 10^3/uL (4.8-10.8) 07/18/23 03:19
RBC 3.32 10^6/uL (4.70-6.10) L 07/18/23 03:19
Hgb 10.0 g/dL (13.0-18.0) L 07/18/23 03:19
Hct 28.7 % (39.0-52.0) L 07/18/23 03:19
Plt Count 296 10^3/uL (130-400) 07/18/23 03:19
Sodium 136 mmol/L (135-145) 07/18/23 03:19
Potassium 3.6 mmol/L (3.5-5.1) 07/18/23 03:19
Chloride 103 mmol/L (98-107) 07/18/23 03:19
Carbon Dioxide 28 mmol/L (22-30) 07/18/23 03:19
BUN 45 mg/dl (9-20) H 07/18/23 03:19
Creatinine 4.6 mg/dL (0.7-1.3) H* 07/18/23 03:19
eGFR 13.46 07/18/23 03:19
Glucose 117 mg/dl (70-99) H 07/18/23 03:19
Calcium 8.3 mg/dl (8.4-10.2) L 07/18/23 03:19
Albumin 2.8 g/dl (3.5-5.0) L 07/14/23 17:23
Physical Exam
-
Vital Signs:
Vital Signs
Temp Pulse Resp BP Pulse Ox
98.1 F 78 15 135/81 97
07/18/23 07:44 07/18/23 09:39 07/18/23 02:01 07/18/23 09:39 07/18/23 05:52
Cardiovascular:: Regular rate and rhythm
Respiratory:: Bilateral: CTA
Lung Excursion:: Normal
Abdomen:: Nontender and Soft
Extremity Edema:: None: Bilateral:
Green Catheter: Yes
--- NOTE | 2023-07-18 11:22 | W.PN.UPDATE ---
Update Note
Progress Note Update
PD notes:
reviewed PD flow sheets , draining during visit, PD fluid clear
net neg balance 825cc, and wt decreasing
FV=2lit , all 1.5%, Q4h exchanges
[2023-07-18 12:37] LABS: Glucose - Point of Care 82 mg/dl (70-99)
[2023-07-18] MEDS: NOVOLOG FLEXPEN SC (13:04)
[2023-07-18] MEDS: SENOKOT 17.1999999999999993 MG PO (13:29)
[2023-07-18 17:21] LABS: Glucose - Point of Care 98 mg/dl (70-99)
--- NOTE | 2023-07-18 19:04 | PTCARENOTE ---
Attempted to get green order updated, unable to get order to reflect the plan for the patient.
[2023-07-18] MEDS: LIPITOR 40 MG PO (20:18)
[2023-07-18] MEDS: LANTUS 0.200000000000000011 UNITS SC (22:30)
[2023-07-18 22:38] LABS: Glucose - Point of Care 106 mg/dl (70-99)
[2023-07-19] VITALS (9 sets, daily range): BP systolic 119–176; BP diastolic 54–109; PULSE 88
[2023-07-19] MEDS: HEPARIN 5000 UNITS SC ×4 (00:19→23:17)
[2023-07-19 05:04] LABS: Hematocrit 30.7 % (39.0-52.0); Hemoglobin 10.3 g/dL (13.0-18.0); Mean Corp Hgb Conc. 33.6 g/dL (33.0-37.0); Mean Corpuscular Hgb 29.8 pg (27.0-31.0); Mean Corpuscular Volume 88.7 fL (80.0-94.0); Mean Platelet Volume 9.6 fL (7.4-10.4); Platelet Count 276 10^3/uL (130-400); Red Blood Cell Count 3.46 10^6/uL (4.70-6.10); Red Cell Dist. Width 13.5 % (11.5-14.5); White Blood Cell Count 7.7 10^3/uL (4.8-10.8)
[2023-07-19 05:30] LABS: Blood Urea Nitrogen 40 mg/dl (9-20); Calcium 8.9 mg/dl (8.4-10.2); Carbon Dioxide 30 mmol/L (22-30); Chloride 99 mmol/L (98-107); Glucose 89 mg/dl (70-99); Potassium 3.6 mmol/L (3.5-5.1); Sodium 134 mmol/L (135-145); eGFR 12.79
[2023-07-19 08:34] LABS: Glucose - Point of Care 103 mg/dl (70-99)
--- NOTE | 2023-07-19 08:48 | CM ---
Addendum entered by Simona Taylor 07/19/23 16:18:
[facility] will review patient referral, sent via all scripts. [facility] with no availability at this time.
Addendum entered by Simona Taylor 07/19/23 15:54:
Patient updated requested that CM check with [facility] and [facility] to determine if they were possible options. family really wants [facility].
Original Note:
CM called to [facility] and requested update regarding acceptance, bed availability. CM awaiting response from [facility] regarding plan. Patient will need auth prior to transfer, physician updated.
Plan; Acute Rehab; pending bed
--- NOTE | 2023-07-19 08:54 | PN.DE.MGMTRT ---
Insulin Management
- -
07/19/2023: Diabetes Management Consult:
63 year old male well known to diabetes team from recent admission to . Pt is readmitted with mental status change. CT head--> subacute left occipital and parietal infarct. PMH includes: HTN, ESRD on PD, hx of CVA and T2DM. Patient was previously
using a [employer]onic 770 G insulin pump that was recently discontinued due to waxing and weaning mental status. He was d/c'd to rehab on insulin regimen:-Lantus 22 units @ HS and NovoLog 10 units AC with SS.
Patient is noted for Hyperglycemia, glucose has trended up to 425 and Diabetes team is consulted for management. Recent A1C 11%, Cr 5.6, eGFR 9.41.
Pt is awake, alert, oriented, sitting up in bed, able to participate in discussion regarding diabetes management.
Glucose levels have significantly improved, Predinner glucose was 98, HS was 106 and FBG 89 this AM,
Will reduce Lantus to 18 units and AC NovoLog to 8 units. Cont moderate corrective insulin with meals.
Will closely monitor glucose trend today and adjust AC dose if necessary.
Diabetes plan of care discussed with patient's nurse.
Diabetes History
- -
Type of Diabetes: 1
Pre-Admission Diabetes Regimen
07/19/23
04:55
Creatinine 4.8 H*
Insulin Pump Settings
IP Diabetes Regimen
07/18/23 07/18/23 07/18/23
12:26 17:10 22:27
Glucose
POC Glucose 82 98 106 H
07/19/23 07/19/23
04:55 08:22
Glucose 89
POC Glucose 103 H
Meal type: Breakfast
Amount consumed: 100%
Patient Education
--- NOTE | 2023-07-19 08:56 | W.PN.HOSP.TC ---
Today's Communication/Plan
-
Continue current management. Discharge planning in progress
Assessment / Plan
Assessment / Plan
Physical exam:
General: Acutely ill
HEENT: Normocephalic, Atraumatic and Moist Mucous Membranes
Respiratory: Clear to Auscultation; Negative Wheezes, Rales or Rhonchi
Cardiac: Regular Rhythm and S1/S2
GI: Soft, Nontender and Nondistended
Musculoskeletal: No Clubbing, No Cyanosis and No Edema
Neuro: Lethargic, disoriented, encephalopathic. Does move spontaneously all 4 extremity and weak around 4 out of 5 but symmetrically. Visual deficits present.
Psych: Calm
MRI of the brain:
Acute on subacute infarct in the left occipital lobe in the area of previous infarct, with increased edema and mass effect on the left lateral ventricle occipital horn. Areas of hemosiderin within the area of previous infarct consistent with foci of
hemorrhage.
Resolution of some of the smaller foci of restricted diffusion in the cerebellum, stable appearance of the posterior right occipital lobe infarct.
No midline shift or downward herniation.
Near complete opacification of the left maxillary sinus.
Findings discussed with Dr. Ramos at 2:35 PM. There is prominent mass effect along the left lateral ventricle occipital horn and mass effect along the corpus callosum. While this could certainly be due to edema from the recurrent and residual CVA,
a follow-up brain MRI with and without contrast is recommended after treatment to exclude the unlikely possibility of an occult neoplasm.
Brain MRI with contrast:
Gyral enhancement in the left occipital lobe is favored to be on the basis of evolution of the subacute left posterior cerebral artery territory infarct. No solid enhancing mass that would be considered highly suspicious for neoplasm/MANAGER OF BROADCAST CONTENT lymphoma.
Large amount of vasogenic edema is redemonstrated with mass effect on the occipital horn of the left lateral ventricle, and slight rightward midline shift measuring 4 mm at the level of the septum pellucidum.
EEG:
Unremarkable EEG for age in sleep only
A/P:
Toxic metabolic encephalopathy:
Etiology not entirely clear but suspected worsening/recrudescence stroke versus brain malignancy versus metabolic. Likely part of stroke.
Appreciated neurology consult and follow-up
Brain MRI without contrast results as above
Brain MRI with contrast repeated and LP yesterday
Blood cultures no growth
Continue aspirin 81 mg daily
No Plavix (he was not on it prior to admission)
Continue atorvastatin 40 mg nightly
Continue neurochecks/NIH
Updated over the phone today
Rehab consulted
Updated over the phone yesterday
Discussed with case hardener and patient medically cleared for discharge.
Diabetes mellitus with significant hyperglycemia:
No evidence of DKA or HHS
Holding insulin pump
Long-acting and short acting insulin
Aggressive insulin management and if no improvement might consider non-DKA insulin drip
HEEL PADDER diabetes consultation appreciated
End-stage renal disease on peritoneal dialysis:
Continue PD per nephrology
Apparently RN told me needs to be in IMU due to PD
Acute urinary retention/BPH:
Ward catheter in place prior to admission.
Continue Flomax
Urology consult appreciated
It appears urology recommends to continue Ward catheter upon discharge and reevaluate as outpatient.
Hyperlipidemia:
Continue statin
DVT prophylaxis:
Heparin SQ
CODE STATUS:
Full code
Anticipated Discharge: 24 - 48 hours
Subjective/Interval History
-
Date of Service: July 19, 2023
Patient alert. No new complaints.
Objective Data
-
Labs:
Laboratory Results
07/19/23
04:55
WBC 7.7
Hgb 10.3 L
Hct 30.7 L
Plt Count 276
Sodium 134 L
Potassium 3.6
Chloride 99
Carbon Dioxide 30
BUN 40 H
Creatinine 4.8 H*
Glucose 89
Calcium 8.9
Vital Signs:
Vital Signs
Temp Pulse Resp BP Pulse Ox
98.9 F 71 11 152/67 98
07/19/23 04:37 07/19/23 04:00 07/19/23 04:00 07/19/23 04:00 07/19/23 01:39
I&O
07/18/23 07/19/23 07/20/23
06:59 06:59 06:59
Intake Total 800 / 800 800 / 800
Output Total 1625 / 1625 1100 / 1100
Balance -825 / -825 -300 / -300
--- NOTE | 2023-07-19 09:11 | W.PN.NEPH.PH ---
Today's Communication / Plan
-
PD orders provide
Assessment/Plan
-
Impression:
ESRD/PD
Mental status changes with extension of posterior left parietal occipital
Metabolic encephalopathy with CVA findings on CT 06/27
Hypertension
Secondary hyperparathyroidism
Diabetes
Hyperphosphatemia
Dyslipidemia
BPH
Bladder retention
Plan:
-PD orders provided 2 L 1.5%q4h
-Flowsheets reviewed:mostly net neg UF, cont 1.5% at this time , prn lasix , weight stable
-hyperglycemia improving
-s/p MRI with gadolinium shows evolution of subacute CVA and no mass, s/p LP on 07/16-neuro follows
-FATIMAH therapy for anemia prn
-Hemodynamically stable on carvedilol and diltiazem and wt decreasing
-Maintain calcitriol for secondary hyperparathyroidism
-Maintain sevelamer with meals in regards to hyperphosphatemia
-Now with Green for bladder retention ( suspect due to recent CVA)-keep it for now in acute CVA per
There is concern of ALIX based on pulse ox during sleep per nursing
d/w nursing
-
-
Date of Service: July 19, 2023
CC / HPI / ROS
-
Chief Complaint:
End-stage renal disease
History of Present Illness:
Remains on peritoneal dialysis
Blood pressure stable on oral antihypertensive
no fever, wt is down
non oliguric with green
Review of Systems:
No chest pain or shortness of breath
no fever
Labs
-
Labs:
WBC 7.7 10^3/uL (4.8-10.8) 07/19/23 04:55
RBC 3.46 10^6/uL (4.70-6.10) L 07/19/23 04:55
Hgb 10.3 g/dL (13.0-18.0) L 07/19/23 04:55
Hct 30.7 % (39.0-52.0) L 07/19/23 04:55
Plt Count 276 10^3/uL (130-400) 07/19/23 04:55
Sodium 134 mmol/L (135-145) L 07/19/23 04:55
Potassium 3.6 mmol/L (3.5-5.1) 07/19/23 04:55
Chloride 99 mmol/L (98-107) 07/19/23 04:55
Carbon Dioxide 30 mmol/L (22-30) 07/19/23 04:55
BUN 40 mg/dl (9-20) H 07/19/23 04:55
Creatinine 4.8 mg/dL (0.7-1.3) H* 07/19/23 04:55
eGFR 12.79 07/19/23 04:55
Glucose 89 mg/dl (70-99) 07/19/23 04:55
Calcium 8.9 mg/dl (8.4-10.2) 07/19/23 04:55
Albumin 2.8 g/dl (3.5-5.0) L 07/14/23 17:23
Physical Exam
-
Vital Signs:
Vital Signs
Temp Pulse Resp BP Pulse Ox
97.9 F 71 11 152/67 98
07/19/23 07:58 07/19/23 04:00 07/19/23 04:00 07/19/23 04:00 07/19/23 01:39
Cardiovascular:: Regular rate and rhythm
Respiratory:: Bilateral: CTA
Lung Excursion:: Normal
Abdomen:: Nontender and Soft
Bowel Sounds:: Normal
Extremity Edema:: None: Bilateral:
Green Catheter: No
--- NOTE | 2023-07-19 09:15 | W.PN.UPDATE ---
Update Note
Progress Note Update
PD note:
2 L exchanges every 4 hours 1.5%
Systolic blood pressure stable
Reviewed flowsheets
[2023-07-19] MEDS: NOVOLOG FLEXPEN-MODERATE RESISTANCE SC (09:26)
[2023-07-19] MEDS: NOVOLOG FLEXPEN SC (09:27)
[2023-07-19] MEDS: FLOMAX 0.400000000000000022 MG PO (09:41)
[2023-07-19] MEDS: LOW STRENGTH ASPIRIN 81 MG PO (09:41)
[2023-07-19] MEDS: COLACE 100 MG PO ×2 (09:41→19:44)
[2023-07-19] MEDS: ROCALTROL 0.5 MCG PO (09:41)
[2023-07-19] MEDS: DUPHALAC/CHRONULAC 20 GRAMS PO ×2 (09:42→19:44)
[2023-07-19] MEDS: MIRALAX 17 GRAMS PO (09:42)
[2023-07-19] MEDS: SEVELAMER CARBONATE 0.800000000000000044 GM PO ×2 (09:42→19:45)
[2023-07-19] MEDS: SENSIPAR 30 MG PO (09:42)
[2023-07-19] MEDS: PROTONIX 40 MG PO (09:42)
[2023-07-19] MEDS: CARDIZEM SR 120 MG PO (09:42)
[2023-07-19] MEDS: LANTUS 0.200000000000000011 UNITS SC (10:03)
[2023-07-19 11:55] LABS: Glucose - Point of Care 211 mg/dl (70-99)
[2023-07-19] MEDS: SENOKOT 17.1999999999999993 MG PO (12:00)
[2023-07-19] MEDS: NOVOLOG FLEXPEN-LOW RESISTANCE 2 UNITS SC (12:00)
[2023-07-19] MEDS: NOVOLOG FLEXPEN 8 UNITS SC ×2 (12:00→17:44)
[2023-07-19 16:37] LABS: Glucose - Point of Care 115 mg/dl (70-99)
[2023-07-19] MEDS: NOVOLOG FLEXPEN-LOW RESISTANCE SC (16:47)
[2023-07-19] MEDS: LIPITOR 40 MG PO (21:08)
[2023-07-19] MEDS: LANTUS SC (21:13)
[2023-07-19 21:20] LABS: Glucose - Point of Care 72 mg/dl (70-99)
[2023-07-19 22:42] LABS: Paraneoplastic Ab IgG, CSF None Detected (None Detected)
[2023-07-20] VITALS (8 sets, daily range): BP systolic 134–181; BP diastolic 56–91; PULSE 77
[2023-07-20 01:39] LABS: Albumin Index 57.9 ratio (0.0-9.0); Albumin, CSF 121 mg/dL (0-35); Albumin, Serum 2089 mg/dL (3500-5200); CSF IgG Synthesis Rate 36.7 mg/d (<=8.0); CSF IgG/Albumin Ratio 0.18 ratio (0.09-0.25); CSF Oligoclonal Bands Negative (Negative); CSF Oligoclonal Bands Number Matching Bands (0-1); IgG 569 mg/dL (768-1632)
[2023-07-20 04:29] LABS: Hematocrit 29.4 % (39.0-52.0); Hemoglobin 10.4 g/dL (13.0-18.0); Mean Corp Hgb Conc. 35.4 g/dL (33.0-37.0); Mean Corpuscular Hgb 30.2 pg (27.0-31.0); Mean Corpuscular Volume 85.5 fL (80.0-94.0); Mean Platelet Volume 9.8 fL (7.4-10.4); Platelet Count 307 10^3/uL (130-400); Red Blood Cell Count 3.44 10^6/uL (4.70-6.10); Red Cell Dist. Width 13.4 % (11.5-14.5); White Blood Cell Count 8.2 10^3/uL (4.8-10.8)
[2023-07-20 05:02] LABS: Blood Urea Nitrogen 38 mg/dl (9-20); Calcium 8.9 mg/dl (8.4-10.2); Carbon Dioxide 26 mmol/L (22-30); Chloride 96 mmol/L (98-107); Glucose 167 mg/dl (70-99); Potassium 3.9 mmol/L (3.5-5.1); Sodium 131 mmol/L (135-145); eGFR 12.79
[2023-07-20 08:38] LABS: Glucose - Point of Care 241 mg/dl (70-99)
[2023-07-20] MEDS: ROCALTROL 0.5 MCG PO (08:49)
[2023-07-20] MEDS: PROTONIX 40 MG PO (08:49)
[2023-07-20] MEDS: DUPHALAC/CHRONULAC 20 GRAMS PO ×2 (08:49→19:31)
[2023-07-20] MEDS: SENSIPAR 30 MG PO (08:49)
[2023-07-20] MEDS: FLOMAX 0.400000000000000022 MG PO (08:49)
[2023-07-20] MEDS: HEPARIN 5000 UNITS SC ×3 (08:50→23:12)
[2023-07-20] MEDS: CARDIZEM SR 120 MG PO (08:50)
[2023-07-20] MEDS: COLACE PO ×2 (08:50→19:23)
[2023-07-20] MEDS: MIRALAX PO (08:50)
[2023-07-20] MEDS: SEVELAMER CARBONATE 0.800000000000000044 GM PO ×2 (08:50→19:31)
[2023-07-20] MEDS: LOW STRENGTH ASPIRIN 81 MG PO (08:50)
[2023-07-20] MEDS: NOVOLOG FLEXPEN-LOW RESISTANCE 2 UNITS SC (08:55)
[2023-07-20] MEDS: LANTUS 0.179999999999999993 UNITS SC ×2 (08:55→23:12)
[2023-07-20] MEDS: NOVOLOG FLEXPEN 8 UNITS SC ×3 (08:55→17:31)
--- NOTE | 2023-07-20 09:04 | W.PN.HOSP.TC ---
Today's Communication/Plan
-
Continue peritoneal dialysis. PT OT. Discharge planning in progress
Assessment / Plan
Assessment / Plan
Physical exam:
General: Acutely ill
HEENT: Normocephalic, Atraumatic and Moist Mucous Membranes
Respiratory: Clear to Auscultation; Negative Wheezes, Rales or Rhonchi
Cardiac: Regular Rhythm and S1/S2
GI: Soft, Nontender and Nondistended
Musculoskeletal: No Clubbing, No Cyanosis and No Edema
Neuro: Lethargic, disoriented, encephalopathic. Does move spontaneously all 4 extremity and weak around 4 out of 5 but symmetrically. Visual deficits present.
Psych: Calm
MRI of the brain:
Acute on subacute infarct in the left occipital lobe in the area of previous infarct, with increased edema and mass effect on the left lateral ventricle occipital horn. Areas of hemosiderin within the area of previous infarct consistent with foci of
hemorrhage.
Resolution of some of the smaller foci of restricted diffusion in the cerebellum, stable appearance of the posterior right occipital lobe infarct.
No midline shift or downward herniation.
Near complete opacification of the left maxillary sinus.
Findings discussed with Dr. Ramos at 2:35 PM. There is prominent mass effect along the left lateral ventricle occipital horn and mass effect along the corpus callosum. While this could certainly be due to edema from the recurrent and residual CVA,
a follow-up brain MRI with and without contrast is recommended after treatment to exclude the unlikely possibility of an occult neoplasm.
Brain MRI with contrast:
Gyral enhancement in the left occipital lobe is favored to be on the basis of evolution of the subacute left posterior cerebral artery territory infarct. No solid enhancing mass that would be considered highly suspicious for neoplasm/GENERAL MACHINE OPERATOR lymphoma.
Large amount of vasogenic edema is redemonstrated with mass effect on the occipital horn of the left lateral ventricle, and slight rightward midline shift measuring 4 mm at the level of the septum pellucidum.
EEG:
Unremarkable EEG for age in sleep only
A/P:
Toxic metabolic encephalopathy:
Etiology not entirely clear but suspected worsening/recrudescence stroke versus brain malignancy versus metabolic. Likely part of stroke.
Appreciated neurology consult and follow-up
Brain MRI without contrast results as above
Brain MRI with contrast repeated and LP yesterday
Blood cultures no growth
Continue aspirin 81 mg daily
No Plavix (he was not on it prior to admission)
Continue atorvastatin 40 mg nightly
Continue neurochecks/NIH
Updated over the phone prior
Rehab consulted
Discussed with home health care case manager yesterday and patient medically cleared for discharge.
Diabetes mellitus with significant hyperglycemia:
No evidence of DKA or HHS
Holding insulin pump
Aggressive insulin management upon admission but now the blood sugars are coming down insulin regimen has been readjusted.
Long-acting and short acting insulin. On Lantus 18 units and NovoLog 8 units regular insulin scale. Might need further adjustment but will reevaluate.
TUBER OPERATOR diabetes consultation appreciated
End-stage renal disease on peritoneal dialysis:
Continue PD per nephrology
RN told me needs to be in IMU due to PD
Acute urinary retention/BPH:
Ward catheter in place prior to admission.
Continue Flomax
Urology consult appreciated
It appears urology recommends to continue Ward catheter upon discharge and reevaluate as outpatient.
Hyperlipidemia:
Continue statin
DVT prophylaxis:
Heparin SQ
CODE STATUS:
Full code
Anticipated Discharge: 24 - 48 hours
Subjective/Interval History
-
Date of Service: July 20, 2023
Patient alert. Pleasantly disoriented. Afebrile.
Objective Data
-
Labs:
Laboratory Results
07/20/23
03:23
WBC 8.2
Hgb 10.4 L
Hct 29.4 L
Plt Count 307
Sodium 131 L
Potassium 3.9
Chloride 96 L
Carbon Dioxide 26
BUN 38 H
Creatinine 4.8 H*
Glucose 167 H
Calcium 8.9
Vital Signs:
Vital Signs
Temp Pulse Resp BP Pulse Ox
98.6 F 73 12 181/86 94
07/20/23 07:54 07/20/23 06:00 07/20/23 06:00 07/20/23 08:31 07/20/23 04:15
I&O
07/19/23 07/20/23 07/21/23
06:59 06:59 06:59
Intake Total 800 / 800 1020 / 1020
Output Total 1100 / 1100 1300 / 1300
Balance -300 / -300 -280 / -280
--- NOTE | 2023-07-20 09:20 | W.PN.NEPH.PH ---
Today's Communication / Plan
-
PD orders provided
Assessment/Plan
-
Impression:
ESRD/PD
Mental status changes with extension of posterior left parietal occipital
Metabolic encephalopathy with CVA findings on CT 06/27
Hypertension
Secondary hyperparathyroidism
Diabetes
Hyperphosphatemia
Dyslipidemia
BPH
Bladder retention
Plan:
-PD orders provided 2 L 1.5%q4h
-Flowsheets reviewed:mostly even UF, cont 1.5% at this time , prn lasix , weight stable
-hyperglycemia improving
-s/p MRI with gadolinium shows evolution of subacute CVA and no mass, s/p LP on 07/16-neuro follows
-FATIMAH therapy for anemia prn
-Hemodynamically stable on carvedilol and diltiazem
-Maintain calcitriol for secondary hyperparathyroidism
-Maintain sevelamer with meals in regards to hyperphosphatemia
-Now with Green for bladder retention ( suspect due to recent CVA)-keep it for now in acute CVA per
d/w nursing
-
-
Date of Service: July 20, 2023
CC / HPI / ROS
-
Chief Complaint:
End-stage renal disease
History of Present Illness:
Remains on peritoneal dialysis
Blood pressure stable on oral antihypertensive
non oliguric with green
Review of Systems:
No chest pain or shortness of breath
no fever
Labs
-
Labs:
WBC 8.2 10^3/uL (4.8-10.8) 07/20/23 03:23
RBC 3.44 10^6/uL (4.70-6.10) L 07/20/23 03:23
Hgb 10.4 g/dL (13.0-18.0) L 07/20/23 03:23
Hct 29.4 % (39.0-52.0) L 07/20/23 03:23
Plt Count 307 10^3/uL (130-400) 07/20/23 03:23
Sodium 131 mmol/L (135-145) L 07/20/23 03:23
Potassium 3.9 mmol/L (3.5-5.1) 07/20/23 03:23
Chloride 96 mmol/L (98-107) L 07/20/23 03:23
Carbon Dioxide 26 mmol/L (22-30) 07/20/23 03:23
BUN 38 mg/dl (9-20) H 07/20/23 03:23
Creatinine 4.8 mg/dL (0.7-1.3) H* 07/20/23 03:23
eGFR 12.79 07/20/23 03:23
Glucose 167 mg/dl (70-99) H 07/20/23 03:23
Calcium 8.9 mg/dl (8.4-10.2) 07/20/23 03:23
Albumin 2.8 g/dl (3.5-5.0) L 07/14/23 17:23
Physical Exam
-
Vital Signs:
Vital Signs
Temp Pulse Resp BP Pulse Ox
98.6 F 73 12 181/86 94
07/20/23 07:54 07/20/23 06:00 07/20/23 06:00 07/20/23 08:31 07/20/23 04:15
Cardiovascular:: Regular rate and rhythm
Respiratory:: Bilateral: CTA
Lung Excursion:: Normal
Abdomen:: Nontender and Soft
Bowel Sounds:: Normal
Extremity Edema:: None: Bilateral:
Green Catheter: Yes
--- NOTE | 2023-07-20 09:24 | W.PN.UPDATE ---
Update Note
Progress Note Update
Peritoneal dialysis note
Systolic blood pressure stable at current dry weight
UF even
2 L exchanges 1.5% every 4 hours
[2023-07-20] MEDS: SENOKOT PO (11:10)
[2023-07-20] MEDS: NOVOLOG FLEXPEN-LOW RESISTANCE SC ×2 (12:56→17:22)
[2023-07-20 13:01] LABS: Glucose - Point of Care 138 mg/dl (70-99)
[2023-07-20 17:15] LABS: Glucose - Point of Care 97 mg/dl (70-99)
[2023-07-20] MEDS: LIPITOR 40 MG PO (21:09)
[2023-07-20 21:18] LABS: Glucose - Point of Care 88 mg/dl (70-99)
[2023-07-20 23:14] LABS: Glucose - Point of Care 121 mg/dl (70-99)
[2023-07-21] VITALS (11 sets, daily range): BP systolic 133–171; BP diastolic 50–146; PULSE 72
[2023-07-21 01:25] LABS: CSF VDRL (T. pallidum) Non Reactive (Non Reactive)
[2023-07-21 04:35] LABS: Hematocrit 29.1 % (39.0-52.0); Hemoglobin 10.1 g/dL (13.0-18.0); Mean Corp Hgb Conc. 34.7 g/dL (33.0-37.0); Mean Corpuscular Hgb 30.1 pg (27.0-31.0); Mean Corpuscular Volume 86.6 fL (80.0-94.0); Mean Platelet Volume 9.5 fL (7.4-10.4); Platelet Count 295 10^3/uL (130-400); Red Blood Cell Count 3.36 10^6/uL (4.70-6.10); Red Cell Dist. Width 13.3 % (11.5-14.5); White Blood Cell Count 8.1 10^3/uL (4.8-10.8)
[2023-07-21 05:02] LABS: Blood Urea Nitrogen 42 mg/dl (9-20); Calcium 8.6 mg/dl (8.4-10.2); Carbon Dioxide 30 mmol/L (22-30); Chloride 96 mmol/L (98-107); Glucose 113 mg/dl (70-99); Potassium 3.6 mmol/L (3.5-5.1); Sodium 130 mmol/L (135-145); eGFR 12.79
[2023-07-21] MEDS: NOVOLOG FLEXPEN 8 UNITS SC ×3 (08:14→17:51)
[2023-07-21] MEDS: NOVOLOG FLEXPEN-LOW RESISTANCE SC ×2 (08:14→17:50)
[2023-07-21] MEDS: LANTUS 0.179999999999999993 UNITS SC ×2 (08:16→22:14)
[2023-07-21] MEDS: DUPHALAC/CHRONULAC 20 GRAMS PO ×2 (08:17→20:36)
[2023-07-21] MEDS: MIRALAX 17 GRAMS PO (08:17)
[2023-07-21] MEDS: LOW STRENGTH ASPIRIN 81 MG PO (08:17)
[2023-07-21] MEDS: FLOMAX 0.400000000000000022 MG PO (08:17)
[2023-07-21] MEDS: SEVELAMER CARBONATE 0.800000000000000044 GM PO ×2 (08:17→20:36)
[2023-07-21] MEDS: SENSIPAR 30 MG PO (08:17)
[2023-07-21] MEDS: CARDIZEM SR 120 MG PO (08:18)
[2023-07-21] MEDS: COLACE 100 MG PO ×2 (08:18→20:36)
[2023-07-21] MEDS: HEPARIN 5000 UNITS SC ×3 (08:18→23:39)
[2023-07-21] MEDS: PROTONIX 40 MG PO (08:18)
[2023-07-21] MEDS: ROCALTROL 0.5 MCG PO (08:18)
[2023-07-21 08:23] LABS: Glucose - Point of Care 144 mg/dl (70-99)
--- NOTE | 2023-07-21 09:46 | W.PN.NEPH.PH ---
Today's Communication / Plan
-
maintain PD
Assessment/Plan
-
Impression:
ESRD/PD
Mental status changes with extension of posterior left parietal occipital
Metabolic encephalopathy with CVA findings on CT 06/27
Hypertension
Secondary hyperparathyroidism
Diabetes
Hyperphosphatemia
Dyslipidemia
BPH
Bladder retention
Plan:
-PD orders provided 2 L 1.5%q4h,weights down
-Flowsheets reviewed:mostly even UF, cont 1.5% at this time , prn lasix , weight stable
-hyperglycemia improving
-s/p MRI with gadolinium shows evolution of subacute CVA and no mass, s/p LP on 07/16-neuro follows
-FATIMAH therapy for anemia prn
-Hemodynamically stable on carvedilol and diltiazem
-Maintain calcitriol for secondary hyperparathyroidism
-Maintain sevelamer with meals in regards to hyperphosphatemia
-Now with Green for bladder retention ( suspect due to recent CVA)-keep it for now in acute CVA per
d/w nursing
-
-
Date of Service: July 21, 2023
CC / HPI / ROS
-
Chief Complaint:
End-stage renal disease
History of Present Illness:
Remains on peritoneal dialysis
Blood pressure stable on oral antihypertensive
non oliguric with green
Review of Systems:
No chest pain or shortness of breath
no fever
weights down
Labs
-
Labs:
WBC 8.1 10^3/uL (4.8-10.8) 07/21/23 04:01
RBC 3.36 10^6/uL (4.70-6.10) L 07/21/23 04:01
Hgb 10.1 g/dL (13.0-18.0) L 07/21/23 04:01
Hct 29.1 % (39.0-52.0) L 07/21/23 04:01
Plt Count 295 10^3/uL (130-400) 07/21/23 04:01
Sodium 130 mmol/L (135-145) L 07/21/23 04:01
Potassium 3.6 mmol/L (3.5-5.1) 07/21/23 04:01
Chloride 96 mmol/L (98-107) L 07/21/23 04:01
Carbon Dioxide 30 mmol/L (22-30) 07/21/23 04:01
BUN 42 mg/dl (9-20) H 07/21/23 04:01
Creatinine 4.8 mg/dL (0.7-1.3) H* 07/21/23 04:01
eGFR 12.79 07/21/23 04:01
Glucose 113 mg/dl (70-99) H 07/21/23 04:01
Calcium 8.6 mg/dl (8.4-10.2) 07/21/23 04:01
Albumin 2.8 g/dl (3.5-5.0) L 07/14/23 17:23
Physical Exam
-
Vital Signs:
Vital Signs
Temp Pulse Resp BP Pulse Ox
98.5 F 75 22 146/125 96
07/20/23 23:13 07/21/23 08:00 07/21/23 08:00 07/21/23 08:00 07/21/23 08:00
Cardiovascular:: Regular rate and rhythm
Respiratory:: Bilateral: CTA
Lung Excursion:: Normal
Abdomen:: Nontender and Soft
Bowel Sounds:: Normal
Extremity Edema:: None: Bilateral:
Green Catheter: No
--- NOTE | 2023-07-21 10:05 | W.PN.UPDATE ---
Update Note
Progress Note Update
PD note:
2L q4hr 1.5%
bp stable
u/f slightly negative per flow sheet review
--- NOTE | 2023-07-21 10:52 | W.PN.HOSP.TC ---
Today's Communication/Plan
-
Continue PD. PT OT. Discharge planning in progress.
Assessment / Plan
Assessment / Plan
Physical exam:
General: No acute distress
HEENT: Normocephalic, Atraumatic and Moist Mucous Membranes
Respiratory: Clear to Auscultation; Negative Wheezes, Rales or Rhonchi
Cardiac: Regular Rhythm and S1/S2
GI: Soft, Nontender and Nondistended
Musculoskeletal: No Clubbing, No Cyanosis and No Edema
Neuro: Alert, disoriented. No gross neurological deficits.
Psych: Calm
MRI of the brain:
Acute on subacute infarct in the left occipital lobe in the area of previous infarct, with increased edema and mass effect on the left lateral ventricle occipital horn. Areas of hemosiderin within the area of previous infarct consistent with foci of
hemorrhage.
Resolution of some of the smaller foci of restricted diffusion in the cerebellum, stable appearance of the posterior right occipital lobe infarct.
No midline shift or downward herniation.
Near complete opacification of the left maxillary sinus.
Findings discussed with Dr. Ramos at 2:35 PM. There is prominent mass effect along the left lateral ventricle occipital horn and mass effect along the corpus callosum. While this could certainly be due to edema from the recurrent and residual CVA,
a follow-up brain MRI with and without contrast is recommended after treatment to exclude the unlikely possibility of an occult neoplasm.
Brain MRI with contrast:
Gyral enhancement in the left occipital lobe is favored to be on the basis of evolution of the subacute left posterior cerebral artery territory infarct. No solid enhancing mass that would be considered highly suspicious for neoplasm/INFANT BABYSITTER lymphoma.
Large amount of vasogenic edema is redemonstrated with mass effect on the occipital horn of the left lateral ventricle, and slight rightward midline shift measuring 4 mm at the level of the septum pellucidum.
EEG:
Unremarkable EEG for age in sleep only
A/P:
Toxic metabolic encephalopathy:
Etiology not entirely clear but likely worsening/recrudescence stroke and superimposed with metabolic derangements. Patient back to his baseline.
Appreciated neurology consult and follow-up
Brain MRI without contrast results as above
Brain MRI with contrast repeated and LP reviewed results.
Blood cultures no growth
Continue aspirin 81 mg daily
No Plavix (he was not on it prior to admission)
Continue atorvastatin 40 mg nightly
Continue neurochecks/NIH
Updated over the phone prior
Rehab consulted
Discussed with case planner and patient medically cleared for discharge.
Diabetes mellitus with significant hyperglycemia initially but now improved:
No evidence of DKA or HHS
Holding insulin pump
Aggressive insulin management upon admission but now the blood sugars are coming down insulin regimen has been readjusted.
Long-acting and short acting insulin. On Lantus 18 units and NovoLog 8 units regular insulin scale. Might need further adjustment but will reevaluate.
PURSE MAKER diabetes consultation appreciated
End-stage renal disease on peritoneal dialysis:
Continue PD per nephrology
RN told me needs to be in IMU due to PD and policies (technically MedSurg status is sufficient).
Acute urinary retention/BPH:
Ward catheter in place prior to admission.
Continue Flomax
Urology consult appreciated
Discussed with urology and recommends to continue Ward catheter upon discharge and reevaluate as outpatient.
Hyperlipidemia:
Continue statin
DVT prophylaxis:
Heparin SQ
CODE STATUS:
Full code
Anticipated Discharge: 24 - 48 hours
Subjective/Interval History
-
Date of Service: July 21, 2023
Patient denies any new complaints. Alert but pleasantly disoriented. Afebrile
Objective Data
-
Labs:
Laboratory Results
07/21/23
04:01
WBC 8.1
Hgb 10.1 L
Hct 29.1 L
Plt Count 295
Sodium 130 L
Potassium 3.6
Chloride 96 L
Carbon Dioxide 30
BUN 42 H
Creatinine 4.8 H*
Glucose 113 H
Calcium 8.6
Vital Signs:
Vital Signs
Temp Pulse Resp BP Pulse Ox
98.5 F 75 22 146/125 96
07/20/23 23:13 07/21/23 08:00 07/21/23 08:00 07/21/23 08:00 07/21/23 08:00
I&O
07/20/23 07/21/23 07/22/23
06:59 06:59 06:59
Intake Total 1020 / 1020 960 / 960
Output Total 1300 / 1300 1850 / 1850
Balance -280 / -280 -890 / -890
[2023-07-21] MEDS: TYLENOL 650 MG PO (11:19)
[2023-07-21] MEDS: SENOKOT 17.1999999999999993 MG PO (11:19)
[2023-07-21 11:51] LABS: Glucose - Point of Care 156 mg/dl (70-99)
[2023-07-21] MEDS: NOVOLOG FLEXPEN-LOW RESISTANCE 1 UNITS SC (12:23)
[2023-07-21 17:22] LABS: Glucose - Point of Care 127 mg/dl (70-99)
--- NOTE | 2023-07-21 20:12 | PTCARENOTE ---
Received pt from reed RN. Pt is AAOx1 (self), confused/forgetful. NIH Qshift score 10. NSR on the monitor. On RA, lungs diminished. Ward in for acute retention, hygiene provided. PD done per orders. Medsitter in place. Pt is laying comfortable
in bed with call moody in reach.
[2023-07-21] MEDS: LIPITOR 40 MG PO (20:36)
[2023-07-21 22:03] LABS: Glucose - Point of Care 246 mg/dl (70-99)
[2023-07-22] VITALS (7 sets, daily range): BP systolic 118–164; BP diastolic 49–105; PULSE 71–77
[2023-07-22 05:41] LABS: Hematocrit 28.4 % (39.0-52.0); Mean Corp Hgb Conc. 35.2 g/dL (33.0-37.0); Mean Corpuscular Hgb 29.9 pg (27.0-31.0); Mean Platelet Volume 9.5 fL (7.4-10.4); Platelet Count 304 10^3/uL (130-400); Red Blood Cell Count 3.34 10^6/uL (4.70-6.10); Red Cell Dist. Width 13.3 % (11.5-14.5); White Blood Cell Count 8.1 10^3/uL (4.8-10.8)
[2023-07-22 05:57] LABS: Blood Urea Nitrogen 43 mg/dl (9-20); Calcium 9.1 mg/dl (8.4-10.2); Carbon Dioxide 29 mmol/L (22-30); Chloride 97 mmol/L (98-107); Glucose 202 mg/dl (70-99); Potassium 3.5 mmol/L (3.5-5.1); Sodium 132 mmol/L (135-145); eGFR 13.46
--- NOTE | 2023-07-22 07:42 | W.PN.HOSP.TC ---
Today's Communication/Plan
-
see A/P
Assessment / Plan
Assessment / Plan
MRI of the brain:
Acute on subacute infarct in the left occipital lobe in the area of previous infarct, with increased edema and mass effect on the left lateral ventricle occipital horn. Areas of hemosiderin within the area of previous infarct consistent with foci of
hemorrhage.
Resolution of some of the smaller foci of restricted diffusion in the cerebellum, stable appearance of the posterior right occipital lobe infarct.
No midline shift or downward herniation.
Near complete opacification of the left maxillary sinus.
Findings discussed with Dr. Ramos at 2:35 PM. There is prominent mass effect along the left lateral ventricle occipital horn and mass effect along the corpus callosum. While this could certainly be due to edema from the recurrent and residual CVA,
a follow-up brain MRI with and without contrast is recommended after treatment to exclude the unlikely possibility of an occult neoplasm.
Brain MRI with contrast:
Gyral enhancement in the left occipital lobe is favored to be on the basis of evolution of the subacute left posterior cerebral artery territory infarct. No solid enhancing mass that would be considered highly suspicious for neoplasm/SAP INTEGRATION ARCHITECT lymphoma.
Large amount of vasogenic edema is redemonstrated with mass effect on the occipital horn of the left lateral ventricle, and slight rightward midline shift measuring 4 mm at the level of the septum pellucidum.
EEG:
Unremarkable EEG for age in sleep only
A/P:
# Toxic metabolic encephalopathy:
Etiology not entirely clear but likely worsening/recrudescence stroke and superimposed with metabolic derangements. Patient back to his baseline MS.
Appreciated neurology consult and follow-up
Brain MRI without contrast results as above
Brain MRI with contrast repeated and LP reviewed results.
Blood cultures no growth
Continue aspirin 81 mg daily
No Plavix (he was not on it prior to admission)
Continue atorvastatin 40 mg nightly
Continue neurochecks/NIH
Rehab consulted
Discussed with bilingual case manager and patient medically cleared for discharge.
# Diabetes mellitus with significant hyperglycemia initially but now improved:
No evidence of DKA or HHS
Holding insulin pump
Aggressive insulin management upon admission but now that the blood sugars has came down, insulin regimen has been readjusted.
Long-acting and short acting insulin: Lantus 18 units BID and NovoLog 8 units AC, ISS
Diabetes FOREST NURSERY SUPERVISOR diabetes input appreciated
# End-stage renal disease on peritoneal dialysis:
Continue PD per nephrology
IMU status due to hospital policy for PD
# Acute urinary retention/BPH:
# Ward catheter in place prior to admission.
Continue Flomax
Urology consult appreciated
Discussed with urology and recommends to continue Ward catheter upon discharge and reevaluate as outpatient.
# Hyperlipidemia:
Continue statin
DVT prophylaxis: Heparin SQ
CODE STATUS: Full code
DW RN
called , call not answered
Anticipated Discharge: 24 - 48 hours
Subjective/Interval History
-
Date of Service: July 22, 2023
Objective Data
-
Labs:
Laboratory Results
07/22/23
05:22
WBC 8.1
Hgb 10.0 L
Hct 28.4 L
Plt Count 304
Sodium 132 L
Potassium 3.5
Chloride 97 L
Carbon Dioxide 29
BUN 43 H
Creatinine 4.6 H*
Glucose 202 H
Calcium 9.1
Vital Signs:
Vital Signs
Temp Pulse Resp BP Pulse Ox
36.7 C 71 9 164/97 98
07/22/23 07:19 07/22/23 06:00 07/22/23 06:00 07/22/23 04:00 07/22/23 02:02
I&O
07/21/23 07/22/23 07/23/23
06:59 06:59 06:59
Intake Total 960 / 960 410 / 410
Output Total 1850 / 1850 2110 / 2110
Balance -890 / -890 -1700 / -1700
Review of Systems
-
Unable to obtain full review of systems at this time due to: Acuity
Physical Exam
-
General: Well Developed, Well Nourished, No Apparent Distress, Comfortable and Conversant
HEENT: Negative Oxygen
Respiratory: Clear to Auscultation and Non Labored Respirations; Negative Accessory Resp Muscle Use
Cardiac: Regular Rhythm and S1/S2; Negative Murmur or Rub
GI: Soft, Nontender and Nondistended
Neuro: Awake and Alert
Psych: Calm and Confused; Negative Intact Judgement/Insight
Data Reviewed
-
MRI: Report Reviewed by me
Labs: Labs Reviewed by me
[2023-07-22 07:52] LABS: Glucose - Point of Care 224 mg/dl (70-99)
[2023-07-22] MEDS: NOVOLOG FLEXPEN-LOW RESISTANCE 2 UNITS SC (08:27)
[2023-07-22] MEDS: NOVOLOG FLEXPEN 8 UNITS SC ×2 (08:27→12:03)
[2023-07-22] MEDS: LANTUS 0.179999999999999993 UNITS SC (08:28)
[2023-07-22] MEDS: MIRALAX 17 GRAMS PO (08:29)
[2023-07-22] MEDS: DUPHALAC/CHRONULAC 20 GRAMS PO (08:29)
[2023-07-22] MEDS: HEPARIN 5000 UNITS SC ×2 (08:29→15:17)
[2023-07-22] MEDS: SEVELAMER CARBONATE 0.800000000000000044 GM PO (08:29)
[2023-07-22] MEDS: CARDIZEM SR 120 MG PO (08:32)
[2023-07-22] MEDS: FLOMAX 0.400000000000000022 MG PO (08:32)
[2023-07-22] MEDS: PROTONIX 40 MG PO (08:32)
[2023-07-22] MEDS: SENSIPAR 30 MG PO (08:32)
[2023-07-22] MEDS: LOW STRENGTH ASPIRIN 81 MG PO (08:32)
[2023-07-22] MEDS: COLACE 100 MG PO (08:32)
[2023-07-22] MEDS: ROCALTROL 0.5 MCG PO (08:32)
--- NOTE | 2023-07-22 09:38 | PN.DE.MGMTRT ---
Insulin Management
- -
07/22/2023: Diabetes Management F/U:
63 year old male well known to diabetes team from recent admission to . Pt is readmitted with mental status change. CT head--> subacute left occipital and parietal infarct. PMH includes: HTN, ESRD on PD, hx of CVA and T2DM. Patient was previously
using a Medtronic 770 G insulin pump that was recently discontinued due to waxing and weaning mental status. He was d/c'd to rehab on insulin regimen:-Lantus 22 units @ HS and NovoLog 10 units AC with SS.
Patient is noted for Hyperglycemia, glucose has trended up to 425 and Diabetes team is consulted for management. Recent A1C 11%, Cr 5.6, eGFR 9.41.
Pt is awake, alert, oriented, sitting up in bed, able to participate in discussion regarding diabetes management.
Noted for blood sugar of 246 @ HS, FBG 202 this AM and requiring 1-2 units of corrective insulin with meals
Will increase Lantus to 20 units and AC NovoLog to 10 units. Cont low corrective insulin with meals.
Will closely monitor glucose trend today and adjust AC dose if necessary.
Diabetes History
- -
Type of Diabetes: 1
Pre-Admission Diabetes Regimen
07/22/23
05:22
Creatinine 4.6 H*
Insulin Pump Settings
IP Diabetes Regimen
07/21/23 07/21/23 07/21/23
11:40 17:10 21:51
Glucose
POC Glucose 156 H 127 H 246 H
07/22/23 07/22/23
05:22 07:40
Glucose 202 H
POC Glucose 224 H
Meal type: Dinner
Amount consumed: 95%
Patient Education
[2023-07-22] MEDS: SENOKOT 17.1999999999999993 MG PO (11:12)
[2023-07-22] MEDS: NOVOLOG FLEXPEN-LOW RESISTANCE 1 UNITS SC ×2 (12:03→16:59)
[2023-07-22 12:12] LABS: Glucose - Point of Care 188 mg/dl (70-99)
--- NOTE | 2023-07-22 12:19 | W.PN.NEPH.PH ---
Today's Communication / Plan
-
- PD orders placed
Assessment/Plan
-
Impression:
ESRD/PD
Mental status changes with extension of posterior left parietal occipital
Metabolic encephalopathy with CVA findings on CT 06/27
Hypertension
Secondary hyperparathyroidism
Diabetes
Hyperphosphatemia
Dyslipidemia
BPH
Bladder retention
Plan:
-PD orders provided 2 L 1.5%q4h, weights down
-Flowsheets reviewed:mostly even UF, cont 1.5% at this time , prn lasix , weight stable
-hyperglycemia improving
-s/p MRI with gadolinium shows evolution of subacute CVA and no mass, s/p LP on 07/16-neuro follows
-FATIMAH therapy for anemia prn
-Hemodynamically stable on carvedilol and diltiazem
-Maintain calcitriol for secondary hyperparathyroidism
-Maintain sevelamer with meals in regards to hyperphosphatemia
-Now with Green for bladder retention ( suspect due to recent CVA)-keep it for now in acute CVA per
-
-
Date of Service: July 22, 2023
CC / HPI / ROS
-
Chief Complaint:
End-stage renal disease on PD
History of Present Illness:
Remains on peritoneal dialysis
Blood pressure stable on oral antihypertensive
non oliguric with green
Review of Systems:
No chest pain or shortness of breath
no fever
weights down
Labs
-
Labs:
WBC 8.1 10^3/uL (4.8-10.8) 07/22/23 05:22
RBC 3.34 10^6/uL (4.70-6.10) L 07/22/23 05:22
Hgb 10.0 g/dL (13.0-18.0) L 07/22/23 05:22
Hct 28.4 % (39.0-52.0) L 07/22/23 05:22
Plt Count 304 10^3/uL (130-400) 07/22/23 05:22
Sodium 132 mmol/L (135-145) L 07/22/23 05:22
Potassium 3.5 mmol/L (3.5-5.1) 07/22/23 05:22
Chloride 97 mmol/L (98-107) L 07/22/23 05:22
Carbon Dioxide 29 mmol/L (22-30) 07/22/23 05:22
BUN 43 mg/dl (9-20) H 07/22/23 05:22
Creatinine 4.6 mg/dL (0.7-1.3) H* 07/22/23 05:22
eGFR 13.46 07/22/23 05:22
Glucose 202 mg/dl (70-99) H 07/22/23 05:22
Calcium 9.1 mg/dl (8.4-10.2) 07/22/23 05:22
Albumin 2.8 g/dl (3.5-5.0) L 07/14/23 17:23
Physical Exam
-
Vital Signs:
Vital Signs
Temp Pulse Resp BP Pulse Ox
98.5 F 70 13 118/105 97
07/22/23 11:00 07/22/23 10:00 07/22/23 10:00 07/22/23 09:26 07/22/23 08:00
Cardiovascular:: Regular rate and rhythm
Respiratory:: Bilateral: Coarse
Lung Excursion:: Normal
Abdomen:: Nontender and Soft
Bowel Sounds:: Normal
Extremity Edema:: None: Bilateral:
Green Catheter: No
[2023-07-22 16:57] LABS: Glucose - Point of Care 187 mg/dl (70-99)
[2023-07-22] MEDS: NOVOLOG FLEXPEN 10 UNITS SC (16:59)
[2023-07-22] MEDS: COLACE PO (21:03)
[2023-07-22] MEDS: SEVELAMER CARBONATE PO (21:04)
[2023-07-22] MEDS: LIPITOR PO (21:04)
[2023-07-22] MEDS: DUPHALAC/CHRONULAC PO (21:04)
--- NOTE | 2023-07-22 21:11 | PTCARENOTE ---
Patient was soiled with stool. Pt became very agitated, not understanding that staff needed to clean him. pt pulling covers over himself, yelling 'dont touch me there'. PCT attempting cath care, pt grabbed powertrain calibration engineer wrist. Staff attempting to re-orient
pt, pt still confused. pt left alone. bed alarm set. call moody within reach. med sitter at bedside
[2023-07-22] MEDS: LANTUS 0.200000000000000011 UNITS SC (22:08)
[2023-07-22 22:19] LABS: Glucose - Point of Care 146 mg/dl (70-99)
[2023-07-23] VITALS (11 sets, daily range): BP systolic 105–169; BP diastolic 46–104; PULSE 70–79
[2023-07-23] MEDS: HEPARIN 5000 UNITS SC ×3 (01:47→16:59)
[2023-07-23] MEDS: TYLENOL 650 MG PO (02:09)
[2023-07-23 04:29] LABS: Hematocrit 28.2 % (39.0-52.0); Mean Corp Hgb Conc. 35.5 g/dL (33.0-37.0); Mean Corpuscular Hgb 29.9 pg (27.0-31.0); Mean Corpuscular Volume 84.2 fL (80.0-94.0); Mean Platelet Volume 9.4 fL (7.4-10.4); Platelet Count 329 10^3/uL (130-400); Red Blood Cell Count 3.35 10^6/uL (4.70-6.10); Red Cell Dist. Width 13.4 % (11.5-14.5); White Blood Cell Count 9.5 10^3/uL (4.8-10.8)
--- NOTE | 2023-07-23 04:54 | PTCARENOTE ---
Patient did not sleep overnight. Remains confused, calling out 'hello'. Re-oriented frequently. Pt touching and pulling on green catheter, taking off diaper. Incont care provided for BMs. PD done per order; tolerated well. NSR/ST on tele. Bed alarm
set. Call moody within reach; reminded how to use.
[2023-07-23 05:06] LABS: Blood Urea Nitrogen 43 mg/dl (9-20); Calcium 9.2 mg/dl (8.4-10.2); Carbon Dioxide 30 mmol/L (22-30); Chloride 96 mmol/L (98-107); Glucose 125 mg/dl (70-99); Potassium 3.2 mmol/L (3.5-5.1); Sodium 132 mmol/L (135-145); eGFR 13.46
--- NOTE | 2023-07-23 07:42 | W.PN.HOSP.TC ---
Today's Communication/Plan
-
see A/P
awaiting acute rehab
Assessment / Plan
Assessment / Plan
MRI of the brain:
Acute on subacute infarct in the left occipital lobe in the area of previous infarct, with increased edema and mass effect on the left lateral ventricle occipital horn. Areas of hemosiderin within the area of previous infarct consistent with foci of
hemorrhage.
Resolution of some of the smaller foci of restricted diffusion in the cerebellum, stable appearance of the posterior right occipital lobe infarct.
No midline shift or downward herniation.
Near complete opacification of the left maxillary sinus.
Findings discussed with Dr. Ramos at 2:35 PM. There is prominent mass effect along the left lateral ventricle occipital horn and mass effect along the corpus callosum. While this could certainly be due to edema from the recurrent and residual CVA,
a follow-up brain MRI with and without contrast is recommended after treatment to exclude the unlikely possibility of an occult neoplasm.
Brain MRI with contrast:
Gyral enhancement in the left occipital lobe is favored to be on the basis of evolution of the subacute left posterior cerebral artery territory infarct. No solid enhancing mass that would be considered highly suspicious for neoplasm/WORKDAY SENIOR ASSOCIATE lymphoma.
Large amount of vasogenic edema is redemonstrated with mass effect on the occipital horn of the left lateral ventricle, and slight rightward midline shift measuring 4 mm at the level of the septum pellucidum.
EEG:
Unremarkable EEG for age in sleep only
A/P:
# Change in MS/Toxic metabolic encephalopathy:
Etiology likely due to worsening/recrudescence stroke with superimposed metabolic derangements. Patient back to his baseline MS.
Appreciated neurology consult and follow-up
Brain MRI without contrast results as above
Brain MRI with contrast repeated and LP reviewed results.
Blood cultures no growth
Continue aspirin 81 mg daily. No Plavix (he was not on it prior to admission)
Continue atorvastatin 40 mg nightly
Continue neurochecks/NIH
Rehab consulted
Discussed with rn field case manager and patient medically cleared for discharge.
# Diabetes mellitus with significant hyperglycemia initially but now improved:
No evidence of DKA or HHS
Holding insulin pump
Cont Long-acting and short acting insulin: Lantus adjusted to 20 units BID and NovoLog 10 units AC, cover with ISS
Diabetes BABYSITTER diabetes input appreciated
# End-stage renal disease on peritoneal dialysis:
Continue PD per nephrology
IMU status due to hospital policy for PD
# Acute urinary retention/BPH:
# Ward catheter in place prior to admission.
Continue Flomax
Urology consult appreciated
Discussed with urology and recommends to continue Ward catheter upon discharge and reevaluate as outpatient.
# Hyperlipidemia:
Continue statin
DVT prophylaxis: Heparin SQ
CODE STATUS: Full code
DW RN
Anticipated Discharge: 24 - 48 hours
Subjective/Interval History
-
Date of Service: July 23, 2023
Objective Data
-
Labs:
Laboratory Results
07/23/23
04:10
WBC 9.5
Hgb 10.0 L
Hct 28.2 L
Plt Count 329
Sodium 132 L
Potassium 3.2 L
Chloride 96 L
Carbon Dioxide 30
BUN 43 H
Creatinine 4.6 H*
Glucose 125 H
Calcium 9.2
Vital Signs:
Vital Signs
Temp Pulse Resp BP Pulse Ox
37.0 C 76 18 130/74 96
07/23/23 03:38 07/23/23 04:05 07/23/23 04:05 07/23/23 04:05 07/23/23 04:04
I&O
07/22/23 07/23/23 07/24/23
06:59 06:59 06:59
Intake Total 410 / 410 1230 / 1230
Output Total 2110 / 2110 1300 / 1300
Balance -1700 / -1700 -70 / -70
Review of Systems
-
All other systems: Reviewed and negative
Physical Exam
-
General: Well Developed, Well Nourished, No Apparent Distress, Comfortable and Conversant
HEENT: Negative Oxygen
Respiratory: Clear to Auscultation and Non Labored Respirations; Negative Accessory Resp Muscle Use
Cardiac: Regular Rhythm and S1/S2; Negative Murmur or Rub
GI: Soft, Nontender and Nondistended
Neuro: Awake and Alert
Psych: Calm; Negative Intact Judgement/Insight
Data Reviewed
-
MRI: Report Reviewed by me
Labs: Labs Reviewed by me
[2023-07-23] MEDS: DUPHALAC/CHRONULAC 20 GRAMS PO ×2 (08:13→19:32)
[2023-07-23] MEDS: SEVELAMER CARBONATE 0.800000000000000044 GM PO ×2 (08:13→19:32)
[2023-07-23] MEDS: PROTONIX 40 MG PO (08:13)
[2023-07-23] MEDS: ROCALTROL 0.5 MCG PO (08:13)
[2023-07-23] MEDS: KCL 40 MEQ PO (08:13)
[2023-07-23] MEDS: SENSIPAR 30 MG PO (08:13)
[2023-07-23] MEDS: LOW STRENGTH ASPIRIN 81 MG PO (08:13)
[2023-07-23] MEDS: FLOMAX 0.400000000000000022 MG PO (08:13)
[2023-07-23] MEDS: CARDIZEM SR 120 MG PO (08:14)
[2023-07-23] MEDS: MIRALAX PO (08:14)
[2023-07-23] MEDS: COLACE PO ×2 (08:14→19:32)
[2023-07-23] MEDS: LANTUS 0.200000000000000011 UNITS SC (08:14)
[2023-07-23] MEDS: NOVOLOG FLEXPEN 10 UNITS SC ×2 (08:14→17:59)
[2023-07-23] MEDS: NOVOLOG FLEXPEN-LOW RESISTANCE SC ×2 (08:15→11:49)
[2023-07-23 08:20] LABS: Glucose - Point of Care 126 mg/dl (70-99)
[2023-07-23 08:26] LABS: Magnesium 1.7 mg/dl (1.6-2.3)
--- NOTE | 2023-07-23 09:26 | PN.DE.MGMTRT ---
Insulin Management
- -
07/23/2023: Diabetes Management Follow up:
63 year old male well known to diabetes team from recent admission to . Pt is readmitted with mental status change. CT head--> subacute left occipital and parietal infarct. PMH includes: HTN, ESRD on PD, hx of CVA and T2DM. Patient was previously
using a Medtronic 770 G insulin pump that was recently discontinued due to waxing and weaning mental status. He was d/c'd to rehab on insulin regimen:-Lantus 22 units @ HS and NovoLog 10 units AC with SS.
Patient is noted for Hyperglycemia, glucose has trended up to 425 and Diabetes team is consulted for management. Recent A1C 11%, Cr 5.6, eGFR 9.41.
Pt is sleeping, awakens when name called but falls back to sleep. Nurse checked glucose during my visit result 55. Patient able to take juice, glucose to be rechecked in 15 minutes.
Patient now able to participate in discussion regarding diabetes management.
Previous admission patient was unable to resume pump, was receiving lantus 25 units in AM with novolog 10 units AC and corrective insulin. Will decrease Lantus dose from 20 units BID to 25 units in AM with AC NovoLog to 10 units. Cont low
corrective insulin with meals.
Will closely monitor glucose trend today and adjust AC dose if necessary.
Diabetes History
- -
Type of Diabetes: 1
Pre-Admission Diabetes Regimen
07/23/23
04:10
Creatinine 4.6 H*
Insulin Pump Settings
IP Diabetes Regimen
07/22/23 07/22/23 07/22/23
12:01 16:46 22:07
Glucose
POC Glucose 188 H 187 H 146 H
07/23/23 07/23/23
04:10 08:09
Glucose 125 H
POC Glucose 126 H
Meal type: Lunch
Meal type: Breakfast
Amount consumed: 100%
Amount consumed: 100%
Patient Education
[2023-07-23] MEDS: SENOKOT PO (11:09)
--- NOTE | 2023-07-23 11:24 | CM ---
Addendum entered by Simona Taylor 07/23/23 15:27:
Patient spoke with CM via phone. updated that [facility] was unable to accept patient at this time. Patient requested referral be sent to [facility] and agreed to have CM reach out to local SNF options that may provide Peritoneal
Dialysis. CM reached out to check with [facility] at patient request but [facility] does not do peritoneal Dialysis. CM awaiting call back from [facility] with [facility] and she is confirming which of her facilities can accept PD. Awaiting call back
from [facility] regarding ability to accept.
Original Note:
Updates sent to [facility] (preferred facility) and [facility] (2nd choice)for review. Anticipate possible discharge in 24-48 hours. Await response from above facilities.
[2023-07-23 11:55] LABS: Glucose - Point of Care 55 mg/dl (70-99)
[2023-07-23] MEDS: NOVOLOG FLEXPEN SC (11:55)
[2023-07-23 12:19] LABS: Glucose - Point of Care 73 mg/dl (70-99)
[2023-07-23 14:42] LABS: Glucose - Point of Care 141 mg/dl (70-99)
--- NOTE | 2023-07-23 14:56 | PTCARENOTE ---
Patient very sensitive around green catheter and patient reporting pain. Pt has not had any output in green catheter. Pt drained during PD and then bladder scanned for 300. Pt's Green catheter balloon deflated and catheter advanced, pt slightly
uncooperative with manipulation and another RN assisting with distraction of patient. Green catheter with inital return of bloody urine then clear yellow. Patient educated on Green catheter, he voiced understanding but patient is forgetful.
--- NOTE | 2023-07-23 15:26 | W.PN.NEPH.PH ---
Today's Communication / Plan
-
- order provided for PD
Assessment/Plan
-
Impression:
ESRD/PD
Mental status changes with extension of posterior left parietal occipital
Metabolic encephalopathy with CVA findings on CT 06/27
Hypertension
Secondary hyperparathyroidism
Diabetes
Hyperphosphatemia
Dyslipidemia
BPH
Bladder retention
Plan:
-PD orders provided 2 L 1.5%q4h, weights down
-Flowsheets reviewed:mostly even UF, cont 1.5% at this time , prn lasix , weight stable
-hyperglycemia improving
-s/p MRI with gadolinium shows evolution of subacute CVA and no mass, s/p LP on 07/16-neuro follows
-FATIMAH therapy for anemia prn
-Hemodynamically stable on carvedilol and diltiazem
-Maintain calcitriol for secondary hyperparathyroidism
-Maintain sevelamer with meals in regards to hyperphosphatemia
-Now with Green for bladder retention ( suspect due to recent CVA)-keep it for now in acute CVA per
-
-
Date of Service: July 23, 2023
CC / HPI / ROS
-
Chief Complaint:
End-stage renal disease on PD
History of Present Illness:
Remains on peritoneal dialysis
Blood pressure stable on oral antihypertensive
non oliguric with green
Review of Systems:
No chest pain or shortness of breath
no fever
weights down
Labs
-
Labs:
WBC 9.5 10^3/uL (4.8-10.8) 07/23/23 04:10
RBC 3.35 10^6/uL (4.70-6.10) L 07/23/23 04:10
Hgb 10.0 g/dL (13.0-18.0) L 07/23/23 04:10
Hct 28.2 % (39.0-52.0) L 07/23/23 04:10
Plt Count 329 10^3/uL (130-400) 07/23/23 04:10
Sodium 132 mmol/L (135-145) L 07/23/23 04:10
Potassium 3.2 mmol/L (3.5-5.1) L 07/23/23 04:10
Chloride 96 mmol/L (98-107) L 07/23/23 04:10
Carbon Dioxide 30 mmol/L (22-30) 07/23/23 04:10
BUN 43 mg/dl (9-20) H 07/23/23 04:10
Creatinine 4.6 mg/dL (0.7-1.3) H* 07/23/23 04:10
eGFR 13.46 07/23/23 04:10
Glucose 125 mg/dl (70-99) H 07/23/23 04:10
Calcium 9.2 mg/dl (8.4-10.2) 07/23/23 04:10
Albumin 2.8 g/dl (3.5-5.0) L 07/14/23 17:23
Physical Exam
-
Vital Signs:
Vital Signs
Temp Pulse Resp BP Pulse Ox
98.1 F 61 14 119/63 96
07/23/23 12:00 07/23/23 14:00 07/23/23 14:00 07/23/23 12:00 07/23/23 10:27
Cardiovascular:: Regular rate and rhythm
Respiratory:: Bilateral: Coarse
Lung Excursion:: Normal
Abdomen:: Nontender and Soft
Bowel Sounds:: Normal
Extremity Edema:: None: Bilateral:
Green Catheter: Yes
[2023-07-23 16:36] LABS: Glucose - Point of Care 180 mg/dl (70-99)
[2023-07-23] MEDS: NOVOLOG FLEXPEN-LOW RESISTANCE 1 UNITS SC (18:00)
[2023-07-23] MEDS: LIPITOR 40 MG PO (19:32)
[2023-07-23 21:57] LABS: Glucose - Point of Care 91 mg/dl (70-99)
[2023-07-24] VITALS (8 sets, daily range): BP systolic 105–159; BP diastolic 41–101; PULSE 75
[2023-07-24] MEDS: HEPARIN 5000 UNITS SC ×4 (00:20→23:58)
--- NOTE | 2023-07-24 03:16 | DOWNTIME ---
There was a Bunker [employer] Client Geomagnetist Downtime on 07/23/2023 from 0100 to 07/24/2023 at 0300. Downtime documentation of patient's care, including medication administrations, has been reconciled in the electronic record per guidelines. Refer to the
patient's paper chart under the miscellaneous tab to see printed paper medication records and downtime forms.
[2023-07-24 03:41] LABS: Glucose - Point of Care 133 mg/dl (70-99)
[2023-07-24 04:12] LABS: Hematocrit 28.3 % (39.0-52.0); Hemoglobin 9.7 g/dL (13.0-18.0); Mean Corp Hgb Conc. 34.3 g/dL (33.0-37.0); Mean Corpuscular Hgb 30.1 pg (27.0-31.0); Mean Corpuscular Volume 87.9 fL (80.0-94.0); Mean Platelet Volume 9.3 fL (7.4-10.4); Platelet Count 320 10^3/uL (130-400); Red Blood Cell Count 3.22 10^6/uL (4.70-6.10); Red Cell Dist. Width 13.5 % (11.5-14.5); White Blood Cell Count 10.3 10^3/uL (4.8-10.8)
[2023-07-24 04:44] LABS: Blood Urea Nitrogen 39 mg/dl (9-20); Calcium 9.3 mg/dl (8.4-10.2); Carbon Dioxide 27 mmol/L (22-30); Chloride 97 mmol/L (98-107); Glucose 119 mg/dl (70-99); Magnesium 1.9 mg/dl (1.6-2.3); Potassium 3.4 mmol/L (3.5-5.1); Sodium 132 mmol/L (135-145); eGFR 15.46
--- NOTE | 2023-07-24 04:56 | PTCARENOTE ---
Patient able to sleep overnight. Tolerated PD. visited. Incont of soft BM. Complete bed change. Ward draining yellow urine. Pt resistant to cath care; tip of penis is pink with scant yellow drainage. Pt lacks insight to understand that staff
is trying to help him and clean him. Med sitter at bedside, bed alarm set, call moody within reach.
[2023-07-24] MEDS: ROCALTROL 0.5 MCG PO (07:43)
[2023-07-24] MEDS: SENSIPAR 30 MG PO (07:43)
[2023-07-24] MEDS: LOW STRENGTH ASPIRIN 81 MG PO (07:43)
[2023-07-24] MEDS: PROTONIX 40 MG PO (07:43)
[2023-07-24] MEDS: DUPHALAC/CHRONULAC 20 GRAMS PO ×2 (07:43→21:23)
[2023-07-24] MEDS: FLOMAX 0.400000000000000022 MG PO (07:43)
[2023-07-24] MEDS: SEVELAMER CARBONATE 0.800000000000000044 GM PO ×2 (07:43→21:24)
[2023-07-24] MEDS: COLACE PO ×2 (07:44→21:23)
[2023-07-24] MEDS: CARDIZEM SR 120 MG PO (07:44)
[2023-07-24] MEDS: MIRALAX PO (07:44)
--- NOTE | 2023-07-24 07:50 | W.PN.HOSP.TC ---
Today's Communication/Plan
-
see A/P
replete K
insulin adjusting per DM AIRCRAFT AVIONICS TECHNICIAN
Dispo planning to acute
Assessment / Plan
Assessment / Plan
MRI of the brain:
Acute on subacute infarct in the left occipital lobe in the area of previous infarct, with increased edema and mass effect on the left lateral ventricle occipital horn. Areas of hemosiderin within the area of previous infarct consistent with foci of
hemorrhage.
Resolution of some of the smaller foci of restricted diffusion in the cerebellum, stable appearance of the posterior right occipital lobe infarct.
No midline shift or downward herniation.
Near complete opacification of the left maxillary sinus.
Findings discussed with Dr. Ramos at 2:35 PM. There is prominent mass effect along the left lateral ventricle occipital horn and mass effect along the corpus callosum. While this could certainly be due to edema from the recurrent and residual CVA,
a follow-up brain MRI with and without contrast is recommended after treatment to exclude the unlikely possibility of an occult neoplasm.
Brain MRI with contrast:
Gyral enhancement in the left occipital lobe is favored to be on the basis of evolution of the subacute left posterior cerebral artery territory infarct. No solid enhancing mass that would be considered highly suspicious for neoplasm/CASINO FLOOR WALKER lymphoma.
Large amount of vasogenic edema is redemonstrated with mass effect on the occipital horn of the left lateral ventricle, and slight rightward midline shift measuring 4 mm at the level of the septum pellucidum.
EEG:
Unremarkable EEG for age in sleep only
A/P:
# Change in MS/Toxic metabolic encephalopathy:
Etiology likely due to worsening/recrudescence stroke with superimposed metabolic derangements. Patient back to his baseline MS.
Appreciated neurology consult and follow-up
Brain MRI without contrast results as above
Brain MRI with contrast repeated and LP reviewed results.
Blood cultures no growth
Continue aspirin 81 mg daily. No Plavix (he was not on it prior to admission)
Continue atorvastatin 40 mg nightly
Continue neurochecks/NIH
Rehab consulted
Discussed with casework supervisor and patient medically cleared for discharge. Pending dispo to acute rehab.
# Diabetes mellitus with significant hyperglycemia initially but now improved:
No evidence of DKA or HHS
Holding insulin pump
DM AIRCRAFT AVIONICS TECHNICIAN managing insulin: currently on Lantus adjusted from 20 units BID to 25 units in AM, NovoLog at 10 units AC.
Cont low corrective insulin with meals.
# End-stage renal disease on peritoneal dialysis:
Continue PD per nephrology
IMU status due to hospital policy for PD
# Acute urinary retention/BPH:
# Ward catheter in place prior to admission.
Continue Flomax
Urology consult appreciated
Discussed with urology and recommends to continue Ward catheter upon discharge and reevaluate as outpatient.
# Hyperlipidemia:
Continue statin
# Hypokalemia
replete K
DVT prophylaxis: Heparin SQ
CODE STATUS: Full code
DW RN
Anticipated Discharge: 24 - 48 hours
Subjective/Interval History
-
Date of Service: July 24, 2023
Objective Data
-
Labs:
Laboratory Results
07/24/23
03:59
WBC 10.3
Hgb 9.7 L
Hct 28.3 L
Plt Count 320
Sodium 132 L
Potassium 3.4 L
Chloride 97 L
Carbon Dioxide 27
BUN 39 H
Creatinine 4.1 H*
Glucose 119 H
Calcium 9.3
Vital Signs:
Vital Signs
Temp Pulse Resp BP Pulse Ox
37.3 C 92 16 159/69 94
07/24/23 03:56 07/24/23 06:00 07/24/23 06:00 07/24/23 04:01 07/24/23 03:54
I&O
07/23/23 07/24/23 07/25/23
06:59 06:59 06:59
Intake Total 1230 / 1230 1080 / 1080
Output Total 1300 / 1300 1150 / 1150
Balance -70 / -70 -70 / -70
--- NOTE | 2023-07-24 07:52 | PN.DE.MGMTRT ---
Insulin Management
- -
07/24/2023: Diabetes Management Follow up:
63 year old male well known to diabetes team from recent admission to . Pt is readmitted with mental status change. CT head--> subacute left occipital and parietal infarct. PMH includes: HTN, ESRD on PD, hx of CVA and T2DM. Patient was previously
using a Medtronic 770 G insulin pump that was recently discontinued due to waxing and weaning mental status. He was d/c'd to rehab on insulin regimen:-Lantus 22 units @ HS and NovoLog 10 units AC with SS.
Patient is noted for Hyperglycemia, glucose has trended up to 425 and Diabetes team is consulted for management. Recent A1C 11%, Cr 5.6, eGFR 9.41.
Pt is awake alert and oriented. Able to discuss diabetes Management. He is agreeable regarding not resuming his insulin pump at this time.
Yesterday glucose 55 pre lunch, treated, glucose then 141. HS glucose 91, fasting today 133.
Lantus dose decreased from 20 units BID to 25 units in AM with AC NovoLog to 10 units. Cont low corrective insulin with meals.
Previous admission patient was unable to resume pump, was receiving lantus 25 units in AM with novolog 10 units AC and corrective insulin.
Awaiting transfer to acute rehab.
Will closely monitor glucose trend today and adjust AC dose if necessary.
Diabetes History
- -
Type of Diabetes: 1
Pre-Admission Diabetes Regimen
07/24/23
03:59
Creatinine 4.1 H*
Insulin Pump Settings
IP Diabetes Regimen
07/23/23 07/23/23 07/23/23
08:09 11:43 12:08
Glucose
POC Glucose 126 H 55 L* 73
07/23/23 07/23/23 07/23/23
14:31 16:25 21:45
Glucose
POC Glucose 141 H 180 H 91
07/24/23 07/24/23
03:30 03:59
Glucose 119 H
POC Glucose 133 H
Meal type: Breakfast
Amount consumed: 100%
Patient Education
[2023-07-24 08:07] LABS: Glucose - Point of Care 110 mg/dl (70-99)
[2023-07-24] MEDS: NOVOLOG FLEXPEN-LOW RESISTANCE SC ×3 (08:47→18:13)
[2023-07-24] MEDS: LANTUS 0.25 UNITS SC (08:48)
[2023-07-24] MEDS: NOVOLOG FLEXPEN 10 UNITS SC (08:48)
[2023-07-24] MEDS: KCL 270 MEQ IV (08:48)
--- NOTE | 2023-07-24 09:13 | W.PN.NEPH.PH ---
Today's Communication / Plan
-
PD orders written
Changed to every 5 hour exchange interval
Assessment/Plan
-
Impression:
ESRD/PD
Mental status changes with extension of posterior left parietal occipital
Metabolic encephalopathy with CVA findings on CT 06/27
Hypertension
Secondary hyperparathyroidism
Diabetes
Hyperphosphatemia
Dyslipidemia
BPH
Bladder retention
Plan:
-PD orders provided 2 L 1.5%q4h, weights down, will change to every 5 hours
-Flowsheets reviewed:mostly even UF, cont 1.5% at this time , prn lasix , weight down
-K repletion today
-hyperglycemia improving
-s/p MRI with gadolinium shows evolution of subacute CVA and no mass, s/p LP on 07/16-neuro follows
-FATIMAH therapy for anemia prn
-Hemodynamically stable on carvedilol and diltiazem
-Maintain calcitriol for secondary hyperparathyroidism
-Maintain sevelamer with meals in regards to hyperphosphatemia
-Now with Green for bladder retention ( suspect due to recent CVA)-keep it for now in acute CVA per
-
-
Date of Service: July 24, 2023
CC / HPI / ROS
-
Chief Complaint:
End-stage renal disease on PD
History of Present Illness:
Remains on peritoneal dialysis
Blood pressure stable on oral antihypertensive
non oliguric with green
Review of Systems:
No chest pain or shortness of breath
no fever
weights down
Labs
-
Labs:
WBC 10.3 10^3/uL (4.8-10.8) 07/24/23 03:59
RBC 3.22 10^6/uL (4.70-6.10) L 07/24/23 03:59
Hgb 9.7 g/dL (13.0-18.0) L 07/24/23 03:59
Hct 28.3 % (39.0-52.0) L 07/24/23 03:59
Plt Count 320 10^3/uL (130-400) 07/24/23 03:59
Sodium 132 mmol/L (135-145) L 07/24/23 03:59
Potassium 3.4 mmol/L (3.5-5.1) L 07/24/23 03:59
Chloride 97 mmol/L (98-107) L 07/24/23 03:59
Carbon Dioxide 27 mmol/L (22-30) 07/24/23 03:59
BUN 39 mg/dl (9-20) H 07/24/23 03:59
Creatinine 4.1 mg/dL (0.7-1.3) H* 07/24/23 03:59
eGFR 15.46 07/24/23 03:59
Glucose 119 mg/dl (70-99) H 07/24/23 03:59
Calcium 9.3 mg/dl (8.4-10.2) 07/24/23 03:59
Albumin 2.8 g/dl (3.5-5.0) L 07/14/23 17:23
Physical Exam
-
Vital Signs:
Vital Signs
Temp Pulse Resp BP Pulse Ox
98.3 F 74 23 105/50 94
07/24/23 07:52 07/24/23 08:00 07/24/23 08:00 07/24/23 07:43 07/24/23 03:54
Cardiovascular:: Regular rate and rhythm
Respiratory:: Bilateral: CTA
Lung Excursion:: Normal
Abdomen:: Nontender and Soft
Bowel Sounds:: Normal
Extremity Edema:: None: Bilateral:
Green Catheter: No
--- NOTE | 2023-07-24 09:16 | W.PN.UPDATE ---
Update Note
Progress Note Update
PD note
Change to 2 L 1.5% every 5 hour interval
[2023-07-24 12:36] LABS: Glucose - Point of Care 53 mg/dl (70-99)
[2023-07-24 12:56] LABS: Glucose - Point of Care 67 mg/dl (70-99)
[2023-07-24 13:15] LABS: Glucose - Point of Care 90 mg/dl (70-99)
[2023-07-24] MEDS: NOVOLOG FLEXPEN SC (13:22)
[2023-07-24] MEDS: SENOKOT PO (13:23)
--- NOTE | 2023-07-24 15:33 | CM ---
Patient from [facility] with Hx ESRD on Peritoneal Dialysis with Dx Acute on subacute cerebral infarct. Room air. Receiving Peritoneal dialysis. PT & OT recommend acute rehab. ST al- Skilled service indicated. Per nurse assessment;
confused, drowsy, expressive/receptive aphasia.
Spoke with Buddy Lockettor [facility]; their first available bed is on 07/25. They will do the insurance auth tomorrow with request for Saturday. Clinical info updated in [facility] for auth request.
Spoke with Evette, OT; patient is dependent with his mobility at this time and not making gains in rehab.
Spoke with Katya, patient's ; provided update that [facility] will have an available bed Saturday and can accept her once insurance approves.
Katya asking whether patient had a bleed on his second stroke and wondering about his chances for recovery. She is asking for a phone call from neurologist or hospitalist---> message sent to [facility].
Plan [facility] [place] 07/25 once insurance approves.
[2023-07-24 15:44] LABS: Glucose - Point of Care 127 mg/dl (70-99)
[2023-07-24 17:28] LABS: Glucose - Point of Care 139 mg/dl (70-99)
[2023-07-24] MEDS: NOVOLOG FLEXPEN 8 UNITS SC (18:14)
[2023-07-24] MEDS: LIPITOR 40 MG PO (21:24)
[2023-07-24 21:26] LABS: Glucose - Point of Care 39 mg/dl (70-99)
[2023-07-24 21:42] LABS: Glucose - Point of Care 75 mg/dl (70-99)
--- NOTE | 2023-07-24 22:31 | PTCARENOTE ---
Patient was found to be extremely diaphoretic but awake and alert. Blood sugar immediately checked and found to be 39. Hypoglycemia protocol followed; hypoglycemic snack given and juice. CROP SCOUT Janet made aware. Recheck blood sugar after 15 minutes
was 75.
[2023-07-25] VITALS (7 sets, daily range): BP systolic 132–182; BP diastolic 66–119; PULSE 74
[2023-07-25 00:08] LABS: Glucose - Point of Care 165 mg/dl (70-99)
[2023-07-25 03:45] LABS: Glucose - Point of Care 220 mg/dl (70-99)
[2023-07-25 04:24] LABS: Hematocrit 27.8 % (39.0-52.0); Hemoglobin 9.4 g/dL (13.0-18.0); Mean Corp Hgb Conc. 33.8 g/dL (33.0-37.0); Mean Corpuscular Volume 88.8 fL (80.0-94.0); Mean Platelet Volume 9.5 fL (7.4-10.4); Platelet Count 300 10^3/uL (130-400); Red Blood Cell Count 3.13 10^6/uL (4.70-6.10); Red Cell Dist. Width 13.6 % (11.5-14.5); White Blood Cell Count 6.3 10^3/uL (4.8-10.8)
[2023-07-25 05:00] LABS: Blood Urea Nitrogen 35 mg/dl (9-20); Calcium 8.9 mg/dl (8.4-10.2); Carbon Dioxide 29 mmol/L (22-30); Chloride 96 mmol/L (98-107); Glucose 233 mg/dl (70-99); Magnesium 1.8 mg/dl (1.6-2.3); Potassium 3.7 mmol/L (3.5-5.1); Sodium 131 mmol/L (135-145)
[2023-07-25 08:05] LABS: Glucose - Point of Care 301 mg/dl (70-99)
--- NOTE | 2023-07-25 08:17 | W.PN.NEURO.1 ---
Today's Communication / Plan
-
-Continue aspirin antiplatelet monotherapy, continue statin
-Diabetes mellitus treatment and glucose control
-Minimize sedating medications
-Planning for discharge to rehab tentatively in next few days
-Would repeat a brain MRI with and without contrast on approximately 08/16, would be helpful if study could be done here at [facility] for comparison of imaging to previous MRI exams
-Neurology follow up in the outpatient setting
Will sign off call with questions and concerns
Neuro Assessment/Plan
Assessment
Neuro Imaging: CT head with subacute left occipital and parietal infarct, chronic to late subacute right occipital infarction, no hemorrhage
MRI changes are greater than what would be expected from prior occipital strokes and are more suggestive of intracranial abnormality including MAIL HANDLERS SUPERVISOR lymphoma although this would be a secondary diagnosis after a significant first
1. Change in mental status in a patient with recent significant ischemic strokes to the occipital lobes bilaterally producing cognitive impairment as well as right-sided hemianopia and right-sided weakness. Etiology of stroke appears most likely
to be atheroembolic from uncontrolled diabetes mellitus versus less likely cardioembolic.
MRI brain with contrast is not supportive of neoplasm, more supportive of subacute stroke
Progression of the initial left TECHNICAL SOLUTIONS DIRECTOR ischemic infarction seems the most likely explanation for worsened mental status, at risk for stroke progression with uncontrolled diabetes mellitus effects on cerebral blood flow
Additionally ESRD on PD places him at risk for easy development of metabolic encephalopathy
Lumbar puncture not showing signs indicating infection
I do feel it would be best to reimage the brain in 4 weeks from the conrast MRI here (this was done on 07/16) as subacute strokes can be mistaken for brain neoplasm
Subjective/Objective
Subjective Data
Date of Service: July 25, 2023
No acute events, denies headache, discussed stroke recovery, repeating brain imaging in the future
Objective Data
Vital Signs
Temp Pulse Resp BP Pulse Ox
98.6 F 69 13 164/71 96
07/25/23 07:33 07/25/23 05:02 07/25/23 05:02 07/25/23 05:02 07/25/23 03:54
Lab Results
07/25/23 04:10
07/25/23 04:10
PT 12.8 Sec (11.4-14.6) 07/17/23 13:28
INR 0.96 07/17/23 13:28
Sodium 131 mmol/L (135-145) L 07/25/23 04:10
Potassium 3.7 mmol/L (3.5-5.1) 07/25/23 04:10
BUN 35 mg/dl (9-20) H 07/25/23 04:10
Glucose 233 mg/dl (70-99) H 07/25/23 04:10
Calcium 8.9 mg/dl (8.4-10.2) 07/25/23 04:10
LDL Cholesterol, Calc 57 mg/dl 07/15/23 03:32
Patient Allergies
No Known Allergies Allergy (Verified 07/14/23 17:16)
Review of Systems
-
History Source: Patient
All other systems: Reviewed and negative
Constitutional: No Symptoms
EENT: No Symptoms Reported
Respiratory: No Symptoms
Cardiac: No Symptoms
Abdomen/GI: No Symptoms
Genitourinary: No Symptoms
Musculoskeletal: No Symptoms
Skin: No Symptoms
Neuro: Speech Problem
Endocrine: No Symptoms
Hematologic / Lymphatic: No Symptoms
Allergy / Immunology: No Symptoms
Physical Exam
-
General: Comfortable
Eyes: No Ptosis
HEENT: Normocephalic
Neck: No Bruits Bilaterally
Respiratory: Clear to Auscultation
Cardiac: Regular Rhythm
GI: Normal Bowel Sounds
Skin: Unremarkable
Extremities: No Clubbing
Psych: Negative Agitated
Extended Neurological Exam
Attention Span & Concentration: Awake, Alert, Interactive and No Difficulty with 2 Step Request
Memory: Reduced
Tremor: Hand Tremor Absent
Involuntary Movement: None
Speech: Dysarthric
Cranial Nerve II: Left Eye: Other (Right sided homonymous hemianopia)
Cranial Nerve II: Right Eye: Other (Right sided homonymous hemianopia)
Cranial Nerves III, IV, : Extraocular Movement: Extraocular Movement Full in all Directions
Deep Tendon Reflexes: Trace Throughout
Data Reviewed
-
CT Head: Report Reviewed and Image Reviewed
MRI Head: Report Reviewed and Image Reviewed
Labs: Report Reviewed
--- NOTE | 2023-07-25 08:31 | W.PN.HOSP.TC ---
Today's Communication/Plan
-
see AP
Assessment / Plan
Assessment / Plan
MRI of the brain:
Acute on subacute infarct in the left occipital lobe in the area of previous infarct, with increased edema and mass effect on the left lateral ventricle occipital horn. Areas of hemosiderin within the area of previous infarct consistent with foci of
hemorrhage.
Resolution of some of the smaller foci of restricted diffusion in the cerebellum, stable appearance of the posterior right occipital lobe infarct.
No midline shift or downward herniation.
Near complete opacification of the left maxillary sinus.
Findings discussed with Dr. Ramos at 2:35 PM. There is prominent mass effect along the left lateral ventricle occipital horn and mass effect along the corpus callosum. While this could certainly be due to edema from the recurrent and residual CVA,
a follow-up brain MRI with and without contrast is recommended after treatment to exclude the unlikely possibility of an occult neoplasm.
Brain MRI with contrast:
Gyral enhancement in the left occipital lobe is favored to be on the basis of evolution of the subacute left posterior cerebral artery territory infarct. No solid enhancing mass that would be considered highly suspicious for neoplasm/AUDIOVISUAL LIBRARIAN lymphoma.
Large amount of vasogenic edema is redemonstrated with mass effect on the occipital horn of the left lateral ventricle, and slight rightward midline shift measuring 4 mm at the level of the septum pellucidum.
EEG:
Unremarkable EEG for age in sleep only
A/P:
# Change in MS/Toxic metabolic encephalopathy:
Etiology likely due to worsening/recrudescence stroke with superimposed metabolic derangements. Patient back to his baseline MS.
Appreciated neurology consult and follow-up
Brain MRI without contrast results as above
Brain MRI with contrast repeated and LP reviewed results.
Blood cultures no growth
Continue aspirin 81 mg daily. No Plavix (he was not on it prior to admission)
Continue atorvastatin 40 mg nightly
Continue neurochecks/NIH
For acute rehab Saturday arranged by CM
# Diabetes mellitus with significant hyperglycemia initially but now improved:
No evidence of DKA or HHS
Holding insulin pump
DM TOUR ESCORT managing insulin: currently on Lantus 25 units in AM, NovoLog at 10 units AC.
Cont low corrective insulin with meals.
# End-stage renal disease on peritoneal dialysis:
Continue PD per nephrology
IMU status due to hospital policy for PD
# Acute urinary retention/BPH:
# Ward catheter in place prior to admission.
Continue Flomax
Urology consult appreciated
Discussed with urology and recommends to continue Ward catheter upon discharge and reevaluate as outpatient.
# Hyperlipidemia:
Continue statin
# Hypokalemia
repleted K
DVT prophylaxis: Heparin SQ
CODE STATUS: Full code
updated on the phone
Anticipated Discharge: Within 24 hours
Subjective/Interval History
-
Date of Service: July 25, 2023
Objective Data
-
Labs:
Laboratory Results
07/25/23
04:10
WBC 6.3
Hgb 9.4 L
Hct 27.8 L
Plt Count 300
Sodium 131 L
Potassium 3.7
Chloride 96 L
Carbon Dioxide 29
BUN 35 H
Creatinine 4.3 H*
Glucose 233 H
Calcium 8.9
Vital Signs:
Vital Signs
Temp Pulse Resp BP Pulse Ox
37.0 C 69 13 164/71 96
07/25/23 07:33 07/25/23 05:02 07/25/23 05:02 07/25/23 05:02 07/25/23 03:54
I&O
07/24/23 07/25/23 07/26/23
06:59 06:59 06:59
Intake Total 1080 / 1080 2460 / 2460
Output Total 1150 / 1150 1100 / 1100
Balance -70 / -70 1360 / 1360
Review of Systems
-
All other systems: Reviewed and negative
Physical Exam
-
General: Well Developed, Well Nourished, No Apparent Distress, Comfortable and Conversant
HEENT: Negative Oxygen
Respiratory: Clear to Auscultation and Non Labored Respirations; Negative Accessory Resp Muscle Use
Cardiac: Regular Rhythm and S1/S2; Negative Murmur or Rub
GI: Soft, Nontender and Nondistended
Neuro: Awake and Alert
Psych: Calm; Negative Intact Judgement/Insight
Data Reviewed
-
MRI: Report Reviewed by me
Labs: Labs Reviewed by me
[2023-07-25] MEDS: NOVOLOG FLEXPEN 8 UNITS SC (09:05)
[2023-07-25] MEDS: NOVOLOG FLEXPEN-LOW RESISTANCE 4 UNITS SC (09:05)
[2023-07-25] MEDS: CARDIZEM SR 120 MG PO (09:10)
[2023-07-25] MEDS: PROTONIX 40 MG PO (09:10)
[2023-07-25] MEDS: MIRALAX 17 GRAMS PO (09:10)
[2023-07-25] MEDS: DUPHALAC/CHRONULAC 20 GRAMS PO ×2 (09:10→20:26)
[2023-07-25] MEDS: LANTUS 0.25 UNITS SC (09:10)
[2023-07-25] MEDS: COLACE 100 MG PO ×2 (09:10→20:26)
[2023-07-25] MEDS: SENSIPAR 30 MG PO (09:10)
[2023-07-25] MEDS: LOW STRENGTH ASPIRIN 81 MG PO (09:10)
[2023-07-25] MEDS: HEPARIN 5000 UNITS SC ×3 (09:11→23:53)
[2023-07-25] MEDS: ROCALTROL 0.5 MCG PO (09:11)
[2023-07-25] MEDS: FLOMAX 0.400000000000000022 MG PO (09:11)
[2023-07-25] MEDS: SEVELAMER CARBONATE 0.800000000000000044 GM PO ×2 (09:11→20:26)
--- NOTE | 2023-07-25 09:36 | W.PN.NEPH.PH ---
Today's Communication / Plan
-
PD orders provided change back to every 4 hours interval
Assessment/Plan
-
Impression:
ESRD/PD
Mental status changes with extension of posterior left parietal occipital
Metabolic encephalopathy with CVA findings on CT 06/27
Hypertension
Secondary hyperparathyroidism
Diabetes
Hyperphosphatemia
Dyslipidemia
BPH
Bladder retention
Plan:
-Flowsheets reviewed, slightly positive,weights up
-PD orders to be changed back to 2 L exchanges 1.5% acute 4-hour intervals
-Blood sugar rising
-Flowsheets reviewed, weights up blood pressu upre
-s/p MRI with gadolinium shows evolution of subacute CVA and no mass, s/p LP on 07/16-neuro follows
-FATIMAH therapy for anemia prn
-Hemodynamically stable on carvedilol and diltiazem
-Maintain calcitriol for secondary hyperparathyroidism
-Maintain sevelamer with meals in regards to hyperphosphatemia
-Now with Green for bladder retention ( suspect due to recent CVA)-keep it for now in acute CVA per
-
-
Date of Service: July 25, 2023
CC / HPI / ROS
-
Chief Complaint:
End-stage renal disease on PD
History of Present Illness:
Remains on peritoneal dialysis
Blood pressure stable on oral antihypertensive
non oliguric with green
Review of Systems:
No chest pain or shortness of breath
no fever
weights up
Labs
-
Labs:
WBC 6.3 10^3/uL (4.8-10.8) 07/25/23 04:10
RBC 3.13 10^6/uL (4.70-6.10) L 07/25/23 04:10
Hgb 9.4 g/dL (13.0-18.0) L 07/25/23 04:10
Hct 27.8 % (39.0-52.0) L 07/25/23 04:10
Plt Count 300 10^3/uL (130-400) 07/25/23 04:10
Sodium 131 mmol/L (135-145) L 07/25/23 04:10
Potassium 3.7 mmol/L (3.5-5.1) 07/25/23 04:10
Chloride 96 mmol/L (98-107) L 07/25/23 04:10
Carbon Dioxide 29 mmol/L (22-30) 07/25/23 04:10
BUN 35 mg/dl (9-20) H 07/25/23 04:10
Creatinine 4.3 mg/dL (0.7-1.3) H* 07/25/23 04:10
eGFR 14.60 07/25/23 04:10
Glucose 233 mg/dl (70-99) H 07/25/23 04:10
Calcium 8.9 mg/dl (8.4-10.2) 07/25/23 04:10
Albumin 2.8 g/dl (3.5-5.0) L 07/14/23 17:23
Physical Exam
-
Vital Signs:
Vital Signs
Temp Pulse Resp BP Pulse Ox
98.6 F 72 15 165/66 96
07/25/23 07:33 07/25/23 08:41 07/25/23 08:41 07/25/23 08:00 07/25/23 03:54
Cardiovascular:: Regular rate and rhythm
Respiratory:: Bilateral: CTA
Lung Excursion:: Normal
Abdomen:: Nontender and Soft
Bowel Sounds:: Normal
Extremity Edema:: None: Bilateral:
Green Catheter: Yes
--- NOTE | 2023-07-25 09:44 | W.PN.UPDATE ---
Update Note
Progress Note Update
PD note
Flowsheets reviewed, blood sugar dropped last evening
Now UF less effective with rising weights and hypertension
We will adjust exchanges back to every 4 hour interval 1.5% 2 L exchange
--- NOTE | 2023-07-25 10:05 | PN.DE.MGMTRT ---
Insulin Management
- -
07/25/2023: Diabetes Management Follow up:
63 year old male well known to diabetes team from recent admission to . Pt is readmitted with mental status change. CT head--> subacute left occipital and parietal infarct. PMH includes: HTN, ESRD on PD, hx of CVA and T2DM. Patient was previously
using a Medtronic 770 G insulin pump that was recently discontinued due to waxing and weaning mental status. He was d/c'd to rehab on insulin regimen:-Lantus 22 units @ HS and NovoLog 10 units AC with SS.
Patient is noted for Hyperglycemia, glucose has trended up to 425 and Diabetes team is consulted for management. Recent A1C 11%, Cr 5.6, eGFR 9.41.
Pt is awake alert and oriented. Able to discuss diabetes Management. He is agreeable regarding not resuming his insulin pump at this time.
Yesterday glucose 53 pre lunch, treated, glucose then 141. HS glucose 39 treated then 75, treated then 165, fasting today 233.
Will continue Lantus dose 25 units in AM will decrease AC NovoLog to 6 units. Cont low corrective insulin with meals.
Previous admission patient was unable to resume pump, was receiving lantus 25 units in AM with novolog 10 units AC and corrective insulin.
Awaiting transfer to acute rehab.
Will closely monitor glucose trend today and adjust AC dose if necessary.
Diabetes History
- -
Type of Diabetes: 1
Pre-Admission Diabetes Regimen
07/25/23
04:10
Creatinine 4.3 H*
Insulin Pump Settings
IP Diabetes Regimen
07/24/23 07/24/23 07/24/23
12:25 12:44 13:04
Glucose
POC Glucose 53 L* 67 L 90
07/24/23 07/24/23 07/24/23
15:33 17:16 21:08
Glucose
POC Glucose 127 H 139 H 39 L*
07/24/23 07/24/2324
21:29 23:53 03:34
Glucose
POC Glucose 75 165 H 220 H
07/25/23 07/25/23
04:10 07:52
Glucose 233 H
POC Glucose 301 H
Meal type: Dinner
Meal type: Breakfast
Amount consumed: 100%
Amount consumed: 100%
Patient Education
[2023-07-25 12:04] LABS: Glucose - Point of Care 178 mg/dl (70-99)
--- NOTE | 2023-07-25 12:11 | W.PN.UPDATE ---
Update Note
Progress Note Update
Patient for discharge
Patient can resume nightly cycler for PD at the rehab center as opposed to [facility]
[2023-07-25] MEDS: SENOKOT PO (12:32)
--- NOTE | 2023-07-25 12:54 | CM ---
Addendum entered by Joe Lagos 07/25/23 16:15:
[facility] nursing report: [phone]
Discharge instructions fax: [phone]
Addendum entered by Joe Lagos 07/25/23 16:05:
Per Cathryn from [facility], pt is approved by KIEL Augustine for acute level of care at [facility] from tomorrow 07/26/23 till 07/30/23 with LCD and NRD 07/30/23. Auth is: [id number]. Updates to: [phone].
Original Note:
CM following re: discharge planning.
Reviewed pt's chart, met with pt and spoke to pt's spouse over the phone to update on discharge plan progress.
According to pt is medically stable to be discharge. Per hand scraper, patient can resume nightly cycler for PD at the rehab center as opposed to [facility]
Updated pt's clinical with nephrology updated note faxed to [facility], spoke to admissions coordination Cathryn and she confirmed that they do not have a bed available today, they do have a bed available tomorrow and pt is accepted for
admission to [facility] tomorrow. Per Cathryn, they will initiate an auth from [facility] for acute level of rehab at [facility].
D/C plan: [facility] tomorrow 07/26/23. Awaiting for an auth.
CM will follow to assist pt with discharge to [facility].
[2023-07-25] MEDS: NOVOLOG FLEXPEN 6 UNITS SC ×2 (13:33→18:00)
[2023-07-25] MEDS: NOVOLOG FLEXPEN-LOW RESISTANCE 1 UNITS SC (13:33)
[2023-07-25 16:31] LABS: Glucose - Point of Care 93 mg/dl (70-99)
[2023-07-25] MEDS: NOVOLOG FLEXPEN-LOW RESISTANCE SC (17:28)
[2023-07-25] MEDS: LIPITOR 40 MG PO (20:26)
[2023-07-25 22:32] LABS: Glucose - Point of Care 140 mg/dl (70-99)
[2023-07-26 00:22] VITALS: BP 111/94
[2023-07-26 03:46] LABS: Hematocrit 27.7 % (39.0-52.0); Hemoglobin 9.8 g/dL (13.0-18.0); Mean Corp Hgb Conc. 35.4 g/dL (33.0-37.0); Mean Corpuscular Hgb 30.3 pg (27.0-31.0); Mean Corpuscular Volume 85.8 fL (80.0-94.0); Mean Platelet Volume 8.9 fL (7.4-10.4); Platelet Count 322 10^3/uL (130-400); Red Blood Cell Count 3.23 10^6/uL (4.70-6.10); Red Cell Dist. Width 13.5 % (11.5-14.5); White Blood Cell Count 7.9 10^3/uL (4.8-10.8)
[2023-07-26 04:19] LABS: Blood Urea Nitrogen 37 mg/dl (9-20); Calcium 9.1 mg/dl (8.4-10.2); Carbon Dioxide 31 mmol/L (22-30); Chloride 96 mmol/L (98-107); Glucose 176 mg/dl (70-99); Magnesium 1.8 mg/dl (1.6-2.3); Potassium 3.9 mmol/L (3.5-5.1); Sodium 133 mmol/L (135-145)
[2023-07-26 05:30] VITALS: BP 158/139
[2023-07-26 06:42] VITALS: BP 158/91
[2023-07-26 08:01] VITALS: BP 159/76
--- NOTE | 2023-07-26 08:06 | PN.DE.MGMTRT ---
Insulin Management
- -
07/26/2023: Diabetes Management F/U:
63 year old male well known to diabetes team from recent admission to . Pt is readmitted with mental status change. CT head--> subacute left occipital and parietal infarct. PMH includes: HTN, ESRD on PD, hx of CVA and T2DM. Patient was previously
using a [employer]onic 770 G insulin pump that was recently discontinued due to waxing and weaning mental status. He was d/c'd to rehab on insulin regimen:-Lantus 22 units @ HS and NovoLog 10 units AC with SS.
Patient is noted for Hyperglycemia, glucose has trended up to 425 and Diabetes team is consulted for management. Recent A1C 11%, Cr 5.6, eGFR 9.41.
Pt is awake alert and oriented. Able to discuss diabetes Management. He is agreeable regarding not resuming his insulin pump at this time.
Insulin was adjusted due to hypoglycemia. Glucose has remained stable w/o recurrent hypoglycemia, FBG 176
Will make no changes to current regimen. Cont Lantus 25 units in AM and NovoLog 6 units AC. Cont low corrective insulin with meals.
Previous admission patient was unable to resume pump, was receiving Lantus 25 units in AM with NovoLog 10 units AC and corrective insulin.
Awaiting transfer to acute rehab.
Diabetes History
- -
Type of Diabetes: 1
Pre-Admission Diabetes Regimen
07/26/23
03:35
Creatinine 4.4 H*
Insulin Pump Settings
IP Diabetes Regimen
07/25/23 07/25/23 07/25/23
11:52 16:19 22:18
Glucose
POC Glucose 178 H 93 140 H
07/26/23
03:35
Glucose 176 H
POC Glucose
Meal type: Lunch
Meal type: Breakfast
Amount consumed: 100%
Amount consumed: 100%
Patient Education
[2023-07-26 08:13] LABS: Glucose - Point of Care 227 mg/dl (70-99)
--- NOTE | 2023-07-26 08:16 | W.PN.HOSP.TC ---
Today's Communication/Plan
-
plan for [facility] rehab
Assessment / Plan
Assessment / Plan
Pt is a 63 year old male
Change in MS/Toxic metabolic encephalopathy--Etiology likely due to worsening/recrudescence stroke with superimposed metabolic derangements--apprec neuro--no evidence of infection by blood or CSF cultures--MRIs c/w subacute stroke--Continue aspirin
81 mg daily. No Plavix (he was not on it prior to admission)--Continue atorvastatin 40 mg nightly--For acute rehab Saturday arranged by CM
Type 2 Diabetes mellitus with significant hyperglycemia initially but now improved--No evidence of DKA or HHS--Holding insulin pump--DM [employer] managing insulin: currently on Lantus 25 units in AM, NovoLog at 10 units AC--Cont low corrective insulin with
meals.
End-stage renal disease on peritoneal dialysis--Continue PD per nephrology
Acute urinary retention/BPH--Ward catheter in place prior to admission--Continue Flomax--Urology consult appreciated--Discussed with urology and recommends to continue Ward catheter upon discharge and reevaluate as outpatient.
Hyperlipidemia--Continue statin
Hypokalemia--repleted K
DVT prophylaxis: Heparin SQ
CODE STATUS: Full code
Anticipated Discharge: Today
Subjective/Interval History
-
Date of Service: July 26, 2023
pt confused--seems to have expressive aphasia
Objective Data
-
Labs:
Laboratory Results
07/26/23
03:35
WBC 7.9
Hgb 9.8 L
Hct 27.7 L
Plt Count 322
Sodium 133 L
Potassium 3.9
Chloride 96 L
Carbon Dioxide 31 H
BUN 37 H
Creatinine 4.4 H*
Glucose 176 H
Calcium 9.1
Vital Signs:
max temp for 24 hours
07/26/23
03:33
Temp 98.8 F
Vital Signs
Temp Pulse Resp BP Pulse Ox
98.8 F 79 14 158/91 94
07/26/23 03:33 07/26/23 06:42 07/26/23 06:42 07/26/23 06:42 07/26/23 01:01
I&O
07/25/23 07/26/23 07/27/23
06:59 06:59 06:59
Intake Total 2460 / 2460 2140 / 2140
Output Total 1100 / 1100 1800 / 1800
Balance 1360 / 1360 340 / 340
Review of Systems
-
All other systems: Reviewed and negative
Physical Exam
-
General: Appears Chronically Ill
HEENT: Normocephalic and Atraumatic
Respiratory: Clear to Auscultation; Negative Wheezes or Rhonchi
Cardiac: Regular Rhythm and S1/S2; Negative Murmur
GI: Soft, Nontender, Nondistended, Normal Bowel Sounds and Other (PD catheter)
Genito-urinary: Ward
Musculoskeletal: No Clubbing, No Cyanosis and No Edema
Skin: Warm
Neuro: Awake
Psych: Confused
[2023-07-26] MEDS: CARDIZEM SR 120 MG PO (08:50)
[2023-07-26] MEDS: ROCALTROL 0.5 MCG PO (08:50)
[2023-07-26] MEDS: SEVELAMER CARBONATE 0.800000000000000044 GM PO (08:50)
[2023-07-26] MEDS: DUPHALAC/CHRONULAC 20 GRAMS PO (08:50)
[2023-07-26] MEDS: LOW STRENGTH ASPIRIN 81 MG PO (08:50)
[2023-07-26] MEDS: FLOMAX 0.400000000000000022 MG PO (08:50)
[2023-07-26] MEDS: SENSIPAR 30 MG PO (08:50)
[2023-07-26] MEDS: COLACE PO (08:51)
[2023-07-26] MEDS: HEPARIN 5000 UNITS SC (08:51)
[2023-07-26] MEDS: MIRALAX PO (08:52)
[2023-07-26] MEDS: NOVOLOG FLEXPEN 6 UNITS SC ×2 (08:53→13:08)
[2023-07-26] MEDS: NOVOLOG FLEXPEN-LOW RESISTANCE 2 UNITS SC (08:53)
[2023-07-26] MEDS: LANTUS 0.25 UNITS SC (08:57)
[2023-07-26] MEDS: PROTONIX 40 MG PO (09:00)
--- NOTE | 2023-07-26 09:56 | CM ---
CM following re: discharge planning.
Reviewed pt's chart, met with pt and spoke to pt's spouse over the phone to update on discharge plan progress.
Discharge order noted. Both pt and his spouse are aware, expressed their agreement with discharge.
KIEL spoke to [facility] medical staffing coordinator Chelsea and she confirmed that pt is accepted for admission today and 2:30 p.m. excelsior picker time requested.
Pt is approved by KIEL Augustine for acute level of care at [facility] from today 07/26/23 till 07/30/23 with LCD and NRD 07/30/23. Auth is: [id number]. Updates to: [phone].
arranged ambulance BLS with Acute care ambulance with [facility]els[facility] picker time 2:30 p.m. [facility] completed and left with . An ambulance auth has been obtained from [facility], spoke to KIEL Rivera. Auth for Acute care ambulance: [id number]
Both pt and his spouse BETTY Aldana and [facility] admissions are aware of discharge time.
[facility] nursing report: [phone]
Discharge instructions fax: [phone]
D/C plan: [facility] ([facility]).
--- NOTE | 2023-07-26 11:29 | W.PN.NEPH.PH ---
Today's Communication / Plan
-
- PD
Assessment/Plan
-
Impression:
ESRD/PD
Mental status changes with extension of posterior left parietal occipital
Metabolic encephalopathy with CVA findings on CT 06/27
Hypertension
Secondary hyperparathyroidism
Diabetes
Hyperphosphatemia
Dyslipidemia
BPH
Bladder retention
Plan:
-Flowsheets reviewed, slightly positive, weight stable
-PD orders to be changed back to 2 L exchanges 1.5% acute 4-hour intervals
-s/p MRI with gadolinium shows evolution of subacute CVA and no mass, s/p LP on 07/16-neuro follows
-FATIMAH therapy for anemia prn
-Hemodynamically stable on carvedilol and diltiazem
-Maintain calcitriol for secondary hyperparathyroidism
-Maintain sevelamer with meals in regards to hyperphosphatemia
-Now with Green for bladder retention ( suspect due to recent CVA)-keep it for now in acute CVA per
-planning for discharge to [place] rehab
-
-
Date of Service: July 26, 2023
CC / HPI / ROS
-
Chief Complaint:
End-stage renal disease on PD
History of Present Illness:
Remains on peritoneal dialysis
Blood pressure stable on oral antihypertensive
non oliguric with green
Review of Systems:
No chest pain or shortness of breath
no fever
weights up
Labs
-
Labs:
WBC 7.9 10^3/uL (4.8-10.8) 07/26/23 03:35
RBC 3.23 10^6/uL (4.70-6.10) L 07/26/23 03:35
Hgb 9.8 g/dL (13.0-18.0) L 07/26/23 03:35
Hct 27.7 % (39.0-52.0) L 07/26/23 03:35
Plt Count 322 10^3/uL (130-400) 07/26/23 03:35
Sodium 133 mmol/L (135-145) L 07/26/23 03:35
Potassium 3.9 mmol/L (3.5-5.1) 07/26/23 03:35
Chloride 96 mmol/L (98-107) L 07/26/23 03:35
Carbon Dioxide 31 mmol/L (22-30) H 07/26/23 03:35
BUN 37 mg/dl (9-20) H 07/26/23 03:35
Creatinine 4.4 mg/dL (0.7-1.3) H* 07/26/23 03:35
eGFR 14.20 07/26/23 03:35
Glucose 176 mg/dl (70-99) H 07/26/23 03:35
Calcium 9.1 mg/dl (8.4-10.2) 07/26/23 03:35
Albumin 2.8 g/dl (3.5-5.0) L 07/14/23 17:23
Physical Exam
-
Vital Signs:
Vital Signs
Temp Pulse Resp BP Pulse Ox
98.4 F 83 18 159/76 94
07/26/23 07:45 07/26/23 08:00 07/26/23 08:00 07/26/23 08:01 07/26/23 01:01
Cardiovascular:: Regular rate and rhythm
Respiratory:: Bilateral: Coarse
Lung Excursion:: Normal
Abdomen:: Nontender and Soft
Bowel Sounds:: Normal
Extremity Edema:: +1: Bilateral:
Green Catheter: Yes
[2023-07-26 13:08] LABS: Glucose - Point of Care 173 mg/dl (70-99)
[2023-07-26] MEDS: NOVOLOG FLEXPEN-LOW RESISTANCE 1 UNITS SC (13:08)
[2023-07-26] MEDS: SENOKOT PO (13:09)
[2023-07-26 14:17] VITALS: BP 146/80
--- NOTE | 2023-07-26 16:25 | W.DCSUMMARY ---
Discharge Summary
Discharge Data
Date of Admission: 07/14/23
Date of Discharge: 07/26/23
-
Pending Results: No
Hospital Course
Primary care physician : Dez Mcelroy
Principal Discharge diagnosis : Toxic metabolic encephalopathy due to worsening/recrudescence of his stroke, acute urinary retention with benign prostatic hyperplasia
Chronic Discharge diagnosis : Type 2 diabetes mellitus with significant hyperglycemia, end-stage renal disease on peritoneal dialysis, hyperlipidemia, hypokalemia
Hospital Course : Patient was a 63-year-old male who presented with a change in mental status. He had been in rehab and noted to be more lethargic over the past few days prior to admission. He had decreased urine output with some urinary retention
for which a Green catheter was placed. He then had some abdominal discomfort. He denied fevers or chills. He denied chest pain or shortness of breath. He gets peritoneal dialysis daily. CAT scan done in the emergency department shows
progression of findings of stroke. He was admitted.
Problem #1: Toxic metabolic encephalopathy due to worsening/recrudescence of his stroke. Patient was admitted and seen in consultation by neurology. Infectious workup including blood and urine cultures were negative. Patient also had a spinal tap
and CSF cultures were negative as well. There were no signs of infection causing this. MRIs were done and were consistent with a subacute stroke. He was continued on aspirin and Plavix. He was continued on atorvastatin 40 mg each night. He was
seen in consultation by physical therapy and Occupational Therapy and has been accepted to [facility] for acute rehab.
Problem #2: Acute urinary retention with benign prostatic hyperplasia. Patient was seen in consultation by urology. Urinary catheter was continued and recommended to continue at discharge. Flomax was started. Once he is up and moving more with
physical therapy he can be reevaluated as an outpatient with urology for catheter removal and voiding trial.
Problem #3: All other medical issues. These include Type 2 diabetes mellitus with significant hyperglycemia, end-stage renal disease on peritoneal dialysis, acute urinary retention with benign prostatic hyperplasia, hyperlipidemia, hypokalemia.
These medical issues were stable during his hospitalization. Medications were continued as able. In regards to his peritoneal dialysis, he was seen in consultation by nephrology and peritoneal dialysis was continued. In regards to his diabetes.
Apparently had significant hyperglycemia there was no evidence of DKA or HHS. He does have an insulin pump which has been shut off. Diabetic nurse practitioners are managing his insulin. He will be discharged on his current regimen.
Patient is stable for discharge to acute rehab at this time. If there are any questions regarding this dictation or his hospital stay, please do not hesitate to call. Our office number is [phone].
Time for discharge 35 minutes.
Important imaging findings :
HEAD CT 07/14/23 IMPRESSION:
1. Findings are most consistent with progression of the posterior left parietal occipital infarct, with extension more anteriorly into the parietal lobe on the current exam compared to the previous exams. Consistent with acute on chronic CVA. No
hemorrhage. MRI would be much more sensitive in this regard.
2. Old right posterior parietal occipital infarct.
3. Moderate diffuse volume loss. Mild to moderate leukoaraiosis.
07/15/23 BRAIN MRI IMPRESSION:
Acute on subacute infarct in the left occipital lobe in the area of previous infarct, with increased edema and mass effect on the left lateral ventricle occipital horn. Areas of hemosiderin within the area of previous infarct consistent with foci of
hemorrhage.
Resolution of some of the smaller foci of restricted diffusion in the cerebellum, stable appearance of the posterior right occipital lobe infarct.
No midline shift or downward herniation.
Near complete opacification of the left maxillary sinus.
Findings discussed with Dr. Ramos at 2:35 PM. There is prominent mass effect along the left lateral ventricle occipital horn and mass effect along the corpus callosum. While this could certainly be due to edema from the recurrent and residual CVA,
a follow-up brain MRI with and without contrast is recommended after treatment to exclude the unlikely possibility of an occult neoplasm.
07/17/23 BRAIN MRI FINDINGS/IMPRESSION:
Gyral enhancement in the left occipital lobe is favored to be on the basis of evolution of the subacute left posterior cerebral artery territory infarct. No solid enhancing mass that would be considered highly suspicious for neoplasm/SPOOL SANDER lymphoma.
Large amount of vasogenic edema is redemonstrated with mass effect on the occipital horn of the left lateral ventricle, and slight rightward midline shift measuring 4 mm at the level of the septum pellucidum.
Discharge Plan
-
Patient Disposition: Acute Rehab Facility
Discharge Diagnosis/Procedures: Change in mental status due to worsening/recrudescence stroke; End-stage renal disease on peritoneal dialysis; Acute urinary retention/benign prostate hypertrophy with Green catheter in place prior to admission.
Condition: Fair
Diet: As tolerated, Low Fat, Low Cholesterol, Low Sodium and Diabetic, Carb Controlled
Activity: As tolerated
Driving Restrictions: No driving
Bathing Restrictions: None
Others Tests: MRI brain with and without contrast on approximately 08/17/23
Activity Restrictions/Additional Instructions:
KEEP green cath at d/c--follow up with urology as indicated
Nightly Cycle for peritoneal dialysis as per renal
WILL NEED sliding scale insulin protocol as per accepting facility
Referrals:
Dm Wise MD [Active] - (call to schedule appt within 2 weeks of hospital discharge)
Walter Long MD [Active] - in four to six weeks
Dez Mcelroy MD [Family Provider] - in less than 1 week
Prescriptions:
New
insulin aspart U-100 100 unit/mL (3 mL) Insulin Pen
6 unit SC AC Qty: 0 0RF
Insulin Glargine Lantus [Lantus] 25 UNITS
Subcutaneous Insulin Syringe [Syringe-Insulin] 0 UNIT
As Directed mls/hr SC DAILY@0800
Reason for use: Diabetes
Ordered By: Sylwia Cook MD
Last Taken: 07/26/23 08:57 0.25 mls
Continued
tamsulosin 0.4 mg Capsule
0.4 mg PO DAILY
diltiazem HCl 120 mg Capsule,Extended Release 12 Hr
120 mg PO DAILY
calcitriol 0.5 mcg capsule
0.5 mcg PO DAILY
cinacalcet 30 mg tablet
30 mg PO DAILY
atorvastatin 40 mg Tablet
40 mg PO HS
sennosides [senna] 8.6 mg Tablet
17.2 mg PO NOON
acetaminophen 325 mg Tablet
650 mg PO Q6H PRN (Reason: mild pain)
polyethylene glycol 3350 [Miralax] 17 gram Powder In Packet
17 g PO DAILY
bisacodyl 10 mg Suppository
10 mg WA DAILY PRN (Reason: constipation)
pantoprazole 40 mg Tablet,Delayed Release (Dr/Ec)
40 mg PO DAILY
docusate sodium 100 mg Capsule
100 mg PO BID
bacitracin zinc-polymyxin B 500-10,000 unit/gram Ointment
1 applic TOPICAL DAILY
lactulose 10 gram/15 mL Solution
20 g PO BID
sevelamer carbonate 0.8 gram Powder In Packet
0.8 g PO BIDWMEAL
aspirin [Children's Aspirin] 81 mg Tablet,Chewable
81 mg PO DAILY Qty: 30 0RF
Discontinued
insulin glargine 100 unit/mL Solution
20 unit SC HS
Humulin R Regular U-100 Insuln 100 unit/mL Solution
3 unit SC Q24H
insulin lispro 100 unit/mL Solution
1 - 6 sliding scale dose SC ACHS
insulin lispro 100 unit/mL Solution
6 unit SC AC
heparin (porcine) 5,000 unit/mL Solution
5,000 unit SC Q8H
Discharge Orders:
Discharge Patient (As Directed); Ordered 07/26/23
Ordered By: Sylwia Cook
Discharge Date and Time
Discharge Date/Time: 07/26/23 14:46
Print Language: NEPALI
== END 2023-07-26 14:46 | DRG 64 ==
LOC: IMU 23:14
PROVIDERS: Internal Medicine; Radiology Diagnostic Radiology; Specialist; ADMITTING PHYSICIAN Hospitalist; ATTENDING PHYSICIAN Internal Medicine; CONSULT PHYSICIAN Internal Medicine; CONSULT PHYSICIAN Physical Medicine & Rehabilitation; CONSULT PHYSICIAN Psychiatry & Neurology Neurology; CONSULT PHYSICIAN Specialist; EMERGENCY PHYSICIAN Emergency Medicine; FAMILY PHYSICIAN Family Medicine
PROC: 009U3ZX Drainage of Spinal Canal, Percutaneous Approach, Diagnostic (ICD-10-PCS; 2023-07-17)
PROC: 3E1M39Z Irrigation of Peritoneal Cavity using Dialysate, Percutaneous Approach (ICD-10-PCS; 2023-07-20)
DX: I63.89 Other cerebral infarction (principal); G92.8 Other toxic encephalopathy; N18.6 End stage renal disease; G93.6 Cerebral edema; I12.0 Hypertensive chronic kidney disease with stage 5 chronic kidney disease or end stage renal disease; I69.351 Hemiplegia and hemiparesis following cerebral infarction affecting right dominant side; N25.81 Secondary hyperparathyroidism of renal origin; N40.1 Benign prostatic hyperplasia with lower urinary tract symptoms; R33.8 Other retention of urine; D63.1 Anemia in chronic kidney disease; E87.5 Hyperkalemia; E87.6 Hypokalemia; E10.40 Type 1 diabetes mellitus with diabetic neuropathy, unspecified; E10.22 Type 1 diabetes mellitus with diabetic chronic kidney disease; Z99.2 Dependence on renal dialysis; Z79.4 Long term (current) use of insulin; Z79.82 Long term (current) use of aspirin; Z79.02 Long term (current) use of antithrombotics/antiplatelets
CPT/HCPCS: 62328; 70450; 70551; 70552; 80048; 80053; 80061; 81003; 81015; 82040; 82042; 82784; 82945; 82947; 82962; 83735; 83916; 84157; 84484; 85025; 85027; 85610; 86255; 86592; 87015; 87040; 87070; 87086; 87102; 87116; 87205; 87483; 88108; 89051; 92507; 92523; 92610; 93005; 94762; 95812; 97112; 97163; 97167; 97530; 97535; 99285